=== PATIENT | male | born 1990 | race Caucasian/White ===

== ENCOUNTER 2024-03-29 17:18 | Inpatient (IN) | payer BC, SELFPAY ==
--- NOTE | ~2024-03-29 | US_ITS ---
CLINICAL HISTORY: abnormal LFTs - liver only Limited abdominal ultrasound Comparison: None Findings: The liver is normal in size, measuring 15.8 cm in length. Normal echogenicity without focal lesions. Normal hepatopetal flow is seen within the portal vein. The common bile duct is normal in diameter, measuring 0.4 cm. No cholelithiasis. No wall thickening or pericholecystic fluid. Negative sonographic Rosado sign. The right kidney is normal in echogenicity and size, measuring 10.7 cm in length. Unremarkable limited evaluation of the pancreas. Impression: Negative for acute cholecystitis. The liver is normal in size and echogenicity. This document has been electronically signed by: Rosaline Carlisle MD on 03/31/2024 18:02:04
[2024-03-29 17:27] VITALS: BP 143/73; TEMP 36.6; O2SAT 97; BMI 27.1
--- NOTE | 2024-03-29 17:47 | ED.AMS ---
HPI - Altered Mental Status General Chief Complaint: General Medical Stated Complaint: ?ALTERED/NON VERBAL,COOP,UNK PSYCH/SUBS USE Time Seen by Provider: 03/29/24 17:28 Source: EMS Mode of arrival: EMS History of Present Illness ED Provider: HPI narrative: Patient under influence of some substance was found in the bushes naked not communicating details not available Related Data Allergies Allergy/AdvReac Type Severity Reaction Status Date / Time No Known Allergies Allergy Verified 03/29/24 17:45 Review of Systems Review of Systems: Yes Unobtainable due to mental status PMFSH Social History Social History Do you have a plan to hurt others: No Plan Physical Exam ED Vital Signs: Vital Signs - 24 hr 03/29/24 17:27 03/29/24 18:10 03/29/24 18:16 Temperature 97.9 F 98.1 F Pulse Rate 94 94 Respiratory Rate 13 14 Blood Pressure 143/73 H 151/65 H 151/65 H Pulse Oximetry 97 94 93 Oxygen Delivery Method Room Air Room Air Room Air 03/29/24 19:00 03/29/24 19:54 03/29/24 22:20 Temperature Pulse Rate 83 75 81 Respiratory Rate 11 L 12 11 L Blood Pressure 120/67 132/66 128/72 Pulse Oximetry 96 97 96 Oxygen Delivery Method Room Air Room Air Room Air BMI result Body Mass Index 27.1 Appearance: Alert. Agitated? Hallucinating Eyes: PERRLA, No Nystagmus ENT: Pharynx normal. Oral Mucosa moist Neck: Normal inspection. Neck supple. CVS: Normal heart rate and rhythm. Pulses normal. Respiratory: No respiratory distress. Equal air entry bilateral, no wheezing/rales/rhonchi Abdomen: Soft and nontender. Bowel sounds are present, no mass palpable, no CVA tenderness Skin: Skin warm and dry. Normal skin color. Normal skin turgor. Extremities: No lower extremity edema. No calf tenderness Neuro: Alert moving all 4 extremities. Ambulates but agitated Medications Administered Discontinued Medications Generic Name Dose Route Start Last Admin Trade Name Freq PRN Reason Stop Dose Admin Diphenhydramine HCl 50 mg 03/29/24 17:30 03/29/24 17:48 Diphenhydramine Hcl 50 Mg/Ml Vial IM 03/29/24 17:31 50 mg ONCE ONE Administration Haloperidol Lactate 5 mg 03/29/24 17:30 03/29/24 17:48 Haloperidol Lactate 5 Mg/Ml Vial IM 03/29/24 17:31 5 mg STAT STA Administration Haloperidol Lactate 5 mg 03/29/24 17:38 03/29/24 17:48 Haloperidol Lactate 5 Mg/Ml Vial IM 03/29/24 17:39 5 mg STAT STA Administration Ketamine HCl 200 mg 03/29/24 17:40 03/29/24 17:49 Ketamine Hcl 500 Mg/5 Ml Vial IM 03/29/24 17:41 200 mg ONCE ONE Administration Lorazepam 2 mg 03/29/24 17:30 03/29/24 17:48 Lorazepam 2 Mg/Ml Vial IM 03/29/24 17:31 2 mg STAT STA Administration Lorazepam 2 mg 03/29/24 17:38 03/29/24 17:49 Lorazepam 2 Mg/Ml Vial IM 03/29/24 17:39 2 mg STAT STA Administration Medical Decision Making Medical Decision Making MDM Narrative: Patient is likely under influence of substance abuse likely PCP initially came very agitated restrained was applied medications were given which were removed and now patient feeling much better ambulatory in the ER refused to give his name and details refused to give his urine sample to find out about the drug screening other labs are stable will keep it in the ER released gets better or communicate and get care team evaluate patient is medically cleared to go to POD section Lab Data MDM Lab Attestation statement: I reviewed the patient's lab results. 03/29/24 19:12 03/29/24 19:12 Labs: Lab Results 03/29/24 03/29/24 03/29/24 Range/Units 18:07 19:12 19:13 WBC 12.8 H (4.8-10.8) X10*3/uL RBC 5.11 (4.60-5.80) X10*6/uL Hgb 15.4 (14.0-18.0) g/dl Hct 44.3 (42.0-52.0) % MCV 86.7 (80.0-98.0) fL MCH 30.1 (27.0-33.0) pg MCHC 34.8 (31.0-36.0) g/dl RDW 11.5 (11.0-16.0) % Plt Count 235 (160-400) X10*3/uL MPV 9.2 L (9.4-12.4) fL Immature Gran % (Auto) 0.2 (0.0-0.4) % Neut % (Auto) 87.7 H (45-73) % Lymph % (Auto) 3.1 L (20-40) % [place] % (Auto) 8.8 (2-11) % Eos % (Auto) 0.0 (0-4) % Baso % (Auto) 0.2 (0-2) % Lymph # (Auto) 0.4 L (1.2-4.9) X10*3/uL [place] # (Auto) 1.1 (0.1-1.2) X10*3/uL Eos # (Auto) 0.0 (0.0-0.4) X10*3/uL Baso # (Auto) 0.0 (0.0-0.2) X10*3/uL Abs Immat Gran (auto) 0.03 (0.00-0.03) X10*3/uL Absolute Neuts (auto) 11.2 H (2.0-8.3) x10*3/uL Absolute Nucleated RBC 0.000 (0.0-0.012) X10*3/uL Nucleated RBC % (auto) 0.0 (0.0-0.2) /100WBC Sodium 137 (135-145) mmol/L Potassium 4.3 (3.3-5.1) mmol/L Chloride 103 (96-108) mmol/L Carbon Dioxide 24 (22-29) mmol/L Anion Gap 14 (12-20) BUN 11 (9-16) mg/dL Creatinine 0.90 (0.5-1.4) mg/dL Estim Creat Clear Calc 131.7 Estimated GFR > 60 POC Glucose 153 H (60-115) mg/dL Random Glucose 140 H (60-115) mg/dL Calcium 9.5 (8.4-10.2) mg/dL Magnesium 2.0 (1.6-2.6) mg/dL Total Bilirubin 0.8 (0.0-1.0) mg/dL AST 113 H (5-37) U/L ALT 134 H (0-40) U/L Alkaline Phosphatase 56 (39-117) U/L Total Protein 7.7 (6.5-8.0) g/dL Albumin 4.5 (3.5-5.0) g/dL Salicylates < 5.0 L (15-30) mg/dL Acetaminophen 11 (<30) mcg/mL Ethyl Alcohol < 10 mg/dL Discharge Plan Discharge Clinical Impression: Substance abuse Patient Disposition: Still a Patient
[2024-03-29] MEDS: LORazepam 2 MG/ML VIAL IM ×2 (17:48→17:49)
[2024-03-29] MEDS: diphenhydrAMINE HCL 50 MG/ML VIAL IM (17:48)
[2024-03-29] MEDS: Haloperidol Lactate 5 MG/ML VIAL IM ×2 (17:48)
[2024-03-29] MEDS: Ketamine HCl 500 MG/5 ML VIAL 200 MG IM (17:49)
[2024-03-29 18:10] VITALS: BP 151/65; PULSE 94; RESP 13; TEMP 36.7; O2SAT 94
--- NOTE | 2024-03-29 18:10 | PC.NURSE ---
Pt elmo, was found outside in a currie in his underwear, PD on scene with EMS. Pt calm/cooperative upon arrival, not responding to questions/painful stimuli. 1720- Pt attempting to jump out of bed/become aggressive with staff members. Security at bedside along with other staff members. Pt continues to attempt to flee/violent with staff. 1730- Pt placed in 4 point restraints. Violent/combative with staff while attempting to place in restraints. Verbal order per MD Bains for B52 IM. Pt continues to be violent/combative with staff, attempting to grab/swing at staff members.
[2024-03-29 18:12] LABS: Glucose, Whole Blood 153 mg/dL (60-115)
[2024-03-29 18:16] VITALS: BP 151/65; PULSE 94; RESP 14; O2SAT 93
[2024-03-29 19:00] VITALS: BP 120/67; PULSE 83; RESP 11; O2SAT 96
--- NOTE | 2024-03-29 19:00 | PC.NURSE ---
Assumed care of pt at 1900. PT calm and cooperative, sleeping. PT able to be released from restraints, but security is dealing with another pt at this time. Will try for labs and ekg with block saw operatorGarret Lindsey
--- NOTE | 2024-03-29 19:02 | ECG_ITS ---
Test Reason : DRUG USE,MED CLEAR Blood Pressure : / mmHG Vent. Rate : 083 BPM Atrial Rate : 083 BPM P-R Int : 120 ms QRS Dur : 104 ms QT Int : 392 ms P-R-T Axes : 069 048 037 degrees QTc Int : 460 ms Normal sinus rhythm with sinus arrhythmia Ventricular pre-excitation, WPW pattern type B Abnormal ECG No previous ECGs available Referred By: Félix Hayward Electronically Signed By:MYRNA DUMAS MD
--- NOTE | 2024-03-29 19:12 | PC.NURSE ---
Ekg and labs obtained. Sent down to pharmacy
[2024-03-29 19:18] LABS: MANUAL DIFF FLAG NO
[2024-03-29 19:19] LABS: Basophils Percent Auto 0.2 % (0-2); Hematocrit 44.3 % (42.0-52.0); Hemoglobin 15.4 g/dl (14.0-18.0); Imm Gran Abs Auto 0.03 X10*3/uL (0.00-0.03); Imm Gran Pct Auto 0.2 % (0.0-0.4); Lymphocytes Absolute Auto 0.4 X10*3/uL (1.2-4.9); Lymphocytes Percent Auto 3.1 % (20-40); Mean Corpuscular HGB Conc 34.8 g/dl (31.0-36.0); Mean Corpuscular Hemoglobin 30.1 pg (27.0-33.0); Mean Corpuscular Volume 86.7 fL (80.0-98.0); Mean Platelet Volume 9.2 fL (9.4-12.4); Monocytes Absolute Auto 1.1 X10*3/uL (0.1-1.2); Monocytes Percent Auto 8.8 % (2-11); Neutrophils Absolute Auto 11.2 x10*3/uL (2.0-8.3); Neutrophils Percent Auto 87.7 % (45-73); Platelet Count 235 X10*3/uL (160-400); Red Blood Count 5.11 X10*6/uL (4.60-5.80); Red Cell Distribution Width 11.5 % (11.0-16.0); White Blood Count 12.8 X10*3/uL (4.8-10.8)
--- NOTE | 2024-03-29 19:20 | PC.NURSE ---
pt released from restraints
[2024-03-29 19:33] LABS: Ethanol < 10 mg/dL
[2024-03-29 19:36] LABS: Alanine Aminotransferase 134 U/L (0-40); Albumin Level 4.5 g/dL (3.5-5.0); Alkaline Phosphatase 56 U/L (39-117); Anion Gap 14 (12-20); Aspartate Amino Transferase 113 U/L (5-37); Bilirubin Total 0.8 mg/dL (0.0-1.0); Blood Urea Nitrogen 11 mg/dL (9-16); Calcium 9.5 mg/dL (8.4-10.2); Carbon Dioxide 24 mmol/L (22-29); Chloride 103 mmol/L (96-108); Creatinine Clr Calc Pharmacy 131.7; Estimated Glomerular Filt Rate > 60; Glucose Random 140 mg/dL (60-115); Potassium 4.3 mmol/L (3.3-5.1); Sodium 137 mmol/L (135-145); Total Protein 7.7 g/dL (6.5-8.0)
[2024-03-29 19:40] LABS: Acetaminophen LAB 11 mcg/mL (<30); Salicylate < 5.0 mg/dL (15-30)
[2024-03-29 19:54] VITALS: BP 132/66; PULSE 75; RESP 12; O2SAT 97
[2024-03-29 22:20] VITALS: BP 128/72; PULSE 81; RESP 11; O2SAT 96
--- NOTE | 2024-03-30 01:24 | MHC.EDTECH ---
Patient belongings in [facility] closet top shelf
[2024-03-30 01:35] VITALS: BP 112/79; PULSE 113; RESP 16; TEMP 36.4; O2SAT 98
[2024-03-30 03:22] VITALS: BP 124/63; PULSE 88; RESP 16; TEMP 36.5; O2SAT 96
--- NOTE | 2024-03-30 03:53 | PC.NURSE ---
Addendum entered by Opal Kemp 03/30/24 04:07: Pt continues to denie SI/HI. Endorses auditory hallucinations- states he has been hearing conflicting voices in his head and he feels that something has been implanted in his head this has been going on since January. He denies any current mental health services or providers at this time and has noo formal mental health diagnoses. Family hx of schizophrenia- dad. Addendum entered by Opal Kemp 03/30/24 03:57: PT denies SI/HI Original Note: PT now arousable. Able to answer questions- states that he did not take any medications prior to being found outside. States he had a mental break and all he had was water and sleep . Registration at bed side.
--- NOTE | 2024-03-30 04:00 | PC.NURSE ---
PT's roommate Kei Walker [phone]
[2024-03-30 04:10] LABS: Appearance Urine Clear; Color Urine Dark Yellow; Glucose Urine UA Negative (Negative); Leukocyte Esterase Urine Negative (Negative); Nitrite Urine Negative (Negative); PH 5.5 (5.0-9.0); Specific Gravity - Urine 1.025 (1.005-1.025); Urine Blood Negative (Negative); Urine Ketones 80 mg/dL (Negative); Urine Protein Trace mg/dL (Neg-Trace)
--- NOTE | 2024-03-30 04:12 | PC.NURSE ---
PT agreeable to speaking with care team.
[2024-03-30 04:22] LABS: Amphetamine Screen Urine Not Detected (Not Detect); Barbiturates, Urine Not Detected (Not Detect); Benzodiazepines Screen Urine Not Detected (Not Detect); Buprenorphine Scr Not Detected (Not Detect); Cannabinoid Screen Urine Not Detected (Not Detect); Cocaine Screen Urine Not Detected (Not Detect); Fentanyl, urine Not Detected (Not Detect); Methadone Screen, Urine Not Detected (Not Detect); Opiate Screen Urine Not Detected (Not Detect); Oxycodone Screen Urine Not Detected (Not Detect); Phencyclidine Screen Urine Not Detected (Not Detect)
--- NOTE | 2024-03-30 05:17 | PC.NURSE ---
this rn assumed care of pt at this time from main ed pt ambulatory pt redirected to bed 1 assignment
--- NOTE | 2024-03-30 07:08 | PC.NURSE ---
Assumed care of patient at 0645, patient appears to be sleeping, respirations even and unlabored, no apparent distress noted. Continue plan of care for CARE team miriam
[2024-03-30 15:45] VITALS: BP 129/71; PULSE 68; RESP 16; TEMP 36.9; O2SAT 98
--- NOTE | 2024-03-30 16:26 | PHA.MEDREC ---
Addendum entered by Vanessa Davis RPh 03/30/24 16:36: reviewed by [facility]. Original Note: Pharmacy Consult ? Medication Reconciliation Pharmacy has completed the medication reconciliation. Reviewed med rec done by nursing.
[2024-03-30 20:28] VITALS: BP 133/74; PULSE 98; RESP 18; TEMP 37.7; O2SAT 98
--- NOTE | 2024-03-31 05:38 | PC.NURSE ---
Assumed care of pt at 2300. Patient has been sleeping since assuming care and is still sleeping at the time of this note. Respirations have remained even and unlabored throughout the night. No signs of distress or discomfort noted. 15 minute checks conducted and remain in place. Continuing current plan of care for bed search
[2024-03-31 06:13] VITALS: BP 138/68; PULSE 99; RESP 18; TEMP 37.2; O2SAT 98
--- NOTE | 2024-03-31 07:06 | PC.NURSE ---
Assumed care of patient at 0700, patient currently resting at this time. Continue with plan for inpatient bed search.
--- NOTE | 2024-03-31 12:17 | PC.NURSE ---
pt requesting medication for constipation, states his last BM was sunday, provider was notified.
--- NOTE | 2024-03-31 14:08 | PC.NURSE ---
Patient OOB ambulating to bathroom and phone with steady gait. Calm and cooperative, currently sleeping at this time.
[2024-03-31 15:50] LABS: Albumin Level 4.3 g/dL (3.5-5.0); Alkaline Phosphatase 65 U/L (39-117); Anion Gap 11 (12-20); Aspartate Amino Transferase 1125 U/L (5-37); Bilirubin Direct 0.3 mg/dL (0.0-0.5); Bilirubin Total 0.6 mg/dL (0.0-1.0); Blood Urea Nitrogen 13 mg/dL (9-16); Calcium 9.4 mg/dL (8.4-10.2); Carbon Dioxide 30 mmol/L (22-29); Chloride 101 mmol/L (96-108); Creatinine Clr Calc Pharmacy 115.2; Estimated Glomerular Filt Rate > 60; Glucose Random 101 mg/dL (60-115); Potassium 3.8 mmol/L (3.3-5.1); Sodium 138 mmol/L (135-145); Total Protein 8.1 g/dL (6.5-8.0)
[2024-03-31 16:21] LABS: Alanine Aminotransferase 2749 U/L (0-40)
[2024-03-31 17:02] VITALS: BP 146/83; PULSE 91; RESP 18; TEMP 37.3; O2SAT 100
--- NOTE | 2024-03-31 17:04 | PM.IMHP ---
History of Present Illness Date of Service: 03/31/24 Chief Complaint: Tylenol toxicity, elevated lfts A 33-year-old male was brought to the ED on 03/29 by the police department after being found in his underwear only. Initial Utox showed a Tylenol level of 11 and a negative toxicology screen. AST was 113, ALT 134, and CPK was 1372. He was in the behavioral health unit awaiting admission. The patient now reports having taken 10 or 15 Tylenol tablets, although his motive is unclear. Poison control has recommended initiating N-Acetylcysteine (NAC) therapy for 21 hours. Review of Systems Review of Systems: Gen: no fever Resp: no sob, no cough CV: no chest, no HANDLEY, no leg edema GI: No n/v, no abd pain Neuro: No confusion Psych: depressed, didn't verbalize SI or HI Yes all other systems are reviewed and are negative [facility] Social History Household Members: Friend(s) Housing: Apartment Patient Tobacco Use Status: Never used Tobacco Use of substances other than those prescribed or required for medical reasons: No Have you been hit, kicked, punched, or otherwise hurt by someone within the past year? If so, by whom?: No Do you feel safe in your current relationship?: No Current Relationship Is there a partner from a previous relationship who is making you feel unsafe now?: No Are you made to feel afraid or neglected: No Advance Directives: No Advance Directives Information Provided: Yes Do you have a plan to hurt others: No Plan Recently lost weight without trying: No Eating poorly because of decreased appetite: No Nutrition Risks: No Nutritional Risk Meds Allergies Allergy/AdvReac Type Severity Reaction Status Date / Time No Known Allergies Allergy Verified 03/29/24 17:45 Active Medications: Current Medications Sodium Chloride (Ns) 1,000 mls @ 999 mls/hr IV .Q1H1M ONE Stop: 03/31/24 17:23 Acetylcysteine 13,600 mg/ (Dextrose) 268 mls @ 199.959 mls/hr IV ONCE ONE Stop: 03/31/24 18:01 Acetylcysteine 4,535.9 mg/ (Dextrose) 522.6795 mls @ 125 mls/hr IV ONCE ONE Stop: 03/31/24 20:51 Acetylcysteine 9,071.8 mg/ (Dextrose) 1,045.359 mls @ 62.5 mls/hr IV ONCE ONE Stop: 04/01/24 09:24 Home Medications ?Medication ?Instructions ?Recorded ?Confirmed ?Last Taken ?Type No Known Home Meds 03/30/24 03/30/24 Unknown History Physical Exam Vital Signs and Narrative: Vital Signs: Last Vital Signs Temp 99.2 F 03/31/24 17:02 Pulse 91 03/31/24 17:02 Resp 18 03/31/24 17:02 BP 146/83 H 03/31/24 17:02 Pulse Ox 100 03/31/24 17:02 O2 Del Method Room Air 03/31/24 17:02 BMI result Body Mass Index 27.1 Const: Other: General: AO X 3, no acute distress Resp: CTA bilateral CVS: S1,S2,RRR GI: +BS, NT, no distention Skin: No rash Neuro: motor grossly intact Psych: appropriate affect Results Labs 03/29/24 19:12 04/01/24 05:00 Labs: Laboratory Results - last 24 hr 03/31/24 15:20 Anion Gap 11 L Estim Creat Clear Calc 115.2 Estimated GFR > 60 Random Glucose 101 Calcium 9.4 Total Bilirubin 0.6 Direct Bilirubin 0.3 AST 1125 H ALT 2749 H Alkaline Phosphatase 65 Total Creatine Kinase 1372 H Total Protein 8.1 H Albumin 4.3 Assessment and Plan (1) Abnormal LFTs: Status: Acute (2) Tylenol overdose: Status: Acute Plan 33/m found wondering in the [place] with initial+tyelnol level and mild elevation in LFTs and now LFTs much higher.. Suspect Tylenol overdose with elevated LFTS -continue NAC proptol for 21 hours -rehcekc Tylenol level -check INR -IVF -check hepatitis profile Mild elevated CPK, early rhabdo -IVF and repeat CPK in the morning ?Psychosis--inpatient Psych when medically cleared low risk for dvt, early ambulation full code admission for tylenol od, elevated lfts and on NAC Quality Stroke Does the patient have a stroke diagnosis?: No VTE Prior VTE?: No VTE Risk Level:: Medical - low VTE Device Contraindication: Treatment Not Indicated VTE Drug Contraindication: Treatment Not Indicated
[2024-03-31 17:10] LABS: VBG Base Excess 6.7 mmol/L; VBG HCO3 31 mmol/L (22-26); VBG pCO2 45 mmHg; VBG pH 7.45 (7.32-7.43); VBG pO2 60 mmHg
[2024-03-31 17:11] LABS: Venous Blood Gas Refer to POC result
[2024-03-31 17:15] LABS: INTERNATIONAL NORM RATIO 1.1 (0.9-1.1); Prothrombin Time 12.3 SEC (10.9-12.4)
[2024-03-31] MEDS: 0.9 % Sodium Chloride 1,000 ML 999 ML IV (17:16)
[2024-03-31 17:27] LABS: Acetaminophen LAB < 3 mcg/mL (<30); Salicylate < 5.0 mg/dL (15-30)
[2024-03-31] MEDS: ACETYLCYSTEINE IV ×3 (17:32→23:31)
[2024-03-31] MEDS: DEXTROSE 5% IV ×3 (17:32→23:31)
[2024-03-31 18:39] VITALS: BP 153/88; PULSE 108; RESP 22; O2SAT 99
--- NOTE | 2024-03-31 19:30 | PC.NURSE ---
assumed care of patient at this time, pt resting comfortably with no apparent distress noted, constant assisted living associate watch
[2024-03-31 19:32] VITALS: BP 155/90; PULSE 103; RESP 15; O2SAT 98
[2024-03-31] MEDS: Lactated Ringers 1,000 ML 150 ML IVCONT (19:33)
--- NOTE | 2024-03-31 21:10 | PC.NURSE ---
patient awake and began thrashing aroung pulling IV lines out this Rn and tech attempted to hold patients arms to keep IVs in place, security was alerted and DR at bedside. chemical restraints ordered.
[2024-03-31] MEDS: OLANZapine 10 MG VIAL IM (21:23)
[2024-03-31] MEDS: Midazolam HCl/PF 2 MG/2 ML VIAL 5 MG IM (21:23)
[2024-03-31 21:26] VITALS: BP 143/81; PULSE 110; RESP 13; O2SAT 95
[2024-03-31 23:29] VITALS: BP 161/53; PULSE 87; RESP 16; TEMP 36.3; O2SAT 97
[2024-04-01] VITALS (8 sets, daily range): BP systolic 119–158; BP diastolic 66–80; PULSE 60–90; RESP 13–18; TEMP 36.5–37.4; O2SAT 96–100
[2024-04-01] MEDS: Lactated Ringers 1,000 ML 150 ML IVCONT ×4 (01:03→22:07)
[2024-04-01 03:58] LABS: HBS Num1 43.88 mIU/mL (0-7.99); HBc Num1 0.23 S/CO (0.00-0.79); Hepatitis A Antibody IgM 0.23 Index (0-0.79); Hepatitis B Core Antibody Nonreactive (Nonreactive); Hepatitis B Surface Antigen Negative (Negative); ~HepC Num1 0.14 S/CO (0.00-0.79); ~Hepatitis A Antibody IgM Nonreactive (Nonreactive); ~Hepatitis B Surface Antibody REACTIVE (Nonreactive); ~Hepatitis C Antibody Nonreactive (Nonreactive)
[2024-04-01 05:47] LABS: Albumin Level 3.4 g/dL (3.5-5.0); Alkaline Phosphatase 42 U/L (39-117); Anion Gap 9 (12-20); Aspartate Amino Transferase 437 U/L (5-37); Bilirubin Direct 0.2 mg/dL (0.0-0.5); Bilirubin Total 0.6 mg/dL (0.0-1.0); Blood Urea Nitrogen 6 mg/dL (9-16); Calcium 8.4 mg/dL (8.4-10.2); Carbon Dioxide 26 mmol/L (22-29); Chloride 109 mmol/L (96-108); Creatinine Clr Calc Pharmacy 161.6; Estimated Glomerular Filt Rate > 60; Glucose Random 109 mg/dL (60-115); Potassium 3.4 mmol/L (3.3-5.1); Sodium 141 mmol/L (135-145); Total Protein 6.1 g/dL (6.5-8.0)
[2024-04-01 06:07] LABS: Alanine Aminotransferase 1676 U/L (0-40)
[2024-04-01] MEDS: 0.9 % Sodium Chloride Flush 3 ML SYRINGE IVFLUSH ×3 (08:59→22:09)
--- NOTE | 2024-04-01 09:42 | MHC.CM.PN ---
cm attempted to meet w/pt however pt in br performing adl's, cm to revisit.
--- NOTE | 2024-04-01 11:14 | P.PNIM_ITS ---
Subjective Subjective Date of Service: 04/01/24 Interval History: Tylenol toxicity, elevated LFTs, He is cooperative, denies suicidal ideation LFTs trending down Physical Exam 2 Vital Signs: Vital Signs: Last Vital Signs Temp 97.9 F 04/01/24 07:55 Pulse 75 04/01/24 07:55 Resp 16 04/01/24 07:55 BP 130/70 04/01/24 07:55 Pulse Ox 99 04/01/24 07:55 O2 Del Method Room Air 04/01/24 07:55 BMI result Body Mass Index 27.1 General: AO X 3, no acute distress Resp: CTA bilateral CVS: S1,S2,RRR GI: +BS, NT, no distention Skin: No rash Neuro: motor grossly intact Psych: appropriate affect Objective Data Active Medications Calcium Carbonate (Calcium Carbonate 750 Mg Tab.Chew) 750 mg PO Q4H PRN PRN Reason: Heartburn Acetylcysteine 9,071.8 mg/ (Dextrose) 1,045.359 mls @ 65.335 mls/hr IV ONCE ONE Stop: 04/01/24 14:59 Last Admin: 03/31/24 23:31 Dose: 65.34 mls/hr Documented By: GABINO Lactated Ringer's (Lr) 1,000 mls @ 150 mls/hr IVCONT .Q6H40M [facility] Last Admin: 04/01/24 08:59 Dose: 150 mls/hr Documented By: FLAKITA Magnesium Hydroxide (Milk Of Magnesia 30 Ml Oral.Susp) 30 ml PO DAILY PRN PRN Reason: Constipation Melatonin (Melatonin 3 Mg Tablet) 6 mg PO BEDTIME PRN PRN Reason: Insomnia Ondansetron HCl (Ondansetron Hcl 4 Mg/2 Ml Vial) 4 mg IVPUSH Q8H PRN PRN Reason: Nausea and Vomiting Sodium Chloride (0.9 % Sodium Chloride Flush 3 Ml Syringe) [facility] Last Admin: 04/01/24 08:59 Dose: 3 ml Documented By: FLAKITA Labs 03/29/24 19:12 04/01/24 05:00 Labs: Laboratory Results - last 24 hr 03/31/24 03/31/24 03/31/24 15:20 17:02 17:05 PT 12.3 INR 1.1 VBG pH 7.45 H VBG pCO2 45 VBG pO2 60 VBG HCO3 31 H VBG O2 Saturation 88.0 VBG Base Excess 6.7 Anion Gap 11 L Estim Creat Clear Calc 115.2 Estimated GFR > 60 Random Glucose 101 Calcium 9.4 Total Bilirubin 0.6 Direct Bilirubin 0.3 AST 1125 H ALT 2749 H Alkaline Phosphatase 65 Total Creatine Kinase 1372 H Total Protein 8.1 H Albumin 4.3 Salicylates < 5.0 L Acetaminophen < 3 Hepatitis A IgM Ab Nonreactive Hep Bs Antigen Negative Hep Bs Antibody REACTIVE Hep B Core Total Ab Nonreactive Hepatitis C Ab (EIA) Nonreactive 04/01/24 05:00 PT INR VBG pH VBG pCO2 VBG pO2 VBG HCO3 VBG O2 Saturation VBG Base Excess Anion Gap 9 L Estim Creat Clear Calc 161.6 Estimated GFR > 60 Random Glucose 109 Calcium 8.4 D Total Bilirubin 0.6 Direct Bilirubin 0.2 AST 437 H ALT 1676 H Alkaline Phosphatase 42 Total Creatine Kinase 1193 H Total Protein 6.1 L Albumin 3.4 L Salicylates Acetaminophen Hepatitis A IgM Ab Hep Bs Antigen Hep Bs Antibody Hep B Core Total Ab Hepatitis C Ab (EIA) Assessment and Plan (1) Tylenol overdose: Status: Acute (2) Abnormal LFTs: Status: Acute Plan 33/m found wondering in the [place] with initial+tyelnol level and mild elevation in LFTs and now LFTs much higher.. Suspect Tylenol overdose with elevated LFTS -continue NAC protpcol for 21 hours -repeatTylenol level was normal -INR normal -IVF -Hepatitis screen is negative Elevated LFTs d/t above -trending down -follow LFTS and if worsening gi consult Mild elevated CPK, early rhabdo, CK trending down -IVF and repeat CPK in the morning ?Psychosis/Depression/ OD--inpatient Psych when medically cleared low risk for dvt, early ambulation full code need for inptient: tylenol od, elevated lfts and on NAC Quality Stroke Does the patient have a stroke diagnosis?: No VTE Prior VTE?: No VTE Risk Level:: Medical - low VTE Device Contraindication: Treatment Not Indicated VTE Drug Contraindication: Treatment Not Indicated
--- NOTE | 2024-04-01 14:04 | MHC.CM.PN ---
EMR REVIEWED, PT W/INTENTIONAL TYLENOL OD, CM MET W/PT WHO REPORTS HE LIVES W/A ROOMMATE, IS FULLY INDEP W/CARE, NO DME/SERVICES, PT AWARE HE WILL BE SEEN BY [facility] ONCE MEDICALLY CLEARED AND MAY NEED PSYCH IPLOC STAY, PT NOT OPPOSED. PT DENIES HAVING A PCP, PT HAS BLUE CROSS AND CM OFFERED TO MAKE PT A NEW PT PCP APPT HOWEVER PT DECLINED AND WAS AGREEABLE TO [facility] W/PROVIDERS, PT REPORTS HE WILL CALL [facility] HOWEVER IS AWARE HE COULD LIKELY GET IN SOONER AT [facility]. PT EDUCATED AND DECLINED TO COMPLETE A HCP.
[2024-04-01 17:56] LABS: Prothrombin Time 11.3 SEC (10.9-12.4)
[2024-04-01 18:23] LABS: Albumin Level 3.9 g/dL (3.5-5.0); Alkaline Phosphatase 52 U/L (39-117); Aspartate Amino Transferase 305 U/L (5-37); Bilirubin Direct 0.1 mg/dL (0.0-0.5); Bilirubin Total 0.4 mg/dL (0.0-1.0); Total Protein 7.1 g/dL (6.5-8.0)
[2024-04-01 18:35] LABS: Alanine Aminotransferase 1505 U/L (0-40)
--- NOTE | 2024-04-01 18:45 | PC.NURSE ---
Poison control calling for LFT levels, that should of been drawn 2 hours prior to Acetylcysteine finishing. MD notified at 1400 and no new orders placed. Notified MD at 1642 due to poison control calling again, LFT orders then placed. Waiting on levels to be resulted to be able to notify poison control.
[2024-04-01] MEDS: DEXTROSE 5% IV (19:53)
[2024-04-01] MEDS: ACETYLCYSTEINE IV (19:53)
[2024-04-02 03:17] VITALS: BP 133/65; PULSE 65; RESP 18; TEMP 37; O2SAT 100
[2024-04-02] MEDS: Lactated Ringers 1,000 ML 150 ML IVCONT ×3 (04:46→20:49)
[2024-04-02 07:52] LABS: Alanine Aminotransferase 1186 U/L (0-40); Albumin Level 3.7 g/dL (3.5-5.0); Alkaline Phosphatase 44 U/L (39-117); Aspartate Amino Transferase 193 U/L (5-37); Bilirubin Direct 0.2 mg/dL (0.0-0.5); Bilirubin Total 0.7 mg/dL (0.0-1.0); Total Protein 6.6 g/dL (6.5-8.0)
[2024-04-02 08:00] VITALS: BP 158/78; PULSE 87; RESP 18; TEMP 36.9; O2SAT 100
--- NOTE | 2024-04-02 11:02 | P.PNIM_ITS ---
Subjective Subjective Date of Service: 04/02/24 Interval History: Tylenol toxicity, elevated LFTs, He is cooperative, denies suicidal ideation LFTs trending down, still on NAC per poison control for 16 hrs, ending noon today Physical Exam 2 Vital Signs: Vital Signs: Last Vital Signs Temp 98.5 F 04/02/24 08:00 Pulse 87 04/02/24 08:00 Resp 18 04/02/24 08:00 BP 158/78 H 04/02/24 08:00 Pulse Ox 100 04/02/24 08:00 O2 Del Method Room Air 04/02/24 08:00 BMI result Body Mass Index 27.1 General: AO X 3, no acute distress Resp: CTA bilateral CVS: S1,S2,RRR GI: +BS, NT, no distention Skin: No rash Neuro: motor grossly intact Psych: appropriate affect Objective Data Active Medications Calcium Carbonate (Calcium Carbonate 750 Mg Tab.Chew) 750 mg PO Q4H PRN PRN Reason: Heartburn Lactated Ringer's (Lr) 1,000 mls @ 150 mls/hr IVCONT .Q6H40M [facility] Last Admin: 04/02/24 04:46 Dose: 150 mls/hr Documented By: BIANCA Acetylcysteine 9,071.8 mg/ (Dextrose) 1,045.359 mls @ 65.335 mls/hr IV ONCE ONE Stop: 04/02/24 11:59 Last Admin: 04/01/24 19:53 Dose: 65.34 mls/hr Documented By: BIANCA Magnesium Hydroxide (Milk Of Magnesia 30 Ml Oral.Susp) 30 ml PO DAILY PRN PRN Reason: Constipation Melatonin (Melatonin 3 Mg Tablet) 6 mg PO BEDTIME PRN PRN Reason: Insomnia Ondansetron HCl (Ondansetron Hcl 4 Mg/2 Ml Vial) 4 mg IVPUSH Q8H PRN PRN Reason: Nausea and Vomiting Sodium Chloride (0.9 % Sodium Chloride Flush 3 Ml Syringe) 3 ml IVFLUSH QSHIFT [facility] Last Admin: 04/02/24 08:35 Dose: Not Given Documented By: SANJIV Non-Admin Reason: IV Running Labs 03/29/24 19:12 04/01/24 05:00 Labs: Laboratory Results - last 24 hr 04/01/24 04/01/24 04/02/24 17:10 Unknown 06:52 Hold Purple Top SEE NOTE PT 11.3 INR 1.0 Total Bilirubin 0.4 0.7 Direct Bilirubin 0.1 0.2 AST 305 H 193 H ALT 1505 H 1186 H Alkaline Phosphatase 52 44 Total Creatine Kinase 687 H Total Protein 7.1 6.6 Albumin 3.9 3.7 Hold Yellow Top See Note Assessment and Plan (1) Tylenol overdose: Status: Acute (2) Abnormal LFTs: Status: Acute Plan 33/m found wondering in the [place] with initial+tyelnol level and mild elevation in LFTs and now LFTs much higher.. Suspect Tylenol overdose with elevated LFTS -continue NAC protpcol for 21 hours + another 16 hrs per poison control -repeatTylenol level was normal -INR remains normal -LFTs trending down - continue IVF -Hepatitis screen is negative Elevated LFTs d/t above -trending down -follow LFTS, gi consult Mild elevated CPK, early rhabdo, CK trending down -IVF and repeat CPK in the morning ?Psychosis/Depression/ OD--inpatient Psych when medically cleared low risk for dvt, early ambulation full code need for inptient: tylenol od, elevated lfts and on NAC Quality Stroke Does the patient have a stroke diagnosis?: No VTE Prior VTE?: No VTE Risk Level:: Medical - low VTE Device Contraindication: Treatment Not Indicated VTE Drug Contraindication: Treatment Not Indicated
[2024-04-02 11:55] VITALS: BP 116/68; PULSE 82; RESP 18; TEMP 37.2; O2SAT 93
--- NOTE | 2024-04-02 12:32 | P.CNGI_ITS ---
History of Present Illness Data of Consult Service Date: 04/02/24 Requesting physician: Travis Lester Primary Care Provider: Unknown Physician HPI Reason for consult: tylenol overdose, elevated LFTs 33-year-old male was brought to [facility] [place] ED on 03/29 by the police department after being found in his underwear only. Initial Utox showed a Tylenol level of 11 and a negative toxicology screen. He was in the behavioral health unit awaiting admission. Patient later reported taking 10 or 15 Tylenol tablets (does not know the dose if 375 or 500 mg), although his motive is unclear. Poison control was contacted and recommended initiating N-Acetylcysteine (NAC) therapy for 21 hours. GI consulted for evaluation of elevated LFTs Patient denies past history of liver disease, jaundice or hepatitis. He denies abdominal pain, heartburn or dysphagia. Pt denies smoking and admits to drinking alcohol on weekends (usually 3 drinks of Gin) on and off for the past 5 years and avoids drinking on week days. He denies use aspirin or nonsteroidals. Pt works for [employer]) Patient denies known family history of liver disease, colon polyps or GI malignancy. Labs on admission revealed AST was 113, ALT 134, and CPK was 1372. 03/31/24 LFTs increased to AST 1125, ALT 2749, INR 1.1 and acetaminophen level was < 3 Repeat LFTs show improvement with AST of 193 and ALT of 1186 Hepatitis serologies were negative (except immunity to Hep B) 03/31/24 ABDOMINAL ULTRASOUND SHOWED: Impression: Negative for acute cholecystitis. The liver is normal in size and echogenicity. Review of Systems 2 Review of Systems: Gen: no fever Resp: no sob, no cough CV: no chest, no HANDLEY, no leg edema GI: No n/v, no abd pain Neuro: No confusion Psych: depressed, didn't verbalize SI or HI Yes all other systems are reviewed and are negative [facility] Social History Social History Household Members: Friend(s) Housing: Apartment Comment: Sitter in room Patient Tobacco Use Status: Never used Tobacco Use of substances other than those prescribed or required for medical reasons: No Currently Displaying Signs/Symptoms of Drug Intoxication Withdrawal: No Have you been hit, kicked, punched, or otherwise hurt by someone within the past year? If so, by whom?: No Do you feel safe in your current relationship?: No Current Relationship Is there a partner from a previous relationship who is making you feel unsafe now?: No Are you made to feel afraid or neglected: No Advance Directives: No Advance Directives Information Provided: Yes Do you have a plan to hurt others: No Plan Recently lost weight without trying: No Eating poorly because of decreased appetite: No Nutrition Risks: No Nutritional Risk service: No Meds Allergies Allergy/AdvReac Type Severity Reaction Status Date / Time No Known Allergies Allergy Verified 03/29/24 17:45 Active Medications: Current Medications Calcium Carbonate (Calcium Carbonate 750 Mg Tab.Chew) 750 mg PO Q4H PRN PRN Reason: Heartburn Lactated Ringer's (Lr) 1,000 mls @ 150 mls/hr IVCONT .[id number] [facility] Last Admin: 04/02/24 11:31 Dose: 150 mls/hr Magnesium Hydroxide (Milk Of Magnesia 30 Ml Oral.Susp) 30 ml PO DAILY PRN PRN Reason: Constipation Melatonin (Melatonin 3 Mg Tablet) 6 mg PO BEDTIME PRN PRN Reason: Insomnia Ondansetron HCl (Ondansetron Hcl 4 Mg/2 Ml Vial) 4 mg IVPUSH Q8H PRN PRN Reason: Nausea and Vomiting Sodium Chloride (0.9 % Sodium Chloride Flush 3 Ml Syringe) 3 ml IVFLUSH QSHIFT [facility] Last Admin: 04/02/24 08:35 Dose: Not Given Home Medications ?Medication ?Instructions ?Recorded ?Confirmed ?Last Taken ?Type No Known Home Meds 03/30/24 03/30/24 Unknown History Physical Exam 2 Vital Signs: Vital Signs: Last Vital Signs Temp 98.9 F 04/02/24 11:55 Pulse 82 04/02/24 11:55 Resp 18 04/02/24 11:55 BP 116/68 04/02/24 11:55 Pulse Ox 93 04/02/24 11:55 O2 Del Method Room Air 04/02/24 11:55 BMI result Body Mass Index 27.1 Const: General: healthy appearing and no acute distress Nutritional Appearance: average body habitus Orientation/consciousness: patient oriented x3 Limitations: no limitations HEENT: Head: Yes normal to inspection Ears: hearing grossly normal bilaterally Eyes: Sclerae: sclerae normal Pupils: Equal, round and reactive pupils present Neck: Neck: Yes normal visual inspection Chest: Chest palpation & inspection: normal inspection of the chest Resp: Effort & Inspection: normal respiratory effort Auscultation: clear to auscultation bilaterally Cardio: Palpation: normal PMI Rate: regular rate Rhythm: regular rhythm Heart sounds: S1 normal heart sound present, S2 normal heart sound present and no murmurs GI: Palpation (GI): Soft to palpation, nontender and No hepatosplenomegaly present Auscultation: normal bowel sounds Rectal Exam - Male: Yes deferred Skin: General skin exam: no rashes or lesions noted Neuro: General: patient oriented x3, gait normal and moves all extremities Cranial nerves: Yes Equal, round and reactive pupils present Psych: Appearance: grossly normal Mental Status: mental status grossly normal Results Labs 03/29/24 19:12 04/01/24 05:00 Labs: Cardiac Enzymes 04/02/24 Range/Units 06:52 Total Creatine Kinase 687 H (38-174) U/L Liver Function 04/01/24 04/02/24 Range/Units 17:10 06:52 Total Bilirubin 0.4 0.7 (0.0-1.0) mg/dL Direct Bilirubin 0.1 0.2 (0.0-0.5) mg/dL AST 305 H 193 H (5-37) U/L ALT 1505 H 1186 H (0-40) U/L Alkaline Phosphatase 52 44 (39-117) U/L Albumin 3.9 3.7 (3.5-5.0) g/dL Assessment and Plan (1) Abnormal LFTs: Status: Acute (2) Tylenol overdose: Status: Acute Plan 33-year-old male was brought to [facility] ED on 03/29 by the police department after being found in his underwear only. Initial Utox showed a Tylenol level of 11 and a negative toxicology screen. Patient later reported taking 10 or 15 Tylenol tablets (does not know the dose if 375 or 500 mg), although his motive is unclear. Poison control was contacted and recommended initiating N-Acetylcysteine (NAC) therapy for 21 hours. GI consulted for evaluation of elevated LFTs Pt denies smoking and admits to drinking alcohol on weekends (usually 3 drinks of Gin) on and off for the past 5 years and avoids drinking on week days. Labs on admission revealed AST was 113, ALT 134, and CPK was 1372. (No baseline LFTs are available) 03/31/24 LFTs increased to AST 1125, ALT 2749, INR 1.1 and acetaminophen level was < 3 Repeat LFTs show improvement with AST of 193 and ALT of 1186 and INR of 1 Hepatitis serologies were negative (except immunity to Hep B) Pt has completed a 21 hr regimen of IV acetylcysteine RECOMMENDATIONS: 1. Agree with IV fluids and antiemetics. 2. Monitor LFTs every other day - anticipate LFTs will improve and normalize over the next 1-2 weeks 3. IF LFTs remain elevated additional work up for chronic liver disease can be initiated. 4. FU with behavioral health Procedures Date of Service Date of Service: 04/02/24
[2024-04-02 15:02] VITALS: BP 131/75; PULSE 77; RESP 18; TEMP 37.2; O2SAT 98
[2024-04-02 20:00] VITALS: BP 138/70; PULSE 86; RESP 20; TEMP 36.3; O2SAT 100
[2024-04-03] VITALS: BP 148/81; PULSE 55; RESP 20; TEMP 36.6; O2SAT 100
[2024-04-03 04:00] VITALS: BP 131/74; PULSE 58; RESP 18; TEMP 36.4; O2SAT 100
[2024-04-03 07:08] VITALS: BP 119/73; PULSE 83; RESP 18; TEMP 36.4; O2SAT 100
[2024-04-03 07:40] LABS: Alanine Aminotransferase 871 U/L (0-40); Albumin Level 3.6 g/dL (3.5-5.0); Aspartate Amino Transferase 105 U/L (5-37); Bilirubin Direct 0.2 mg/dL (0.0-0.5); Bilirubin Total 0.7 mg/dL (0.0-1.0); Total Protein 6.4 g/dL (6.5-8.0)
[2024-04-03 07:44] LABS: Alkaline Phosphatase 39 U/L (39-117)
--- NOTE | 2024-04-03 09:13 | MHC.CARE ---
Pt meets the criteria for IPLOC secondary to intentionally overdosing on Tylenol. Pt is on a Section 12a. Provider in agreement.
[2024-04-03 11:06] VITALS: BP 142/73; PULSE 97; RESP 18; TEMP 36.9; O2SAT 98
--- NOTE | 2024-04-03 11:21 | PM.DS ---
DS: Providers Provider Date of admission: 03/31/24 17:36 Primary care physician: Unknown Physician Consults: 03/30/24 03:51 Consult to Care Team Stat Comment: Reason for consultation: Altered. Auditory hallucinations 03/31/24 17:36 Consult for Sitter Routine Reason for consultation: SI, overdose Has provider been notified: No 04/01/24 18:38 Consult to Gastroenterology Routine Consulting Provider: Kristie Castro Reason for consultation: tylenol overdose, elevated LFTs Has provider been notified: No 04/03/24 08:04 Consult to Care Team Routine Comment: Reason for consultation: Od ready for DC DS: Diagnosis Discharge Diagnosis (1) Abnormal LFTs: Status: Acute (2) Tylenol overdose: Status: Acute DS: Summary Hospital Course Hospital Course: Chief Complaint: Tylenol toxicity, elevated lfts A 33-year-old male was brought to the ED on 03/29 by the police department after being found in his underwear only. Initial Utox showed a Tylenol level of 11 and a negative toxicology screen. AST was 113, ALT 134, and CPK was 1372. He was in the behavioral health unit awaiting admission. The patient now reports having taken 10 or 15 Tylenol tablets, although his motive is unclear. Poison control has recommended initiating N-Acetylcysteine (NAC) therapy for 21 hours. Hospital course: Patient was admitted for an intentional Tylenol overdose with elevated liver function tests (LFTs) but a normal INR. He was treated with IV fluids and N-acetylcysteine (NAC) per poison control protocol for 21 hours, followed by an additional 16 hours. The initial Tylenol level, taken two days after presentation, was 11, with a subsequent level of <3. AST levels were 113 on 03/29, peaked at 1125 on 03/31, and have gradually decreased to 105 as of 04/03/24. ALT levels initially were 134, peaked at 2749, and have since come down to 871. Bilirubin has remained normal throughout, as has the INR. Hepatitis A, B, and C profiles were negative. LFTS are expected to normalized 1 - 2 weeks and can be rechecked in a week. US of liver was normal. Crisis (CARE team) has assessed him and recommends inpatient Psych treatment and he is agreeable. Time Attestation Discharge Coordination Time (in mins): 35 Quality: Safe Use of Opioids Does Pt have an Active Cancer Diagnosis on the Problem List?: No Quality: Stroke Does the patient have a stroke diagnosis?: No Physical Exam Vital Signs: Vital Signs: Last Vital Signs Temp 98.5 F 04/03/24 11:06 Pulse 97 04/03/24 11:06 Resp 18 04/03/24 11:06 BP 142/73 H 04/03/24 11:06 Pulse Ox 98 04/03/24 11:06 O2 Del Method Room Air 04/03/24 11:06 BMI result Body Mass Index 27.1 Const: Other: General: AO X 3, no acute distress Resp: CTA bilateral CVS: S1,S2,RRR GI: +BS, NT, no distention Skin: No rash Neuro: motor grossly intact Psych: appropriate affect DS: Data Data Completed and Pending Labs on day of discharge: Laboratory Results - last 24 hr 04/03/24 06:58 Total Bilirubin 0.7 Direct Bilirubin 0.2 AST 105 H ALT 871 H Alkaline Phosphatase 39 Total Creatine Kinase 365 H Total Protein 6.4 L Albumin 3.6 Discharge Plan Discharge Anticipated Discharge Date/Time: 04/03/24 11:14 Patient Disposition: Xfer Psychiatric Hosp Discharge Diagnosis: Tylenol overdose, elevated LFTs Referrals: Physician,Unknown J [Primary Care Provider] - 1 Week Discharge Medications: No Action No Known Home Meds Diet: Advance to usual diet Activity on Discharge: As tolerated Stand Alone Forms: Patient Portal Discharge page Print Language: Arabic Care Plan Goals: Recovery from Tylenol overdose, depression. Health Concerns: Tylenol overdose, elevated LFT, mood disorder Plan of Treatment: Transferred to inpatient psych
== END 2024-04-03 14:50 | DRG 817 ==
LOC: HO.ED 03-31 16:47 → HO.EDOVER 03-31 17:43 → HO.IMC 04-01 05:35
PROVIDERS: Emergency Medicine; Admitting Provider Internal Medicine; Emergency Provider Internal Medicine; Visit Provider Internal Medicine
DX: T39.1X2A Poisoning by 4-Aminophenol derivatives, intentional self-harm, initial encounter (principal); M62.82 Rhabdomyolysis; Z78.1 Physical restraint status; Z79.899 Other long term (current) drug therapy
CPT/HCPCS: 36415; 76705; 80048; 80053; 80076; 80143; 80179; 80307; 81003; 82550; 82803; 82947; 83735; 85025; 85610; 86704; 86706; 86709; 86803; 87340; 93005; 99285; J0132; J1200; J1630; J2060; J2250; J2359; J7120

== ENCOUNTER → 2024-03-29 19:02 | Outpatient (BNV) | payer SELFPAY | PROVIDERS: Emergency Provider Internal Medicine; Visit Provider Internal Medicine Cardiovascular Disease | DX: I49.8 Other specified cardiac arrhythmias (principal); R94.31 Abnormal electrocardiogram [ECG] [EKG] | CPT/HCPCS: 93010 ==

== ENCOUNTER → 2024-03-31 15:56 | Outpatient (BNV) | payer BC, SELFPAY | PROVIDERS: Admitting Provider Internal Medicine; Emergency Provider Internal Medicine; Visit Provider Radiology Diagnostic Radiology | DX: R74.01 Elevation of levels of liver transaminase levels (principal); T39.1X1A Poisoning by 4-Aminophenol derivatives, accidental (unintentional), initial encounter | CPT/HCPCS: 76705 ==

== ENCOUNTER → 2024-03-31 17:36 | Outpatient (BNV) | payer BC, SELFPAY | PROVIDERS: Admitting Provider Internal Medicine; Emergency Provider Internal Medicine; Visit Provider Internal Medicine Gastroenterology | DX: R79.89 Other specified abnormal findings of blood chemistry (principal); T39.1X1A Poisoning by 4-Aminophenol derivatives, accidental (unintentional), initial encounter | CPT/HCPCS: 99222 ==

== ENCOUNTER → 2024-03-31 17:36 | Outpatient (BNV) | payer BC, SELFPAY | PROVIDERS: Admitting Provider Internal Medicine; Emergency Provider Internal Medicine; Visit Provider Internal Medicine | DX: T39.1X1A Poisoning by 4-Aminophenol derivatives, accidental (unintentional), initial encounter (principal); R79.89 Other specified abnormal findings of blood chemistry | CPT/HCPCS: 99223; 99232 ==

== ENCOUNTER 2024-04-03 15:02 | Inpatient (IN) | payer BC, SELFPAY ==
[2024-04-03 15:48] VITALS: BMI 24.7
--- NOTE | 2024-04-03 17:28 | PC.ADMIT ---
Pt is a 33 year old [place]riot male who is bilingual Albanian/Algerian. Pt arrived on the unit at 1448 via ambulation, from IM at [facility]. Pt was found by police officers, in the salguero & under a currie, only wearing underwear-per crisis. Upon admission, it was found that he had overdosed on Tylenol and was admitted to [facility]. Pt states that this was an intentional OD with the intent to kill himself. I am very regretful for what I did, and I am grateful to be alive. Pt is here on a CV and signed a 3 day notice, which will be up on Sunday04/08/2024. Skin check completed and is unremarkable. VSS. Pt is currently seeking assistance with finding providers for both PCP and psychiatry. I would like to go to therapy, but I need help finding someone . Pt qualified for a referral to substance abuse, based on the Audit-C assessment. I am going to stop drinking because it makes me depressed. Pt declined the referral. Flat affect, good eye contact, and normal volume and amarilis. Pt has been assessed as being safe on the unit. He denies SI currently and reports that he will come to staff should these thoughts arise. Placed on 15 minute checks.
[2024-04-03 20:00] VITALS: BP 131/80; PULSE 76; RESP 18; TEMP 36.6; O2SAT 100
[2024-04-04 08:00] VITALS: BP 131/72; PULSE 71; RESP 16; TEMP 36.8; O2SAT 99
--- NOTE | 2024-04-04 09:32 | HO.PSYADMNOT ---
HPI Date of Service: 04/04/24 Chief Complaint: SA HPI Narrative: per CARE team eval, pt was found in a currie wearing only his underwear, with altered mental status, and was brought to ED for suspected drug use. pt was not cooperative and was aggressive with staff and required physical and chemical restraint. tylenol level was drawn, which was eleavted, as well as elevated LFTs. pt was medically admitted and treated for tylenol OD. pt informed CARE team he intentionally took 10-15 tylenol pills in a suicide attempt. he endorsed depression with de-realization, thinking he was everette, and experiencing AH and VH of crows. on interview with MD, pt reports he recently has been working very hard in his job and not sleeping much. he began to ruminate about relationships in his life, unable to stop his thoughts or rest his mind. he reports he has been feeling judged by family and society due to his sexuality. he has been focusing on the worst possible outcome for all aspects of his life, and when he took the tylenol, he felt he had logically arrived at the conclusion was to suicide. he regrets that idea and the actions he took based on that idea now, saying that the support and love he has received from his friends has changed his mind. he knows he is loved, and suicide is no longer an option. during the time of his mental imbalance, he believed he was everette, he experienced AVH, he experienced IOR, and he felt confusion about whether the things he was experiencing were real. FH of psychotic D/O and severe, persistent mental illness. discuss possibility of incipient psychotic illness in himself versus psychotic depression (pt also endorsed depressed mood, insomnia, amotivation, anergia, decr concentration, and SI at that one time only) and agreed to trial of low-dose atypical neuroleptic. axel. R/B discusssed. Past Psychiatric History: hosps: none SA: none prior to index event SIB: none outpt: h/o therapy during college years, [id number]. had group therapy for LGBT as well as individual therapy. no h/o medications. since february of 2024 Medical Evaluation Reviewed: Yes PMFSH Family History: father - schizophrenia, multiple inpatient hosps mother - Dx unknown, h/o multiple inpt psych admissions Social History: from [place]. 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 reports supportive social network. has a bro and a sis. estranged from bro and mother, in touch with sister. lives in an apartment with a roommate. Substance History: tobacco - denies use alcohol - drinks 3x/wk. 2-3 drinks each time. cannabis - none cocaine - none opioids - none stimulants - none benzos - none denies use of other substances Diagnostics Vital Signs (24Hr): Vital Signs - 24 hr 04/03/24 20:00 04/04/24 08:00 Temperature 97.8 F 98.2 F Pulse Rate 76 71 Respiratory Rate 18 16 Blood Pressure 131/80 131/72 Pulse Oximetry 100 99 Oxygen Delivery Method Room Air Room Air BMI result Body Mass Index 24.7 Meds/Allergies Meds Home Medications ?Medication ?Instructions ?Recorded ?Confirmed ?Type No Known Home Meds 03/30/24 04/04/24 History Allergies Allergies Allergy/AdvReac Type Severity Reaction Status Date / Time No Known Allergies Allergy Verified 03/29/24 17:45 Mental Status Exam Mental Status Exam Narrative: adequately dressed and groomed. cooperative. no PMA/PMR. speech soft, incr amount, nml rate and latency. thoughts generally linear and logical but sometimes vague or not clearly expressed. affect constricted, some tearfulness. mood i feel good. denies SI today; MRE at the time of his overdose a week ago. denies HI. denies AVH. most recent AVH last sunday, when he also felt de-realized. Assessment & Plan Assessment & Plan (1) Psychosis: Status: Acute Code(s): F29 - Unspecified psychosis not due to a substance or known physiological condition (2) Major depressive episode: Status: Acute Code(s): F32.9 - Major depressive disorder, single episode, unspecified Plan start abilify 2 mg daily for mood/psychotic Sx. T/C addition of standard antidepressant medication. Patient educated on: diagnosis, medication risk/benefits, substance abuse and therapeutic strategies Reason for continued inpatient stay Substantial Risk for: harm to self, inability to function and rapid decompensation Statement Statement: I have reviewed the history and physical and performed a pertinent examination on my patient. No changes have occurred unless specified. If the History and Physical was not performed prior to admission, the Hospitalist's service will be consulted for completing the admission physical. Time Spent With Patient Time: Total time managing care of this patient today _75___ minutes.
[2024-04-04] MEDS: ARIPiprazole 2 MG TABLET PO (12:35)
[2024-04-05 07:52] VITALS: BP 128/66; PULSE 68; RESP 16; TEMP 36.3; O2SAT 98
[2024-04-05] MEDS: ARIPiprazole 2 MG TABLET PO (08:39)
--- NOTE | 2024-04-05 09:47 | HO.PSYCHPN ---
Subjective Subjective Date of Service: 04/05/24 Reason For Visit: SA Interim History: met with patient. Discussed with Nursing. Overall patient is in room reading a book. Looking forward to discharge planning. Reports feeling much more relaxed, less anxious, not sad. Feels the medications seem to be helping with his mood. Looking forward to discharge hopefully after the weekend when his 3 day notice expires. Reports sleep energy and appetite good. No med concerns. Hopeful he can get help with outpatient follow-up Medication Compliance: Yes Side effects from medications: No Attending Groups: Intermittent Review of Systems Acute medical concerns: No Mental Status Exam Mental Status Exam Narrative: pleasant. Engaged. Appropriately presented. Organized. Affect is restricted. Denies feeling depressed or anxious. No SI. No HI. No agitation or psychosis. Insight and judgment fair Diagnostics Vital Signs (24Hr): Vital Signs - 24 hr 04/05/24 07:52 Temperature 97.3 F Pulse Rate 68 Respiratory Rate 16 Blood Pressure 128/66 Pulse Oximetry 98 Oxygen Delivery Method Room Air BMI result Body Mass Index 24.7 Medications Medications Current Medications Acetaminophen (Acetaminophen 325 Mg Tablet) 650 mg PO Q6H PRN PRN Reason: Headache/Pain Mild Scale (1-3) Al Hydroxide/Mg Hydroxide (Magnesium Hydrox/Alum Hydrox 30 Ml Oral.Susp) 30 ml PO Q6H PRN PRN Reason: Heartburn/Nausea Aripiprazole (Aripiprazole 2 Mg Tablet) 2 mg PO DAILY [place] Last Admin: 04/05/24 08:39 Dose: 2 mg Hydroxyzine HCl (Hydroxyzine Hcl 25 Mg Tablet) 25 mg PO Q6H PRN PRN Reason: Anxiety Magnesium Hydroxide (Milk Of Magnesia 30 Ml Oral.Susp) 30 ml PO DAILY PRN PRN Reason: Constipation Nicotine Polacrilex (Nicotine Polacrilex 2 Mg Gum) 4 mg BUCCAL Q2H PRN PRN Reason: Nicotine Cravings Trazodone HCl (Trazodone Hcl 50 Mg Tablet) 50 mg PO BEDTIME MRX1 PRN PRN Reason: Insomnia Allergies Allergies Allergy/AdvReac Type Severity Reaction Status Date / Time No Known Allergies Allergy Verified 03/29/24 17:45 Assessment & Plan Assessment & Plan (1) Psychosis: Status: Acute Code(s): F29 - Unspecified psychosis not due to a substance or known physiological condition (2) Major depressive episode: Status: Acute Code(s): F32.9 - Major depressive disorder, single episode, unspecified Plan start abilify 2 mg daily for mood/psychotic Sx. T/C addition of standard antidepressant medication. 04/05/2024: No changes to current plan Reason for continued inpatient stay Substantial Risk for: rapid decompensation Time Spent With Patient Time: Total time managing care of this patient today ____ minutes.
[2024-04-05 22:20] VITALS: RESP 16
[2024-04-05] MEDS: traZODone HCL 50 MG TABLET PO (23:49)
[2024-04-06 08:00] VITALS: BP 119/62; PULSE 70; RESP 14; TEMP 36.9; O2SAT 99
--- NOTE | 2024-04-06 08:32 | HO.PSYCHPN ---
Subjective Subjective Date of Service: 04/06/24 Reason For Visit: Interim History: met with patient. Discussed with Nursing. Overall patient is in room writing down notes about coping skills and looking forward to discharge planning. His skills include speaking with supports, sleep hygiene, art work, speaking with his boss around workload, exercise. Overall continues to feel the current treatment regimen has been helpful. Not depressed. Eager for discharge planning. Sleep energy and appetite good. No med concerns. Medication Compliance: Yes Side effects from medications: No Attending Groups: Intermittent Review of Systems Acute medical concerns: No Mental Status Exam Mental Status Exam Narrative: pleasant. Engaged. Appropriately presented. Organized. Affect is Restricted, but not depressed. Denies feeling depressed or anxious. No SI. No HI. No agitation or psychosis. Insight and judgment fair Diagnostics Vital Signs (24Hr): Vital Signs - 24 hr 04/05/24 22:20 04/06/24 08:00 Temperature 98.4 F Pulse Rate 70 Respiratory Rate 16 14 Blood Pressure 119/62 Pulse Oximetry 99 Oxygen Delivery Method Room Air BMI result Body Mass Index 24.7 Medications Medications Current Medications Acetaminophen (Acetaminophen 325 Mg Tablet) 650 mg PO Q6H PRN PRN Reason: Headache/Pain Mild Scale (1-3) Al Hydroxide/Mg Hydroxide (Magnesium Hydrox/Alum Hydrox 30 Ml Oral.Susp) 30 ml PO Q6H PRN PRN Reason: Heartburn/Nausea Aripiprazole (Aripiprazole 2 Mg Tablet) 2 mg PO DAILY [place] Last Admin: 04/05/24 08:39 Dose: 2 mg Hydroxyzine HCl (Hydroxyzine Hcl 25 Mg Tablet) 25 mg PO Q6H PRN PRN Reason: Anxiety Magnesium Hydroxide (Milk Of Magnesia 30 Ml Oral.Susp) 30 ml PO DAILY PRN PRN Reason: Constipation Nicotine Polacrilex (Nicotine Polacrilex 2 Mg Gum) 4 mg BUCCAL Q2H PRN PRN Reason: Nicotine Cravings Trazodone HCl (Trazodone Hcl 50 Mg Tablet) 50 mg PO BEDTIME MRX1 PRN PRN Reason: Insomnia Last Admin: 04/05/24 23:49 Dose: 50 mg Allergies Allergies Allergy/AdvReac Type Severity Reaction Status Date / Time No Known Allergies Allergy Verified 03/29/24 17:45 Assessment & Plan Assessment & Plan (1) Psychosis: Status: Acute Code(s): F29 - Unspecified psychosis not due to a substance or known physiological condition (2) Major depressive episode: Status: Acute Code(s): F32.9 - Major depressive disorder, single episode, unspecified Plan start abilify 2 mg daily for mood/psychotic Sx. T/C addition of standard antidepressant medication. 04/05/2024: No changes to current plan 04/06/2024: No changes to current treatment plan Reason for continued inpatient stay Substantial Risk for: rapid decompensation Time Spent With Patient Time: Total time managing care of this patient today ____ minutes.
[2024-04-06] MEDS: ARIPiprazole 2 MG TABLET PO (08:43)
[2024-04-06 20:00] VITALS: BP 135/75; PULSE 78; RESP 16; TEMP 36.9; O2SAT 99
[2024-04-07 07:54] VITALS: BP 123/57; PULSE 70; TEMP 36.3; O2SAT 99
[2024-04-07] MEDS: ARIPiprazole 2 MG TABLET PO (08:54)
--- NOTE | 2024-04-07 12:05 | P.DS_ITS ---
DS: Providers Provider Date of Service: 04/07/24 Date of admission: 04/03/24 15:02 Date of discharge: 04/08/24 Primary care physician: Unknown Physician DS: Diagnosis Discharge Diagnosis (1) Psychosis: Status: Acute (2) Major depressive episode: Status: Acute DS: Medications Discharge Medications Home Medications: Previous Rx's ?Medication ?Instructions ?Recorded aripiprazole 2 mg oral film 2 mg PO DAILY 30 days #30 ea 04/07/24 (Opipza) trazodone 50 mg tablet 50 mg PO BEDTIME PRN insomnia 30 04/07/24 days #30 tabs Mental Status Exam Mental Status Exam Narrative: adequately dressed and groomed. cooperative. no PMA/PMR. speech soft, incr amount, nml rate and latency. thoughts generally linear and logical but sometimes vague or not clearly expressed. affect constricted, some tearfulness. mood i feel good. denies SI/SIBI/HI/AVH. DS: Summary Hospital Course Hospital Course: per 04/04 admission note: HPI Narrative: per CARE team miriam, pt was found in a currie wearing only his underwear, with altered mental status, and was brought to ED for suspected drug use. pt was not cooperative and was aggressive with staff and required physical and chemical restraint. tylenol level was drawn, which was eleavted, as well as elevated LFTs. pt was medically admitted and treated for tylenol OD. pt informed CARE team he intentionally took 10-15 tylenol pills in a suicide attempt. he endorsed depression with de-realization, thinking he was everette, and experiencing AH and VH of crows. on interview with MD, pt reports he recently has been working very hard in his job and not sleeping much. he began to ruminate about relationships in his life, unable to stop his thoughts or rest his mind. he reports he has been feeling judged by family and society due to his sexuality. he has been focusing on the worst possible outcome for all aspects of his life, and when he took the tylenol, he felt he had logically arrived at the conclusion was to suicide. he regrets that idea and the actions he took based on that idea now, saying that the support and love he has received from his friends has changed his mind. he knows he is loved, and suicide is no longer an option. during the time of his mental imbalance, he believed he was everette, he experienced AVH, he experienced IOR, and he felt confusion about whether the things he was experiencing were real. FH of psychotic D/O and severe, persistent mental illness. discuss possibility of incipient psychotic illness in himself versus psychotic depression (pt also endorsed depressed mood, insomnia, amotivation, anergia, decr concentration, and SI at that one time only) and agreed to trial of low- dose atypical neuroleptic. abilify. R/B discusssed. Past Psychiatric History: hosps: none SA: none prior to index event SIB: none outpt: h/o therapy during college years, [id number]. had group therapy for LGBT as well as individual therapy. no h/o medications. since february of 2024 Medical Evaluation Reviewed: Yes [facility] Family History: father - schizophrenia, multiple inpatient hosps mother - Dx unknown, h/o multiple inpt psych admissions Social History: from [place]. 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 reports supportive social network. has a bro and a sis. estranged from bro and mother, in touch with sister. lives in an apartment with a roommate. Substance History: tobacco - denies use alcohol - drinks 3x/wk. 2-3 drinks each time. cannabis - none cocaine - none opioids - none stimulants - none benzos - none denies use of other substances Precis: 04/04: start abilify 2 mg daily for mood/psychotic Sx. T/C addition of standard antidepressant medication. 04/05: Reports feeling much more relaxed, less anxious, not sad. Feels the medications seem to be helping with his mood. Looking forward to discharge hopefully after the weekend when his 3 day notice expires. Reports sleep energy and appetite good. No med concerns. Hopeful he can get help with outpatient follow-up. 04/06: patient is in room writing down notes about coping skills and looking forward to discharge planning. His skills include speaking with supports, sleep hygiene, art work, speaking with his boss around workload, exercise. Overall continues to feel the current treatment regimen has been helpful. Not depressed. Eager for discharge planning. Sleep energy and appetite good. No med concerns. 04/07: feeling much improved, 3-day up tomorrow. meds reviewed, reconciled, prescribed. aftercare in place. 04/08: stable overnight, 3-day up. not committable. discharged as per plan. Time Spent with Patient Time attestation: Total time managing care of this patient today __35__ minutes. Discharge Plan Discharge Anticipated Discharge Date/Time: 04/08/24 11:00 Patient Disposition: Home, Self-Care Discharge Diagnosis: Major Depressive Episode Psychosis NOS Referrals: Naomie Armas (Therapy) [Other] - 04/16/24 10:00 am (IN OFFICE APPOINTMENT) Neeta Peres (Psychiatry) [Other] - 05/15/24 11:00 am (TELEHEALTH APPOINTMENT) [facility] [Provider Group] - 1 Week (04-07-24 [facility] was added to patients chart. Please call [phone] to schedule your follow up appt.) Discharge Medications: New trazodone 50 mg tablet 50 mg PO BEDTIME PRN (Reason: insomnia) 30 Days Qty: 30 1RF Opipza 2 mg film 2 mg PO DAILY 30 Days Qty: 30 1RF Discharge Orders: Discharge Order (Routine); Ordered 04/08/24 Ordered By: Todd Dillard Diet: Advance to usual diet Activity on Discharge: As tolerated Stand Alone Forms: Patient Portal Discharge page, Community Support Print Language: Malay Care Plan Goals: remain safe and stable in the outpatient treatment setting Health Concerns: none Plan of Treatment: take medications as prescribed, attend appointments as scheduled Assessment: not at imminent risk of harm to self or others Discharge Date/Time: 04/08/24 11:18
[2024-04-07 20:00] VITALS: BP 152/72; PULSE 88; TEMP 37.3; O2SAT 99
[2024-04-07] MEDS: traZODone HCL 50 MG TABLET PO (22:05)
[2024-04-08 07:30] VITALS: BP 120/59; PULSE 67; RESP 14; TEMP 36.6; O2SAT 99
[2024-04-08] MEDS: ARIPiprazole 2 MG TABLET PO (09:03)
== END 2024-04-08 11:18 | disposition home or self-care (01) | DRG 754 ==
PROVIDERS: Admitting Provider Psychiatry & Neurology Psychiatry; Visit Provider Psychiatry & Neurology Psychiatry
DX: F32.9 Major depressive disorder, single episode, unspecified (principal); F29 Unspecified psychosis not due to a substance or known physiological condition; Z79.899 Other long term (current) drug therapy

== ENCOUNTER → 2024-04-03 15:02 | Outpatient (BNV) | payer BC, SELFPAY | PROVIDERS: Admitting Provider Psychiatry & Neurology Psychiatry; Visit Provider Psychiatry & Neurology Psychiatry | DX: F29 Unspecified psychosis not due to a substance or known physiological condition (principal); F32.2 Major depressive disorder, single episode, severe without psychotic features | CPT/HCPCS: 90792; 99231; 99232 ==

== ENCOUNTER 2024-06-04 16:27 | Inpatient (IN) | payer BC, SELFPAY ==
[2024-06-04] VITALS (7 sets, daily range): BP systolic 126–150; BP diastolic 69–85; PULSE 75–103; RESP 12–20; O2SAT 97–100; BMI 25.4
--- NOTE | 2024-06-04 16:36 | ECG_ITS ---
Test Reason : overdose Blood Pressure : */* mmHG Vent. Rate : 88 BPM Atrial Rate : 88 BPM P-R Int : 120 ms QRS Dur : 104 ms QT Int : 374 ms P-R-T Axes : 72 60 58 degrees QTcB Int : 452 ms Normal sinus rhythm with sinus arrhythmia Ventricular pre-excitation, WPW pattern type B Abnormal ECG When compared with ECG of 29-Mar-2024 19:11, No significant change was found Referred By: Generic ED Physician Electronically Signed By: MYRNA DUMAS MD
--- NOTE | 2024-06-04 16:37 | ED_ITS ---
HPI - General Adult General Chief complaint: Overdose Stated complaint: [place] [employer] by [employer], took 40 tylenol pills 20 grams Time Seen by Provider: 06/04/24 16:37 History of Present Illness ED Provider: Kaylynn PARIKH narrative: The patient is a 33-year-old male who comes to the emergency room after having apparently taken an overdose of acetaminophen. He was apparently at home. He apparently texted a friend that he had taken an overdose acetaminophen. The friend called 911. The patient told EMS that he had taken 40 mg strength acetaminophen. The patient acknowledges taking an acetaminophen overdose it happened about an hour prior to arrival. The patient denies taking any co- ingestants. Here in the emergency room the patient is a very vague historian repeatedly says ?I assume you guys are going to make up your own stories. ?. He would not give any additional history. Related Data Home Medications ?Medication ?Instructions ?Recorded ?Confirmed Lactobacillus 40-Bifidobact 1 cap PO DAILY 06/04/24 06/04/24 3-S.thermophilus 100 billion cell capsule (Probiotic) biotin 1 mg tablet 1 mg PO DAILY 06/04/24 06/04/24 multivitamin 1 tab PO DAILY 06/04/24 06/04/24 omega 5-dej-wcd-fish oil 1,000 mg 1 cap PO DAILY 06/04/24 06/04/24 (120 mg-180 mg) capsule (Fish Oil) Previous Rx's ?Medication ?Instructions ?Recorded aripiprazole 2 mg oral film 2 mg PO DAILY 30 days #30 ea 04/07/24 (Opipza) trazodone 50 mg tablet 50 mg PO BEDTIME PRN insomnia 30 04/07/24 days #30 tabs Allergies Allergy/AdvReac Type Severity Reaction Status Date / Time No Known Allergies Allergy Verified 06/04/24 16:43 Review of Systems 2 Review of Systems: Yes Unobtainable due to mental status PMFSH Social History Social History Household Members: Other Household Members Other:: 1 male room mate Housing: Apartment Do you presently have visiting nurse or other home services: No Unable to assess alcohol history related to: Refusing to respond Comment: sitter Patient Tobacco Use Status: Never used Tobacco Use of substances other than those prescribed or required for medical reasons: Refusing to respond Advance Directives: No Advance Directives Information Provided: Yes Do you have a plan to hurt others: No Plan service: No Sexual orientation: Lesbian/Rivas/Homosexual Physical Exam ED Vital Signs: Vital Signs - 24 hr 06/04/24 16:41 06/04/24 17:32 06/04/24 18:20 Pulse Rate 88 83 79 Respiratory Rate 12 16 20 Blood Pressure 126/73 150/79 H 147/77 H Pulse Oximetry 98 100 100 Oxygen Delivery Method Room Air Room Air Room Air 06/04/24 18:52 06/04/24 22:05 Pulse Rate 75 103 H Respiratory Rate 17 15 Blood Pressure 129/69 136/85 Pulse Oximetry 99 97 Oxygen Delivery Method Room Air Room Air BMI result Body Mass Index 25.4 Const Other: The patient is a well-developed, athletic looking 33-year-old who was awake but seems to prefer to keep his eyes closed. It is hard to tell if he is drowsy or simply keeping his eyes closed. He mumbles when he speaks. He does not seem in respiratory distress. HENMT Other: Face is symmetrical. Mucous membranes moist. Eyes Other: Pupils are round equal, conjunctivae are clear, extraocular movements intact Neck Neck: Yes full ROM Resp Effort & Inspection: normal respiratory effort Auscultation: clear to auscultation bilaterally Cardio Rate: regular rate Rhythm: regular rhythm Heart sounds: S1 normal heart sound present and S2 normal heart sound present GI Other: Abdomen is soft and nontender Skin Other: Skin is dry and unremarkable Neuro Other: The patient was awake and responded to questions but seemed drowsy. His speech content was limited and he often said ?you are going to make up what you want to make up. ? However he seems to have intact cranial nerves 2-12, he moves his extremities symmetrically and appropriately. There does not seem to be any sensory deficit. There does not seem to be any coordination deficit. He seems to be neurologically intact although drowsy and possibly showing some signs of a thought disorder Extrem General: Yes normal to inspection, Yes full ROM, Yes no joint enlargement, Yes no clubbing, cyanosis or edema and Yes no pedal edema Psych Other: The patient is a calm and quiet 33-year-old who was holding his eyes closed for the most part but would open them occasionally when speaking. He spoke very quietly so that he was hard to understand but he was not exhibiting any aphasia or dysarthria. He often said something to the effect of ?I thought you were going to make up your own stories about me. ? He seems to be exhibiting some kind of a thought disorder. Medications Administered Generic Name Dose Route Start Last Admin Trade Name Freq PRN Reason Stop Dose Admin Acetylcysteine 4,250 mg/ 521.25 mls @ 125 mls/hr 06/04/24 21:30 06/04/24 22:26 Dextrose IV 06/05/24 01:40 125 mls/hr ONCE ONE Administration Discontinued Medications Generic Name Dose Route Start Last Admin Trade Name Freq PRN Reason Stop Dose Admin Charcoal 100 gm 06/04/24 16:49 06/04/24 17:13 Activated Charcoal 50 Gm/240 Ml Oral.Susp PO 06/04/24 16:50 100 gm ONCE ONE Administration Acetylcysteine 12,750 mg/ 263.75 mls @ 200 mls/hr 06/04/24 20:13 06/04/24 22:28 Dextrose IV 06/04/24 21:32 Infused ONCE ONE Infusion Ondansetron HCl 4 mg 06/04/24 20:26 06/04/24 21:08 Ondansetron Hcl 4 Mg/2 Ml Vial IVPUSH 06/04/24 20:27 4 mg ONCE ONE Administration Medical Decision Making Medical Decision Making [facility] Narrative: The patient is a 33-year-old male who presented to the emergency room after having apparently taken an intentional overdose of acetaminophen, possibly as much as 20 grams. The patient told me that he had taken the tablets about an hour before he got here. He was quite vague and I felt that he was exhibiting some signs of a thought disorder. Stand[place] he was not a terribly reliable historian. His LFTs are unremarkable. 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 Since he seemed to present fairly acutely after his overdose he was given a dose of activated charcoal. An initial acetaminophen level was elevated. I consulted the poison Center and we agreed to check a 2nd level. A 2nd acetaminophen level that I believe is approximately a 4 hour level was still above the treatment threshold and so he was started on N-acetylcysteine. The poison Center was reconsulted and they agreed. The patient will be admitted for further care. Lab Data 06/04/24 17:03 06/04/24 17:03 Labs: Lab Results 06/04/24 06/04/24 06/04/24 Range/Units 17:03 17:10 19:49 WBC 8.3 (4.8-10.8) X10*3/uL RBC 4.79 (4.60-5.80) X10*6/uL Hgb 14.3 (14.0-18.0) g/dl Hct 41.5 L (42.0-52.0) % MCV 86.6 (80.0-98.0) fL MCH 29.9 (27.0-33.0) pg MCHC 34.5 (31.0-36.0) g/dl RDW 11.5 (11.0-16.0) % Plt Count 242 (160-400) X10*3/uL MPV 8.9 L (9.4-12.4) fL Immature Gran % (Auto) 0.4 (0.0-0.4) % Neut % (Auto) 75.7 H (45-73) % Lymph % (Auto) 15.8 L (20-40) % [place] % (Auto) 8.0 (2-11) % Eos % (Auto) 0.0 (0-4) % Baso % (Auto) 0.1 (0-2) % Lymph # (Auto) 1.3 (1.2-4.9) X10*3/uL [place] # (Auto) 0.7 (0.1-1.2) X10*3/uL Eos # (Auto) 0.0 (0.0-0.4) X10*3/uL Baso # (Auto) 0.0 (0.0-0.2) X10*3/uL Abs Immat Gran (auto) 0.03 (0.00-0.03) X10*3/uL Absolute Neuts (auto) 6.3 (2.0-8.3) x10*3/uL Absolute Nucleated RBC 0.000 (0.0-0.012) X10*3/uL Nucleated RBC % (auto) 0.0 (0.0-0.2) /100WBC VBG pH 7.44 H (7.32-7.43) VBG pCO2 37 mmHg VBG pO2 63 mmHg VBG HCO3 25 (22-26) mmol/L VBG O2 Saturation 93.0 % VBG Base Excess 1.8 mmol/L Sodium 132 L (135-145) mmol/L Potassium 3.5 (3.3-5.1) mmol/L Chloride 98 (96-108) mmol/L Carbon Dioxide 25 (22-29) mmol/L Anion Gap 13 (12-20) BUN 9 (9-16) mg/dL Creatinine 0.75 (0.5-1.4) mg/dL Estim Creat Clear Calc 155.2 Estimated GFR > 60 Random Glucose 129 H (60-115) mg/dL Calcium 8.8 (8.4-10.2) mg/dL Total Bilirubin 0.7 (0.0-1.0) mg/dL AST 27 (5-37) U/L ALT 16 (0-40) U/L Alkaline Phosphatase 55 (39-117) U/L Total Protein 7.8 (6.5-8.0) g/dL Albumin 4.2 (3.5-5.0) g/dL Salicylates < 5.0 L (15-30) mg/dL Urine Opiates Screen (Not Detect) Ur Buprenorphine Scrn (Not Detect) ng/mL Ur Oxycodone Screen (Not Detect) ng/mL Urine Methadone Screen (Not Detect) ng/mL Urine Fentanyl Screen (Not Detect) Acetaminophen 203 H* 179 H* (<30) mcg/mL Ur Barbiturates Screen (Not Detect) Ur Phencyclidine Scrn (Not Detect) Ur Amphetamines Screen (Not Detect) U Benzodiazepines Scrn (Not Detect) Urine Cocaine Screen (Not Detect) U Marijuana (THC) Screen (Not Detect) Ethyl Alcohol < 10 mg/dL 06/04/24 Range/Units 19:57 WBC (4.8-10.8) X10*3/uL RBC (4.60-5.80) X10*6/uL Hgb (14.0-18.0) g/dl Hct (42.0-52.0) % MCV (80.0-98.0) fL MCH (27.0-33.0) pg MCHC (31.0-36.0) g/dl RDW (11.0-16.0) % Plt Count (160-400) X10*3/uL MPV (9.4-12.4) fL Immature Gran % (Auto) (0.0-0.4) % Neut % (Auto) (45-73) % Lymph % (Auto) (20-40) % [place] % (Auto) (2-11) % Eos % (Auto) (0-4) % Baso % (Auto) (0-2) % Lymph # (Auto) (1.2-4.9) X10*3/uL [place] # (Auto) (0.1-1.2) X10*3/uL Eos # (Auto) (0.0-0.4) X10*3/uL Baso # (Auto) (0.0-0.2) X10*3/uL Abs Immat Gran (auto) (0.00-0.03) X10*3/uL Absolute Neuts (auto) (2.0-8.3) x10*3/uL Absolute Nucleated RBC (0.0-0.012) X10*3/uL Nucleated RBC % (auto) (0.0-0.2) /100WBC VBG pH (7.32-7.43) VBG pCO2 mmHg VBG pO2 mmHg VBG HCO3 (22-26) mmol/L VBG O2 Saturation % VBG Base Excess mmol/L Sodium (135-145) mmol/L Potassium (3.3-5.1) mmol/L Chloride (96-108) mmol/L Carbon Dioxide (22-29) mmol/L Anion Gap (12-20) BUN (9-16) mg/dL Creatinine (0.5-1.4) mg/dL Estim Creat Clear Calc Estimated GFR Random Glucose (60-115) mg/dL Calcium (8.4-10.2) mg/dL Total Bilirubin (0.0-1.0) mg/dL AST (5-37) U/L ALT (0-40) U/L Alkaline Phosphatase (39-117) U/L Total Protein (6.5-8.0) g/dL Albumin (3.5-5.0) g/dL Salicylates (15-30) mg/dL Urine Opiates Screen Not Detected (Not Detect) Ur Buprenorphine Scrn Not Detected (Not Detect) ng/mL Ur Oxycodone Screen Not Detected (Not Detect) ng/mL Urine Methadone Screen Not Detected (Not Detect) ng/mL Urine Fentanyl Screen Not Detected (Not Detect) Acetaminophen (<30) mcg/mL Ur Barbiturates Screen Not Detected (Not Detect) Ur Phencyclidine Scrn Not Detected (Not Detect) Ur Amphetamines Screen Not Detected (Not Detect) U Benzodiazepines Scrn Not Detected (Not Detect) Urine Cocaine Screen Not Detected (Not Detect) U Marijuana (THC) Screen Not Detected (Not Detect) Ethyl Alcohol mg/dL Independent Interpretation I performed an independent interpretation of an: EKG Interpretation: EKG at 16:43 shows normal sinus rhythm with a sinus arrhythmia at 88 beats per minute. There is a delta wave present consistent with a WPW from 03/29/2024. Critical Care Time Critical Care Time Critical Care Time: Yes Total Critical Care Time: 35 Attestation: The patient was critically ill with a high probability of imminent or life- threatening deterioration. ?I spent greater than 30 minutes of discontinuous time evaluating the patient, delivering critical care at the bedside, discussing evaluating data with consultants. ?Critical care time does not include time spent performing separately billable procedures or teaching. ?Time spent performing critical care with 35 minutes. Discharge Plan Discharge Clinical Impression: Acetaminophen overdose, Depression Patient Disposition: Admitted As Inpatient
[2024-06-04 17:07] LABS: MANUAL DIFF FLAG NO
[2024-06-04 17:12] LABS: Basophils Percent Auto 0.1 % (0-2); Hematocrit 41.5 % (42.0-52.0); Hemoglobin 14.3 g/dl (14.0-18.0); Imm Gran Abs Auto 0.03 X10*3/uL (0.00-0.03); Imm Gran Pct Auto 0.4 % (0.0-0.4); Lymphocytes Absolute Auto 1.3 X10*3/uL (1.2-4.9); Lymphocytes Percent Auto 15.8 % (20-40); Mean Corpuscular HGB Conc 34.5 g/dl (31.0-36.0); Mean Corpuscular Hemoglobin 29.9 pg (27.0-33.0); Mean Corpuscular Volume 86.6 fL (80.0-98.0); Mean Platelet Volume 8.9 fL (9.4-12.4); Monocytes Absolute Auto 0.7 X10*3/uL (0.1-1.2); Neutrophils Absolute Auto 6.3 x10*3/uL (2.0-8.3); Neutrophils Percent Auto 75.7 % (45-73); Platelet Count 242 X10*3/uL (160-400); Red Blood Count 4.79 X10*6/uL (4.60-5.80); Red Cell Distribution Width 11.5 % (11.0-16.0); White Blood Count 8.3 X10*3/uL (4.8-10.8)
[2024-06-04 17:13] LABS: Venous Blood Gas Refer to POC result
[2024-06-04] MEDS: Activated charcoaL 50 GM/240 ML ORAL.SUSP 100 GM PO (17:13)
[2024-06-04 17:14] LABS: VBG Base Excess 1.8 mmol/L; VBG HCO3 25 mmol/L (22-26); VBG pCO2 37 mmHg; VBG pH 7.44 (7.32-7.43); VBG pO2 63 mmHg
--- NOTE | 2024-06-04 17:16 | PC.NURSE ---
Patient given cup w/ charcoal, encouraged to drink as much as he can tolerate, sitter at bedside to continue encouraging patient to drink.
[2024-06-04 17:27] LABS: Alanine Aminotransferase 16 U/L (0-40); Albumin Level 4.2 g/dL (3.5-5.0); Alkaline Phosphatase 55 U/L (39-117); Anion Gap 13 (12-20); Aspartate Amino Transferase 27 U/L (5-37); Bilirubin Total 0.7 mg/dL (0.0-1.0); Blood Urea Nitrogen 9 mg/dL (9-16); Calcium 8.8 mg/dL (8.4-10.2); Carbon Dioxide 25 mmol/L (22-29); Chloride 98 mmol/L (96-108); Creatinine Clr Calc Pharmacy 155.2; Estimated Glomerular Filt Rate > 60; Ethanol < 10 mg/dL; Glucose Random 129 mg/dL (60-115); Potassium 3.5 mmol/L (3.3-5.1); Sodium 132 mmol/L (135-145); Total Protein 7.8 g/dL (6.5-8.0)
[2024-06-04 17:29] LABS: Acetaminophen LAB 203 mcg/mL (<30); Salicylate < 5.0 mg/dL (15-30)
[2024-06-04 20:11] LABS: Acetaminophen LAB 179 mcg/mL (<30)
[2024-06-04 20:23] LABS: Amphetamine Screen Urine Not Detected (Not Detect); Barbiturates, Urine Not Detected (Not Detect); Benzodiazepines Screen Urine Not Detected (Not Detect); Buprenorphine Scr Not Detected (Not Detect); Cannabinoid Screen Urine Not Detected (Not Detect); Cocaine Screen Urine Not Detected (Not Detect); Fentanyl, urine Not Detected (Not Detect); Methadone Screen, Urine Not Detected (Not Detect); Opiate Screen Urine Not Detected (Not Detect); Oxycodone Screen Urine Not Detected (Not Detect); Phencyclidine Screen Urine Not Detected (Not Detect)
--- NOTE | 2024-06-04 20:24 | PC.NURSE ---
Confirmed w/ pharmacy that they will make the acetylcystiene.
[2024-06-04] MEDS: DEXTROSE 5% IV ×2 (21:04→22:26)
[2024-06-04] MEDS: ACETYLCYSTEINE IV ×2 (21:04→22:26)
[2024-06-04] MEDS: ondansetron HCL 4 MG/2 ML VIAL IVPUSH (21:08)
--- NOTE | 2024-06-04 21:09 | P.HPHOSP_ITS ---
History of Present Illness Date of Service: 06/04/24 Attending physician on admission: Rohan Marx Chief Complaint: Tylenol Overdose in suicide attempt Patient is a 33 year old Malagasy male with history of depression and Tylenol overdose who is brought to the emergency room from home by ambulance for evaluation after an intentional overdose on Tylenol. He was last admitted to this facility on 03/29/24 - 04/03/24 and discharged to an inpatient Psychiatric bed from where was sent home 3 days later on Aripiprazole and Trazodone which he has been taking. He reports increasing depressive symptoms of late after he lost his job and getting listed as a sex offender which drove him to take 40 pills of Tylenol (not clear if 325 mg or 500 mg tablets) in an attempt to harm himself. He sent a text to his friend after taking the pills to alert him and the friend called 911 and he was brought to the emergency room. Since being here, he has developed nausea and vomited several times. He denies any associated abdominal pain. Initial blood work done showed an elevated serum Tylenol level at 203 mcg/ml with a repeat of 179 mcg/ml. He was started on IV Acetylcysteine and admission requested. He otherwise has no other complaints and his vital signs are fairly stable. 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 Patient Tobacco Use Status: Never used Tobacco Use of substances other than those prescribed or required for medical reasons: Refusing to respond Advance Directives: No Advance Directives Information Provided: Yes Do you have a plan to hurt others: No Plan service: No Sexual orientation: Lesbian/Rivas/Homosexual Meds Allergies Allergy/AdvReac Type Severity Reaction Status Date / Time No Known Allergies Allergy Verified 06/04/24 16:43 Home Medications ?Medication ?Instructions ?Recorded ?Confirmed ?Last Taken ?Type Lactobacillus 40-Bifidobact 1 cap PO DAILY 06/04/24 06/04/24 06/04/24 History 3-S.thermophilus 100 billion cell capsule (Probiotic) biotin 1 mg tablet 1 mg PO DAILY 06/04/24 06/04/24 06/04/24 History multivitamin 1 tab PO DAILY 06/04/24 06/04/24 06/04/24 History omega 3-nku-izv-fish oil 1,000 mg 1 cap PO DAILY 06/04/24 06/04/24 06/04/24 History (120 mg-180 mg) capsule (Fish Oil) Physical Exam 2 Vital Signs and Narrative: Vital Signs: Last Vital Signs Pulse 75 06/04/24 18:52 Resp 17 06/04/24 18:52 BP 129/69 06/04/24 18:52 Pulse Ox 99 06/04/24 18:52 O2 Del Method Room Air 06/04/24 18:52 BMI result Body Mass Index 25.4 General: Well nourished. Awake, alert and oriented x 4. No apparent distress Eyes: No pallor or jaundice. PERRLA, EOMI HENT: Moist oral mucus membranes. No oropharyngeal lesions. Neck: Supple. No cervical adenopathy. No JVD Cardiovascular: Regular rate and rhythm. Normal heart sounds. No murmurs, rubs or gallops. No JVD. No peripheral edema. Respiratory: Normal respiratory effort with no accessory muscle use. CTAB. Gastrointestinal: Abdomen is soft, non-tender, non-distended. Normo-active bowel sounds in all quadrants. No hepatosplenomegaly Extremities: No edema. No calf tenderness. Good peripheral pulses Skin: Warm/Dry. No rashes. No mottling. Capillary refill is < 2 seconds Neurological: AAOx4. Intact speech & cognition. Normal gait & balance. CN II - XII grossly intact but not individually tested. No motor or sensory deficits Hematologic: No bleeding. No ecchymosis. No swollen or tender lymph nodes. Psychiatric: Cooperative. Appropriate mood and affect. Results Labs 06/04/24 17:03 06/04/24 17:03 Labs: Laboratory Results - last 24 hr 06/04/24 06/04/24 06/04/24 17:03 17:10 19:49 MCV 86.6 MCH 29.9 MCHC 34.5 RDW 11.5 Plt Count 242 MPV 8.9 L Immature Gran % (Auto) 0.4 Neut % (Auto) 75.7 H Lymph % (Auto) 15.8 L [place] % (Auto) 8.0 Eos % (Auto) 0.0 Baso % (Auto) 0.1 Lymph # (Auto) 1.3 [place] # (Auto) 0.7 Eos # (Auto) 0.0 Baso # (Auto) 0.0 Abs Immat Gran (auto) 0.03 Absolute Neuts (auto) 6.3 Absolute Nucleated RBC 0.000 Nucleated RBC % (auto) 0.0 VBG pH 7.44 H VBG pCO2 37 VBG pO2 63 VBG HCO3 25 VBG O2 Saturation 93.0 VBG Base Excess 1.8 Anion Gap 13 Estim Creat Clear Calc 155.2 Estimated GFR > 60 Random Glucose 129 H Calcium 8.8 Total Bilirubin 0.7 AST 27 ALT 16 Alkaline Phosphatase 55 Total Protein 7.8 Albumin 4.2 Salicylates < 5.0 L Urine Opiates Screen Ur Buprenorphine Scrn Ur Oxycodone Screen Urine Methadone Screen Urine Fentanyl Screen Acetaminophen 203 H* 179 H* Ur Barbiturates Screen Ur Phencyclidine Scrn Ur Amphetamines Screen U Benzodiazepines Scrn Urine Cocaine Screen U Marijuana (THC) Screen Ethyl Alcohol < 10 06/04/24 19:57 MCV MCH MCHC RDW Plt Count MPV Immature Gran % (Auto) Neut % (Auto) Lymph % (Auto) [place] % (Auto) Eos % (Auto) Baso % (Auto) Lymph # (Auto) [place] # (Auto) Eos # (Auto) Baso # (Auto) Abs Immat Gran (auto) Absolute Neuts (auto) Absolute Nucleated RBC Nucleated RBC % (auto) VBG pH VBG pCO2 VBG pO2 VBG HCO3 VBG O2 Saturation VBG Base Excess Anion Gap Estim Creat Clear Calc Estimated GFR Random Glucose Calcium Total Bilirubin AST ALT Alkaline Phosphatase Total Protein Albumin Salicylates Urine Opiates Screen Not Detected Ur Buprenorphine Scrn Not Detected Ur Oxycodone Screen Not Detected Urine Methadone Screen Not Detected Urine Fentanyl Screen Not Detected Acetaminophen Ur Barbiturates Screen Not Detected Ur Phencyclidine Scrn Not Detected Ur Amphetamines Screen Not Detected U Benzodiazepines Scrn Not Detected Urine Cocaine Screen Not Detected U Marijuana (THC) Screen Not Detected Ethyl Alcohol Assessment and Plan (1) Acetaminophen overdose: Status: Acute (2) Depression: Status: Acute Plan Patient is a 33 year old Malagasy male with history of depression and Tylenol overdose here with: # Tylenol overdose # Suicide attempt - reports taking 40 tablets of Tylenol in a suicide attempts - serum acetaminophen level was high at 203 mcg/ml on initial testing and repeat was 179 mcg/ml - he was started on IV Acetylcysteine - admit and continue IV Acetadote - closely monitor serum tylenol levels and liver enzymes - will need MH evaluation once stable # Depression - admits to feeling edpressed - continue Aripiprazole and Trazodone - Psychiatry follow up once medically stable Total time managing care of this patient today: 75 minutes. Quality Stroke Does the patient have a stroke diagnosis?: No VTE Prior VTE?: No VTE Risk Level:: Medical - low VTE Device Contraindication: Treatment Not Indicated VTE Drug Contraindication: Treatment Not Indicated
--- NOTE | 2024-06-04 22:16 | PHA.MEDREC ---
Addendum entered by Clovis Hubbard 06/04/24 22:22: reviewed Original Note: Pharmacy Consult ? Medication Reconciliation Pharmacy has completed the medication reconciliation. Spoke with patient and he confirmed his medications. Patient confirmed he is still taking the Ariprazole 2mg tab once a day and confirmed he is still filling it at [facility] on [address] in [place]; I called a 24 hour [facility] on [address] in [place] and they were able to confirm the patient last picked up the Ariprazole 2mg tab with them on 04/08 for a 30 day supply. The patient also confirmed he is taking the Trazodone 50mg tab once at bedtime as needed for sleep and insomnia. He claims he took his medication this morning.
--- NOTE | 2024-06-04 23:22 | PC.NURSE ---
assumed care of pt at 2300. report received from Bailey CHAPMAN.
[2024-06-05] VITALS (9 sets, daily range): BP systolic 111–150; BP diastolic 52–85; PULSE 70–96; RESP 13–22; TEMP 36.5–37.2; O2SAT 94–100; BMI 25.6
[2024-06-05] MEDS: Magnesium Hydrox/Alum Hydrox 30 ML ORAL.SUSP PO (00:04)
[2024-06-05] MEDS: Prochlorperazine Edisylate 10 MG/2 ML VIAL IVPUSH (00:10)
[2024-06-05] MEDS: Dextrose 5 % and 0.9 % NaCl 1,000 ML 125 ML IVCONT ×3 (00:13→18:25)
--- NOTE | 2024-06-05 00:24 | PC.NURSE ---
pt began vomiting up bile and the charcoal he was given earlier, despite zofran administration. Pt appeared clammy, pale, diaphoretic, actively vomiting. MD Marx aware and ordered compazine IV. administered as ordered. pt now resting comfortably. on child monitor. 1:1 sitter at bedside. plan of care continues.
[2024-06-05] MEDS: ACETYLCYSTEINE IV (02:41)
[2024-06-05] MEDS: DEXTROSE 5% IV (02:41)
[2024-06-05 04:12] LABS: Basophils Percent Auto 0.1 % (0-2); Hematocrit 41.5 % (42.0-52.0); Hemoglobin 14.6 g/dl (14.0-18.0); Imm Gran Abs Auto 0.02 X10*3/uL (0.00-0.03); Imm Gran Pct Auto 0.2 % (0.0-0.4); Lymphocytes Absolute Auto 1.4 X10*3/uL (1.2-4.9); Lymphocytes Percent Auto 14.3 % (20-40); MANUAL DIFF FLAG NO; Mean Corpuscular HGB Conc 35.2 g/dl (31.0-36.0); Mean Corpuscular Hemoglobin 29.8 pg (27.0-33.0); Mean Corpuscular Volume 84.7 fL (80.0-98.0); Mean Platelet Volume 8.9 fL (9.4-12.4); Monocytes Absolute Auto 1.1 X10*3/uL (0.1-1.2); Monocytes Percent Auto 11.8 % (2-11); Neutrophils Percent Auto 73.6 % (45-73); Platelet Count 233 X10*3/uL (160-400); Red Cell Distribution Width 11.6 % (11.0-16.0); White Blood Count 9.5 X10*3/uL (4.8-10.8)
[2024-06-05 04:33] LABS: Acetaminophen LAB 59 mcg/mL (<30)
[2024-06-05 04:35] LABS: Alanine Aminotransferase 20 U/L (0-40); Alkaline Phosphatase 47 U/L (39-117); Anion Gap 14 (12-20); Aspartate Amino Transferase 30 U/L (5-37); Bilirubin Total 0.7 mg/dL (0.0-1.0); Blood Urea Nitrogen 7 mg/dL (9-16); Calcium 9.2 mg/dL (8.4-10.2); Carbon Dioxide 25 mmol/L (22-29); Chloride 100 mmol/L (96-108); Creatinine Clr Calc Pharmacy 141.9; Estimated Glomerular Filt Rate > 60; Glucose Random 134 mg/dL (60-115); Potassium 3.6 mmol/L (3.3-5.1); Sodium 135 mmol/L (135-145); Total Protein 7.5 g/dL (6.5-8.0)
--- NOTE | 2024-06-05 05:16 | PC.NURSE ---
pt ambulated with PCT to and from bathroom with a steady gait
--- NOTE | 2024-06-05 08:33 | P.PNIM_ITS ---
Subjective Subjective Date of Service: 06/05/24 Interval History: f/u on Tylenol OD, Suicide attempt no new issues Physical Exam 2 Vital Signs: Vital Signs: Last Vital Signs Temp 98.6 F 06/05/24 07:49 Pulse 82 06/05/24 07:49 Resp 14 06/05/24 07:49 BP 150/85 H 06/05/24 07:49 Pulse Ox 98 06/05/24 07:49 O2 Del Method Room Air 06/05/24 07:49 BMI result Body Mass Index 25.4 Const: Other: General: not talking, but fully alert Resp: CTA bilateral CVS: S1,S2,RRR GI: +BS, NT, no distention Skin: No rash Neuro: motor grossly intact Psych: flat affect Objective Data Active Medications Al Hydroxide/Mg Hydroxide (Magnesium Hydrox/Alum Hydrox 30 Ml Oral.Susp) 30 ml PO Q4H PRN PRN Reason: Heartburn Last Admin: 06/05/24 00:04 Dose: 30 ml Documented By: SHADIA Calcium Carbonate (Calcium Carbonate 750 Mg Tab.Chew) 750 mg PO Q4H PRN PRN Reason: Heartburn Acetylcysteine 8,500 mg/ (Dextrose) 1,042.5 mls @ 62.5 mls/hr IV ONCE ONE Stop: 06/05/24 18:20 Last Admin: 06/05/24 02:41 Dose: 62.5 mls/hr Documented By: SHADIA Dextrose/Sodium Chloride (D5ns) 1,000 mls @ 125 mls/hr IVCONT .Q8H [facility] Last Admin: 06/05/24 07:55 Dose: 125 mls/hr Documented By: ADILENE Magnesium Hydroxide (Milk Of Magnesia 30 Ml Oral.Susp) 30 ml PO DAILY PRN PRN Reason: Constipation Melatonin (Melatonin 3 Mg Tablet) 6 mg PO BEDTIME PRN PRN Reason: Insomnia Ondansetron HCl (Ondansetron Hcl 4 Mg/2 Ml Vial) 4 mg IVPUSH Q8H PRN PRN Reason: Nausea and Vomiting Sodium Chloride (0.9 % Sodium Chloride Flush 3 Ml Syringe) [facility] Last Admin: 06/05/24 00:01 Dose: Not Given Documented By: SHADIA Non-Admin Reason: IV Running Labs 06/05/24 03:59 06/05/24 03:59 Labs: Laboratory Results - last 24 hr 06/04/24 06/04/24 06/04/24 17:03 17:10 19:49 MCV 86.6 MCH 29.9 MCHC 34.5 RDW 11.5 Plt Count 242 MPV 8.9 L Immature Gran % (Auto) 0.4 Neut % (Auto) 75.7 H Lymph % (Auto) 15.8 L [place] % (Auto) 8.0 Eos % (Auto) 0.0 Baso % (Auto) 0.1 Lymph # (Auto) 1.3 [place] # (Auto) 0.7 Eos # (Auto) 0.0 Baso # (Auto) 0.0 Abs Immat Gran (auto) 0.03 Absolute Neuts (auto) 6.3 Absolute Nucleated RBC 0.000 Nucleated RBC % (auto) 0.0 VBG pH 7.44 H VBG pCO2 37 VBG pO2 63 VBG HCO3 25 VBG O2 Saturation 93.0 VBG Base Excess 1.8 Anion Gap 13 Estim Creat Clear Calc 155.2 Estimated GFR > 60 Random Glucose 129 H Calcium 8.8 Total Bilirubin 0.7 AST 27 ALT 16 Alkaline Phosphatase 55 Total Protein 7.8 Albumin 4.2 Salicylates < 5.0 L Urine Opiates Screen Ur Buprenorphine Scrn Ur Oxycodone Screen Urine Methadone Screen Urine Fentanyl Screen Acetaminophen 203 H* 179 H* Ur Barbiturates Screen Ur Phencyclidine Scrn Ur Amphetamines Screen U Benzodiazepines Scrn Urine Cocaine Screen U Marijuana (THC) Screen Ethyl Alcohol < 10 06/04/24 06/05/24 19:57 03:59 MCV 84.7 MCH 29.8 MCHC 35.2 RDW 11.6 Plt Count 233 MPV 8.9 L Immature Gran % (Auto) 0.2 Neut % (Auto) 73.6 H Lymph % (Auto) 14.3 L [place] % (Auto) 11.8 H Eos % (Auto) 0.0 Baso % (Auto) 0.1 Lymph # (Auto) 1.4 [place] # (Auto) 1.1 Eos # (Auto) 0.0 Baso # (Auto) 0.0 Abs Immat Gran (auto) 0.02 Absolute Neuts (auto) 7.0 Absolute Nucleated RBC 0.000 Nucleated RBC % (auto) 0.0 VBG pH VBG pCO2 VBG pO2 VBG HCO3 VBG O2 Saturation VBG Base Excess Anion Gap 14 Estim Creat Clear Calc 141.9 Estimated GFR > 60 Random Glucose 134 H Calcium 9.2 Total Bilirubin 0.7 AST 30 ALT 20 Alkaline Phosphatase 47 Total Protein 7.5 Albumin 4.0 Salicylates Urine Opiates Screen Not Detected Ur Buprenorphine Scrn Not Detected Ur Oxycodone Screen Not Detected Urine Methadone Screen Not Detected Urine Fentanyl Screen Not Detected Acetaminophen 59 H* Ur Barbiturates Screen Not Detected Ur Phencyclidine Scrn Not Detected Ur Amphetamines Screen Not Detected U Benzodiazepines Scrn Not Detected Urine Cocaine Screen Not Detected U Marijuana (THC) Screen Not Detected Ethyl Alcohol Assessment and Plan (1) Major depressive episode: Status: Acute (2) Depression: Status: Acute (3) Acetaminophen overdose: Status: Acute Plan 33-year-old male with a history of major depression (MD) and recurrent hospitalizations for suicidal ideation (SI), presenting with intentional acetaminophen (APAP) overdose. Suicidal Ideation attempt with (Tylenol Overdose) Tylenol levels trending down. LFTs normal; monitor INR. Continue Acetylcysteine protocol ending 6 pm today Refer to inpatient psychiatry once medically cleared. continue 1:1 observation poison control following Major Depression Continue Aripiprazole and Trazodone. Psychiatry referral for inpatient admission upon medical clearance. DVT prophylaxis: early ambulation Full code regular diet. Quality Stroke Does the patient have a stroke diagnosis?: No VTE Prior VTE?: No VTE Risk Level:: Medical - low VTE Device Contraindication: Treatment Not Indicated VTE Drug Contraindication: Treatment Not Indicated
--- NOTE | 2024-06-05 08:48 | MHC.CM.PN ---
Patient lives in an apartment with a Roommate and he is functionally independent. Patient may benefit from a Care Team Consult to assist with disposition ([facility] appears likely r/t increased Depression and intentional Overdose); CM has initiated and will follow for dc planning.Patient has no PCP(Patient declined assist with locating a PCP) and declined the completion of a HCP. CM will follow.
[2024-06-05] MEDS: Multivitamin TABLET 1 TAB PO (09:29)
[2024-06-05] MEDS: ARIPiprazole 2 MG TABLET PO (11:28)
[2024-06-05 17:49] LABS: INTERNATIONAL NORM RATIO 1.2 (0.9-1.1); Prothrombin Time 14.5 SEC (10.9-12.4)
[2024-06-05 17:56] LABS: Acetaminophen LAB 3 mcg/mL (<30); Alanine Aminotransferase 24 U/L (0-40); Albumin Level 3.8 g/dL (3.5-5.0); Alkaline Phosphatase 44 U/L (39-117); Aspartate Amino Transferase 31 U/L (5-37); Bilirubin Direct 0.2 mg/dL (0.0-0.5); Bilirubin Total 0.5 mg/dL (0.0-1.0)
[2024-06-06] MEDS: Dextrose 5 % and 0.9 % NaCl 1,000 ML 125 ML IVCONT ×2 (02:24→08:09)
[2024-06-06 03:01] VITALS: BP 146/70; PULSE 85; RESP 20; TEMP 37.1; O2SAT 98
[2024-06-06 07:29] VITALS: BP 140/80; RESP 18; TEMP 37.2; O2SAT 98
[2024-06-06] MEDS: ARIPiprazole 2 MG TABLET PO (08:09)
[2024-06-06] MEDS: Multivitamin TABLET 1 TAB PO (08:09)
--- NOTE | 2024-06-06 10:27 | MHC.CM.PN ---
Per MD, Patient is medically cleared for dc to [facility], pending bed availability. CM will follow.
--- NOTE | 2024-06-06 10:31 | PM.DS ---
DS: Providers Provider Date of admission: 06/04/24 22:16 Primary care physician: None Physician Consults: 06/06/24 08:33 Inpt CARE Team Crisis Consult Routine Comment: Reason for consultation: Tylenol overdose, medical ready for this surgery DS: Diagnosis Discharge Diagnosis (1) Major depressive episode: Status: Acute (2) Depression: Status: Acute (3) Acetaminophen overdose: Status: Acute DS: Summary Hospital Course Hospital Course: admission hpi Chief Complaint: Tylenol Overdose in suicide attempt Patient is a 33 year old Nepalese male with history of depression and Tylenol overdose who is brought to the emergency room from home by ambulance for evaluation after an intentional overdose on Tylenol. He was last admitted to this facility on 03/29/24 - 04/03/24 and discharged to an inpatient Psychiatric bed from where was sent home 3 days later on Aripiprazole and Trazodone which he has been taking. He reports increasing depressive symptoms of late after he lost his job and getting listed as a sex offender which drove him to take 40 pills of Tylenol (not clear if 325 mg or 500 mg tablets) in an attempt to harm himself. He sent a text to his friend after taking the pills to alert him and the friend called 911 and he was brought to the emergency room. Since being here, he has developed nausea and vomited several times. He denies any associated abdominal pain. Initial blood work done showed an elevated serum Tylenol level at 203 mcg/ml with a repeat of 179 mcg/ml. He was started on IV Acetylcysteine and admission requested. He otherwise has no other complaints and his vital signs are fairly stable. hospital course: The patient has history of major depression with prior suicide attempts and presented with an intentional Tylenol overdose due to suicidal ideation, with toxic levels of 203, 179, and then 59. LFTs and INR remained unremarkable throughout. He has completed treatment with N-acetylcysteine under the supervision of poison control. The CARE team recommends inpatient psychiatric treatment as the next level of care, given his history of recurrent admissions for similar episodes. Time Attestation Discharge Coordination Time (in mins): 35 Quality: Safe Use of Opioids Does Pt have an Active Cancer Diagnosis on the Problem List?: No Quality: Stroke Does the patient have a stroke diagnosis?: No Physical Exam Vital Signs: Vital Signs: Last Vital Signs Temp 98.9 F 06/06/24 07:29 Pulse 85 03/07/25 03:01 Resp 18 06/06/24 07:29 BP 140/80 H 06/06/24 07:29 Pulse Ox 98 06/06/24 07:29 O2 Del Method Room Air 06/06/24 07:29 BMI result Body Mass Index 25.6 General: AO X 3, no acute distress Resp: CTA bilateral CVS: S1,S2,RRR GI: +BS, NT, no distention Skin: No rash Neuro: motor grossly intact Psych: flat affect, denies SI at this time DS: Data Data Completed and Pending Labs on day of discharge: Laboratory Results - last 24 hr 06/05/24 17:23 PT 14.5 H D INR 1.2 H Total Bilirubin 0.5 Direct Bilirubin 0.2 AST 31 ALT 24 Alkaline Phosphatase 44 Total Protein 7.0 Albumin 3.8 Acetaminophen 3 Discharge Plan Discharge Patient Disposition: Xfer Psychiatric Hosp Discharge Diagnosis: Tylenol overdose, depression, SI Referrals: Physician,None [Primary Care Provider] - 1 Week Discharge Medications: Continued multivitamin Tablet 1 tab PO DAILY biotin 1 mg Tablet 1 mg PO DAILY omega 1-lgx-tui-fish oil [Fish Oil] 1,000 (120-180) mg Capsule 1 cap PO DAILY Probiotic 100 billion cell Capsule 1 cap PO DAILY trazodone 50 mg tablet 50 mg PO BEDTIME PRN (Reason: insomnia) 30 Days Qty: 30 1RF Opipza 2 mg film 2 mg PO DAILY 30 Days Qty: 30 1RF Diet: Advance to usual diet Activity on Discharge: As tolerated Stand Alone Forms: Patient Portal Discharge page Print Language: Turkmen Care Plan Goals: recovery from depression, SI Health Concerns: Major depression, SI Plan of Treatment: Inpatient Psych treatment
--- NOTE | 2024-06-06 10:40 | HO.PM.IMPN ---
Subjective Subjective Date of Service: 06/06/24 Interval History: f/u on Tylenol OD, Suicide attempt no new issues Physical Exam Vital Signs: Vital Signs: Last Vital Signs Temp 98.9 F 06/06/24 07:29 Pulse 85 06/06/24 03:01 Resp 18 06/06/24 07:29 BP 140/80 H 06/06/24 07:29 Pulse Ox 98 06/06/24 07:29 O2 Del Method Room Air 06/06/24 07:29 BMI result Body Mass Index 25.6 General: AO X 3, no acute distress Resp: CTA bilateral CVS: S1,S2,RRR GI: +BS, NT, no distention Skin: No rash Neuro: motor grossly intact Psych: flat affect, denies SI at this time Objective Data Active Medications Al Hydroxide/Mg Hydroxide (Magnesium Hydrox/Alum Hydrox 30 Ml Oral.Susp) 30 ml PO Q4H PRN PRN Reason: Heartburn Last Admin: 06/05/24 00:04 Dose: 30 ml Documented By: SHADIA Aripiprazole (Aripiprazole 2 Mg Tablet) 2 mg PO DAILY [facility] Last Admin: 06/06/24 08:09 Dose: 2 mg Documented By: SAMSON Calcium Carbonate (Calcium Carbonate 750 Mg Tab.Chew) 750 mg PO Q4H PRN PRN Reason: Heartburn Dextrose/Sodium Chloride (D5ns) 1,000 mls @ 125 mls/hr IVCONT .Q8H [facility] Last Admin: 06/06/24 08:09 Dose: 125 mls/hr Documented By: SAMSON Magnesium Hydroxide (Milk Of Magnesia 30 Ml Oral.Susp) 30 ml PO DAILY PRN PRN Reason: Constipation Melatonin (Melatonin 3 Mg Tablet) 6 mg PO BEDTIME PRN PRN Reason: Insomnia Multivitamins/Vitamin C (Multivitamin Tablet) 1 tab PO DAILY [facility] Last Admin: 06/06/24 08:09 Dose: 1 tab Documented By: SAMSON Ondansetron HCl (Ondansetron Hcl 4 Mg/2 Ml Vial) 4 mg IVPUSH Q8H PRN PRN Reason: Nausea and Vomiting Sodium Chloride (0.9 % Sodium Chloride Flush 3 Ml Syringe) 3 ml IVFLUSH QSHIFT [facility] Last Admin: 06/06/24 08:09 Dose: Not Given Documented By: SAMSON Non-Admin Reason: IV Running Trazodone HCl (Trazodone Hcl 50 Mg Tablet) 50 mg PO BEDTIME PRN PRN Reason: insomnia Labs 06/05/24 03:59 06/05/24 03:59 Labs: Laboratory Results - last 24 hr 06/05/24 17:23 PT 14.5 H D INR 1.2 H Total Bilirubin 0.5 Direct Bilirubin 0.2 AST 31 ALT 24 Alkaline Phosphatase 44 Total Protein 7.0 Albumin 3.8 Acetaminophen 3 Assessment and Plan (1) Major depressive episode: Status: Acute (2) Depression: Status: Acute (3) Acetaminophen overdose: Status: Acute Plan 33-year-old male with a history of major depression (MD) and recurrent hospitalizations for suicidal ideation (SI), presenting with intentional acetaminophen (APAP) overdose. Suicidal Ideation attempt with (Tylenol Overdose) Tylenol levels trending down. LFTs normal; INR.unremarkable He has completed Acetylcysteine protocol CARE team is recommending inpatient Psych admission and treatment He will be discharged with bed available. Major Depression Continue Aripiprazole and Trazodone. Psychiatry referral for inpatient admission upon medical clearance. DVT prophylaxis: early ambulation Full code regular diet. Quality Stroke Does the patient have a stroke diagnosis?: No VTE Prior VTE?: No VTE Risk Level:: Medical - low VTE Device Contraindication: Treatment Not Indicated VTE Drug Contraindication: Treatment Not Indicated
[2024-06-06 11:27] VITALS: BP 147/75; PULSE 88; RESP 20; TEMP 37.4; O2SAT 98
[2024-06-06 15:47] VITALS: BP 149/78; PULSE 88; RESP 20; TEMP 37.3; O2SAT 97
== END 2024-06-06 18:16 | DRG 817 ==
LOC: HO.ED 21:02 → HO.EDOVER 22:28 → HO.IMC 06-05 07:51
PROVIDERS: Admitting Provider Internal Medicine; Emergency Provider Emergency Medicine; Visit Provider Internal Medicine
DX: T39.1X2A Poisoning by 4-Aminophenol derivatives, intentional self-harm, initial encounter (principal); F32.9 Major depressive disorder, single episode, unspecified; Z79.899 Other long term (current) drug therapy
CPT/HCPCS: 36415; 80053; 80076; 80143; 80179; 80307; 82803; 85025; 85610; 93005; 99285; J0132; J0737; J2405; S9485

== ENCOUNTER → 2024-06-04 16:36 | Outpatient (BNV) | payer BC, SELFPAY | PROVIDERS: Admitting Provider Internal Medicine; Emergency Provider Emergency Medicine; Visit Provider Internal Medicine Cardiovascular Disease | DX: R94.31 Abnormal electrocardiogram [ECG] [EKG] (principal) | CPT/HCPCS: 93010 ==

== ENCOUNTER → 2024-06-04 22:16 | Outpatient (BNV) | payer BC, SELFPAY | PROVIDERS: Admitting Provider Internal Medicine; Emergency Provider Emergency Medicine; Visit Provider Internal Medicine | DX: F32.9 Major depressive disorder, single episode, unspecified (principal); F32.A Depression, unspecified; T39.1X2A Poisoning by 4-Aminophenol derivatives, intentional self-harm, initial encounter | CPT/HCPCS: 99223; 99232 ==

== ENCOUNTER 2024-06-06 18:25 | Outpatient (BNV) | payer MEDICAID, SELFPAY | END 2024-06-11 14:24 | PROVIDERS: Admitting Provider Clinical Nurse Specialist Psychiatric/Mental Health, Adult; Visit Provider Radiology Diagnostic Radiology | DX: R05.9 Cough, unspecified (principal); R50.9 Fever, unspecified | CPT/HCPCS: 71045 ==

== ENCOUNTER 2024-06-06 18:25 | Inpatient (IN) | payer MEDICAID, OTHER, SELFPAY ==
--- NOTE | ~2024-06-06 | XR_ITS ---
EXAMINATION: XR CHEST CLINICAL INFORMATION: productive cough, fevers COMPARISON: None available. TECHNIQUE: Frontal view of the chest was obtained. FINDINGS: Questionable patchy/linear opacity inferior right pulmonary hilum. No pleural effusion. No pneumothorax. Heart silhouette size is normal. Osseous structures are intact. Mild S-shaped curvature of the mid thoracic spine. XR/XR chest 1V IMPRESSION: Questionable acute airspace disease, right middle lung lobe. Electronically signed by: Eddy Esposito MD 06/11/2024 02:32 PM EDT
[2024-06-06 16:38] VITALS: BP 136/83; PULSE 95; RESP 16; TEMP 36.3; O2SAT 98
--- NOTE | 2024-06-06 19:33 | PC.NURSE ---
Pt arrived on the unit at 16:28 via wheel chair from the med floor. Vitals obtained, skin/safety chck perfomred, and pt oriented to the unit. Admission to be completed.
[2024-06-06 19:36] VITALS: BMI 24.6
[2024-06-06 20:00] VITALS: BP 119/57; PULSE 77; RESP 16; TEMP 36.7; O2SAT 99
--- NOTE | 2024-06-07 05:24 | PC.ADMIT ---
Patient is a 33 year old Kittitian speaking male admitted as a CV admission to [facility] from the medical floor s/p overdose on Tylenol in an attempt to end his life. Patient was medically cler
--- NOTE | 2024-06-07 05:27 | PC.ADMIT ---
Patient is a 33 year old Croatian speaking male, admitted as a CV admission 06/06/24 to [facility] from the medical floor s/p overdose on Tylenol in an attempt to end his life. Report was received from previous M5 day shift RN. Patient was cooperative with admission, signed BEULAH, has recently been on M3, so he is aware of nonsmoking rule as well as visitation protocol. Patient said he has been very stressed about being laid off from his job in March, was feeling hopeless and took the overdose. Patient did report that he is glad he survived. Patient rated his current depression and anxiety level 7.5. He denied any current SI, HI, AVH and feels safe on the unit. Patient did mention that he had used a letter mobile home installer to superficially scratch his left wrist and that he has a history of self-harming behavior. Patient is a non-smoker, he did request the flu shot but wants it in the morning. Patient said that he does not have a PCP, he does have a therapist named Naomie at [facility] and was supposed to see a psychiatrist at [facility] but said no one called him back. Patient is aware he has prn medications, but decided to go to bed without any.
[2024-06-07 08:00] VITALS: BP 134/60; PULSE 78; TEMP 36.4; O2SAT 99
--- NOTE | 2024-06-07 08:12 | P.HPPS_ITS ---
HPI Date of Service: 06/07/24 Chief Complaint: s/p overdoes of tylenol,depression,substance use Sources of Information: patient interviewed, chart reviewed and crisis/core team assessment reviewed HPI Subjective Notes: [facility] Warning and Conditional Voluntary Healthcare Proxy: No Guardianship: No Medical Problems Affecting Mental Status: No Narrative: Jayy is a 33-year-old /Congolese-speaking, single, recently unemployed man who was transferred from the medical unit yesterday after an admission for overdose on 40 Tylenol tablets after which a roommate called EMS and was subsequently brought to the hospital and admitted. He also had made to superficial cuts to his both wrists. This is his 2nd overdose. Had a previous 1 in April and was admitted to this unit. He does have some outpatient connections at [facility] but missed his psychiatric appointment because he signed into a virtual appointment incorrectly. He is on Abilify 2 mg daily and trazodone but he does not know the dose. No history of substance abuse. 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 He is noted to be registered as a sex offender. I did not approach him on this over the weekend. In the past he has had some struggles with his sexual orientation and his family. He states that he has been feeling very depressed, hopeless, at times not eating or attending to his hygiene. He has not been on any antidepressants. He is open to that. Denies any current suicidal ideations and feels safe on the unit. No history of violence. He does not have access to firearms. He denies any AVH but there have been references to auditory hallucinations in the past Past Psychiatric History: hosps: none SA: none prior to index event SIB: none outpt: h/o therapy during college years, [id number]. had group therapy for LGBT as well as individual therapy. no h/o medications. since february of 2024 Medical Evaluation Reviewed: Yes PMFSH Family History: father - schizophrenia, multiple inpatient hosps mother - Dx unknown, h/o multiple inpt psych admissions Social History: from [place]. 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 reports supportive social network. has a bro and a sis. estranged from bro and mother, in touch with sister. lives in an apartment with a roommate. Substance History: Denied Trauma History: Denied Diagnostics Vital Signs (24Hr): Vital Signs - 24 hr 06/06/24 16:38 06/06/24 20:00 Temperature 97.4 F 98.1 F Pulse Rate 95 77 Respiratory Rate 16 16 Blood Pressure 136/83 119/57 L Pulse Oximetry 98 99 Oxygen Delivery Method Room Air Room Air BMI result Body Mass Index 24.6 Meds/Allergies Meds Home Medications ?Medication ?Instructions ?Recorded ?Confirmed ?Type Lactobacillus 40-Bifidobact 1 cap PO DAILY 06/04/24 06/04/24 History 3-S.thermophilus 100 billion cell capsule (Probiotic) biotin 1 mg tablet 1 mg PO DAILY 06/04/24 06/04/24 History multivitamin 1 tab PO DAILY 06/04/24 06/04/24 History omega 1-zsy-luq-fish oil 1,000 mg 1 cap PO DAILY 06/04/24 06/04/24 History (120 mg-180 mg) capsule (Fish Oil) Allergies Allergies Allergy/AdvReac Type Severity Reaction Status Date / Time No Known Allergies Allergy Verified 06/04/24 16:43 Mental Status Exam Mental Status Exam Narrative: Jayy was seen the morning after his admission. He was cooperative, alert and oriented. Speech is soft-spoken. Moderate eye contact. Affect is constricted and subdued. No signs of psychosis. Denies any auditory or visual hallucinations but has had previous history of AH. He denies any current SI and contracts for safety. No HI. Cognitively is intact. Judgment is intact. He moves all limbs. No abnormalities of gait. Assessment & Plan Assessment & Plan (1) Major depressive episode: Status: Acute Code(s): F32.9 - Major depressive disorder, single episode, unspecified Plan Jayy is a 33-year-old single male with history of depression and recent difficulties with his depression after he was laid off and a recent suicide attempt and a previous 1 about 2 months ago. He was started on Lexapro and Abilify was continued. Side effects discussed. I did not order any trazodone because he appears to be sleeping adequately. Admission workup did not indicate any major abnormalities. He will meet with his treatment team on 06/09/2024 Patient educated on: diagnosis and medication risk/benefits Reason for continued inpatient stay Substantial Risk for: harm to self Statement Statement: I have reviewed the history and physical and performed a pertinent examination on my patient. No changes have occurred unless specified. If the History and Physical was not performed prior to admission, the Hospitalist's service will be consulted for completing the admission physical. Time Spent With Patient Time: Total time managing care of this patient today ____ minutes.
[2024-06-07] MEDS: ARIPiprazole 2 MG TABLET PO (09:31)
[2024-06-07] MEDS: Multivitamin TABLET 1 TAB PO (09:31)
[2024-06-07] MEDS: Escitalopram Oxalate 10 MG TABLET PO (09:31)
[2024-06-07] MEDS: Flu Vacc TS2024-25(6mos up)/PF 0.5 ML SYRINGE IM (09:49)
[2024-06-07 10:19] LABS: Estimated Average Glucose 100 mg/dL; Hemoglobin A1C 121.4235 umol/L; Hemoglobin A1c % 5.1 % (<6.0); Total Hemoglobin (HGBA1C) 3771.3889 umol/L
[2024-06-07 12:44] LABS: Cholesterol 131 mg/dL (<200); HDL Cholesterol 38 mg/dL (>40); LDL Cholesterol Calculated 69 mg/dL (<100); Magnesium 2.1 mg/dL (1.6-2.6); Triglycerides 121 mg/dL (<150)
[2024-06-07 12:58] LABS: Free T4 (Free Thyroxine) 1.48 ng/dL (0.71-1.85)
[2024-06-07 13:13] LABS: Folate 14.2 ng/mL (> or = 4.0); Vitamin B12 385 pg/mL (200-900)
[2024-06-07 19:44] VITALS: BP 152/70; PULSE 99; RESP 16; TEMP 37.3; O2SAT 97
[2024-06-08 07:57] VITALS: BP 127/58; PULSE 62; TEMP 36.7; O2SAT 98
[2024-06-08] MEDS: ARIPiprazole 2 MG TABLET PO (08:50)
[2024-06-08] MEDS: Multivitamin TABLET 1 TAB PO (08:50)
[2024-06-08] MEDS: Escitalopram Oxalate 10 MG TABLET PO (08:50)
--- NOTE | 2024-06-08 09:01 | P.PNPSI_ITS ---
Subjective Subjective Date of Service: 06/08/24 Reason For Visit: s/p overdoes of tylenol,depression,substance use Interim History: Patient was seen and discussed in rounds today. Records and plans were reviewed. He has been stable and has settled into the milieu. He is mostly withdrawn and in his room but keeping active. He is visible. No SI. No major episodes of agitation or behavioral issues. Continues to be concerned about his situation. No SI. No changes were made today Review of Systems Review of Systems Yes all other systems are reviewed and are negative Mental Status Exam Mental Status Exam Narrative: He was cooperative, alert and oriented. Speech is soft-spoken. Moderate eye contact. Affect is constricted and subdued. No signs of psychosis. Denies any auditory or visual hallucinations but has had previous history of AH. He denies any current SI and contracts for safety. No HI. Cognitively is intact. Judgment is intact. He moves all limbs. No abnormalities of gait. Diagnostics Vital Signs (24Hr): Vital Signs - 24 hr 06/07/24 19:44 06/08/24 07:57 Temperature 99.1 F 98.1 F Pulse Rate 99 62 Respiratory Rate 16 Blood Pressure 152/70 H 127/58 L Pulse Oximetry 97 98 Oxygen Delivery Method Room Air Room Air BMI result Body Mass Index 24.6 Labs Labs: Laboratory Results - last 48 hr 06/07/24 09:24 Estimat Average Glucose 100 Hemoglobin A1c % 5.1 Magnesium 2.1 Triglycerides 121 Cholesterol 131 LDL Cholesterol, Calc 69 HDL Cholesterol 38 L Vitamin B12 385 Folate 14.2 TSH 1.10 Free T4 1.48 Medications Medications Current Medications Aripiprazole (Aripiprazole 2 Mg Tablet) 2 mg PO DAILY [facility] Last Admin: 06/08/24 08:50 Dose: 2 mg Calcium Carbonate (Calcium Carbonate 750 Mg Tab.Chew) 750 mg PO Q4H PRN PRN Reason: Heartburn Escitalopram Oxalate (Escitalopram Oxalate 10 Mg Tablet) 10 mg PO DAILY [facility] Last Admin: 06/08/24 08:50 Dose: 10 mg Hydroxyzine HCl (Hydroxyzine Hcl 25 Mg Tablet) 25 mg PO Q6H PRN PRN Reason: mild anxiety Magnesium Hydroxide (Milk Of Magnesia 30 Ml Oral.Susp) 30 ml PO DAILY PRN PRN Reason: Constipation Melatonin (Melatonin 3 Mg Tablet) 6 mg PO BEDTIME PRN PRN Reason: Insomnia Multivitamins/Vitamin C (Multivitamin Tablet) 1 tab PO DAILY [facility] Last Admin: 06/08/24 08:50 Dose: 1 tab Nicotine Polacrilex (Nicotine Polacrilex 2 Mg Gum) 4 mg BUCCAL Q2H PRN PRN Reason: Nicotine Cravings Allergies Allergies Allergy/AdvReac Type Severity Reaction Status Date / Time No Known Allergies Allergy Verified 06/04/24 16:43 Assessment & Plan Assessment & Plan (1) Major depressive episode: Status: Acute Code(s): F32.9 - Major depressive disorder, single episode, unspecified Plan Jayy is a 33-year-old single male with history of depression and recent difficulties with his depression after he was laid off and a recent suicide attempt and a previous 1 about 2 months ago. He was started on Lexapro and Abilify was continued. Side effects discussed. I did not order any trazodone because he appears to be sleeping adequately. Admission workup did not indicate any major abnormalities. He will meet with his treatment team on 06/09/202406/08: Continue current regimen and plans Reason for continued inpatient stay Substantial Risk for: harm to self Time Spent With Patient Time: Total time managing care of this patient today ____ minutes.
[2024-06-08 20:00] VITALS: BP 143/94; PULSE 98; TEMP 36.4; O2SAT 97
[2024-06-09 08:00] VITALS: BP 147/66; PULSE 72; TEMP 37; O2SAT 97
[2024-06-09] MEDS: Escitalopram Oxalate 10 MG TABLET PO (08:42)
[2024-06-09] MEDS: ARIPiprazole 2 MG TABLET PO (08:42)
[2024-06-09] MEDS: Multivitamin TABLET 1 TAB PO (08:42)
--- NOTE | 2024-06-09 09:42 | HO.PSYCHPN ---
Subjective Subjective Date of Service: 06/09/24 Reason For Visit: s/p overdoes of tylenol,depression,substance use Interim History: met with patient; discussed with team; reviewed chart Patient shared about previous admission and the time leading up to this current admission. Prior to his 1st ever admission this past April 2024, patient was depressed, not sleeping much but also tired, and became delusional; 4 days before that admission patient says I was thinking i was everette, the whole world was giving me signals, i was going to be crucified...that's why outside in only underwear in the cold to walk in pain... He said Abilify seemed to help; however after discharge he stopped taking it, wondering if it made him dizzy. He said he did okay for a few weeks but became depressed again, exacerbated by being laid off from his job, and for the past 2 weeks he has been very depressed, in bed most of the time, not eating or drinking much and superficially self-harming, cutting on his wrists and neck... He says his overdose of Tylenol was impulsive and he regretted it soon after. Patient says that also prior to this admission, he was becoming paranoid, thinking he was being framed for being a pedophile; he said he started to see signs of this, like children coming up from no where and then thought his friends were telling him that he was a registered sex offender... He says a group of friends told him so we were watching the Oscars...and [his] friends were having fast-paced conversations during which time they communicated to him that he is a registered sex offender.... Patient went on to say i think the whole world has a conspiracy against me: bullied as child, unloved by mom, father early age, grandmother of cancer... And that he thinks some actual person/group is behind this, orchestrating these bad things happening to him... perhaps the [employer] Arita...or someone else.. Though can not explain how it makes sense. Patient responded well to reality testing, accepting that given there is no arrest, trial, conviction for any sexual offense that he is not a registered sex offender... Accepting that these beliefs are delusional. Patient shared that he has been paranoid for awhile,, possibly years and independent of mood. Patient said he was afraid of this because his father has schizophrenia. Patient asked about his diagnosis and treatment. Wants to try Vraylar instead of Abilify preferring the side effect risk profile of Vraylar and the fact that it is possibly more helpful for depression than Abilify. Hx: Father: Schizophrenia Trauma as child, manager social work removed pt from household due to parents issues Schooling: completed college including Masters Degree in Environmental studies Mental Status Exam Mental Status Exam Narrative: Pt is alert and oriented; behavior is cooperative, friendly and calm; patient is not in distress; dressed in hospital attire, face mask, glasses, unkempt hair; mood is described as ok and affect congruent, a little constricted; eye contact appropriate; Speech is a little latent, but normal rate, volume and prosody and not pressured; psychomotor retardation present; thought process is organized and goal directed; Thought content is with paranoid delusions but responsive to reality testing; denies any SI/HI. No AVH; There is no evidence of perceptual disturbance. Patients insight and judgment impaired Diagnostics Vital Signs (24Hr): Vital Signs - 24 hr 06/08/24 20:00 06/09/24 08:00 Temperature 97.5 F 98.6 F Pulse Rate 98 72 Blood Pressure 143/94 H 147/66 H Pulse Oximetry 97 97 Oxygen Delivery Method Room Air Room Air BMI result Body Mass Index 24.6 Labs Labs: Laboratory Results - last 48 hr 06/07/24 09:24 Estimat Average Glucose 100 Hemoglobin A1c % 5.1 Magnesium 2.1 Triglycerides 121 Cholesterol 131 LDL Cholesterol, Calc 69 HDL Cholesterol 38 L Vitamin B12 385 Folate 14.2 TSH 1.10 Free T4 1.48 Medications Medications Current Medications Aripiprazole (Aripiprazole 2 Mg Tablet) 2 mg PO DAILY [facility] Last Admin: 06/09/24 08:42 Dose: 2 mg Calcium Carbonate (Calcium Carbonate 750 Mg Tab.Chew) 750 mg PO Q4H PRN PRN Reason: Heartburn Escitalopram Oxalate (Escitalopram Oxalate 10 Mg Tablet) 10 mg PO DAILY [facility] Last Admin: 06/09/24 08:42 Dose: 10 mg Hydroxyzine HCl (Hydroxyzine Hcl 25 Mg Tablet) 25 mg PO Q6H PRN PRN Reason: mild anxiety Magnesium Hydroxide (Milk Of Magnesia 30 Ml Oral.Susp) 30 ml PO DAILY PRN PRN Reason: Constipation Melatonin (Melatonin 3 Mg Tablet) 6 mg PO BEDTIME PRN PRN Reason: Insomnia Multivitamins/Vitamin C (Multivitamin Tablet) 1 tab PO DAILY [facility] Last Admin: 06/09/24 08:42 Dose: 1 tab Nicotine Polacrilex (Nicotine Polacrilex 2 Mg Gum) 4 mg BUCCAL Q2H PRN PRN Reason: Nicotine Cravings Allergies Allergies Allergy/AdvReac Type Severity Reaction Status Date / Time No Known Allergies Allergy Verified 06/04/24 16:43 Assessment & Plan Assessment & Plan (1) Major depressive episode: Status: Acute Code(s): F32.9 - Major depressive disorder, single episode, unspecified Plan Jayy is a 33-year-old /Dominican-speaking, single, recently unemployed man who was transferred from the medical unit yesterday after an admission for overdose on 40 Tylenol tablets after which a roommate called EMS and was subsequently brought to the hospital and admitted. He also had made to superficial cuts to his both wrists. This is his 2nd overdose. Had a previous 1 in April and was admitted to this unit. He does have some outpatient connections at [facility] but missed his psychiatric appointment because he signed into a virtual appointment incorrectly. He is on Abilify 2 mg daily and trazodone but he does not know the dose. No history of substance abuse. 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 In the past he has had some struggles with his sexual orientation and his family. He states that he has been feeling very depressed, hopeless, at times not eating or attending to his hygiene. He has not been on any antidepressants. He is open to that. Denies any current suicidal ideations and feels safe on the unit. No history of violence. He does not have access to firearms. He denies any AVH but there have been references to auditory hallucinations in the past Past Psychiatric History: 1 past admission April 2024 at [facility] Hx: Father: Schizophrenia Trauma as child, manager social work removed pt from household due to parents issues Schooling: completed college including Masters Degree in Environmental studies Hospital course: 06/08: Continue current regimen and plans 06/09 Patient shared about previous admission and the time leading up to this current admission. Prior to his 1st ever admission this past April 2024, patient was depressed, not sleeping much but also tired, and became delusional; 4 days before that admission patient says I was thinking i was everette, the whole world was giving me signals, i was going to be crucified...that's why outside in only underwear in the cold to walk in pain... He said Abilify seemed to help; however after discharge he stopped taking it, wondering if it made him dizzy. He said he did okay for a few weeks but became depressed again, exacerbated by being laid off from his job, and for the past 2 weeks he has been very depressed, in bed most of the time, not eating or drinking much and superficially self-harming, cutting on his wrists and neck... He says his overdose of Tylenol was impulsive and he regretted it soon after. Patient says that also prior to this admission, he was becoming paranoid, thinking he was being framed for being a pedophile; he said he started to see signs of this, like children coming up from no where and then thought his friends were telling him that he was a registered sex offender... He says a group of friends told him so we were watching the Oscars...and [his] friends were having fast-paced conversations during which time they communicated to him that he is a registered sex offender.... Patient went on to say i think the whole world has a conspiracy against me: bullied as child, unloved by mom, father early age, grandmother of cancer... And that he thinks some actual person/group is behind this, orchestrating these bad things happening to him... perhaps the [employer]...or someone else.. Though can not explain how it makes sense. Patient responded well to reality testing, accepting that given there is no arrest, trial, conviction for any sexual offense that he is not a registered sex offender... Accepting that these beliefs are delusional. Patient shared that he has been paranoid for awhile,, possibly years and independent of mood. Patient said he was afraid of this because his father has schizophrenia. Patient asked about his diagnosis and treatment. Wants to try Vraylar instead of Abilify preferring the side effect risk profile of Vraylar and the fact that it is possibly more helpful for depression than Abilify. -no SI -currently no AVH Formulation/clinical reasoning: Patient meets criteria for schizoaffective disorder as he has psychotic symptoms, independent of mood, with bouts of depression. Patient is accepting of diagnosis and wants treatment. PLAN: Start Vryalar 1.5mg daily (for psychosis and for depression) DC Abilify DC Lexapro (causes tachycardia) Patient educated on: diagnosis, medication risk/benefits and therapeutic strategies Informed Consent: understands Reason for continued inpatient stay Substantial Risk for: rapid decompensation Time Spent With Patient Time: Total time managing care of this patient today ____ minutes.
[2024-06-09 11:03] LABS: Influenza A PCR NEGATIVE (Negative); Influenza B PCR NEGATIVE (Negative); Resp Syncy Virus RNA Qual PCR NEGATIVE (Negative); SARS COV2 PCR INHOUSE NEGATIVE (Negative)
[2024-06-09] MEDS: Cariprazine HCl 1.5 MG CAPSULE PO (16:25)
[2024-06-09 20:00] VITALS: BP 133/74; PULSE 97; TEMP 37.1; O2SAT 98
[2024-06-10 08:00] VITALS: BP 147/68; PULSE 89; TEMP 37.9; O2SAT 96
[2024-06-10] MEDS: Cariprazine HCl 1.5 MG CAPSULE PO (09:02)
[2024-06-10] MEDS: Multivitamin TABLET 1 TAB PO (09:02)
[2024-06-10 10:29] LABS: IDNOW Serial# 58CA691E; Strep A Nucleic Acid Negative (Negative)
[2024-06-10 10:44] LABS: Influenza A PCR NEGATIVE (Negative); Influenza B PCR NEGATIVE (Negative); Resp Syncy Virus RNA Qual PCR NEGATIVE (Negative); SARS COV2 PCR INHOUSE NEGATIVE (Negative)
[2024-06-10] MEDS: Acetaminophen 325 MG TABLET 650 MG PO (11:11)
[2024-06-10] MEDS: Throat Lozenge, Medicated LOZENGE 1 LOZENGE MUCOUS MEM (11:11)
[2024-06-10] MEDS: guaiFENesin 100 MG/5 ML 5 ML LIQUID PO (11:11)
--- NOTE | 2024-06-10 15:43 | P.PNPSI_ITS ---
Subjective Subjective Date of Service: 06/10/24 Reason For Visit: s/p overdoes of tylenol,depression,substance use Interim History: Met with patient; discussed with team Patient said he is doing okay. Processing his diagnosis. Patient says it is something he has been afraid of for his entire life, since he has known his father had schizophrenia. Patient denies any delusional thinking or AVH. Discussed medications and given that he currently does not have insurance, agrees to switch back to [facility], which did seem helpful, as Vraylar is less likely to be covered. Mental Status Exam Mental Status Exam Narrative: Pt is alert and oriented; behavior is cooperative, friendly and calm; patient is not in distress; dressed in hospital attire, face mask, glasses, unkempt hair; mood is described as ok and affect congruent, a little constricted; eye contact appropriate; Speech is a little latent, but normal rate, volume and prosody and not pressured;less psychomotor retardation present; thought process is organized and goal directed; Thought content is processing diagnosis psychotic disorder; denies any delusional thinking; denies any SI/HI. No AVH; There is no evidence of perceptual disturbance. Patients insight and judgment fair Diagnostics Vital Signs (24Hr): Vital Signs - 24 hr 06/09/24 20:00 06/10/24 08:00 Temperature 98.8 F 100.3 F Pulse Rate 97 89 Blood Pressure 133/74 147/68 H Pulse Oximetry 98 96 Oxygen Delivery Method Room Air Room Air BMI result Body Mass Index 24.6 Labs Labs: Laboratory Results - last 48 hr 06/09/24 06/10/24 09:47 09:50 Influenza Type A (PCR) NEGATIVE NEGATIVE Influenza Type B (PCR) NEGATIVE NEGATIVE RSV RNA Qual (PCR) NEGATIVE NEGATIVE SARS-CoV-2 RNA (RT-PCR) NEGATIVE NEGATIVE S. pyogenes GrpA MATA Negative Medications Medications Current Medications Acetaminophen (Acetaminophen 325 Mg Tablet) 650 mg PO Q4H PRN PRN Reason: Pain (Pain Scale 1-10) Last Admin: 06/10/24 11:11 Dose: 650 mg Aripiprazole (Aripiprazole 2 Mg Tablet) 2 mg PO DAILY [facility] Benzocaine (Throat Lozenge, Medicated Lozenge) 1 lozenge MUCOUS MEM Q2H PRN PRN Reason: Sore Throat Last Admin: 06/10/24 11:11 Dose: 1 lozenge Calcium Carbonate (Calcium Carbonate 750 Mg Tab.Chew) 750 mg PO Q4H PRN PRN Reason: Heartburn Guaifenesin (Guaifenesin 100 Mg/5 Ml 5 Ml Liquid) 5 ml PO Q6H PRN PRN Reason: Cough Last Admin: 06/10/24 11:11 Dose: 5 ml Hydroxyzine HCl (Hydroxyzine Hcl 25 Mg Tablet) 25 mg PO Q6H PRN PRN Reason: mild anxiety Magnesium Hydroxide (Milk Of Magnesia 30 Ml Oral.Susp) 30 ml PO DAILY PRN PRN Reason: Constipation Melatonin (Melatonin 3 Mg Tablet) 6 mg PO BEDTIME PRN PRN Reason: Insomnia Multivitamins/Vitamin C (Multivitamin Tablet) 1 tab PO DAILY [facility] Last Admin: 06/10/24 09:02 Dose: 1 tab Nicotine Polacrilex (Nicotine Polacrilex 2 Mg Gum) 4 mg BUCCAL Q2H PRN PRN Reason: Nicotine Cravings Allergies Allergies Allergy/AdvReac Type Severity Reaction Status Date / Time aspirin [ASA] Allergy Swelling Verified 06/10/24 09:46 Penicillins Allergy Swelling Verified 06/10/24 09:46 Assessment & Plan Assessment & Plan (1) Major depressive episode: Status: Acute Code(s): F32.9 - Major depressive disorder, single episode, unspecified Plan Jayy is a 33-year-old /Mauritanian-speaking, single, recently unemployed man who was transferred from the medical unit yesterday after an admission for overdose on 40 Tylenol tablets after which a roommate called EMS and was subsequently brought to the hospital and admitted. He also had made to superficial cuts to his both wrists. This is his 2nd overdose. Had a previous 1 in April and was admitted to this unit. He does have some outpatient connections at [facility] but missed his psychiatric appointment because he signed into a virtual appointment incorrectly. He is on Abilify 2 mg daily and trazodone but he does not know the dose. No history of substance abuse. 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 In the past he has had some struggles with his sexual orientation and his family. He states that he has been feeling very depressed, hopeless, at times not eating or attending to his hygiene. He has not been on any antidepressants. He is open to that. Denies any current suicidal ideations and feels safe on the unit. No history of violence. He does not have access to firearms. He denies any AVH but there have been references to auditory hallucinations in the past Past Psychiatric History: 1 past admission April 2024 at [facility] Hx: Father: Schizophrenia Trauma as child, social media campaign manager removed pt from household due to parents issues Schooling: completed college including Masters Degree in Environmental studies Hospital course: 06/08: Continue current regimen and plans 06/09 Patient shared about previous admission and the time leading up to this current admission. Prior to his 1st ever admission this past April 2024, patient was depressed, not sleeping much but also tired, and became delusional; 4 days before that admission patient says I was thinking i was everette, the whole world was giving me signals, i was going to be crucified...that's why outside in only underwear in the cold to walk in pain... He said Abilify seemed to help; however after discharge he stopped taking it, wondering if it made him dizzy. He said he did okay for a few weeks but became depressed again, exacerbated by being laid off from his job, and for the past 2 weeks he has been very depressed, in bed most of the time, not eating or drinking much and superficially self-harming, cutting on his wrists and neck... He says his overdose of Tylenol was impulsive and he regretted it soon after. Patient says that also prior to this admission, he was becoming paranoid, thinking he was being framed for being a pedophile; he said he started to see signs of this, like children coming up from no where and then thought his friends were telling him that he was a registered sex offender... He says a group of friends told him so we were watching the Oscars...and [his] friends were having fast-paced conversations during which time they communicated to him that he is a registered sex offender.... Patient went on to say i think the whole world has a conspiracy against me: bullied as child, unloved by mom, father early age, grandmother of cancer... And that he thinks some actual person/group is behind this, orchestrating these bad things happening to him... perhaps the Maris A[employer]a...or someone else.. Though can not explain how it makes sense. Patient responded well to reality testing, accepting that given there is no arrest, trial, conviction for any sexual offense that he is not a re gistered sex offender... Accepting that these beliefs are delusional. Patient shared that he has been paranoid for awhile,, possibly years and independent of mood. Patient said he was afraid of this because his father has schizophrenia. Patient asked about his diagnosis and treatment. Wants to try Vraylar instead of Abilify preferring the side effect risk profile of Vraylar and the fact that it is possibly more helpful for depression than Abilify. -no SI -currently no AVH 06/10 Patient said he is doing okay. Processing his diagnosis. Patient says it is something he has been afraid of for his entire life, since he has known his father had schizophrenia. Patient denies any delusional thinking or AVH. Discussed medications and given that he currently does not have insurance, agrees to switch back to Abilify, which did seem helpful, as Vraylar is less likely to be covered. Formulation/clinical reasoning: Patient meets criteria for schizoaffective disorder as he has psychotic symptoms, independent of mood, with bouts of depression. Patient is accepting of diagnosis and wants treatment. PLAN: Discontinue Vryalar 1.5mg daily (concerned insurance will not cover) Restart Abilify 2 mg daily; seem to be effective last admission DC Lexapro (causes tachycardia) Patient educated on: diagnosis, medication risk/benefits and therapeutic strategies Informed Consent: understands Reason for continued inpatient stay Substantial Risk for: rapid decompensation Time Spent With Patient Time: Total time managing care of this patient today ____ minutes.
[2024-06-10 15:50] VITALS: TEMP 36.9
[2024-06-10 20:00] VITALS: BP 142/65; PULSE 89; RESP 16; TEMP 36.3; O2SAT 98
[2024-06-11 08:26] VITALS: BP 136/72; PULSE 99; RESP 16; TEMP 36.8; O2SAT 95
[2024-06-11] MEDS: Multivitamin TABLET 1 TAB PO (08:54)
[2024-06-11] MEDS: ARIPiprazole 2 MG TABLET PO (08:55)
[2024-06-11] MEDS: Acetaminophen 325 MG TABLET 650 MG PO ×2 (08:57→15:39)
[2024-06-11 10:05] VITALS: TEMP 37.8
[2024-06-11 12:21] VITALS: TEMP 38.5
[2024-06-11 12:48] LABS: MANUAL DIFF FLAG NO
--- NOTE | 2024-06-11 12:49 | P.CONHOSP_ITS ---
History of Present Illness Data of Consult Service Date: 06/11/24 Requesting physician: Ben Chavis Primary Care Provider: Unknown Physician HPI Reason for consult: st, fevers 33-year-old male without any significant past medical history other than depression and substance abuse recently admitted to hospitalist service due to acetaminophen overdose and treated with N-acetylcysteine and then transferred to adult Psychiatry for further evaluation and management. Consult was placed to hospitalist services morning due to fevers and sore throat. Patient reports that he has had sore throat, myalgias, and occasionally productive cough ongoing for the last 2 days. He has been intermittently febrile since yesterday with temperature prior to exam of 101.3. Most recent heart rate 99. No hypoxia. He is also reporting a headache. Denies any nasal congestion, rhinorrhea, dysphagia, ear pain, abdominal pain, nausea, vomiting, diarrhea, shortness of breath, or chest pain. He was negative for COVID-19, influenza, RSV. He was also negative for strep. He does report a history of mononucleosis several years ago. He also reports chronic tonsillitis. Review of Systems 2 Constitutional: Constitutional: Reports as per HPI ENT: Reports system reviewed and no additional complaints, except as documented Cardiovascular: Cardiovascular: Reports as per HPI Respiratory: Respiratory: Reports as per HPI Gastrointestinal: Gastrointestinal: Reports as per HPI [facility] Medical History No pertinent past medical history Social History Household Members: Other Household Members Other:: 1 male room mate Housing: Apartment Do you presently have visiting nurse or other home services: No Unable to assess alcohol history related to: Refusing to respond Comment: 1:1 sitter Patient Tobacco Use Status: Never used Tobacco Smoked in Last 30 Days: No Second Hand Smoke Exposure: No Use of substances other than those prescribed or required for medical reasons: Yes Substance Use Type: Caffiene Last Used Substance: Hours (ago) Currently Displaying Signs/Symptoms of Drug Intoxication Withdrawal: No Have you been hit, kicked, punched, or otherwise hurt by someone within the past year? If so, by whom?: No Do you feel safe in your current relationship?: No Current Relationship Is there a partner from a previous relationship who is making you feel unsafe now?: No Are you made to feel afraid or neglected: No Spiritual Healthcare Practices: NONE Caodaism Healthcare Practices: NONE Cultural Healthcare Practices: NONE Advance Directives: No Advance Directives Information Provided: No Do you have thoughts of harming others: None Do you have a plan to hurt others: No Plan Recently lost weight without trying: No Eating poorly because of decreased appetite: No Nutrition Risks: No Nutritional Risk Poor oral hygiene: No service: No Sexual orientation: Lesbian/Rivas/Homosexual Meds Allergies Allergy/AdvReac Type Severity Reaction Status Date / Time aspirin [ASA] Allergy Swelling Verified 06/10/24 09:46 Penicillins Allergy Swelling Verified 06/10/24 09:46 Active Medications: Current Medications Acetaminophen (Acetaminophen 325 Mg Tablet) 650 mg PO Q4H PRN PRN Reason: Pain (Pain Scale 1-10) Last Admin: 06/11/24 08:57 Dose: 650 mg Aripiprazole (Aripiprazole 2 Mg Tablet) 2 mg PO DAILY [facility] Last Admin: 06/11/24 08:55 Dose: 2 mg Benzocaine (Throat Lozenge, Medicated Lozenge) 1 lozenge MUCOUS MEM Q2H PRN PRN Reason: Sore Throat Last Admin: 06/10/24 11:11 Dose: 1 lozenge Calcium Carbonate (Calcium Carbonate 750 Mg Tab.Chew) 750 mg PO Q4H PRN PRN Reason: Heartburn Guaifenesin (Guaifenesin 100 Mg/5 Ml 5 Ml Liquid) 5 ml PO Q6H PRN PRN Reason: Cough Last Admin: 06/10/24 11:11 Dose: 5 ml Hydroxyzine HCl (Hydroxyzine Hcl 25 Mg Tablet) 25 mg PO Q6H PRN PRN Reason: mild anxiety Magnesium Hydroxide (Milk Of Magnesia 30 Ml Oral.Susp) 30 ml PO DAILY PRN PRN Reason: Constipation Melatonin (Melatonin 3 Mg Tablet) 6 mg PO BEDTIME PRN PRN Reason: Insomnia Multivitamins/Vitamin C (Multivitamin Tablet) 1 tab PO DAILY [facility] Last Admin: 06/11/24 08:54 Dose: 1 tab Nicotine Polacrilex (Nicotine Polacrilex 2 Mg Gum) 4 mg BUCCAL Q2H PRN PRN Reason: Nicotine Cravings Home Medications ?Medication ?Instructions ?Recorded ?Confirmed ?Last Taken ?Type Lactobacillus 40-Bifidobact 1 cap PO DAILY 06/04/24 06/04/24 06/04/24 History 3-S.thermophilus 100 billion cell capsule (Probiotic) biotin 1 mg tablet 1 mg PO DAILY 06/04/24 06/04/24 06/04/24 History multivitamin 1 tab PO DAILY 06/04/24 06/04/24 06/04/24 History omega 3-khm-sqe-fish oil 1,000 mg 1 cap PO DAILY 06/04/24 06/04/24 06/04/24 History (120 mg-180 mg) capsule (Fish Oil) Physical Exam 2 Vital Signs and Narrative: Vital Signs: Last Vital Signs Temp 101.3 F H 06/11/24 12:21 Pulse 99 06/11/24 08:26 Resp 16 06/11/24 08:26 BP 136/72 06/11/24 08:26 Pulse Ox 95 06/11/24 08:26 O2 Del Method Room Air 06/11/24 08:26 BMI result Body Mass Index 24.6 Constitutional - Awake and Alert, No apparent distress Eyes - PERRLA, EOMI Mouth/Throat- Erythema of the posterior oropharynx and tonsils with grade 2 tonsilitis and crypts but no exudate. No lesions Neck - bilateral tonsillar adenopathy. No other anterior or posterior adenopathy Cardiovascular - S1S2, RRR, No edema Respiratory - Normal lung expansion, Normal respiratory effort, No respiratory distress, CTA bilaterally Gastrointestinal - NT / ND; +BS; No rebound or guarding Extremities - no calf tenderness bilaterally, no swelling Skin - Warm/Dry Results Labs 06/11/24 12:44 Assessment and Plan (1) URI (upper respiratory infection): Status: Acute Plan 33-year-old male without any significant past medical history other than depression and substance abuse recently admitted to hospitalist service due to acetaminophen overdose and treated with N-acetylcysteine and then transferred to adult Psychiatry for further evaluation and management. Consult was placed to hospitalist services morning due to fevers and sore throat. #Fevers/Sore throat/cough -Negative for covid, flu, rsv. Negative for Strep pyogenes -Check full viral respiratory panel -Check monospot -CXR ordered given productive cough, malaise and fevers which is supicious for pnuemonia -for now, symptomatic management with tylenol/ibuprofen prn for fevers & sore throat, warm salt water gargles -If cxr positive show pneumonia antibiotics will be ordered, otherwise this is likely a viral URI Will continue following for results
[2024-06-11 12:53] LABS: Basophils Percent Auto 0.2 % (0-2); Eosinophils Absolute Auto 0.1 X10*3/uL (0.0-0.4); Eosinophils Percent Auto 0.8 % (0-4); Hematocrit 42.6 % (42.0-52.0); Hemoglobin 14.1 g/dl (14.0-18.0); Imm Gran Abs Auto 0.04 X10*3/uL (0.00-0.03); Imm Gran Pct Auto 0.4 % (0.0-0.4); Lymphocytes Absolute Auto 1.4 X10*3/uL (1.2-4.9); Lymphocytes Percent Auto 13.2 % (20-40); Mean Corpuscular HGB Conc 33.1 g/dl (31.0-36.0); Mean Corpuscular Hemoglobin 29.7 pg (27.0-33.0); Mean Corpuscular Volume 89.9 fL (80.0-98.0); Monocytes Absolute Auto 1.1 X10*3/uL (0.1-1.2); Monocytes Percent Auto 10.1 % (2-11); Neutrophils Absolute Auto 8.1 x10*3/uL (2.0-8.3); Neutrophils Percent Auto 75.3 % (45-73); Platelet Count 201 X10*3/uL (160-400); Red Blood Count 4.74 X10*6/uL (4.60-5.80); Red Cell Distribution Width 11.9 % (11.0-16.0); White Blood Count 10.8 X10*3/uL (4.8-10.8)
--- NOTE | 2024-06-11 13:01 | P.PNPSI_ITS ---
Subjective Subjective Date of Service: 06/11/24 Reason For Visit: s/p overdoes of tylenol,depression,substance use Interim History: Met with patient; discussed with team Patient reports switching to Abilify no problems; still denies psychotic symptoms. Patient however feeling continued malaise, sore throat, cough and is febrile despite being on Tylenol; negative RSV, flu, COVID, strep; will get medical consult Mental Status Exam Mental Status Exam Narrative: Pt is alert and oriented; behavior is cooperative, isolative, and calm; patient is not in distress; dressed in hospital attire, mustache, scruffy, unkempt hair; mood is described as ok and affect congruent, a little blunted; eye contact appropriate; Speech is a little latent, but normal rate, volume and prosody and not pressured;less psychomotor retardation present; thought process is organized and goal directed; Thought content is processing diagnosis psychotic disorder; denies any delusional thinking; denies any SI/HI. No AVH; There is no evidence of perceptual disturbance. Patients insight and judgment fair Diagnostics Vital Signs (24Hr): Vital Signs - 24 hr 06/10/24 15:50 06/10/24 20:00 06/11/24 08:26 Temperature 98.4 F 97.3 F 98.2 F Pulse Rate 89 99 Respiratory Rate 16 16 Blood Pressure 142/65 H 136/72 Pulse Oximetry 98 95 Oxygen Delivery Method Room Air Room Air 06/11/24 10:05 06/11/24 12:21 Temperature 100.1 F 101.3 F H Pulse Rate Respiratory Rate Blood Pressure Pulse Oximetry Oxygen Delivery Method BMI result Body Mass Index 24.6 Labs 06/11/24 12:44 Labs: Laboratory Results - last 48 hr 06/10/24 06/11/24 09:50 12:44 WBC 10.8 RBC 4.74 Hgb 14.1 Hct 42.6 MCV 89.9 D MCH 29.7 MCHC 33.1 RDW 11.9 Plt Count 201 MPV 9.0 L Immature Gran % (Auto) 0.4 Neut % (Auto) 75.3 H Lymph % (Auto) 13.2 L [place] % (Auto) 10.1 Eos % (Auto) 0.8 Baso % (Auto) 0.2 Lymph # (Auto) 1.4 [place] # (Auto) 1.1 Eos # (Auto) 0.1 Baso # (Auto) 0.0 Abs Immat Gran (auto) 0.04 H Absolute Neuts (auto) 8.1 Absolute Nucleated RBC 0.000 Nucleated RBC % (auto) 0.0 Influenza Type A (PCR) NEGATIVE Influenza Type B (PCR) NEGATIVE RSV RNA Qual (PCR) NEGATIVE SARS-CoV-2 RNA (RT-PCR) NEGATIVE S. pyogenes GrpA MATA Negative Medications Medications Current Medications Acetaminophen (Acetaminophen 325 Mg Tablet) 650 mg PO Q4H PRN PRN Reason: Pain (Pain Scale 1-10) Last Admin: 06/11/24 08:57 Dose: 650 mg Aripiprazole (Aripiprazole 2 Mg Tablet) 2 mg PO DAILY [place] Last Admin: 06/11/24 08:55 Dose: 2 mg Benzocaine (Throat Lozenge, Medicated Lozenge) 1 lozenge MUCOUS MEM Q2H PRN PRN Reason: Sore Throat Last Admin: 06/10/24 11:11 Dose: 1 lozenge Calcium Carbonate (Calcium Carbonate 750 Mg Tab.Chew) 750 mg PO Q4H PRN PRN Reason: Heartburn Guaifenesin (Guaifenesin 100 Mg/5 Ml 5 Ml Liquid) 5 ml PO Q6H PRN PRN Reason: Cough Last Admin: 06/10/24 11:11 Dose: 5 ml Hydroxyzine HCl (Hydroxyzine Hcl 25 Mg Tablet) 25 mg PO Q6H PRN PRN Reason: mild anxiety Ibuprofen (Ibuprofen 600 Mg Tablet) 600 mg PO Q6H PRN PRN Reason: fevers, sore throat Magnesium Hydroxide (Milk Of Magnesia 30 Ml Oral.Susp) 30 ml PO DAILY PRN PRN Reason: Constipation Melatonin (Melatonin 3 Mg Tablet) 6 mg PO BEDTIME PRN PRN Reason: Insomnia Multivitamins/Vitamin C (Multivitamin Tablet) 1 tab PO DAILY [place] Last Admin: 06/11/24 08:54 Dose: 1 tab Nicotine Polacrilex (Nicotine Polacrilex 2 Mg Gum) 4 mg BUCCAL Q2H PRN PRN Reason: Nicotine Cravings Allergies Allergies Allergy/AdvReac Type Severity Reaction Status Date / Time aspirin [ASA] Allergy Swelling Verified 06/10/24 09:46 Penicillins Allergy Swelling Verified 06/10/24 09:46 Assessment & Plan Assessment & Plan (1) Schizoaffective disorder, depressive type: Status: Acute Code(s): F25.1 - Schizoaffective disorder, depressive type (2) URI (upper respiratory infection): Status: Acute Code(s): J06.9 - Acute upper respiratory infection, unspecified Plan Jayy is a 33-year-old /Setswana-speaking, single, recently unemployed man who was transferred from the medical unit yesterday after an admission for overdose on 40 Tylenol tablets after which a roommate called EMS and was subsequently brought to the hospital and admitted. He also had made to superficial cuts to his both wrists. This is his 2nd overdose. Had a previous 1 in April and was admitted to this unit. He does have some outpatient connections at [facility] but missed his psychiatric appointment because he signed into a virtual appointment incorrectly. He is on Abilify 2 mg daily and trazodone but he does not know the dose. No history of substance abuse. 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 In the past he has had some struggles with his sexual orientation and his family. He states that he has been feeling very depressed, hopeless, at times not eating or attending to his hygiene. He has not been on any antidepressants. He is open to that. Denies any current suicidal ideations and feels safe on the unit. No history of violence. He does not have access to firearms. He denies any AVH but there have been references to auditory hallucinations in the past Past Psychiatric History: 1 past admission April 2024 at [place] Hx: Father: Schizophrenia Trauma as child, manager social responsibility removed pt from household due to parents issues Schooling: completed college including Masters Degree in Environmental studies Hospital course: 06/08: Continue current regimen and plans 06/09 Patient shared about previous admission and the time leading up to this current admission. Prior to his 1st ever admission this past April 2024, patient was depressed, not sleeping much but also tired, and became delusional; 4 days before that admission patient says I was thinking i was everette, the whole world was giving me signals, i was going to be crucified...that's why outside in only underwear in the cold to walk in pain... He said Abilify seemed to help; however after discharge he stopped taking it, wondering if it made him dizzy. He said he did okay for a few weeks but became depressed again, exacerbated by being laid off from his job, and for the past 2 weeks he has been very depressed, in bed most of the time, not eating or drinking much and superficially self-harming, cutting on his wrists and neck... He says his overdose of Tylenol was impulsive and he regretted it soon after. Patient says that also prior to this admission, he was becoming paranoid, thinking he was being framed for being a pedophile; he said he started to see signs of this, like children coming up from no where and then thought his friends were telling him that he was a registered sex offender... He says a group of friends told him so we were watching the Oscars...and [his] friends were having fast-paced conversations during which time they communicated to him that he is a registered sex offender.... Patient went on to say i think the whole world has a conspiracy against me: bullied as child, unloved by mom, father early age, grandmother of cancer... And that he thinks some actual person/group is behind this, orchestrating these bad things happening to him... perhaps the [employer]...or someone else.. Though can not explain how it makes sense. Patient responded well to reality testing, accepting that given there is no arrest, trial, conviction for any sexual offense that he is not a registered sex offender... Accepting that these beliefs are delusional. Patient shared that he has been paranoid for awhile,, possibly years and independent of mood. Patient said he was afraid of this because his father has schizophrenia. Patient asked about his diagnosis and treatment. Wants to try Vraylar instead of Abilify preferring the side effect risk profile of Vraylar and the fact that it is possibly more helpful for depression than Abilify. -no SI -currently no AVH 06/10 Patient said he is doing okay. Processing his diagnosis. Patient says it is something he has been afraid of for his entire life, since he has known his father had schizophrenia. Patient denies any delusional thinking or AVH. Discussed medications and given that he currently does not have insurance, agrees to switch back to Abilify, which did seem helpful, as Vraylar is less likely to be covered. / Patient reports switching to Abilify no problems; still denies psychotic symptoms. -if patient amenable, will strongly consider increasing Abilify dose given the fact that patient has now had 2 suicide attempts; although patient said Abilify 2 mg was effective last time, he only took it while in the hospital Patient however feeling continued malaise, sore throat, cough and is febrile despite being on Tylenol; negative RSV, flu, COVID, strep; will get medical consult Formulation/clinical reasoning: Patient meets criteria for schizoaffective disorder as he has psychotic symptoms, independent of mood, with bouts of depression. Patient is accepting of diagnosis and wants treatment. PLAN: Continue Abilify 2 mg daily; seem to be effective last admission; strongly considering increasing dose Discontinue Vryalar 1.5mg daily (concerned insurance will not cover) DC Lexapro (causes tachycardia) #Fevers/Sore throat/cough -Negative for covid, flu, rsv. Negative for Strep pyogenes -Check full viral respiratory panel Patient educated on: diagnosis, medication risk/benefits, therapeutic strategies and medical condition Informed Consent: understands Reason for continued inpatient stay Substantial Risk for: rapid decompensation Time Spent With Patient Time: Total time managing care of this patient today ____ minutes.
[2024-06-11 13:08] LABS: Lactic Acid 1.1 mmol/L (0.5-2.0)
[2024-06-11 13:49] LABS: Monotest Negative (Negative)
[2024-06-11] MEDS: Doxycycline Monohydrate 100 MG CAPSULE PO ×2 (15:21→22:12)
[2024-06-11 15:37] VITALS: TEMP 37.8
[2024-06-11] MEDS: Throat Lozenge, Medicated LOZENGE 1 LOZENGE MUCOUS MEM (15:40)
[2024-06-11 17:30] VITALS: TEMP 37.9
[2024-06-11 19:28] LABS: Alanine Aminotransferase 42 U/L (0-40); Albumin Level 4.3 g/dL (3.5-5.0); Alkaline Phosphatase 49 U/L (39-117); Aspartate Amino Transferase 28 U/L (5-37); Bilirubin Direct 0.1 mg/dL (0.0-0.5); Bilirubin Total 0.4 mg/dL (0.0-1.0); Total Protein 7.8 g/dL (6.5-8.0)
[2024-06-11 20:00] VITALS: BP 121/71; PULSE 100; RESP 16; TEMP 36.4; O2SAT 96
[2024-06-12] MEDS: ARIPiprazole 2 MG TABLET PO (08:29)
[2024-06-12] MEDS: Multivitamin TABLET 1 TAB PO (08:29)
[2024-06-12 08:31] VITALS: BP 129/61; PULSE 82; RESP 16; TEMP 36.8; O2SAT 97
[2024-06-12 09:14] LABS: Adenovirus PCR Not Detected (Not Detect.); Bordetella parapertussis PCR Not Detected (Not Detect.); Bordetella pertussis PCR Not Detected (Not Detect.); Chlamydia pneumoniae PCR Not Detected (Not Detect.); Coronavirus 229E PCR Not Detected (Not Detect.); Coronavirus HKU1 PCR Not Detected (Not Detect.); Coronavirus NL63 PCR Not Detected (Not Detect.); Coronavirus OC43 PCR Not Detected (Not Detect.); Human metapneumovirus PCR Not Detected (Not Detect.); Influenza B PCR Not Detected (Not Detect.); Mycoplasma pneumoniae PCR Not Detected (Not Detect.); Parainfluenza 1 PCR Not Detected (Not Detect.); Parainfluenza 2 PCR Not Detected (Not Detect.); Parainfluenza 3 PCR Not Detected (Not Detect.); Parainfluenza 4 PCR Not Detected (Not Detect.); RSV PCR Not Detected (Not Detect.); Rhino/Enterovirus PCR Not Detected (Not Detect.)
--- NOTE | 2024-06-12 09:15 | HO.PSYCHPN ---
Subjective Subjective Date of Service: 06/12/24 Reason For Visit: s/p overdoes of tylenol,depression,substance use Interim History: With patient; discussed with team; reviewed chart, chest x-ray, PA note Patient reports feeling physically better now that he is on antibiotics. Discussed x-ray results and pneumonia diagnosis Patient feels more clear minded and does seem to be much more organized and present in conversation. Patient shared in more detail history of trauma including significant bullying, neglectful mother, being removed from the household by social group worker and other challenging experiences. Patient was making connections with this history and his current struggles with negative self talk and struggles with self-esteem. Endoscopy Nurse and patient discussed the differences between PTSD/trauma symptoms and psychotic illness but how the 2 can trigger each other which patient found helpful to distinguish. Discussed medications. At this time patient would like to remain on Abilify 2 mg since his without any delusional thinking or AH. Discussed medication for treatment for PTSD/depression/anxiety and reviewed SSRI/SNRI options. At this time patient wants to remain only on Abilify but very much wants to engage in outpatient therapy. Also discussed patient's safety. 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 He feels that both recent suicide attempts were in the context of being overwhelmed by his paranoid delusions which have now resolved. Patient shared that he has a few very close friends with whom he plans to incorporate into this safety plan. Mental Status Exam Mental Status Exam Narrative: Pt is alert and oriented; behavior is cooperative, isolative, and calm; patient is not in distress; dressed in hospital attire, mustache, scruffy, unkempt hair; mood is described as ok and affect congruent, less blunted; eye contact appropriate; Speech is normal rate, volume and prosody and not pressured; some residual psychomotor retardation present; thought process is organized and goal directed; Thought content is processing diagnosis psychotic disorder, trauma history; denies any delusional thinking; denies any SI/HI. No AVH; There is no evidence of perceptual disturbance. Patients insight and judgment fair Diagnostics Vital Signs (24Hr): Vital Signs - 24 hr 06/11/24 10:05 06/11/24 12:21 06/11/24 15:37 Temperature 100.1 F 101.3 F H 100.1 F Pulse Rate Respiratory Rate Blood Pressure Pulse Oximetry Oxygen Delivery Method 06/11/24 17:30 06/11/24 20:00 06/12/24 08:31 Temperature 100.2 F 97.6 F 98.3 F Pulse Rate 100 82 Respiratory Rate 16 16 Blood Pressure 121/71 129/61 Pulse Oximetry 96 97 Oxygen Delivery Method Room Air Room Air BMI result Body Mass Index 24.6 Labs 06/11/24 12:44 Labs: Laboratory Results - last 48 hr 06/10/24 06/11/24 09:50 12:44 WBC 10.8 RBC 4.74 Hgb 14.1 Hct 42.6 MCV 89.9 D MCH 29.7 MCHC 33.1 RDW 11.9 Plt Count 201 MPV 9.0 L Immature Gran % (Auto) 0.4 Neut % (Auto) 75.3 H Lymph % (Auto) 13.2 L [place] % (Auto) 10.1 Eos % (Auto) 0.8 Baso % (Auto) 0.2 Lymph # (Auto) 1.4 [place] # (Auto) 1.1 Eos # (Auto) 0.1 Baso # (Auto) 0.0 Abs Immat Gran (auto) 0.04 H Absolute Neuts (auto) 8.1 Absolute Nucleated RBC 0.000 Nucleated RBC % (auto) 0.0 Lactic Acid 1.1 Total Bilirubin 0.4 Direct Bilirubin 0.1 AST 28 ALT 42 H Alkaline Phosphatase 49 Total Protein 7.8 Albumin 4.3 Monoscreen Negative Influenza Type A (PCR) NEGATIVE Influenza Type B (PCR) NEGATIVE RSV RNA Qual (PCR) NEGATIVE SARS-CoV-2 RNA (RT-PCR) NEGATIVE S. pyogenes GrpA MATA Negative Imaging Radiology Impressions: ITS Impressions Chest X-Ray 06/11/24 14:24 IMPRESSION: Questionable acute airspace disease, right middle lung lobe. Electronically signed by: Eddy Esposito MD 06/11/2024 02:32 PM EDT Medications Medications Current Medications Acetaminophen (Acetaminophen 325 Mg Tablet) 650 mg PO Q4H PRN PRN Reason: Pain (Pain Scale 1-10) Last Admin: 06/11/24 15:39 Dose: 650 mg Aripiprazole (Aripiprazole 2 Mg Tablet) 2 mg PO DAILY COUNT [facility]CLUDES [facility] Last Admin: 06/12/24 08:29 Dose: 2 mg Benzocaine (Throat Lozenge, Medicated Lozenge) 1 lozenge MUCOUS MEM Q2H PRN PRN Reason: Sore Throat Last Admin: 06/11/24 15:40 Dose: 1 lozenge Calcium Carbonate (Calcium Carbonate 750 Mg Tab.Chew) 750 mg PO Q4H PRN PRN Reason: Heartburn Doxycycline Monohydrate (Doxycycline Monohydrate 100 Mg Capsule) 100 mg PO Q12H COUNT INCLUDES THE [facility] Last Admin: 06/11/24 22:12 Dose: 100 mg Guaifenesin (Guaifenesin 100 Mg/5 Ml 5 Ml Liquid) 5 ml PO Q6H PRN PRN Reason: Cough Last Admin: 06/10/24 11:11 Dose: 5 ml Hydroxyzine HCl (Hydroxyzine Hcl 25 Mg Tablet) 25 mg PO Q6H PRN PRN Reason: mild anxiety Ibuprofen (Ibuprofen 600 Mg Tablet) 600 mg PO Q6H PRN PRN Reason: fevers, sore throat Magnesium Hydroxide (Milk Of Magnesia 30 Ml Oral.Susp) 30 ml PO DAILY PRN PRN Reason: Constipation Melatonin (Melatonin 3 Mg Tablet) 6 mg PO BEDTIME PRN PRN Reason: Insomnia Multivitamins/Vitamin C (Multivitamin Tablet) 1 tab PO DAILY COUNT INCLUDES THE [facility] Last Admin: 06/12/24 08:29 Dose: 1 tab Nicotine Polacrilex (Nicotine Polacrilex 2 Mg Gum) 4 mg BUCCAL Q2H PRN PRN Reason: Nicotine Cravings Allergies Allergies Allergy/AdvReac Type Severity Reaction Status Date / Time aspirin [ASA] Allergy Swelling Verified 06/10/24 09:46 Penicillins Allergy Swelling Verified 06/10/24 09:46 Assessment & Plan Assessment & Plan (1) Schizoaffective disorder, depressive type: Status: Acute Code(s): F25.1 - Schizoaffective disorder, depressive type (2) URI (upper respiratory infection): Status: Acute Code(s): J06.9 - Acute upper respiratory infection, unspecified (3) PTSD (post-traumatic stress disorder): Status: Acute Code(s): F43.10 - Post-traumatic stress disorder, unspecified Plan HPI: Jayy is a 33-year-old /Ukrainian-speaking, single, recently unemployed man who was transferred from the medical unit yesterday after an admission for overdose on 40 Tylenol tablets after which a roommate called EMS and was subsequently brought to the hospital and admitted. He also had made to superficial cuts to his both wrists. This is his 2nd overdose. Had a previous 1 in April and was admitted to this unit. He does have some outpatient connections at [facility] but missed his psychiatric appointment because he signed into a virtual appointment incorrectly. He is on Abilify 2 mg daily and trazodone but he does not know the dose. No history of substance abuse. 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 In the past he has had some struggles with his sexual orientation and his family. He states that he has been feeling very depressed, hopeless, at times not eating or attending to his hygiene. He has not been on any antidepressants. He is open to that. Denies any current suicidal ideations and feels safe on the unit. No history of violence. He does not have access to firearms. He denies any AVH but there have been references to auditory hallucinations in the past Past Psychiatric History: 1 past admission April 2024 at [place] Hx: Father: Schizophrenia Trauma as child, social psychologist removed pt from household due to parents issues Schooling: completed college including Masters Degree in Environmental studies Hospital course: 06/08: Continue current regimen and plans 06/09 Patient shared about previous admission and the time leading up to this current admission. Prior to his 1st ever admission this past April 2024, patient was depressed, not sleeping much but also tired, and became delusional; 4 days before that admission patient says I was thinking i was everette, the whole world was giving me signals, i was going to be crucified...that's why outside in only underwear in the cold to walk in pain... He said Abilify seemed to help; however after discharge he stopped taking it, wondering if it made him dizzy. He said he did okay for a few weeks but became depressed again, exacerbated by being laid off from his job, and for the past 2 weeks he has been very depressed, in bed most of the time, not eating or drinking much and superficially self-harming, cutting on his wrists and neck... He says his overdose of Tylenol was impulsive and he regretted it soon after. Patient says that also prior to this admission, he was becoming paranoid, thinking he was being framed for being a pedophile; he said he started to see signs of this, like children coming up from no where and then thought his friends were telling him that he was a registered sex offender... He says a group of friends told him so we were watching the Oscars...and [his] friends were having fast-paced conversations during which time they communicated to him that he is a registered sex offender.... Patient went on to say i think the whole world has a conspiracy against me: bullied as child, unloved by mom, father early age, grandmother of cancer... And that he thinks some actual person/group is behind this, orchestrating these bad things happening to him... perhaps [facility]...or someone else.. Though can not explain how it makes sense. Patient responded well to reality testing, accepting that given there is no arrest, trial, conviction for any sexual offense that he is not a registered sex offender... Accepting that these beliefs are delusional. Patient shared that he has been paranoid for awhile,, possibly years and independent of mood. Patient said he was afraid of this because his father has schizophrenia. Patient asked about his diagnosis and treatment. Wants to try Vraylar instead of Abilify preferring the side effect risk profile of Vraylar and the fact that it is possibly more helpful for depression than Abilify. -no SI -currently no AVH 06/10 Patient said he is doing okay. Processing his diagnosis. Patient says it is something he has been afraid of for his entire life, since he has known his father had schizophrenia. Patient denies any delusional thinking or AVH. Discussed medications and given that he currently does not have insurance, agrees to switch back to Abilify, which did seem helpful, as Vraylar is less likely to be covered. 06/11 Patient reports switching to Abilify no problems; still denies psychotic symptoms. -if patient amenable, will strongly consider increasing Abilify dose given the fact that patient has now had 2 suicide attempts; although patient said Abilify 2 mg was effective last time, he only took it while in the hospital Patient however feeling continued malaise, sore throat, cough and is febrile despite being on Tylenol; negative RSV, flu, COVID, strep; will get medical consult 06/12 Patient reports feeling physically better now that he is on antibiotics.? Discussed x-ray results and pneumonia diagnosis Patient feels more clear minded and does seem to be much more organized and present in conversation.? Patient shared in more detail history of trauma including significant bullying, neglectful mother, being removed from the household by social group worker and other challenging experiences.? Patient was making connections with this history and his current struggles with negative self talk and struggles with self-esteem.? Endoscopy Nurse and patient discussed the differences between PTSD/trauma symptoms and psychotic illness but how the 2 can trigger each other which patient found helpful to distinguish.? Discussed medications.? At this time patient would like to remain on Abilify 2 mg since his without any delusional thinking or AH.? Discussed medication for treatment for PTSD/depression/anxiety and reviewed SSRI/SNRI options.? At this time patient wants to remain only on Abilify but very much wants to engage in outpatient therapy.? Also discussed patient's safety.? He has been without any SI at all since admission and says he understands himself and his symptoms much better now and will reach out for help radio news writer way if he is at all feeling the return of any psychotic symptoms or unsafe thoughts and feelings.? He feels that both recent suicide attempts were in the context of being overwhelmed by his paranoid delusions which have now resolved.? Patient shared that he has a few very close friends with whom he plans to incorporate into this safety plan. Formulation/clinical reasoning: Patient meets criteria for schizoaffective disorder as he has psychotic symptoms, independent of mood, with bouts of depression. Patient is accepting of diagnosis and wants treatment. PLAN: Continue Abilify 2 mg daily; seem to be effective last admission; strongly considering increasing dose Started on doxycycline for pneumonia Discontinue Vryalar 1.5mg daily (concerned insurance will not cover) DC Lexapro (causes tachycardia) Patient educated on: diagnosis, medication risk/benefits, therapeutic strategies and medical condition Informed Consent: understands Reason for continued inpatient stay Substantial Risk for: stable for discharge, rapid decompensation and med/psych decompensation Time Spent With Patient Time: Total time managing care of this patient today ____ minutes.
[2024-06-12 09:53] LABS: SARS-CoV-2 PCR Not Detected (Not Detect.)
[2024-06-12 09:54] LABS: Influenza A PCR Detected (Not Detect.)
[2024-06-12 10:27] VITALS: BMI 24.4
[2024-06-12] MEDS: Doxycycline Monohydrate 100 MG CAPSULE PO ×2 (10:32→21:15)
[2024-06-12 20:00] VITALS: BP 131/70; PULSE 94; RESP 16; TEMP 36.4; O2SAT 98
[2024-06-13 08:00] VITALS: BP 135/63; PULSE 70; RESP 18; TEMP 36.6; O2SAT 98
[2024-06-13] MEDS: Multivitamin TABLET 1 TAB PO (08:41)
[2024-06-13] MEDS: ARIPiprazole 2 MG TABLET PO (08:41)
[2024-06-13] MEDS: Doxycycline Monohydrate 100 MG CAPSULE PO ×2 (08:41→20:51)
[2024-06-13] MEDS: guaiFENesin 100 MG/5 ML 5 ML LIQUID PO (09:07)
[2024-06-13] MEDS: Throat Lozenge, Medicated LOZENGE 1 LOZENGE MUCOUS MEM (09:07)
--- NOTE | 2024-06-13 09:21 | P.PNPSI_ITS ---
Subjective Subjective Date of Service: 06/13/24 Reason For Visit: s/p overdoes of tylenol,depression,substance use Interim History: Met with patient; discussed with team Patient reports that he is good and that he is processing his feelings much better. Said that he talked with his sister today about history of trauma and felt the conversation helpful; discussed more about approaches to dealing with trauma and therapy. Patient continues to remain without any psychotic symptoms and tolerating Abilify well. Wants to remain on current dose. Mental Status Exam Mental Status Exam Narrative: Pt is alert and oriented; behavior is cooperative, isolative, and calm; patient is not in distress; dressed in hospital attire, mustache, scruffy, unkempt hair; mood is described as good and affect congruent, more calm, brighter; eye contact appropriate; Speech is normal rate, volume and prosody and not pressured; some residual psychomotor retardation present; thought process is organized and goal directed; Thought content is processing diagnosis psychotic disorder, trauma history; denies any delusional thinking; denies any SI/HI. No AVH; There is no evidence of perceptual disturbance. Patients insight and judgment fair Diagnostics Vital Signs (24Hr): Vital Signs - 24 hr 06/12/24 20:00 06/13/24 08:00 Temperature 97.6 F 98 F Pulse Rate 94 70 Respiratory Rate 16 18 Blood Pressure 131/70 135/63 Pulse Oximetry 98 98 Oxygen Delivery Method Room Air Room Air BMI result Body Mass Index 24.4 Labs 06/11/24 12:44 Labs: Laboratory Results - last 48 hr 06/11/24 06/11/24 12:44 14:30 WBC 10.8 RBC 4.74 Hgb 14.1 Hct 42.6 MCV 89.9 D MCH 29.7 MCHC 33.1 RDW 11.9 Plt Count 201 MPV 9.0 L Immature Gran % (Auto) 0.4 Neut % (Auto) 75.3 H Lymph % (Auto) 13.2 L [place] % (Auto) 10.1 Eos % (Auto) 0.8 Baso % (Auto) 0.2 Lymph # (Auto) 1.4 [place] # (Auto) 1.1 Eos # (Auto) 0.1 Baso # (Auto) 0.0 Abs Immat Gran (auto) 0.04 H Absolute Neuts (auto) 8.1 Absolute Nucleated RBC 0.000 Nucleated RBC % (auto) 0.0 Lactic Acid 1.1 Total Bilirubin 0.4 Direct Bilirubin 0.1 AST 28 ALT 42 H Alkaline Phosphatase 49 Total Protein 7.8 Albumin 4.3 Respiratory Panel Puentes See Note Adenovirus (Rapid PCR) Not Detected B.pert (TEM-PCR) Not Detected B.parapertussis DNA PCR Not Detected C. pneumoniae DNA (PCR) Not Detected Coronavirus OC43 (PCR) Not Detected Coronavirus HKU1 (PCR) Not Detected Coronavirus 229E (PCR) Not Detected Coronavirus NL63 (PCR) Not Detected Monoscreen Negative Human Metapneumovir PCR Not Detected Influenza A (RT-PCR) Detected A Influenza B (RT-PCR) Not Detected M. pneumoniae (PCR) Not Detected Parainfluenza 1 (PCR) Not Detected Parainfluenza 2 (PCR) Not Detected Parainfluenza 3 (PCR) Not Detected Parainfluenza 4 (PCR) Not Detected RSV (PCR) Not Detected Entero/Rhino (PCR) Not Detected SARS-CoV-2 RNA (RT-PCR) Not Detected Imaging Radiology Impressions: ITS Impressions Chest X-Ray 06/11/24 14:24 IMPRESSION: Questionable acute airspace disease, right middle lung lobe. Electronically signed by: Eddy Esposito MD 06/11/2024 02:32 PM EDT Medications Medications Current Medications Aripiprazole (Aripiprazole 2 Mg Tablet) 2 mg PO DAILY [facility] Last Admin: 06/13/24 08:41 Dose: 2 mg Benzocaine (Throat Lozenge, Medicated Lozenge) 1 lozenge MUCOUS MEM Q2H PRN PRN Reason: Sore Throat Last Admin: 06/13/24 09:07 Dose: 1 lozenge Calcium Carbonate (Calcium Carbonate 750 Mg Tab.Chew) 750 mg PO Q4H PRN PRN Reason: Heartburn Doxycycline Monohydrate (Doxycycline Monohydrate 100 Mg Capsule) 100 mg PO Q12H [place] Last Admin: 06/13/24 08:41 Dose: 100 mg Guaifenesin (Guaifenesin 100 Mg/5 Ml 5 Ml Liquid) 5 ml PO Q6H PRN PRN Reason: Cough Last Admin: 06/13/24 09:07 Dose: 5 ml Hydroxyzine HCl (Hydroxyzine Hcl 25 Mg Tablet) 25 mg PO Q6H PRN PRN Reason: mild anxiety Magnesium Hydroxide (Milk Of Magnesia 30 Ml Oral.Susp) 30 ml PO DAILY PRN PRN Reason: Constipation Melatonin (Melatonin 3 Mg Tablet) 6 mg PO BEDTIME PRN PRN Reason: Insomnia Multivitamins/Vitamin C (Multivitamin Tablet) 1 tab PO DAILY [place] Last Admin: 06/13/24 08:41 Dose: 1 tab Nicotine Polacrilex (Nicotine Polacrilex 2 Mg Gum) 4 mg BUCCAL Q2H PRN PRN Reason: Nicotine Cravings Allergies Allergies Allergy/AdvReac Type Severity Reaction Status Date / Time aspirin [ASA] Allergy Swelling Verified 06/10/24 09:46 Penicillins Allergy Swelling Verified 06/10/24 09:46 Assessment & Plan Assessment & Plan (1) Schizoaffective disorder, depressive type: Status: Acute Code(s): F25.1 - Schizoaffective disorder, depressive type (2) URI (upper respiratory infection): Status: Acute Code(s): J06.9 - Acute upper respiratory infection, unspecified (3) PTSD (post-traumatic stress disorder): Status: Acute Code(s): F43.10 - Post-traumatic stress disorder, unspecified Plan HPI: Jayy is a 33-year-old /Portuguese-speaking, single, recently unemployed man who was transferred from the medical unit yesterday after an admission for overdose on 40 Tylenol tablets after which a roommate called EMS and was subsequently brought to the hospital and admitted. He also had made to superficial cuts to his both wrists. This is his 2nd overdose. Had a previous 1 in April and was admitted to this unit. He does have some outpatient connections at [facility] but missed his psychiatric appointment because he signed into a virtual appointment incorrectly. He is on Abilify 2 mg daily and trazodone but he does not know the dose. No history of substance abuse. 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 In the past he has had some struggles with his sexual orientation and his family. He states that he has been feeling very depressed, hopeless, at times not eating or attending to his hygiene. He has not been on any antidepressants. He is open to that. Denies any current suicidal ideations and feels safe on the unit. No history of violence. He does not have access to firearms. He denies any AVH but there have been references to auditory hallucinations in the past Past Psychiatric History: 1 past admission April 2024 at [facility] Hx: Father: Schizophrenia Trauma as child, high school social studies tutor removed pt from household due to parents issues Schooling: completed college including Masters Degree in Environmental studies Formulation/clinical reasoning: Patient meets criteria for schizoaffective disorder as he has psychotic symptoms, independent of mood, with bouts of depression. Patient is accepting of diagnosis and wants treatment. Hospital course: 06/08: Continue current regimen and plans 06/09 Patient shared about previous admission and the time leading up to this current admission. Prior to his 1st ever admission this past April 2024, patient was depressed, not sleeping much but also tired, and became delusional; 4 days before that admission patient says I was thinking i was everette, the whole world was giving me signals, i was going to be crucified...that's why outside in only underwear in the cold to walk in pain... He said Abilify seemed to help; however after discharge he stopped taking it, wondering if it made him dizzy. He said he did okay for a few weeks but became depressed again, exacerbated by being laid off from his job, and for the past 2 weeks he has been very depressed, in bed most of the time, not eating or drinking much and superficially self-harming, cutting on his wrists and neck... He says his overdose of Tylenol was impulsive and he regretted it soon after. Patient says that also prior to this admission, he was becoming paranoid, thinking he was being framed for being a pedophile; he said he started to see signs of this, like children coming up from no where and then thought his friends were telling him that he was a registered sex offender... He says a group of friends told him so we were watching the Oscars...and [his] friends were having fast-paced conversations during which time they communicated to him that he is a registered sex offender.... Patient went on to say i think the whole world has a conspiracy against me: bullied as child, unloved by mom, father early age, grandmother of cancer... And that he thinks some actual person/group is behind this, orchestrating these bad things happening to him... perhaps the Daryl Danielle Arita...or someone else.. Though can not explain how it makes sense. Patient responded well to reality testing, accepting that given there is no arrest, trial, conviction for any sexual offense that he is not a registered sex offender... Accepting that these beliefs are delusional. Patient shared that he has been paranoid for awhile,, possibly years and independent of mood. Patient said he was afraid of this because his father has schizophrenia. Patient asked about his diagnosis and treatment. Wants to try Vraylar instead of Abilify preferring the side effect risk profile of Vraylar and the fact that it is possibly more helpful for depression than Abilify. -no SI -currently no AVH 06/10 Patient said he is doing okay. Processing his diagnosis. Patient says it is something he has been afraid of for his entire life, since he has known his father had schizophrenia. Patient denies any delusional thinking or AVH. Discussed medications and given that he currently does not have insurance, agrees to switch back to Abilify, which did seem helpful, as Vraylar is less likely to be covered. 06/11 Patient reports switching to Abilify no problems; still denies psychotic symptoms. -if patient amenable, will strongly consider increasing Abilify dose given the fact that patient has now had 2 suicide attempts; although patient said Abilify 2 mg was effective last time, he only took it while in the hospital Patient however feeling continued malaise, sore throat, cough and is febrile despite being on Tylenol; negative RSV, flu, COVID, strep; will get medical consult 06/12 Patient reports feeling physically better now that he is on antibiotics.? Discussed x-ray results and pneumonia diagnosis Patient feels more clear minded and does seem to be much more organized and present in conversation.? Patient shared in more detail history of trauma including significant bullying, neglectful mother, being removed from the household by high school social studies tutor and other challenging experiences.? Patient was making connections with this history and his current struggles with negative self talk and struggles with self-esteem.? 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 Discussed medications.? At this time patient would like to remain on Abilify 2 mg since his without any delusional thinking or AH.? Discussed medication for treatment for PTSD/depression/anxiety and reviewed SSRI/SNRI options.? At this time patient wants to remain only on Abilify but very much wants to engage in outpatient therapy.? Also discussed patient's safety.? He has been without any SI at all since admission and says he understands himself and his symptoms much better now and will reach out for help curriculum writer way if he is at all feeling the return of any psychotic symptoms or unsafe thoughts and feelings.? He feels that both recent suicide attempts were in the context of being overwhelmed by his paranoid delusions which have now resolved.? Patient shared that he has a few very close friends with whom he plans to incorporate into this safety plan. 06/13 Patient reports that he is good and that he is processing his feelings much better. Said that he talked with his sister today about history of trauma and felt the conversation helpful; discussed more about approaches to dealing with trauma and therapy. Patient continues to remain without any psychotic symptoms and tolerating Abilify well. Wants to remain on current dose. -if over the weekend patient remains in good mood and without any psychotic symptoms will proceed with discharge PLAN: Continue Abilify 2 mg daily; seem to be effective last admission; strongly considering increasing dose Started on doxycycline for pneumonia Discontinue Vryalar 1.5mg daily (concerned insurance will not cover) DC Lexapro (causes tachycardia) Patient educated on: diagnosis, medication risk/benefits and therapeutic strategies Informed Consent: understands Reason for continued inpatient stay Substantial Risk for: stable for discharge and rapid decompensation Time Spent With Patient Time: Total time managing care of this patient today ____ minutes.
[2024-06-13 20:00] VITALS: BP 130/75; PULSE 91; RESP 16; TEMP 36.4; O2SAT 99
--- NOTE | 2024-06-14 08:37 | P.PNPSI_ITS ---
Subjective Subjective Date of Service: 06/14/24 Reason For Visit: s/p overdoes of tylenol,depression,substance use Subjective Notes: Conditional Voluntary Healthcare Proxy: No Guardianship: No Medical Problems Affecting Mental Status: Yes (recent flu positive, also on abiotics) Interim History: 33 yo appears vigilant and flat affect- reports he is having ? s/e of abilify with twitching of muscles- does admit that tylenol od was suicide attempt- mainly focused on retrieving phone and wallet which has been lost- has not been able to reach [employer] department about it - Medication Compliance: Yes Side effects from medications: Yes (few minor ones- fearful of the whole list- of possible se) Attending Groups: Intermittent Review of Systems Acute medical concerns: Yes flu and abitoic-for uri Review of Systems: slight s/e of abilify start trial - Mental Status Exam Mental Status Exam Patient Appearance: Well Grooomed and Appropriate Patient Orientation: Person, Place, Time and Situation Level of Consciousness: Awake Patient Behavior: Guarded and Restless Mood Description: Apprehensive Affect Description: Blunted Patient Cognition Impaired: No Ability to Follow Directions: Fair Speech Pattern: Clear and Impoverished Hallucinations: None Delusions: Ideas of Reference (?) Thought Process: Intact and Goal Oriented Thought Content: positive for Preoccupation Depressive Symptoms: Increased Anxiety and Muscle Tension Abnormal Motor Activity Signs and Symptoms: Restlessness Judgement: Fair Diagnostics Vital Signs (24Hr): Vital Signs - 24 hr 06/13/24 20:00 Temperature 97.6 F Pulse Rate 91 Respiratory Rate 16 Blood Pressure 130/75 Pulse Oximetry 99 Oxygen Delivery Method Room Air BMI result Body Mass Index 24.4 Labs 06/11/24 12:44 Labs: Laboratory Results - last 48 hr 06/11/24 14:30 Respiratory Panel [facility] See Note Adenovirus (Rapid PCR) Not Detected B.pert (TEM-PCR) Not Detected B.parapertussis DNA PCR Not Detected C. pneumoniae DNA (PCR) Not Detected Coronavirus OC43 (PCR) Not Detected Coronavirus HKU1 (PCR) Not Detected Coronavirus 229E (PCR) Not Detected Coronavirus NL63 (PCR) Not Detected Human Metapneumovir PCR Not Detected Influenza A (RT-PCR) Detected A Influenza B (RT-PCR) Not Detected M. pneumoniae (PCR) Not Detected Parainfluenza 1 (PCR) Not Detected Parainfluenza 2 (PCR) Not Detected Parainfluenza 3 (PCR) Not Detected Parainfluenza 4 (PCR) Not Detected RSV (PCR) Not Detected Entero/Rhino (PCR) Not Detected SARS-CoV-2 RNA (RT-PCR) Not Detected Imaging Radiology Impressions: ITS Impressions Chest X-Ray 06/11/24 14:24 IMPRESSION: Questionable acute airspace disease, right middle lung lobe. Electronically signed by: Eddy Esposito MD 06/11/2024 02:32 PM EDT Medications Medications Current Medications Aripiprazole (Aripiprazole 2 Mg Tablet) 2 mg PO DAILY [facility] Last Admin: 06/13/24 08:41 Dose: 2 mg Benzocaine (Throat Lozenge, Medicated Lozenge) 1 lozenge MUCOUS MEM Q2H PRN PRN Reason: Sore Throat Last Admin: 06/13/24 09:07 Dose: 1 lozenge Calcium Carbonate (Calcium Carbonate 750 Mg Tab.Chew) 750 mg PO Q4H PRN PRN Reason: Heartburn Doxycycline Monohydrate (Doxycycline Monohydrate 100 Mg Capsule) 100 mg PO Q12H [facility] Last Admin: 06/13/24 20:51 Dose: 100 mg Guaifenesin (Guaifenesin 100 Mg/5 Ml 5 Ml Liquid) 5 ml PO Q6H PRN PRN Reason: Cough Last Admin: 06/13/24 09:07 Dose: 5 ml Hydroxyzine HCl (Hydroxyzine Hcl 25 Mg Tablet) 25 mg PO Q6H PRN PRN Reason: mild anxiety Magnesium Hydroxide (Milk Of Magnesia 30 Ml Oral.Susp) 30 ml PO DAILY PRN PRN Reason: Constipation Melatonin (Melatonin 3 Mg Tablet) 6 mg PO BEDTIME PRN PRN Reason: Insomnia Multivitamins/Vitamin C (Multivitamin Tablet) 1 tab PO DAILY [facility] Last Admin: 06/13/24 08:41 Dose: 1 tab Nicotine Polacrilex (Nicotine Polacrilex 2 Mg Gum) 4 mg BUCCAL Q2H PRN PRN Reason: Nicotine Cravings Allergies Allergies Allergy/AdvReac Type Severity Reaction Status Date / Time aspirin [ASA] Allergy Swelling Verified 06/10/24 09:46 Penicillins Allergy Swelling Verified 06/10/24 09:46 Assessment & Plan Assessment & Plan (1) Schizoaffective disorder, depressive type: Status: Acute Code(s): F25.1 - Schizoaffective disorder, depressive type (2) URI (upper respiratory infection): Status: Acute Code(s): J06.9 - Acute upper respiratory infection, unspecified (3) PTSD (post-traumatic stress disorder): Status: Acute Code(s): F43.10 - Post-traumatic stress disorder, unspecified Plan HPI: Jayy is a 33-year-old /Bengali-speaking, single, recently unemployed man who was transferred from the medical unit yesterday after an admission for overdose on 40 Tylenol tablets after which a roommate called EMS and was subsequently brought to the hospital and admitted. He also had made to superficial cuts to his both wrists. This is his 2nd overdose. Had a previous 1 in April and was admitted to this unit. He does have some outpatient connections at [facility] but missed his psychiatric appointment because he signed into a virtual appointment incorrectly. He is on Abilify 2 mg daily and trazodone but he does not know the dose. No history of substance abuse. 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 In the past he has had some struggles with his sexual orientation and his family. He states that he has been feeling very depressed, hopeless, at times not eating or attending to his hygiene. He has not been on any antidepressants. He is open to that. Denies any current suicidal ideations and feels safe on the unit. No history of violence. He does not have access to firearms. He denies any AVH but there have been references to auditory hallucinations in the past Past Psychiatric History: 1 past admission April 2024 at [facility] Hx: Father: Schizophrenia Trauma as child, social service technician removed pt from household due to parents issues Schooling: completed college including Masters Degree in Environmental studies Formulation/clinical reasoning: Patient meets criteria for schizoaffective disorder as he has psychotic symptoms, independent of mood, with bouts of depression. Patient is accepting of diagnosis and wants treatment. Hospital course: 06/08: Continue current regimen and plans 06/09 Patient shared about previous admission and the time leading up to this current admission. Prior to his 1st ever admission this past April 2024, patient was depressed, not sleeping much but also tired, and became delusional; 4 days before that admission patient says I was thinking i was everette, the whole world was giving me signals, i was going to be crucified...that's why outside in only underwear in the cold to walk in pain... He said Abilify seemed to help; however after discharge he stopped taking it, wondering if it made him dizzy. He said he did okay for a few weeks but became depressed again, exacerbated by being laid off from his job, and for the past 2 weeks he has been very depressed, in bed most of the time, not eating or drinking much and superficially self-harming, cutting on his wrists and neck... He says his overdose of Tylenol was impulsive and he regretted it soon after. Patient says that also prior to this admission, he was becoming paranoid, thinking he was being framed for being a pedophile; he said he started to see signs of this, like children coming up from no where and then thought his friends were telling him that he was a registered sex offender... He says a group of friends told him so we were watching the Oscars...and [his] friends were having fast-paced conversations during which time they communicated to him that he is a registered sex offender.... Patient went on to say i think the whole world has a conspiracy against me: bullied as child, unloved by mom, father early age, grandmother of cancer... And that he thinks some actual person/group is behind this, orchestrating these bad things happening to him... perhaps the [facility]...or someone else.. Though can not explain how it makes sense. Patient responded well to reality testing, accepting that given there is no arrest, trial, conviction for any sexual offense that he is not a registered sex offender... Accepting that these beliefs are delusional. Patient shared that he has been paranoid for awhile,, possibly years and independent of mood. Patient said he was afraid of this because his father has schizophrenia. Patient asked about his diagnosis and treatment. Wants to try Vraylar instead of Abilify preferring the side effect risk profile of Vraylar and the fact that it is possibly more helpful for depression than Abilify. -no SI -currently no AVH 06/10 Patient said he is doing okay. Processing his diagnosis. Patient says it is something he has been afraid of for his entire life, since he has known his father had schizophrenia. Patient denies any delusional thinking or AVH. Discussed medications and given that he currently does not have insurance, agrees to switch back to Abilify, which did seem helpful, as Vraylar is less likely to be covered. 06/11 Patient reports switching to Abilify no problems; still denies psychotic symptoms. -if patient amenable, will strongly consider increasing Abilify dose given the fact that patient has now had 2 suicide attempts; although patient said Abilify 2 mg was effective last time, he only took it while in the hospital Patient however feeling continued malaise, sore throat, cough and is febrile despite being on Tylenol; negative RSV, flu, COVID, strep; will get medical consult 06/12 Patient reports feeling physically better now that he is on antibiotics.? Discussed x-ray results and pneumonia diagnosis Patient feels more clear minded and does seem to be much more organized and present in conversation.? Patient shared in more detail history of trauma including significant bullying, neglectful mother, being removed from the household by social service technician and other challenging experiences.? Patient was making connections with this history and his current struggles with negative self talk and struggles with self-esteem.? Digital Court Reporter and patient discussed the differences between PTSD/trauma symptoms and psychotic illness but how the 2 can trigger each other which patient found helpful to distinguish.? Discussed medications.? At this time patient would like to remain on Abilify 2 mg since his without any delusional thinking or AH.? Discussed medication for treatment for PTSD/depression/anxiety and reviewed SSRI/SNRI options.? At this time patient wants to remain only on Abilify but very much wants to engage in outpatient therapy.? Also discussed patient's safety.? He has been without any SI at all since admission and says he understands himself and his symptoms much better now and will reach out for help fiction and nonfiction prose writer way if he is at all feeling the return of any psychotic symptoms or unsafe thoughts and feelings.? He feels that both recent suicide attempts were in the context of being overwhelmed by his paranoid delusions which have now resolved.? Patient shared that he has a few very close friends with whom he plans to incorporate into this safety plan. 06/13 Patient reports that he is good and that he is processing his feelings much better. Said that he talked with his sister today about history of trauma and felt the conversation helpful; discussed more about approaches to dealing with trauma and therapy. Patient continues to remain without any psychotic symptoms and tolerating Abilify well. Wants to remain on current dose. -if over the weekend patient remains in good mood and without any psychotic symptoms will proceed with discharge 06/14 - increased his abilify to 4 mg not sure he will take it- put also explained to patient that that list of side effects are Possible - but not meant that all will get- eg give to 1000 patients those are the different s/e that 1000 would report- he seemed to get this PLAN: Continue Abilify 2 mg daily; seem to be effective last admission; strongly considering increasing dose Started on doxycycline for pneumonia Discontinue Vryalar 1.5mg daily (concerned insurance will not cover) DC Lexapro (causes tachycardia) Patient educated on: medication risk/benefits Informed Consent: understands Reason for continued inpatient stay Substantial Risk for: harm to self, rapid decompensation and med/psych decompensation Time Spent With Patient Time: Total time managing care of this patient today ____ minutes.
[2024-06-14] MEDS: ARIPiprazole 2 MG TABLET PO (09:14)
[2024-06-14] MEDS: Doxycycline Monohydrate 100 MG CAPSULE PO ×2 (09:14→21:30)
[2024-06-14] MEDS: Multivitamin TABLET 1 TAB PO (09:14)
[2024-06-14 09:35] VITALS: BP 133/68; PULSE 71; RESP 16; TEMP 36.6; O2SAT 98
[2024-06-14 20:00] VITALS: BP 128/72; PULSE 69; TEMP 36.4; O2SAT 98
[2024-06-14] MEDS: ARIPiprazole 2 MG TABLET 4 MG PO (21:30)
[2024-06-15 08:00] VITALS: BP 119/59; PULSE 68; RESP 18; TEMP 37.1; O2SAT 98
[2024-06-15] MEDS: Doxycycline Monohydrate 100 MG CAPSULE PO ×2 (08:50→21:35)
[2024-06-15] MEDS: Multivitamin TABLET 1 TAB PO (08:50)
--- NOTE | 2024-06-15 11:38 | HO.PSYCHPN ---
Subjective Subjective Date of Service: 06/15/24 Reason For Visit: s/p overdoes of tylenol,depression,substance use Subjective Notes: Conditional Voluntary Healthcare Proxy: No Guardianship: No Medical Problems Affecting Mental Status: No (though positive for flu) Interim History: 33 yo male reports he is doing ok - less concern re side effects- and feeling a bit better- not having IOR like when he came in and denies si- sleep was a bit off reports not having been sleeping will try melatonin tonight. Medication Compliance: Yes (though I had inc his abilify to 4mg he only took 2mg last pm) Side effects from medications: No (no specific) Attending Groups: Intermittent Review of Systems Acute medical concerns: No Medical Review of Systems: unchanged Mental Status Exam Mental Status Exam Patient Appearance: Well Grooomed and Appropriate Patient Orientation: Person, Place, Time and Situation Level of Consciousness: Awake Patient Behavior: Appropriate and Cooperative Mood Description: Nervous Affect Description: Blunted Patient Cognition Impaired: No Ability to Follow Directions: Good Speech Pattern: Clear and Soft-Spoken Hallucinations: None Delusions: Ideas of Reference (he reports not like when he came in) Thought Process: Intact and Goal Oriented Thought Content: positive for Intact Depressive Symptoms: Difficulty Sleeping Judgement: Fair Diagnostics Vital Signs (24Hr): Vital Signs - 24 hr 06/14/24 20:00 06/15/24 08:00 Temperature 97.5 F 98.7 F Pulse Rate 69 68 Respiratory Rate 18 Blood Pressure 128/72 119/59 L Pulse Oximetry 98 98 Oxygen Delivery Method Room Air Room Air BMI result Body Mass Index 24.4 Labs 06/11/24 12:44 Imaging Radiology Impressions: ITS Impressions Chest X-Ray 06/11/24 14:24 IMPRESSION: Questionable acute airspace disease, right middle lung lobe. Electronically signed by: Eddy Esposito MD 06/11/2024 02:32 PM EDT Medications Medications Current Medications Aripiprazole (Aripiprazole 2 Mg Tablet) 2 mg PO BEDTIME [place] Benzocaine (Throat Lozenge, Medicated Lozenge) 1 lozenge MUCOUS MEM Q2H PRN PRN Reason: Sore Throat Last Admin: 06/13/24 09:07 Dose: 1 lozenge Calcium Carbonate (Calcium Carbonate 750 Mg Tab.Chew) 750 mg PO Q4H PRN PRN Reason: Heartburn Doxycycline Monohydrate (Doxycycline Monohydrate 100 Mg Capsule) 100 mg PO Q12H [facility] Last Admin: 06/15/24 08:50 Dose: 100 mg Guaifenesin (Guaifenesin 100 Mg/5 Ml 5 Ml Liquid) 5 ml PO Q6H PRN PRN Reason: Cough Last Admin: 06/13/24 09:07 Dose: 5 ml Hydroxyzine HCl (Hydroxyzine Hcl 25 Mg Tablet) 25 mg PO Q6H PRN PRN Reason: mild anxiety Magnesium Hydroxide (Milk Of Magnesia 30 Ml Oral.Susp) 30 ml PO DAILY PRN PRN Reason: Constipation Melatonin (Melatonin 3 Mg Tablet) 6 mg PO BEDTIME PRN PRN Reason: Insomnia Multivitamins/Vitamin C (Multivitamin Tablet) 1 tab PO DAILY [place] Last Admin: 06/15/24 08:50 Dose: 1 tab Nicotine Polacrilex (Nicotine Polacrilex 2 Mg Gum) 4 mg BUCCAL Q2H PRN PRN Reason: Nicotine Cravings Allergies Allergies Allergy/AdvReac Type Severity Reaction Status Date / Time aspirin [ASA] Allergy Swelling Verified 06/10/24 09:46 Penicillins Allergy Swelling Verified 06/10/24 09:46 Assessment & Plan Assessment & Plan (1) Schizoaffective disorder, depressive type: Status: Acute Code(s): F25.1 - Schizoaffective disorder, depressive type (2) URI (upper respiratory infection): Status: Acute Code(s): J06.9 - Acute upper respiratory infection, unspecified (3) PTSD (post-traumatic stress disorder): Status: Acute Code(s): F43.10 - Post-traumatic stress disorder, unspecified Plan HPI: Jayy is a 33-year-old /Turkmen-speaking, single, recently unemployed man who was transferred from the medical unit yesterday after an admission for overdose on 40 Tylenol tablets after which a roommate called EMS and was subsequently brought to the hospital and admitted. He also had made to superficial cuts to his both wrists. This is his 2nd overdose. Had a previous 1 in April and was admitted to this unit. He does have some outpatient connections at [facility] but missed his psychiatric appointment because he signed into a virtual appointment incorrectly. He is on Abilify 2 mg daily and trazodone but he does not know the dose. No history of substance abuse. 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 In the past he has had some struggles with his sexual orientation and his family. He states that he has been feeling very depressed, hopeless, at times not eating or attending to his hygiene. He has not been on any antidepressants. He is open to that. Denies any current suicidal ideations and feels safe on the unit. No history of violence. He does not have access to firearms. He denies any AVH but there have been references to auditory hallucinations in the past Past Psychiatric History: 1 past admission April 2024 at [place] Hx: Father: Schizophrenia Trauma as child, licensed master social worker removed pt from household due to parents issues Schooling: completed college including Masters Degree in Environmental studies Formulation/clinical reasoning: Patient meets criteria for schizoaffective disorder as he has psychotic symptoms, independent of mood, with bouts of depression. Patient is accepting of diagnosis and wants treatment. Hospital course: 06/08: Continue current regimen and plans 06/09 Patient shared about previous admission and the time leading up to this current admission. Prior to his 1st ever admission this past April 2024, patient was depressed, not sleeping much but also tired, and became delusional; 4 days before that admission patient says I was thinking i was everette, the whole world was giving me signals, i was going to be crucified...that's why outside in only underwear in the cold to walk in pain... He said Abilify seemed to help; however after discharge he stopped taking it, wondering if it made him dizzy. He said he did okay for a few weeks but became depressed again, exacerbated by being laid off from his job, and for the past 2 weeks he has been very depressed, in bed most of the time, not eating or drinking much and superficially self-harming, cutting on his wrists and neck... He says his overdose of Tylenol was impulsive and he regretted it soon after. Patient says that also prior to this admission, he was becoming paranoid, thinking he was being framed for being a pedophile; he said he started to see signs of this, like children coming up from no where and then thought his friends were telling him that he was a registered sex offender... He says a group of friends told him so we were watching the Oscars...and [his] friends were having fast-paced conversations during which time they communicated to him that he is a registered sex offender.... Patient went on to say i think the whole world has a conspiracy against me: bullied as child, unloved by mom, father early age, grandmother of cancer... And that he thinks some actual person/group is behind this, orchestrating these bad things happening to him... perhaps the [employer]...or someone else.. Though can not explain how it makes sense. Patient responded well to reality testing, accepting that given there is no arrest, trial, conviction for any sexual offense that he is not a registered sex offender... Accepting that these beliefs are delusional. Patient shared that he has been paranoid for awhile,, possibly years and independent of mood. Patient said he was afraid of this because his father has schizophrenia. Patient asked about his diagnosis and treatment. Wants to try Vraylar instead of Abilify preferring the side effect risk profile of Vraylar and the fact that it is possibly more helpful for depression than Abilify. -no SI -currently no AVH 06/10 Patient said he is doing okay. Processing his diagnosis. Patient says it is something he has been afraid of for his entire life, since he has known his father had schizophrenia. Patient denies any delusional thinking or AVH. Discussed medications and given that he currently does not have insurance, agrees to switch back to Abilify, which did seem helpful, as Vraylar is less likely to be covered. 06/11 Patient reports switching to Abilify no problems; still denies psychotic symptoms. -if patient amenable, will strongly consider increasing Abilify dose given the fact that patient has now had 2 suicide attempts; although patient said Abilify 2 mg was effective last time, he only took it while in the hospital Patient however feeling continued malaise, sore throat, cough and is febrile despite being on Tylenol; negative RSV, flu, COVID, strep; will get medical consult 06/12 Patient reports feeling physically better now that he is on antibiotics.? Discussed x-ray results and pneumonia diagnosis Patient feels more clear minded and does seem to be much more organized and present in conversation.? Patient shared in more detail history of trauma including significant bullying, neglectful mother, being removed from the household by social media strategist and other challenging experiences.? Patient was making connections with this history and his current struggles with negative self talk and struggles with self-esteem.? [employer] and patient discussed the differences between PTSD/trauma symptoms and psychotic illness but how the 2 can trigger each other which patient found helpful to distinguish.? Discussed medications.? At this time patient would like to remain on Abilify 2 mg since his without any delusional thinking or AH.? Discussed medication for treatment for PTSD/depression/anxiety and reviewed SSRI/SNRI options.? At this time patient wants to remain only on Abilify but very much wants to engage in outpatient therapy.? Also discussed patient's safety.? 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 He feels that both recent suicide attempts were in the context of being overwhelmed by his paranoid delusions which have now resolved.? Patient shared that he has a few very close friends with whom he plans to incorporate into this safety plan. 06/13 Patient reports that he is good and that he is processing his feelings much better. Said that he talked with his sister today about history of trauma and felt the conversation helpful; discussed more about approaches to dealing with trauma and therapy. Patient continues to remain without any psychotic symptoms and tolerating Abilify well. Wants to remain on current dose. -if over the weekend patient remains in good mood and without any psychotic symptoms will proceed with discharge 06/14 - increased his abilify to 4 mg not sure he will take it- put also explained to patient that that list of side effects are Possible - but not meant that all will get- eg give to 1000 patients those are the different s/e that 1000 would report- he seemed to get this 06/15 did not take 4mg only took 2mg, continues to feel improved- moved abilify back to 2mg CTP will try melatonin for sleep tonight has as prn PLAN: Continue Abilify 2 mg daily; seem to be effective last admission; strongly considering increasing dose Started on doxycycline for pneumonia Discontinue Vryalar 1.5mg daily (concerned insurance will not cover) DC Lexapro (causes tachycardia) Patient educated on: medication risk/benefits Informed Consent: understands Reason for continued inpatient stay Substantial Risk for: rapid decompensation Time Spent With Patient Time: Total time managing care of this patient today ____ minutes.
[2024-06-15 20:00] VITALS: BP 133/69; PULSE 81; RESP 16; TEMP 36.6; O2SAT 98
[2024-06-15] MEDS: Melatonin 3 MG TABLET 6 MG PO (21:34)
[2024-06-15] MEDS: ARIPiprazole 2 MG TABLET PO (21:35)
[2024-06-16 08:00] VITALS: BP 136/64; PULSE 73; RESP 18; TEMP 36.4; O2SAT 99
[2024-06-16] MEDS: Multivitamin TABLET 1 TAB PO (08:42)
[2024-06-16] MEDS: Doxycycline Monohydrate 100 MG CAPSULE PO ×2 (08:42→21:51)
--- NOTE | 2024-06-16 08:58 | P.DS_ITS ---
DS: Providers Provider Date of Service: 06/16/24 Date of admission: 06/06/24 18:25 Date of discharge: 06/16/24 Primary care physician: Unknown Physician Attending physician on admission: Ben Chavis Consults: 06/11/24 10:23 Consult to Hospitalist Routine Comment: sore throat, cough, fatigue Consulting Provider: [facility] Hospital[facility] Reason For Exam: T 100.1 w/tylenol;sore throat;No rsv/flu/strep/Cov Attending physician on discharge: Ben Chavis DS: Diagnosis Discharge Diagnosis (1) Schizoaffective disorder, depressive type: Status: Acute (2) URI (upper respiratory infection): Status: Acute (3) PTSD (post-traumatic stress disorder): Status: Acute DS: Medications Discharge Medications Home Medications: Home Medications ?Medication ?Instructions ?Recorded ?Confirmed Lactobacillus 40-Bifidobact 1 cap PO DAILY 06/04/24 06/04/24 3-S.thermophilus 100 billion cell capsule (Probiotic) biotin 1 mg tablet 1 mg PO DAILY 06/04/24 06/04/24 multivitamin 1 tab PO DAILY 06/04/24 06/04/24 omega 3-dko-mst-fish oil 1,000 mg 1 cap PO DAILY 06/04/24 06/04/24 (120 mg-180 mg) capsule (Fish Oil) Previous Rx's ?Medication ?Instructions ?Recorded aripiprazole 2 mg oral film 2 mg PO DAILY 30 days #30 ea 04/07/24 (Opipza) trazodone 50 mg tablet 50 mg PO BEDTIME PRN insomnia 30 04/07/24 days #30 tabs Data Data Completed and Pending Completed studies during hospitalization [Text1]: 06/09/24 06/10/24 06/11/24 09:47 09:50 12:44 WBC 10.8 RBC 4.74 Hgb 14.1 Hct 42.6 MCV 89.9 D MCH 29.7 MCHC 33.1 RDW 11.9 Plt Count 201 MPV 9.0 L Immature Gran % (Auto) 0.4 Neut % (Auto) 75.3 H Lymph % (Auto) 13.2 L Greeley % (Auto) 10.1 Eos % (Auto) 0.8 Baso % (Auto) 0.2 Lymph # (Auto) 1.4 [place] # (Auto) 1.1 Eos # (Auto) 0.1 Baso # (Auto) 0.0 Abs Immat Gran (auto) 0.04 H Absolute Neuts (auto) 8.1 Absolute Nucleated RBC 0.000 Nucleated RBC % (auto) 0.0 Lactic Acid 1.1 Total Bilirubin 0.4 Direct Bilirubin 0.1 AST 28 ALT 42 H Alkaline Phosphatase 49 Total Protein 7.8 Albumin 4.3 Respiratory Panel Puentes Adenovirus (Rapid PCR) B.pert (TEM-PCR) B.parapertussis DNA PCR C. pneumoniae DNA (PCR) Coronavirus OC43 (PCR) Coronavirus HKU1 (PCR) Coronavirus 229E (PCR) Coronavirus NL63 (PCR) Monoscreen Negative Human Metapneumovir PCR Influenza A (RT-PCR) Influenza Type A (PCR) NEGATIVE NEGATIVE Influenza B (RT-PCR) Influenza Type B (PCR) NEGATIVE NEGATIVE M. pneumoniae (PCR) Parainfluenza 1 (PCR) Parainfluenza 2 (PCR) Parainfluenza 3 (PCR) Parainfluenza 4 (PCR) RSV (PCR) RSV RNA Qual (PCR) NEGATIVE NEGATIVE Entero/Rhino (PCR) SARS-CoV-2 RNA (RT-PCR) NEGATIVE NEGATIVE S. pyogenes GrpA MATA Negative 06/11/24 14:30 WBC RBC Hgb Hct MCV MCH MCHC RDW Plt Count MPV Immature Gran % (Auto) Neut % (Auto) Lymph % (Auto) Gree[place] % (Auto) Eos % (Auto) Baso % (Auto) Lymph # (Auto) Gree[place] # (Auto) Eos # (Auto) Baso # (Auto) Abs Immat Gran (auto) Absolute Neuts (auto) Absolute Nucleated RBC Nucleated RBC % (auto) Lactic Acid Total Bilirubin Direct Bilirubin AST ALT Alkaline Phosphatase Total Protein Albumin Respiratory Panel Puentes See Note Adenovirus (Rapid PCR) Not Detected B.pert (TEM-PCR) Not Detected B.parapertussis DNA PCR Not Detected C. pneumoniae DNA (PCR) Not Detected Coronavirus OC43 (PCR) Not Detected Coronavirus HKU1 (PCR) Not Detected Coronavirus 229E (PCR) Not Detected Coronavirus NL63 (PCR) Not Detected Monoscreen Human Metapneumovir PCR Not Detected Influenza A (RT-PCR) Detected A Influenza Type A (PCR) Influenza B (RT-PCR) Not Detected Influenza Type B (PCR) M. pneumoniae (PCR) Not Detected Parainfluenza 1 (PCR) Not Detected Parainfluenza 2 (PCR) Not Detected Parainfluenza 3 (PCR) Not Detected Parainfluenza 4 (PCR) Not Detected RSV (PCR) Not Detected RSV RNA Qual (PCR) Entero/Rhino (PCR) Not Detected SARS-CoV-2 RNA (RT-PCR) Not Detected S. pyogenes GrpA MATA Imaging Diagnostic Imaging Impressions Chest X-Ray 06/11/24 14:24 IMPRESSION: Questionable acute airspace disease, right middle lung lobe. Electronically signed by: Eddy Esposito MD 06/11/2024 02:32 PM EDT RP DS: Summary Time Spent with Patient Time attestation: Total time managing care of this patient today ____ minutes. Discharge Plan Discharge Patient Disposition: Home, Self-Care Discharge Diagnosis: Schizoaffective disorder, depressed type (r/o bipolar type); PTSD Referrals: Physician,Unknown J [Primary Care Provider] - 1 Week Discharge Medications: New Vraylar 4.5 mg capsule 4.5 mg PO DAILY 30 Days Qty: 30 0RF No Action multivitamin Tablet 1 tab PO DAILY biotin 1 mg Tablet 1 mg PO DAILY omega 1-pvj-gpl-fish oil [Fish Oil] 1,000 (120-180) mg Capsule 1 cap PO DAILY Probiotic 100 billion cell Capsule 1 cap PO DAILY trazodone 50 mg tablet 50 mg PO BEDTIME PRN (Reason: insomnia) 30 Days Qty: 30 1RF Opipza 2 mg film 2 mg PO DAILY 30 Days Qty: 30 1RF Discharge Orders: Discharge Order (Routine); Ordered 06/16/24 Ordered By: Ben Chavis Diet: Regular diet Activity on Discharge: As tolerated Stand Alone Forms: Patient Portal Discharge page, Community Support Print Language: Faroese Care Plan Goals: Maintain mood and safe behaviors Take medications as prescribed Practice coping skills Continue with outpatient providers and reach out to them as needed Health Concerns: Mood stability and behaviors Plan of Treatment: Follow up with your PCP, psychiatric provider and other outpatient providers regarding above concerns Take medications as prescribed Assessment: Risk assessment at time of discharge:? Patient was interviewed prior to discharge and found to be fully oriented and without any SI or HI. Patient has improved insight and judgment and wants to continue treatment. Patient is not in imminent risk of harm to self or others and has a safety plan that includes presenting to the closest ER or calling 911 if feeling unsafe.? Patient has been observed closely by nursing and unit staff throughout admission; patient has not engaged in any behaviors that suggest dangerousness to self or others and has demonstrated appropriate behaviors and impulse control
[2024-06-16] MEDS: Cariprazine HCl 1.5 MG CAPSULE PO (17:06)
--- NOTE | 2024-06-16 18:07 | HO.PSYCHPN ---
Subjective Subjective Date of Service: 06/16/24 Reason For Visit: s/p overdoes of tylenol,depression,substance use Interim History: met with patient; discussed with team; reviewed chart pt reports he's doing overall well and denies any paranoid thinking or concerns. Discussed his concerns for side-effects and patient reports that he's feeling body intermittent body twitches throughout the day, but mostly at night after he takes Abilify; says it's been happening all week, but more pronounced this past weekend. Reports same thing happened last admission when he took Abilify. Discussed options and Because of this patient wanted to switch to Vraylar even though it will cost him out of pocket (reviewed cost of $194/30 day supply). Patient also not sleeping well and agrees to clonidine at bedtime and increasing prn trazodone dose Mental Status Exam Mental Status Exam Narrative: Pt is alert and oriented; behavior is cooperative, isolative, and calm; patient is not in distress; dressed in casueal attire, mustache, scruffy, unkempt hair; mood is described as good and affect congruent, more calm, brighter; eye contact appropriate; Speech is normal rate, volume and prosody and not pressured; some residual psychomotor retardation present; thought process is organized and goal directed; Thought content is processing diagnosis psychotic disorder, trauma history; denies any delusional thinking; denies any SI/HI. No AVH; There is no evidence of perceptual disturbance. Patients insight and judgment fair Diagnostics Vital Signs (24Hr): Vital Signs - 24 hr 06/15/24 20:00 06/16/24 08:00 Temperature 97.8 F 97.6 F Pulse Rate 81 73 Respiratory Rate 16 18 Blood Pressure 133/69 136/64 Pulse Oximetry 98 99 Oxygen Delivery Method Room Air Room Air BMI result Body Mass Index 24.4 Labs 06/11/24 12:44 Imaging Radiology Impressions: ITS Impressions Chest X-Ray 06/11/24 14:24 IMPRESSION: Questionable acute airspace disease, right middle lung lobe. Electronically signed by: Eddy Esposito MD 06/11/2024 02:32 PM EDT Medications Medications Current Medications Benzocaine (Throat Lozenge, Medicated Lozenge) 1 lozenge MUCOUS MEM Q2H PRN PRN Reason: Sore Throat Last Admin: 06/13/24 09:07 Dose: 1 lozenge Calcium Carbonate (Calcium Carbonate 750 Mg Tab.Chew) 750 mg PO Q4H PRN PRN Reason: Heartburn Cariprazine (Cariprazine Hcl 1.5 Mg Capsule) 1.5 mg PO DAILY [place] Clonidine HCl (Clonidine Hcl 0.1 Mg Tablet) 0.1 mg PO BEDTIME [place]; Protocol Doxycycline Monohydrate (Doxycycline Monohydrate 100 Mg Capsule) 100 mg PO Q12H [place] Last Admin: 06/16/24 08:42 Dose: 100 mg Guaifenesin (Guaifenesin 100 Mg/5 Ml 5 Ml Liquid) 5 ml PO Q6H PRN PRN Reason: Cough Last Admin: 06/13/24 09:07 Dose: 5 ml Hydroxyzine HCl (Hydroxyzine Hcl 25 Mg Tablet) 25 mg PO Q6H PRN PRN Reason: mild anxiety Magnesium Hydroxide (Milk Of Magnesia 30 Ml Oral.Susp) 30 ml PO DAILY PRN PRN Reason: Constipation Multivitamins/Vitamin C (Multivitamin Tablet) 1 tab PO DAILY [place] Last Admin: 06/16/24 08:42 Dose: 1 tab Nicotine Polacrilex (Nicotine Polacrilex 2 Mg Gum) 4 mg BUCCAL Q2H PRN PRN Reason: Nicotine Cravings Trazodone HCl (Trazodone Hcl 100 Mg Tablet) 100 mg PO BEDTIME PRN PRN Reason: insomnia Allergies Allergies Allergy/AdvReac Type Severity Reaction Status Date / Time aspirin [ASA] Allergy Swelling Verified 06/10/24 09:46 Penicillins Allergy Swelling Verified 06/10/24 09:46 Assessment & Plan Assessment & Plan (1) Schizoaffective disorder, depressive type: Status: Acute Code(s): F25.1 - Schizoaffective disorder, depressive type (2) URI (upper respiratory infection): Status: Acute Code(s): J06.9 - Acute upper respiratory infection, unspecified (3) PTSD (post-traumatic stress disorder): Status: Acute Code(s): F43.10 - Post-traumatic stress disorder, unspecified Plan HPI: Jayy is a 33-year-old /Montserratian-speaking, single, recently unemployed man who was transferred from the medical unit yesterday after an admission for overdose on 40 Tylenol tablets after which a roommate called EMS and was subsequently brought to the hospital and admitted. He also had made to superficial cuts to his both wrists. This is his 2nd overdose. Had a previous 1 in April and was admitted to this unit. He does have some outpatient connections at [facility] but missed his psychiatric appointment because he signed into a virtual appointment incorrectly. He is on Abilify 2 mg daily and trazodone but he does not know the dose. No history of substance abuse. 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 In the past he has had some struggles with his sexual orientation and his family. He states that he has been feeling very depressed, hopeless, at times not eating or attending to his hygiene. He has not been on any antidepressants. He is open to that. Denies any current suicidal ideations and feels safe on the unit. No history of violence. He does not have access to firearms. He denies any AVH but there have been references to auditory hallucinations in the past Past Psychiatric History: 1 past admission April 2024 at [facility] Hx: Father: Schizophrenia Trauma as child, psychosocial rehabilitation counselor removed pt from household due to parents issues Schooling: completed college including Masters Degree in Environmental studies Formulation/clinical reasoning: Patient meets criteria for schizoaffective disorder as he has psychotic symptoms, independent of mood, with bouts of depression. Patient is accepting of diagnosis and wants treatment. Hospital course: 06/08: Continue current regimen and plans 06/09 Patient shared about previous admission and the time leading up to this current admission. Prior to his 1st ever admission this past April 2024, patient was depressed, not sleeping much but also tired, and became delusional; 4 days before that admission patient says I was thinking i was everette, the whole world was giving me signals, i was going to be crucified...that's why outside in only underwear in the cold to walk in pain... He said Abilify seemed to help; however after discharge he stopped taking it, wondering if it made him dizzy. He said he did okay for a few weeks but became depressed again, exacerbated by being laid off from his job, and for the past 2 weeks he has been very depressed, in bed most of the time, not eating or drinking much and superficially self-harming, cutting on his wrists and neck... He says his overdose of Tylenol was impulsive and he regretted it soon after. Patient says that also prior to this admission, he was becoming paranoid, thinking he was being framed for being a pedophile; he said he started to see signs of this, like children coming up from no where and then thought his friends were telling him that he was a registered sex offender... He says a group of friends told him so we were watching the Oscars...and [his] friends were having fast-paced conversations during which time they communicated to him that he is a registered sex offender.... Patient went on to say i think the whole world has a conspiracy against me: bullied as child, unloved by mom, father early age, grandmother of cancer... And that he thinks some actual person/group is behind this, orchestrating these bad things happening to him... perhaps the [employer]...or someone else.. Though can not explain how it makes sense. Patient responded well to reality testing, accepting that given there is no arrest, trial, conviction for any sexual offense that he is not a registered sex offender... Accepting that these beliefs are delusional. Patient shared that he has been paranoid for awhile,, possibly years and independent of mood. Patient said he was afraid of this because his father has schizophrenia. Patient asked about his diagnosis and treatment. Wants to try Vraylar instead of Abilify preferring the side effect risk profile of Vraylar and the fact that it is possibly more helpful for depression than Abilify. -no SI -currently no AVH 06/10 Patient said he is doing okay. Processing his diagnosis. Patient says it is something he has been afraid of for his entire life, since he has known his father had schizophrenia. Patient denies any delusional thinking or AVH. Discussed medications and given that he currently does not have insurance, agrees to switch back to Abilify, which did seem helpful, as Vraylar is less likely to be covered. 06/11 Patient reports switching to Abilify no problems; still denies psychotic symptoms. -if patient amenable, will strongly consider increasing Abilify dose given the fact that patient has now had 2 suicide attempts; although patient said Abilify 2 mg was effective last time, he only took it while in the hospital Patient however feeling continued malaise, sore throat, cough and is febrile despite being on Tylenol; negative RSV, flu, COVID, strep; will get medical consult 06/12 Patient reports feeling physically better now that he is on antibiotics.? Discussed x-ray results and pneumonia diagnosis Patient feels more clear minded and does seem to be much more organized and present in conversation.? Patient shared in more detail history of trauma including significant bullying, neglectful mother, being removed from the household by psychosocial rehabilitation counselor and other challenging experiences.? Patient was making connections with this history and his current struggles with negative self talk and struggles with self-esteem.? 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 Discussed medications.? At this time patient would like to remain on Abilify 2 mg since his without any delusional thinking or AH.? Discussed medication for treatment for PTSD/depression/anxiety and reviewed SSRI/SNRI options.? At this time patient wants to remain only on Abilify but very much wants to engage in outpatient therapy.? Also discussed patient's safety.? He has been without any SI at all since admission and says he understands himself and his symptoms much better now and will reach out for help machine sign writer way if he is at all feeling the return of any psychotic symptoms or unsafe thoughts and feelings.? He feels that both recent suicide attempts were in the context of being overwhelmed by his paranoid delusions which have now resolved.? Patient shared that he has a few very close friends with whom he plans to incorporate into this safety plan. 06/13 Patient reports that he is good and that he is processing his feelings much better. Said that he talked with his sister today about history of trauma and felt the conversation helpful; discussed more about approaches to dealing with trauma and therapy. Patient continues to remain without any psychotic symptoms and tolerating Abilify well. Wants to remain on current dose. -if over the weekend patient remains in good mood and without any psychotic symptoms will proceed with discharge 06/14 - increased his abilify to 4 mg not sure he will take it- put also explained to patient that that list of side effects are Possible - but not meant that all will get- eg give to 1000 patients those are the different s/e that 1000 would report- he seemed to get this 06/15 did not take 4mg only took 2mg, continues to feel improved- moved abilify back to 2mg CTP will try melatonin for sleep tonight has as prn 06/16 pt reports he's doing overall well and denies any paranoid thinking or concerns. Discussed his concerns for side-effects and patient reports that he's feeling body intermittent body twitches throughout the day, but mostly at night after he takes Abilify; says it's been happening all week, but more pronounced this past weekend. Reports same thing happened last admission when he took Abilify. Discussed options and Because of this patient wanted to switch to Vraylar even though it will cost him out of pocket (reviewed cost of $194/30 day supply). Patient also not sleeping well and agrees to clonidine at bedtime and increasing prn trazodone dose -postponed planned discharge to make sure stable on Vraylar PLAN: START Vraylar 1.5mg; likely titrate to 3 mg Colonidine 0.1mg qhs trazodone 100mg prn DC Abilify 2 mg daily; seems effective but causing body twitches Started on doxycycline for pneumonia Discontinue Vryalar 1.5mg daily (concerned insurance will not cover) DC Lexapro (causes tachycardia) Patient educated on: diagnosis, medication risk/benefits and therapeutic strategies Informed Consent: understands Reason for continued inpatient stay Substantial Risk for: stable for discharge, rapid decompensation and med/psych decompensation Time Spent With Patient Time: Total time managing care of this patient today ____ minutes.
[2024-06-16 20:00] VITALS: BP 138/71; PULSE 92; RESP 16; TEMP 36.9; O2SAT 99
[2024-06-16 21:51] VITALS: BP 138/71
[2024-06-16] MEDS: cloNIDine HCL 0.1 MG TABLET PO (21:51)
[2024-06-17 08:00] VITALS: BP 119/57; PULSE 65; RESP 18; TEMP 36.8; O2SAT 99
[2024-06-17] MEDS: Cariprazine HCl 1.5 MG CAPSULE PO ×2 (08:58→16:33)
[2024-06-17] MEDS: Multivitamin TABLET 1 TAB PO (08:58)
[2024-06-17] MEDS: Doxycycline Monohydrate 100 MG CAPSULE PO ×2 (08:58→21:54)
--- NOTE | 2024-06-17 10:04 | HO.PSYCHPN ---
Subjective Subjective Date of Service: 06/17/24 Reason For Visit: s/p overdoes of tylenol,depression,substance use Interim History: Met with patient; discussed with team Patient reports he remains feeling much better, no psychotic symptoms, depression remains gone, body twitching becoming less intense since Abilify discontinued Mental Status Exam Mental Status Exam Narrative: Pt is alert and oriented; behavior is cooperative, isolative, and calm; patient is not in distress; dressed in casueal attire, mustache, scruffy, unkempt hair; mood is described as good and affect congruent, more calm, brighter; eye contact appropriate; Speech is normal rate, volume and prosody and not pressured; some residual psychomotor retardation present; thought process is organized and goal directed; Thought content is processing diagnosis psychotic disorder, trauma history; denies any delusional thinking; denies any SI/HI. No AVH; There is no evidence of perceptual disturbance. Patients insight and judgment fair Diagnostics Vital Signs (24Hr): Vital Signs - 24 hr 06/16/24 20:00 06/16/24 21:51 06/17/24 08:00 Temperature 98.4 F 98.2 F Pulse Rate 92 65 Respiratory Rate 16 18 Blood Pressure 138/71 138/71 119/57 L Pulse Oximetry 99 99 Oxygen Delivery Method Room Air Room Air BMI result Body Mass Index 24.4 Labs 06/11/24 12:44 Imaging Radiology Impressions: ITS Impressions Chest X-Ray 06/11/24 14:24 IMPRESSION: Questionable acute airspace disease, right middle lung lobe. Electronically signed by: Eddy Esposito MD 06/11/2024 02:32 PM EDT Medications Medications Current Medications Benzocaine (Throat Lozenge, Medicated Lozenge) 1 lozenge MUCOUS MEM Q2H PRN PRN Reason: Sore Throat Last Admin: 06/13/24 09:07 Dose: 1 lozenge Calcium Carbonate (Calcium Carbonate 750 Mg Tab.Chew) 750 mg PO Q4H PRN PRN Reason: Heartburn Cariprazine (Cariprazine Hcl 1.5 Mg Capsule) 1.5 mg PO DAILY [place] Last Admin: 06/17/24 08:58 Dose: 1.5 mg Clonidine HCl (Clonidine Hcl 0.1 Mg Tablet) 0.1 mg PO BEDTIME [place]; Protocol Last Admin: 06/16/24 21:51 Dose: 0.1 mg Doxycycline Monohydrate (Doxycycline Monohydrate 100 Mg Capsule) 100 mg PO Q12H [place] Last Admin: 06/17/24 08:58 Dose: 100 mg Guaifenesin (Guaifenesin 100 Mg/5 Ml 5 Ml Liquid) 5 ml PO Q6H PRN PRN Reason: Cough Last Admin: 06/13/24 09:07 Dose: 5 ml Hydroxyzine HCl (Hydroxyzine Hcl 25 Mg Tablet) 25 mg PO Q6H PRN PRN Reason: mild anxiety Magnesium Hydroxide (Milk Of Magnesia 30 Ml Oral.Susp) 30 ml PO DAILY PRN PRN Reason: Constipation Multivitamins/Vitamin C (Multivitamin Tablet) 1 tab PO DAILY [place] Last Admin: 06/17/24 08:58 Dose: 1 tab Nicotine Polacrilex (Nicotine Polacrilex 2 Mg Gum) 4 mg BUCCAL Q2H PRN PRN Reason: Nicotine Cravings Trazodone HCl (Trazodone Hcl 100 Mg Tablet) 100 mg PO BEDTIME PRN PRN Reason: insomnia Allergies Allergies Allergy/AdvReac Type Severity Reaction Status Date / Time aspirin [ASA] Allergy Swelling Verified 06/10/24 09:46 Penicillins Allergy Swelling Verified 06/10/24 09:46 Assessment & Plan Assessment & Plan (1) Schizoaffective disorder, depressive type: Status: Acute Code(s): F25.1 - Schizoaffective disorder, depressive type (2) URI (upper respiratory infection): Status: Acute Code(s): J06.9 - Acute upper respiratory infection, unspecified (3) PTSD (post-traumatic stress disorder): Status: Acute Code(s): F43.10 - Post-traumatic stress disorder, unspecified Plan HPI: Jayy is a 33-year-old /Congolese-speaking, single, recently unemployed man who was transferred from the medical unit yesterday after an admission for overdose on 40 Tylenol tablets after which a roommate called EMS and was subsequently brought to the hospital and admitted. He also had made to superficial cuts to his both wrists. This is his 2nd overdose. Had a previous 1 in April and was admitted to this unit. He does have some outpatient connections at [facility] but missed his psychiatric appointment because he signed into a virtual appointment incorrectly. He is on Abilify 2 mg daily and trazodone but he does not know the dose. No history of substance abuse. 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 In the past he has had some struggles with his sexual orientation and his family. He states that he has been feeling very depressed, hopeless, at times not eating or attending to his hygiene. He has not been on any antidepressants. He is open to that. Denies any current suicidal ideations and feels safe on the unit. No history of violence. He does not have access to firearms. He denies any AVH but there have been references to auditory hallucinations in the past Past Psychiatric History: 1 past admission April 2024 at [facility] Hx: Father: Schizophrenia Trauma as child, aids social worker removed pt from household due to parents issues Schooling: completed college including Masters Degree in Environmental studies Formulation/clinical reasoning: Patient meets criteria for schizoaffective disorder as he has psychotic symptoms, independent of mood, with bouts of depression. Patient is accepting of diagnosis and wants treatment. Hospital course: 06/08: Continue current regimen and plans 06/09 Patient shared about previous admission and the time leading up to this current admission. Prior to his 1st ever admission this past April 2024, patient was depressed, not sleeping much but also tired, and became delusional; 4 days before that admission patient says I was thinking i was everette, the whole world was giving me signals, i was going to be crucified...that's why outside in only underwear in the cold to walk in pain... He said Abilify seemed to help; however after discharge he stopped taking it, wondering if it made him dizzy. He said he did okay for a few weeks but became depressed again, exacerbated by being laid off from his job, and for the past 2 weeks he has been very depressed, in bed most of the time, not eating or drinking much and superficially self-harming, cutting on his wrists and neck... He says his overdose of Tylenol was impulsive and he regretted it soon after. Patient says that also prior to this admission, he was becoming paranoid, thinking he was being framed for being a pedophile; he said he started to see signs of this, like children coming up from no where and then thought his friends were telling him that he was a registered sex offender... He says a group of friends told him so we were watching the Oscars...and [his] friends were having fast-paced conversations during which time they communicated to him that he is a registered sex offender.... Patient went on to say i think the whole world has a conspiracy against me: bullied as child, unloved by mom, father early age, grandmother of cancer... And that he thinks some actual person/group is behind this, orchestrating these bad things happening to him... perhaps the [email or web address]...or someone else.. Though can not explain how it makes sense. Patient responded well to reality testing, accepting that given there is no arrest, trial, conviction for any sexual offense that he is not a registered sex offender... Accepting that these beliefs are delusional. Patient shared that he has been paranoid for awhile,, possibly years and independent of mood. Patient said he was afraid of this because his father has schizophrenia. Patient asked about his diagnosis and treatment. Wants to try Vraylar instead of Abilify preferring the side effect risk profile of Vraylar and the fact that it is possibly more helpful for depression than Abilify. -no SI -currently no AVH 06/10 Patient said he is doing okay. Processing his diagnosis. Patient says it is something he has been afraid of for his entire life, since he has known his father had schizophrenia. Patient denies any delusional thinking or AVH. Discussed medications and given that he currently does not have insurance, agrees to switch back to Abilify, which did seem helpful, as Vraylar is less likely to be covered. 06/11 Patient reports switching to Abilify no problems; still denies psychotic symptoms. -if patient amenable, will strongly consider increasing Abilify dose given the fact that patient has now had 2 suicide attempts; although patient said Abilify 2 mg was effective last time, he only took it while in the hospital Patient however feeling continued malaise, sore throat, cough and is febrile despite being on Tylenol; negative RSV, flu, COVID, strep; will get medical consult 3/13 Patient reports feeling physically better now that he is on antibiotics.? Discussed x-ray results and pneumonia diagnosis Patient feels more clear minded and does seem to be much more organized and present in conversation.? Patient shared in more detail history of trauma including significant bullying, neglectful mother, being removed from the household by social security benefits interviewer and other challenging experiences.? Patient was making connections with this history and his current struggles with negative self talk and struggles with self-esteem.? 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 Discussed medications.? At this time patient would like to remain on Abilify 2 mg since his without any delusional thinking or AH.? Discussed medication for treatment for PTSD/depression/anxiety and reviewed SSRI/SNRI options.? At this time patient wants to remain only on Abilify but very much wants to engage in outpatient therapy.? Also discussed patient's safety.? He has been without any SI at all since admission and says he understands himself and his symptoms much better now and will reach out for help writer producer way if he is at all feeling the return of any psychotic symptoms or unsafe thoughts and feelings.? He feels that both recent suicide attempts were in the context of being overwhelmed by his paranoid delusions which have now resolved.? Patient shared that he has a few very close friends with whom he plans to incorporate into this safety plan. 06/13 Patient reports that he is good and that he is processing his feelings much better. Said that he talked with his sister today about history of trauma and felt the conversation helpful; discussed more about approaches to dealing with trauma and therapy. Patient continues to remain without any psychotic symptoms and tolerating Abilify well. Wants to remain on current dose. -if over the weekend patient remains in good mood and without any psychotic symptoms will proceed with discharge 06/14 - increased his abilify to 4 mg not sure he will take it- put also explained to patient that that list of side effects are Possible - but not meant that all will get- eg give to 1000 patients those are the different s/e that 1000 would report- he seemed to get this 06/15 did not take 4mg only took 2mg, continues to feel improved- moved abilify back to 2mg CTP will try melatonin for sleep tonight has as prn 06/16 pt reports he's doing overall well and denies any paranoid thinking or concerns. Discussed his concerns for side-effects and patient reports that he's feeling body intermittent body twitches throughout the day, but mostly at night after he takes Abilify; says it's been happening all week, but more pronounced this past weekend. Reports same thing happened last admission when he took Abilify. Discussed options and Because of this patient wanted to switch to Vraylar even though it will cost him out of pocket (reviewed cost of $194/30 day supply). Patient also not sleeping well and agrees to clonidine at bedtime and increasing prn trazodone dose -postponed planned discharge to make sure stable on Vraylar 06/17 continue Vraylar; patient agrees to titrate to 3 mg PLAN: Vraylar 3 mg Colonidine 0.1mg qhs trazodone 100mg prn DC Abilify 2 mg daily; seems effective but causing body twitches Started on doxycycline for pneumonia Discontinue Vryalar 1.5mg daily (concerned insurance will not cover) DC Lexapro (causes tachycardia) Patient educated on: diagnosis and medication risk/benefits Informed Consent: understands Reason for continued inpatient stay Substantial Risk for: stable for discharge Time Spent With Patient Time: Total time managing care of this patient today ____ minutes.
[2024-06-17 20:00] VITALS: BP 137/63; PULSE 77; RESP 16; TEMP 36.1; O2SAT 100
[2024-06-17 21:54] VITALS: BP 134/73
[2024-06-17] MEDS: cloNIDine HCL 0.1 MG TABLET PO (21:54)
[2024-06-18 08:09] VITALS: BP 122/55; PULSE 64; TEMP 36.8; O2SAT 99
[2024-06-18] MEDS: Doxycycline Monohydrate 100 MG CAPSULE PO ×2 (08:41→21:51)
[2024-06-18] MEDS: Multivitamin TABLET 1 TAB PO (08:41)
[2024-06-18] MEDS: Cariprazine HCl 3 MG CAPSULE PO (08:41)
--- NOTE | 2024-06-18 10:01 | HO.PSYCHPN ---
Subjective Subjective Date of Service: 06/18/24 Reason For Visit: s/p overdoes of tylenol,depression,substance use Interim History: Met with patient; discussed with team Good mood, no psychotic symptoms, feeling hopeful and optimistic about remaining stable on getting back to his life. Unfortunately insurance [employer] is requiring prior authorization for Vraylar; patient very hopeful that this will go through Mental Status Exam Mental Status Exam Narrative: Pt is alert and oriented; behavior is cooperative, isolative, and calm; patient is not in distress; dressed in casueal attire, mustache, scruffy, unkempt hair; mood is described as great and affect congruent, more calm, brighter; eye contact appropriate; Speech is normal rate, volume and prosody and not pressured; some residual psychomotor retardation present; thought process is organized and goal directed; Thought content is processing diagnosis psychotic disorder, trauma history; denies any delusional thinking; denies any SI/HI. No AVH; There is no evidence of perceptual disturbance. Patients insight and judgment fair Diagnostics Vital Signs (24Hr): Vital Signs - 24 hr 06/17/24 20:00 06/17/24 21:54 06/18/24 08:09 Temperature 96.9 F 98.2 F Pulse Rate 77 64 Respiratory Rate 16 Blood Pressure 137/63 134/73 122/55 L Pulse Oximetry 100 99 Oxygen Delivery Method Room Air Room Air BMI result Body Mass Index 24.4 Labs 06/11/24 12:44 Imaging Radiology Impressions: ITS Impressions Chest X-Ray 06/11/24 14:24 IMPRESSION: Questionable acute airspace disease, right middle lung lobe. Electronically signed by: Eddy Esposito MD 06/11/2024 02:32 PM EDT Medications Medications Current Medications Benzocaine (Throat Lozenge, Medicated Lozenge) 1 lozenge MUCOUS MEM Q2H PRN PRN Reason: Sore Throat Last Admin: 06/13/24 09:07 Dose: 1 lozenge Calcium Carbonate (Calcium Carbonate 750 Mg Tab.Chew) 750 mg PO Q4H PRN PRN Reason: Heartburn Cariprazine (Cariprazine Hcl 3 Mg Capsule) 3 mg PO DAILY [place] Last Admin: 06/18/24 08:41 Dose: 3 mg Clonidine HCl (Clonidine Hcl 0.1 Mg Tablet) 0.1 mg PO BEDTIME [place]ERT[place]; Protocol Last Admin: 06/17/24 21:54 Dose: 0.1 mg Doxycycline Monohydrate (Doxycycline Monohydrate 100 Mg Capsule) 100 mg PO Q12H [place] Last Admin: 06/18/24 08:41 Dose: 100 mg Guaifenesin (Guaifenesin 100 Mg/5 Ml 5 Ml Liquid) 5 ml PO Q6H PRN PRN Reason: Cough Last Admin: 06/13/24 09:07 Dose: 5 ml Hydroxyzine HCl (Hydroxyzine Hcl 25 Mg Tablet) 25 mg PO Q6H PRN PRN Reason: mild anxiety Magnesium Hydroxide (Milk Of Magnesia 30 Ml Oral.Susp) 30 ml PO DAILY PRN PRN Reason: Constipation Multivitamins/Vitamin C (Multivitamin Tablet) 1 tab PO DAILY [place] Last Admin: 06/18/24 08:41 Dose: 1 tab Nicotine Polacrilex (Nicotine Polacrilex 2 Mg Gum) 4 mg BUCCAL Q2H PRN PRN Reason: Nicotine Cravings Trazodone HCl (Trazodone Hcl 100 Mg Tablet) 100 mg PO BEDTIME PRN PRN Reason: insomnia Allergies Allergies Allergy/AdvReac Type Severity Reaction Status Date / Time aspirin [ASA] Allergy Swelling Verified 06/10/24 09:46 Penicillins Allergy Swelling Verified 06/10/24 09:46 Assessment & Plan Assessment & Plan (1) Schizoaffective disorder, depressive type: Status: Acute Code(s): F25.1 - Schizoaffective disorder, depressive type (2) URI (upper respiratory infection): Status: Resolved Code(s): J06.9 - Acute upper respiratory infection, unspecified (3) PTSD (post-traumatic stress disorder): Status: Acute Code(s): F43.10 - Post-traumatic stress disorder, unspecified Plan HPI: Jayy is a 33-year-old /Nepalese-speaking, single, recently unemployed man who was transferred from the medical unit yesterday after an admission for overdose on 40 Tylenol tablets after which a roommate called EMS and was subsequently brought to the hospital and admitted. He also had made to superficial cuts to his both wrists. This is his 2nd overdose. Had a previous 1 in April and was admitted to this unit. He does have some outpatient connections at [facility] but missed his psychiatric appointment because he signed into a virtual appointment incorrectly. He is on Abilify 2 mg daily and trazodone but he does not know the dose. No history of substance abuse. 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 In the past he has had some struggles with his sexual orientation and his family. He states that he has been feeling very depressed, hopeless, at times not eating or attending to his hygiene. He has not been on any antidepressants. He is open to that. Denies any current suicidal ideations and feels safe on the unit. No history of violence. He does not have access to firearms. He denies any AVH but there have been references to auditory hallucinations in the past Past Psychiatric History: 1 past admission April 2024 at [facility] Hx: Father: Schizophrenia Trauma as child, older adult social work specialist removed pt from household due to parents issues Schooling: completed college including Masters Degree in Environmental studies Formulation/clinical reasoning: Patient meets criteria for schizoaffective disorder as he has psychotic symptoms, independent of mood, with bouts of depression. Patient is accepting of diagnosis and wants treatment. Hospital course: 06/08: Continue current regimen and plans 06/09 Patient shared about previous admission and the time leading up to this current admission. Prior to his 1st ever admission this past April 2024, patient was depressed, not sleeping much but also tired, and became delusional; 4 days before that admission patient says I was thinking i was everette, the whole world was giving me signals, i was going to be crucified...that's why outside in only underwear in the cold to walk in pain... He said Abilify seemed to help; however after discharge he stopped taking it, wondering if it made him dizzy. He said he did okay for a few weeks but became depressed again, exacerbated by being laid off from his job, and for the past 2 weeks he has been very depressed, in bed most of the time, not eating or drinking much and superficially self-harming, cutting on his wrists and neck... He says his overdose of Tylenol was impulsive and he regretted it soon after. Patient says that also prior to this admission, he was becoming paranoid, thinking he was being framed for being a pedophile; he said he started to see signs of this, like children coming up from no where and then thought his friends were telling him that he was a registered sex offender... He says a group of friends told him so we were watching the Oscars...and [his] friends were having fast-paced conversations during which time they communicated to him that he is a registered sex offender.... Patient went on to say i think the whole world has a conspiracy against me: bullied as child, unloved by mom, father early age, grandmother of cancer... And that he thinks some actual person/group is behind this, orchestrating these bad things happening to him... perhaps the [email or web address]...or someone else.. Though can not explain how it makes sense. Patient responded well to reality testing, accepting that given there is no arrest, trial, conviction for any sexual offense that he is not a registered sex offender... Accepting that these beliefs are delusional. Patient shared that he has been paranoid for awhile,, possibly years and independent of mood. Patient said he was afraid of this because his father has schizophrenia. Patient asked about his diagnosis and treatment. Wants to try Vraylar instead of Abilify preferring the side effect risk profile of Vraylar and the fact that it is possibly more helpful for depression than Abilify. -no SI -currently no AVH 06/10 Patient said he is doing okay. Processing his diagnosis. Patient says it is something he has been afraid of for his entire life, since he has known his father had schizophrenia. Patient denies any delusional thinking or AVH. Discussed medications and given that he currently does not have insurance, agrees to switch back to Abilify, which did seem helpful, as Vraylar is less likely to be covered. 06/11 Patient reports switching to Abilify no problems; still denies psychotic symptoms. -if patient amenable, will strongly consider increasing Abilify dose given the fact that patient has now had 2 suicide attempts; although patient said Abilify 2 mg was effective last time, he only took it while in the hospital Patient however feeling continued malaise, sore throat, cough and is febrile despite being on Tylenol; negative RSV, flu, COVID, strep; will get medical consult 06/12 Patient reports feeling physically better now that he is on antibiotics.? Discussed x-ray results and pneumonia diagnosis Patient feels more clear minded and does seem to be much more organized and present in conversation.? Patient shared in more detail history of trauma including significant bullying, neglectful mother, being removed from the household by social science professor and other challenging experiences.? Patient was making connections with this history and his current struggles with negative self talk and struggles with self-esteem.? Ict Development Manager and patient discussed the differences between PTSD/trauma symptoms and psychotic illness but how the 2 can trigger each other which patient found helpful to distinguish.? Discussed medications.? At this time patient would like to remain on Abilify 2 mg since his without any delusional thinking or AH.? Discussed medication for treatment for PTSD/depression/anxiety and reviewed SSRI/SNRI options.? At this time patient wants to remain only on Abilify but very much wants to engage in outpatient therapy.? Also discussed patient's safety.? He has been without any SI at all since admission and says he understands himself and his symptoms much better now and will reach out for help technical proposal writer way if he is at all feeling the return of any psychotic symptoms or unsafe thoughts and feelings.? He feels that both recent suicide attempts were in the context of being overwhelmed by his paranoid delusions which have now resolved.? Patient shared that he has a few very close friends with whom he plans to incorporate into this safety plan. 06/13 Patient reports that he is good and that he is processing his feelings much better. Said that he talked with his sister today about history of trauma and felt the conversation helpful; discussed more about approaches to dealing with trauma and therapy. Patient continues to remain without any psychotic symptoms and tolerating Abilify well. Wants to remain on current dose. -if over the weekend patient remains in good mood and without any psychotic symptoms will proceed with discharge 06/14 - increased his abilify to 4 mg not sure he will take it- put also explained to patient that that list of side effects are Possible - but not meant that all will get- eg give to 1000 patients those are the different s/e that 1000 would report- he seemed to get this 06/15 did not take 4mg only took 2mg, continues to feel improved- moved abilify back to 2mg CTP will try melatonin for sleep tonight has as prn 06/16 pt reports he's doing overall well and denies any paranoid thinking or concerns. Discussed his concerns for side-effects and patient reports that he's feeling body intermittent body twitches throughout the day, but mostly at night after he takes Abilify; says it's been happening all week, but more pronounced this past weekend. Reports same thing happened last admission when he took Abilify. Discussed options and Because of this patient wanted to switch to Vraylar even though it will cost him out of pocket (reviewed cost of $194/30 day supply). Patient also not sleeping well and agrees to clonidine at bedtime and increasing prn trazodone dose -postponed planned discharge to make sure stable on Vraylar 06/17 continue Vraylar; patient agrees to titrate to 3 mg 06/18 Good mood, no psychotic symptoms, feeling hopeful and optimistic about remaining stable on getting back to his life. Unfortunately insurance company is requiring prior authorization for Vraylar; patient very hopeful that this will go through PLAN: Vraylar 3 mg Colonidine 0.1mg qhs trazodone 100mg prn DC Abilify 2 mg daily; seems effective but causing body twitches Started on doxycycline for pneumonia Discontinue Vryalar 1.5mg daily (concerned insurance will not cover) DC Lexapro (causes tachycardia) Patient educated on: diagnosis and medication risk/benefits Informed Consent: understands Reason for continued inpatient stay Substantial Risk for: stable for discharge Time Spent With Patient Time: Total time managing care of this patient today ____ minutes.
[2024-06-18 20:00] VITALS: BP 117/58; PULSE 81; RESP 16; TEMP 36.6; O2SAT 97
[2024-06-18] MEDS: cloNIDine HCL 0.1 MG TABLET PO (21:51)
[2024-06-19 08:00] VITALS: BP 117/62; PULSE 64; RESP 16; TEMP 36.4; O2SAT 99
[2024-06-19] MEDS: Doxycycline Monohydrate 100 MG CAPSULE PO (08:50)
[2024-06-19] MEDS: Cariprazine HCl 3 MG CAPSULE PO (08:50)
[2024-06-19] MEDS: Multivitamin TABLET 1 TAB PO (08:50)
--- NOTE | 2024-06-19 09:09 | PM.PSYDC ---
DS: Providers Provider Date of Service: 06/19/24 Date of admission: 06/06/24 18:25 Date of discharge: 06/19/24 Primary care physician: Unknown Physician Attending physician on admission: Ben Chavis Consults: 06/11/24 10:23 Consult to Hospitalist Routine Comment: sore throat, cough, fatigue Consulting Provider: [facility] Hospitalists Reason For Exam: T 100.1 w/tylenol;sore throat;No rsv/flu/strep/Cov Attending physician on discharge: Ben Chavis DS: Diagnosis Discharge Diagnosis (1) Schizoaffective disorder, depressive type: Status: Acute (2) URI (upper respiratory infection): Status: Resolved (3) PTSD (post-traumatic stress disorder): Status: Acute DS: Medications Discharge Medications Home Medications: Home Medications ?Medication ?Instructions ?Recorded ?Confirmed biotin 1 mg tablet 1 mg PO DAILY 06/04/24 06/04/24 multivitamin 1 tab PO DAILY 06/04/24 06/04/24 omega 0-jar-cpz-fish oil 1,000 mg 1 cap PO DAILY 06/04/24 06/04/24 (120 mg-180 mg) capsule (Fish Oil) Previous Rx's ?Medication ?Instructions ?Recorded cariprazine 3 mg capsule (Vraylar) 3 mg PO DAILY 30 days #30 caps 06/17/24 aripiprazole 2 mg tablet (Abilify) 2 mg PO DAILY 30 days #30 tabs 06/19/24 clonidine HCl 0.1 mg tablet 0.1 mg PO BEDTIME 30 days #30 tabs 06/19/24 quetiapine 50 mg tablet (Seroquel) 50 mg PO BEDTIME PRN insomnia 30 06/19/24 days #30 tabs Data Data Completed and Pending Completed studies during hospitalization [Text1]: 06/11/24 14:30 Respiratory Panel Puentes See Note Adenovirus (Rapid PCR) Not Detected B.pert (TEM-PCR) Not Detected B.parapertussis DNA PCR Not Detected C. pneumoniae DNA (PCR) Not Detected Coronavirus OC43 (PCR) Not Detected Coronavirus HKU1 (PCR) Not Detected Coronavirus 229E (PCR) Not Detected Coronavirus NL63 (PCR) Not Detected Human Metapneumovir PCR Not Detected Influenza A (RT-PCR) Detected A Influenza B (RT-PCR) Not Detected M. pneumoniae (PCR) Not Detected Parainfluenza 1 (PCR) Not Detected Parainfluenza 2 (PCR) Not Detected Parainfluenza 3 (PCR) Not Detected Parainfluenza 4 (PCR) Not Detected RSV (PCR) Not Detected Entero/Rhino (PCR) Not Detected SARS-CoV-2 RNA (RT-PCR) Not Detected Imaging Diagnostic Imaging Impressions Chest X-Ray 06/11/24 14:24 IMPRESSION: Questionable acute airspace disease, right middle lung lobe. Electronically signed by: Eddy Esposito MD 06/11/2024 02:32 PM EDT DS: Summary Hospital Course Hospital Course: HPI: Jayy is a 33-year-old /Yakut-speaking, single, recently unemployed man who was transferred from the medical unit yesterday after an admission for overdose on 40 Tylenol tablets after which a roommate called EMS and was subsequently brought to the hospital and admitted. He also had made to superficial cuts to his both wrists. This is his 2nd overdose. Had a previous 1 in April and was admitted to this unit. He does have some outpatient connections at [facility] but missed his psychiatric appointment because he signed into a virtual appointment incorrectly. He is on Abilify 2 mg daily and trazodone but he does not know the dose. No history of substance abuse. 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 In the past he has had some struggles with his sexual orientation and his family. He states that he has been feeling very depressed, hopeless, at times not eating or attending to his hygiene. He has not been on any antidepressants. He is open to that. Denies any current suicidal ideations and feels safe on the unit. No history of violence. He does not have access to firearms. He denies any AVH but there have been references to auditory hallucinations in the past Past Psychiatric History: 1 past admission April 2024 at [place] Hx: Father: Schizophrenia Trauma as child, social science research assistant removed pt from household due to parents issues Schooling: completed college including Masters Degree in Environmental studies Formulation/clinical reasoning: Patient meets criteria for schizoaffective disorder as he has psychotic symptoms, independent of mood, with bouts of depression. Patient is accepting of diagnosis and wants treatment. Hospital course: 06/08: Continue current regimen and plans 06/09 Patient shared about previous admission and the time leading up to this current admission. Prior to his 1st ever admission this past April 2024, patient was depressed, not sleeping much but also tired, and became delusional; 4 days before that admission patient says I was thinking i was everette, the whole world was giving me signals, i was going to be crucified...that's why outside in only underwear in the cold to walk in pain... He said Abilify seemed to help; however after discharge he stopped taking it, wondering if it made him dizzy. He said he did okay for a few weeks but became depressed again, exacerbated by being laid off from his job, and for the past 2 weeks he has been very depressed, in bed most of the time, not eating or drinking much and superficially self-harming, cutting on his wrists and neck... He says his overdose of Tylenol was impulsive and he regretted it soon after. Patient says that also prior to this admission, he was becoming paranoid, thinking he was being framed for being a pedophile; he said he started to see signs of this, like children coming up from no where and then thought his friends were telling him that he was a registered sex offender... He says a group of friends told him so we were watching the Oscars...and [his] friends were having fast-paced conversations during which time they communicated to him that he is a registered sex offender.... Patient went on to say i think the whole world has a conspiracy against me: bullied as child, unloved by mom, father early age, grandmother of cancer... And that he thinks some actual person/group is behind this, orchestrating these bad things happening to him... perhaps the [employer]...or someone else.. Though can not explain how it makes sense. Patient responded well to reality testing, accepting that given there is no arrest, trial, conviction for any sexual offense that he is not a registered sex offender... Accepting that these beliefs are delusional. Patient shared that he has been paranoid for awhile,, possibly years and independent of mood. Patient said he was afraid of this because his father has schizophrenia. Patient asked about his diagnosis and treatment. Wants to try Vraylar instead of Abilify preferring the side effect risk profile of Vraylar and the fact that it is possibly more helpful for depression than Abilify. -no SI -currently no AVH 06/10 Patient said he is doing okay. Processing his diagnosis. Patient says it is something he has been afraid of for his entire life, since he has known his father had schizophrenia. Patient denies any delusional thinking or AVH. Discussed medications and given that he currently does not have insurance, agrees to switch back to Abilify, which did seem helpful, as Vraylar is less likely to be covered. 06/11 Patient reports switching to Abilify no problems; still denies psychotic symptoms. -if patient amenable, will strongly consider increasing Abilify dose given the fact that patient has now had 2 suicide attempts; although patient said Abilify 2 mg was effective last time, he only took it while in the hospital Patient however feeling continued malaise, sore throat, cough and is febrile despite being on Tylenol; negative RSV, flu, COVID, strep; will get medical consult 06/12 Patient reports feeling physically better now that he is on antibiotics.? Discussed x-ray results and pneumonia diagnosis Patient feels more clear minded and does seem to be much more organized and present in conversation.? Patient shared in more detail history of trauma including significant bullying, neglectful mother, being removed from the household by social media designer and other challenging experiences.? Patient was making connections with this history and his current struggles with negative self talk and struggles with self-esteem.? Burring Wheel Operator and patient discussed the differences between PTSD/trauma symptoms and psychotic illness but how the 2 can trigger each other which patient found helpful to distinguish.? Discussed medications.? At this time patient would like to remain on Abilify 2 mg since his without any delusional thinking or AH.? Discussed medication for treatment for PTSD/depression/anxiety and reviewed SSRI/SNRI options.? At this time patient wants to remain only on Abilify but very much wants to engage in outpatient therapy.? Also discussed patient's safety.? He has been without any SI at all since admission and says he understands himself and his symptoms much better now and will reach out for help ad writer way if he is at all feeling the return of any psychotic symptoms or unsafe thoughts and feelings.? He feels that both recent suicide attempts were in the context of being overwhelmed by his paranoid delusions which have now resolved.? Patient shared that he has a few very close friends with whom he plans to incorporate into this safety plan. 06/13 Patient reports that he is good and that he is processing his feelings much better. Said that he talked with his sister today about history of trauma and felt the conversation helpful; discussed more about approaches to dealing with trauma and therapy. Patient continues to remain without any psychotic symptoms and tolerating Abilify well. Wants to remain on current dose. -if over the weekend patient remains in good mood and without any psychotic symptoms will proceed with discharge 06/14 - increased his abilify to 4 mg not sure he will take it- put also explained to patient that that list of side effects are Possible - but not meant that all will get- eg give to 1000 patients those are the different s/e that 1000 would report- he seemed to get this 06/15 did not take 4mg only took 2mg, continues to feel improved- moved abilify back to 2mg CTP will try melatonin for sleep tonight has as prn 06/16 pt reports he's doing overall well and denies any paranoid thinking or concerns. Discussed his concerns for side-effects and patient reports that he's feeling body intermittent body twitches throughout the day, but mostly at night after he takes Abilify; says it's been happening all week, but more pronounced this past weekend. Reports same thing happened last admission when he took Abilify. Discussed options and Because of this patient wanted to switch to Vraylar even though it will cost him out of pocket (reviewed cost of $194/30 day supply). Patient also not sleeping well and agrees to clonidine at bedtime and increasing prn trazodone dose -postponed planned discharge to make sure stable on Vraylar 06/17 continue Vraylar; patient agrees to titrate to 3 mg 06/18 Good mood, no psychotic symptoms, feeling hopeful and optimistic about remaining stable on getting back to his life. Unfortunately insurance company is requiring prior authorization for Vraylar; patient very hopeful that this will go through Patient has remained in good behavioral and impulse control, appropriate with peers and staff, without any SI at all or any psychotic symptoms; he is also sleeping well at night. Patient has good insight and understanding of his illness and treatments. Patient has a safety plan if he had all feels unsafe or any psychotic symptoms return and patient is meeting with his outpatient provider next week. Patient has remained in good mood and optimistic about remaining stable; he feels his regular self and ready for discharge. Medication regimen did get a little complicated due to insurance issue (see plan below) however patient fully understands the regimen and will continue working with his outpatient provider. Patient is not in imminent risk for harm to self and appropriate to return to the community for treatment. Request for discharge honored. Regarding medications: Burring Wheel Operator and patient discussed medication options and plan at length and patient fully understands and agrees with plan. Patient stabilized well with Vraylar and was without side effects. Vraylar chosen since patient has a combination of psychotic symptoms from schizophrenia, bipolar depression and what has been provisionally diagnosed as manic episodes. However... At this time it is not clear if Vraylar will be covered by patient's insurance. Abilify seems to have been effective, though with a limited trial, however has bothersome side effect of dyskinesia throughout his body and not well tolerated. For now he agrees to get back on Abilify 2 mg so as to remain safe and stable, while waiting and hoping that Vraylar will be covered by insurance (prior authorization submitted and pending). In addition, ad writer is prescribing Seroquel 50 mg q.h.s. to help with sleep. The plan is for patient to see if this medication is tolerated and does not cause significant daytime drowsiness, this medication could possibly be titrated to a therapeutic dose for monotherapy for schizoaffective disorder. Patient has a meeting next week with his outpatient provider who will continue with medication management. PLAN: Maybe Vraylar 3 mg PENDING PRIOR AUTH Abilify 2 mg: For stability while waiting to see if Vraylar will be covered Seroquel 50 mg q.h.s.: To help with insomnia and to see if tolerated and a consideration as an option for titration and monotherapy (instead of Abilify or Vraylar) Colonidine 0.1mg qhs DC Lexapro (causes tachycardia) Time Spent with Patient Time attestation: Total time managing care of this patient today ____ minutes. Discharge Plan Discharge Anticipated Discharge Date/Time: 06/19/24 11:30 Patient Disposition: Home, Self-Care Discharge Diagnosis: Schizoaffective disorder, depressed type (r/o bipolar type); PTSD Referrals: Hernandez Bailey: [facility] ([facility]): (therapy) [Other] - 06/23/24 5:00 pm (Hospital Discharge Appointment for Therapy Appointment is in person at [facility] ) Neeta Peres: [facility] (Psychiatry) [Other] - 07/08/24 9:00 am (Hospital Discharge appointment with psychiatric provider Appointment is in person at [facility] in [place] ) Physician,Unknown J [Primary Care Provider] - 1 Week Discharge Medications: New Vraylar 3 mg capsule 3 mg PO DAILY 30 Days Qty: 30 0RF clonidine HCl 0.1 mg Tablet 0.1 mg PO BEDTIME 30 Days Qty: 30 1RF Protocol: Hold for SBP< HOLD for SBP < : 90 aripiprazole [Abilify] 2 mg tablet 2 mg PO DAILY 30 Days Qty: 30 0RF quetiapine [Seroquel] 50 mg tablet 50 mg PO BEDTIME PRN (Reason: insomnia) 30 Days Qty: 30 0RF Continued multivitamin Tablet 1 tab PO DAILY biotin 1 mg Tablet 1 mg PO DAILY omega 9-svv-ohx-fish oil [Fish Oil] 1,000 (120-180) mg Capsule 1 cap PO DAILY Discontinued Probiotic 100 billion cell Capsule 1 cap PO DAILY trazodone 50 mg tablet 50 mg PO BEDTIME PRN (Reason: insomnia) 30 Days Qty: 30 1RF Opipza 2 mg film 2 mg PO DAILY 30 Days Qty: 30 1RF Discharge Orders: Discharge Order (Routine); Ordered 06/19/24 Ordered By: Ben Chavis Diet: Regular diet Activity on Discharge: As tolerated Stand Alone Forms: Patient Portal Discharge page, Community Support Print Language: Yakut Care Plan Goals: Maintain mood and safe behaviors Take medications as prescribed Practice coping skills Continue with outpatient providers and reach out to them as needed Health Concerns: Mood stability and behaviors Plan of Treatment: Follow up with your PCP, psychiatric provider and other outpatient providers regarding above concerns Take medications as prescribed Assessment: Risk assessment at time of discharge:? Patient was interviewed prior to discharge and found to be fully oriented and without any SI or HI. Patient has improved insight and judgment and wants to continue treatment. Patient is not in imminent risk of harm to self or others and has a safety plan that includes presenting to the closest ER or calling 911 if feeling unsafe.? Patient has been observed closely by nursing and unit staff throughout admission; patient has not engaged in any behaviors that suggest dangerousness to self or others and has demonstrated appropriate behaviors and impulse control
== END 2024-06-19 11:10 | disposition home or self-care (01) | DRG 750 ==
PROVIDERS: Physician Assistant; Admitting Provider Clinical Nurse Specialist Psychiatric/Mental Health, Adult; Visit Provider Psychiatry & Neurology Psychiatry
DX: F25.1 Schizoaffective disorder, depressive type (principal); J18.9 Pneumonia, unspecified organism; F43.10 Post-traumatic stress disorder, unspecified; Z20.822 Contact with and (suspected) exposure to COVID-19; Z23 Encounter for immunization; Z79.899 Other long term (current) drug therapy
CPT/HCPCS: 0241U; 36415; 71045; 80061; 80076; 82607; 82746; 83036; 83605; 83735; 84439; 84443; 85025; 86308; 87633; 87651; 90656

== ENCOUNTER → 2024-06-06 18:25 | Outpatient (BNV) | payer MEDICAID, SELFPAY | PROVIDERS: Admitting Provider Clinical Nurse Specialist Psychiatric/Mental Health, Adult; Visit Provider Physician Assistant | DX: J06.9 Acute upper respiratory infection, unspecified (principal) | CPT/HCPCS: 99222 ==

== ENCOUNTER → 2024-06-06 18:25 | Outpatient (BNV) | payer BC, SELFPAY | PROVIDERS: Admitting Provider Clinical Nurse Specialist Psychiatric/Mental Health, Adult; Visit Provider Psychiatry & Neurology Psychiatry | DX: F32.9 Major depressive disorder, single episode, unspecified (principal) | CPT/HCPCS: 90792 ==

== ENCOUNTER 2024-07-20 19:31 | Inpatient (IN) | payer OTHER, SELFPAY ==
[2024-07-20 19:45] VITALS: BP 131/69; PULSE 117; O2SAT 98
--- NOTE | 2024-07-20 20:08 | PC.NURSE ---
pt medicated prior to arrival in POD. pt walked back, pt now resting comfortably with eyes closed. breathing even and unlabored. unable to assess pt at this time
--- NOTE | 2024-07-20 20:17 | ED_ITS ---
HPI - Psych General Chief Complaint: Psychiatric Symptoms Stated Complaint: depressed stopped meds hx of si not cooperative Time Seen by Provider: 07/20/24 20:13 Source: EMS and old records reviewed Mode of arrival: EMS Limitations: no limitations History of Present Illness ED Provider: CHAKA PARIKH Narrative: 33 yo male with schizoaffective disorder and PTSD was reportedly agitated, attempting to jump from a bridge / out of ambulance / grab PD firearm had to be chemically restrained by EMS 5mg haldol and 5mg versed. He is sleepy and groggy does not want to answer questions. He cannot participate in exam or history at this time MD complaint: suicidal ideation and feels depressed Onset (ago): week(s) Duration: constant History of same: Yes Relieving factors: none Exacerbating factors: none Associated psychiatric symptoms: depression and suicidal ideation Treatments prior to arrival: placed on mental health hold and chemical restraints Related Data Previous Rx's ?Medication ?Instructions ?Recorded cariprazine 3 mg capsule (Vraylar) 3 mg PO DAILY 30 days #30 caps 06/17/24 aripiprazole 2 mg tablet (Abilify) 2 mg PO DAILY 30 days #30 tabs 06/19/24 clonidine HCl 0.1 mg tablet 0.1 mg PO BEDTIME 30 days #30 tabs 06/19/24 quetiapine 50 mg tablet (Seroquel) 50 mg PO BEDTIME PRN insomnia 30 06/19/24 days #30 tabs Allergies Allergy/AdvReac Type Severity Reaction Status Date / Time aspirin [ASA] Allergy Swelling Verified 07/20/24 22:37 Penicillins Allergy Swelling Verified 07/20/24 22:37 Review of Systems 2 Review of Systems: ROS unable to be obtained due to altered mental status PMFSH Past Medical History Source: old records reviewed Medical History Major depressive episode PTSD (post-traumatic stress disorder) Schizoaffective disorder, depressive type No pertinent past medical history Social History Social History Household Members: Other Household Members Other:: 1 male room mate Housing: Apartment Do you presently have visiting nurse or other home services: No Unable to assess alcohol history related to: Refusing to respond Comment: 1:1 sitter Patient Tobacco Use Status: Never used Tobacco Second Hand Smoke Exposure: No Substance Use Type: Caffiene Advance Directives: No Advance Directives Information Provided: No service: No Sexual orientation: Lesbian/Rivas/Homosexual Physical Exam 2 Vital Signs: Vital Signs: Last Vital Signs Temp 98.1 F 07/21/24 21:19 Pulse 79 07/21/24 21:19 Resp 16 07/22/24 06:13 BP 136/83 07/21/24 21:49 Pulse Ox 100 07/21/24 21:19 O2 Del Method Room Air 07/21/24 21:19 BMI result Body Mass Index 26.5 Appearance:sleeping after medications, wakes to voice. No acute distress. Eyes: Pupils equal, round and reactive to light. ENT: Pharynx normal. atraumatic Neck: Normal inspection. Neck supple. CVS: Normal heart rate and rhythm. Pulses normal. Respiratory: No respiratory distress. Breath sounds normal. Abdomen: Soft and nontender. atrauamatic appearing Skin: Skin warm and dry. Normal skin color. Normal skin turgor. Extremities: No lower extremity edema. Neuro: Groggy after medications cannot participate in neuro or CN exam Course Reevaluation(s) Reevaluation #1: Time: 08:38 Date: 07/21/24 Provider: Jerry Lucia MD Patient in physician observation for psychiatric evaluation.? No acute events reported overnight. No current complaints. VS stable.? Patient is in bed search status/pending CARE team evaluation. Will continue to monitor. Time: 08:38 Reevaluation #2: Time: 12:44 Date: 07/22/24 Provider: Jerry Lucia MD Patient in physician observation for psychiatric evaluation.? No acute events reported overnight. No current complaints. VS stable.? Patient is in bed search status/pending CARE team evaluation. Will continue to monitor. Reevaluation #3: pt will be admitted to [facility] Time: 12:45 Medications Administered Generic Name Dose Route Start Last Admin Trade Name Freq PRN Reason Stop Dose Admin Aripiprazole 2 mg 07/22/24 09:00 07/22/24 09:49 Aripiprazole 2 Mg Tablet PO 2 mg DAILY [place] Administration Cariprazine 3 mg 07/22/24 09:00 07/22/24 09:49 Cariprazine Hcl 3 Mg Capsule PO 3 mg DAILY [place] Administration Clonidine HCl 0.1 mg 04/21/25 21:45 07/21/24 21:49 Clonidine Hcl 0.1 Mg Tablet PO 0.1 mg BEDTIME [place] Administration Protocol Quetiapine Fumarate 50 mg 07/21/24 21:32 07/21/24 21:50 Quetiapine Fumarate 50 Mg Tablet PO 50 mg BEDTIME PRN Administration insomnia Medical Decision Making Medical Decision Making MDM Narrative: 33 yo male with schizoaffective disorder and PTSD was reporting SI and attempted to jump from a bridge/ grab firearms - 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 Will obtain basic labs and refer to CARE team. No obvious signs of trauma. Differential Diagnosis Differential Diagnoses: The differential diagnosis associated with the presentation includes SI, depression Admission/Observation Consideration of admission/observation: Escalation of care including admission/observation considered physician observation started at 822pm pending CARE team Lab Data MDM Lab Attestation statement: I reviewed the patient's lab results. 07/20/24 20:26 07/20/24 20:26 Labs: Lab Results 07/20/24 07/20/24 07/21/24 Range/Units 20:26 20:39 00:37 WBC 7.1 (4.8-10.8) X10*3/uL RBC 4.78 (4.60-5.80) X10*6/uL Hgb 14.4 (14.0-18.0) g/dl Hct 42.0 (42.0-52.0) % MCV 87.9 (80.0-98.0) fL MCH 30.1 (27.0-33.0) pg MCHC 34.3 (31.0-36.0) g/dl RDW 11.9 (11.0-16.0) % Plt Count 250 (160-400) X10*3/uL MPV 9.2 L (9.4-12.4) fL Immature Gran % (Auto) 0.1 (0.0-0.4) % Neut % (Auto) 78.4 H (45-73) % Lymph % (Auto) 11.7 L (20-40) % [place]erry % (Auto) 9.3 (2-11) % Eos % (Auto) 0.1 (0-4) % Baso % (Auto) 0.4 (0-2) % Lymph # (Auto) 0.8 L (1.2-4.9) X10*3/uL [place] # (Auto) 0.7 (0.1-1.2) X10*3/uL Eos # (Auto) 0.0 (0.0-0.4) X10*3/uL Baso # (Auto) 0.0 (0.0-0.2) X10*3/uL Abs Immat Gran (auto) 0.01 (0.00-0.03) X10*3/uL Absolute Neuts (auto) 5.5 (2.0-8.3) x10*3/uL Absolute Nucleated RBC 0.000 (0.0-0.012) X10*3/uL Nucleated RBC % (auto) 0.0 (0.0-0.2) /100WBC Sodium 137 (135-145) mmol/L Potassium 3.7 (3.3-5.1) mmol/L Chloride 106 (96-108) mmol/L Carbon Dioxide 25 (22-29) mmol/L Anion Gap 10 L (12-20) BUN 15 (9-16) mg/dL Creatinine 0.78 (0.5-1.4) mg/dL Estim Creat Clear Calc TNP Estimated GFR > 60 Random Glucose 107 (60-115) mg/dL Calcium 9.1 (8.4-10.2) mg/dL Magnesium 2.1 (1.6-2.6) mg/dL Total Bilirubin 0.3 (0.0-1.0) mg/dL Direct Bilirubin 0.1 (0.0-0.5) mg/dL AST 24 (5-37) U/L ALT 19 (0-40) U/L Alkaline Phosphatase 45 (39-117) U/L Total Protein 7.2 (6.5-8.0) g/dL Albumin 4.2 (3.5-5.0) g/dL Urine Color Yellow Urine Appearance Clear Urine pH 5.5 (5.0-9.0) Ur Specific [place] >= 1.030 H (1.005-1.025) Urine Protein Trace (Neg-Trace) mg/dL Urine Glucose (UA) Negative (Negative) mg/dL Urine Ketones Trace (Negative) mg/dL Urine Blood Negative (Negative) Urine Nitrite Negative (Negative) Ur Leukocyte Esterase Negative (Negative) Urine RBC 0-2 (0-2) /HPF Urine WBC 0-5 (0-5) /HPF Ur Squamous Epith Cells 0-2 (0-2) /HPF Urine Bacteria None Seen (None Seen) Hyaline Casts 0-2 (0-2) /LPF Salicylates < 5.0 L (15-30) mg/dL Urine Opiates Screen Not Detected (Not Detect) Ur Buprenorphine Scrn Not Detected (Not Detect) ng/mL Ur Oxycodone Screen Not Detected (Not Detect) ng/mL Urine Methadone Screen Not Detected (Not Detect) ng/mL Urine Fentanyl Screen Not Detected (Not Detect) Acetaminophen < 3 (<30) mcg/mL Ur Barbiturates Screen Not Detected (Not Detect) Ur Phencyclidine Scrn Not Detected (Not Detect) Ur Amphetamines Screen Not Detected (Not Detect) U Benzodiazepines Scrn POSITIVE H (Not Detect) Urine Cocaine Screen Not Detected (Not Detect) U Marijuana (THC) Screen Not Detected (Not Detect) Ethyl Alcohol < 10 mg/dL Independent Historian Clinical information obtained from an independent historian. History obtained from or confirmed by: EMS External Record Review External record reviewed: Inpatient record and Outpatient record Discharge Plan Discharge Clinical Impression: Schizoaffective disorder, depressive type Patient Disposition: Admitted As Inpatient Interventions: [place]-Suicide Risk Severity Scale Last Done: 07/21/24 07:02
[2024-07-20 20:31] LABS: MANUAL DIFF FLAG NO
[2024-07-20 20:35] LABS: Basophils Percent Auto 0.4 % (0-2); Eosinophils Percent Auto 0.1 % (0-4); Hemoglobin 14.4 g/dl (14.0-18.0); Imm Gran Abs Auto 0.01 X10*3/uL (0.00-0.03); Imm Gran Pct Auto 0.1 % (0.0-0.4); Lymphocytes Absolute Auto 0.8 X10*3/uL (1.2-4.9); Lymphocytes Percent Auto 11.7 % (20-40); Mean Corpuscular HGB Conc 34.3 g/dl (31.0-36.0); Mean Corpuscular Hemoglobin 30.1 pg (27.0-33.0); Mean Corpuscular Volume 87.9 fL (80.0-98.0); Mean Platelet Volume 9.2 fL (9.4-12.4); Monocytes Absolute Auto 0.7 X10*3/uL (0.1-1.2); Monocytes Percent Auto 9.3 % (2-11); Neutrophils Absolute Auto 5.5 x10*3/uL (2.0-8.3); Neutrophils Percent Auto 78.4 % (45-73); Platelet Count 250 X10*3/uL (160-400); Red Blood Count 4.78 X10*6/uL (4.60-5.80); Red Cell Distribution Width 11.9 % (11.0-16.0); White Blood Count 7.1 X10*3/uL (4.8-10.8)
[2024-07-20 20:58] LABS: Alanine Aminotransferase 19 U/L (0-40); Albumin Level 4.2 g/dL (3.5-5.0); Alkaline Phosphatase 45 U/L (39-117); Anion Gap 10 (12-20); Aspartate Amino Transferase 24 U/L (5-37); Bilirubin Direct 0.1 mg/dL (0.0-0.5); Bilirubin Total 0.3 mg/dL (0.0-1.0); Blood Urea Nitrogen 15 mg/dL (9-16); Calcium 9.1 mg/dL (8.4-10.2); Carbon Dioxide 25 mmol/L (22-29); Chloride 106 mmol/L (96-108); Estimated Glomerular Filt Rate > 60; Ethanol < 10 mg/dL; Glucose Random 107 mg/dL (60-115); Magnesium 2.1 mg/dL (1.6-2.6); Potassium 3.7 mmol/L (3.3-5.1); Sodium 137 mmol/L (135-145); Total Protein 7.2 g/dL (6.5-8.0)
[2024-07-20 21:14] LABS: Acetaminophen LAB < 3 mcg/mL (<30); Salicylate < 5.0 mg/dL (15-30)
[2024-07-20 21:33] VITALS: BP 131/76; PULSE 98; RESP 14; TEMP 37.1; O2SAT 99
[2024-07-20 22:36] VITALS: BMI 26.5
--- NOTE | 2024-07-21 00:33 | PC.NURSE ---
pt awake, walked to bathroom with steady gait. urine obtained
--- NOTE | 2024-07-21 00:37 | PC.NURSE ---
pt still wont engage in conversation
[2024-07-21 01:02] LABS: Appearance Urine Clear; Color Urine Yellow; Glucose Urine UA Negative (Negative); Leukocyte Esterase Urine Negative (Negative); Nitrite Urine Negative (Negative); PH 5.5 (5.0-9.0); Specific Gravity - Urine >= 1.030 (1.005-1.025); Urine Blood Negative (Negative); Urine Ketones Trace mg/dL (Negative); Urine Protein Trace mg/dL (Neg-Trace)
[2024-07-21 01:07] LABS: Bacteria Urine None Seen (None Seen); Hyaline Casts Urine 0-2 /LPF (0-2); RBC Urine 0-2 /HPF (0-2); Squamous Epithelial Cell Urine 0-2 /HPF (0-2); WBC Urine 0-5 /HPF (0-5)
[2024-07-21 01:10] LABS: Amphetamine Screen Urine Not Detected (Not Detect); Barbiturates, Urine Not Detected (Not Detect); Benzodiazepines Screen Urine POSITIVE (Not Detect); Buprenorphine Scr Not Detected (Not Detect); Cannabinoid Screen Urine Not Detected (Not Detect); Cocaine Screen Urine Not Detected (Not Detect); Fentanyl, urine Not Detected (Not Detect); Methadone Screen, Urine Not Detected (Not Detect); Opiate Screen Urine Not Detected (Not Detect); Oxycodone Screen Urine Not Detected (Not Detect); Phencyclidine Screen Urine Not Detected (Not Detect)
[2024-07-21 05:43] VITALS: BP 145/86; PULSE 94; RESP 17; TEMP 36.9; O2SAT 99
--- NOTE | 2024-07-21 05:55 | PC.NURSE ---
bag of medication placed in locker 1 with belongings, no controlled medications. 1 bottle seroquel, 1 bottle trazadone, 1 bottle vraylar, 1 bottle clonidine, 2 bottles abilify
[2024-07-21 06:00] VITALS: RESP 16
--- NOTE | 2024-07-21 07:04 | PC.NURSE ---
Assumed care of patient at 0645, patient appears to be in no apparent distress this am, patient is refusing to participate in assessment, will not speak with staff but is calm and cooperative at this time. Continue plan of care for CARE team miriam
--- NOTE | 2024-07-21 14:06 | PHA.MEDREC ---
Pharmacy Consult ? Medication Reconciliation Pharmacy has completed the medication reconciliation. Patient uncooperative. Med rec completed based on claim history. Unsure of any OTC medications
[2024-07-21 15:56] VITALS: BP 138/71; PULSE 99; RESP 18; TEMP 37.1; O2SAT 99
--- NOTE | 2024-07-21 16:08 | MHC.EDTECH ---
pt was set up for a shower upon request
--- NOTE | 2024-07-21 17:53 | PC.NURSE ---
Pt speaking on phone, no apparent distress noted at this time
[2024-07-21 21:19] VITALS: BP 136/83; PULSE 79; RESP 16; TEMP 36.7; O2SAT 100
[2024-07-21 21:49] VITALS: BP 136/83
[2024-07-21] MEDS: cloNIDine HCL 0.1 MG TABLET PO (21:49)
[2024-07-21] MEDS: QUEtiapine Fumarate 50 MG TABLET PO (21:50)
[2024-07-22 06:13] VITALS: RESP 16
--- NOTE | 2024-07-22 06:34 | PC.NURSE ---
Patient slept through the night, no distress observed/reported, meds and meals compliant, disposition per care team is section 12 inpatient bed search, no behavior and safety concerns at this time, will continue to monitor.
--- NOTE | 2024-07-22 09:05 | ECG_ITS ---
Test Reason : check qtc Blood Pressure : */* mmHG Vent. Rate : 83 BPM Atrial Rate : 83 BPM P-R Int : 128 ms QRS Dur : 100 ms QT Int : 350 ms P-R-T Axes : 76 43 33 degrees QTcB Int : 411 ms Normal sinus rhythm possible pre-excitaton When compared with ECG of 04-Jun-2024 16:43, No significant changes seen Referred By: Akilah Lainez Electronically Signed By: COLT MIKE
[2024-07-22] MEDS: Cariprazine HCl 3 MG CAPSULE PO (09:49)
[2024-07-22] MEDS: ARIPiprazole 2 MG TABLET PO (09:49)
[2024-07-22 14:41] VITALS: BP 137/75; PULSE 95; RESP 17; TEMP 37.1; O2SAT 100; BMI 24.7
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
[2024-07-22 19:56] VITALS: BP 140/63; PULSE 85; RESP 16; TEMP 36.6; O2SAT 99
[2024-07-22] MEDS: QUEtiapine Fumarate 50 MG TABLET PO (20:17)
[2024-07-22] MEDS: cloNIDine HCL 0.1 MG TABLET PO (20:17)
[2024-07-23 08:00] VITALS: BP 126/58; PULSE 75; TEMP 36.6; O2SAT 97
[2024-07-23] MEDS: ARIPiprazole 2 MG TABLET PO (08:54)
[2024-07-23] MEDS: Cariprazine HCl 3 MG CAPSULE PO (08:54)
[2024-07-23 08:57] LABS: Estimated Average Glucose 103 mg/dL; Hemoglobin A1C 134.8998 umol/L; Hemoglobin A1c % 5.2 % (<6.0); Total Hemoglobin (HGBA1C) 3995.6141 umol/L
[2024-07-23 09:10] LABS: Cholesterol 153 mg/dL (<200); HDL Cholesterol 43 mg/dL (>40); LDL Cholesterol Calculated 91 mg/dL (<100); Triglycerides 99 mg/dL (<150)
[2024-07-23 09:27] LABS: Thyroid Stimulating Hormone 0.93 uIU/mL (0.32-4.0)
[2024-07-23 09:38] LABS: Folate 11.9 ng/mL (> or = 4.0); Vitamin B12 478 pg/mL (200-900)
--- NOTE | 2024-07-23 14:58 | P.HPPS_ITS ---
HPI Date of Service: 07/23/24 Chief Complaint: PTSD Schizoaffective disorder Polysubstance use Sources of Information: patient interviewed, chart reviewed and crisis/core team assessment reviewed HPI Subjective Notes: Ziegler Warning, Conditional Voluntary and 3 Day Narrative: Patient is a 33-year-old male with schizoaffective disorder bipolar type, PTSD who presents about a month after discharge, with paranoid ideations and SI in the face of going off his medication. Patient reports that he took his Vraylar on discharge however said he was unable to sleep and was becoming miserable. Although Seroquel had been prescribed he said he did not remember having. He said he talked with his outpatient provider about it but does not remember what she said. Patient decided to stop Vraylar and says for. He slept better. However patient then started thinking about previous episodes of when i lost my mind... He remembered thinking himself Murali, being outside in his underwear, that his neighbors and others saw him which brought back feelings of shame; he reports perseverating on what neighbors thinking which was depressing. Over subsequent days, patient has paranoia started to increase and he started thinking he was going to be kidnapped, taken some where and tortured to a painful ... His roommate saw his depression and called 911. When the police arrived however patient in his paranoid state, thoughts they were part of the organization that was coming to torture him. Patient tried to grab 1 of the police service technician's guns. He says ...I was in a bad mindset and i wanted to ...I don't know why i did that [grabbing forest resources professor gun]... Patient tearfully remembers this. In the ED he was restarted on Vraylar and Abilify and slept. Patient said he realizes that this was all paranoia and not true. Collateral reports that patient was other verge of jumping off a bridge when police intervened however patient did not say this pt seen on 07/22/24 Past Psychiatric History: hosps: past admissions for [facility]aj, paranoid delusions SA: Attempted to overdose 2 different times on Tylenol SIB: none outpt: h/o therapy during college years, [id number]. had group therapy for LGBT as well as individual therapy. no h/o medications. since february of 2024 Medical Evaluation Reviewed: Hospitalist Kennaal Pending [facility] Medical History (Updated 07/23/24 @ 18:48 by Ben Chavis MD) Schizoaffective disorder, bipolar type Major depressive episode PTSD (post-traumatic stress disorder) Schizoaffective disorder, depressive type No pertinent past medical history Family History: father - schizophrenia, multiple inpatient hosps mother - Dx unknown, h/o multiple inpt psych admissions Social History: from [place]. 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 reports supportive social network. has a bro and a sis. estranged from bro and mother, in touch with sister. lives in an apartment with a roommate. Substance History: none Trauma History: Denied Diagnostics Vital Signs (24Hr): Vital Signs - 24 hr 07/22/24 19:56 07/23/24 08:00 Temperature 97.9 F 98 F Pulse Rate 85 75 Respiratory Rate 16 Blood Pressure 140/63 H 126/58 L Pulse Oximetry 99 97 Oxygen Delivery Method Room Air Room Air BMI result Body Mass Index 24.7 Labs 07/20/24 20:26 07/20/24 20:26 Labs: Laboratory Results - last 48 hr 07/23/24 08:38 Estimat Average Glucose 103 Hemoglobin A1c % 5.2 Magnesium 2.0 Triglycerides 99 Cholesterol 153 LDL Cholesterol, Calc 91 HDL Cholesterol 43 Vitamin B12 478 Folate 11.9 TSH 0.93 Free T4 1.50 Meds/Allergies Allergies Allergies Allergy/AdvReac Type Severity Reaction Status Date / Time aspirin [ASA] Allergy Swelling Verified 07/20/24 22:37 Penicillins Allergy Swelling Verified 07/20/24 22:37 Mental Status Exam Mental Status Exam Narrative: Pt is alert and oriented; behavior is cooperative, quiet, tearful; patient is not in distress; dressed in casual attire with unkempt hair but adequate hygiene; mood is described as depressed and affect congruent, downcast, tearful; eye contact appropriate; Speech is slowed and soft; psychomotor retardation present; thought process is organized and goal directed; Thought content is on recent events; otherwise pertinent to relevant topics and without any delusional content, paranoid ideations or grandiosity; denies any SI/HI. Denies AVH and there is no evidence of perceptual disturbance. Patients insight and judgment impaired Assessment & Plan Assessment & Plan (1) Schizoaffective disorder, bipolar type: Status: Acute Code(s): F25.0 - Schizoaffective disorder, bipolar type (2) PTSD (post-traumatic stress disorder): Status: Acute Code(s): F43.10 - Post-traumatic stress disorder, unspecified Plan Patient is a 33-year-old male with schizoaffective disorder bipolar type, PTSD who presents about a month after discharge, with paranoid ideations and SI in the face of going off his medication. Patient reports that he took his Vraylar on discharge however said he was unable to sleep and was becoming miserable. Although Seroquel had been prescribed he said he did not remember having. He said he talked with his outpatient provider about it but does not remember what she said. Patient decided to stop Vraylar and says for. He slept better. However patient then started thinking about previous episodes of when i lost my mind... He remembered thinking himself Murali, being outside in his underwear, that his neighbors and others saw him which brought back feelings of shame; he reports perseverating on what neighbors thinking which was depressing. Over subsequent days, patient has paranoia started to increase and he started thinking he was going to be kidnapped, taken some where and tortured to a painful ... His roommate saw his depression and called 911. When the police arrived however patient in his paranoid state, thoughts they were part of the organization that was coming to torture him. Patient tried to grab 1 of the police service technician's guns. He says ...I was in a bad mindset and i wanted to ...I don't know why i did that [grabbing forest resources professor gun]... Patient tearfully remembers this. In the ED he was restarted on Vraylar and Abilify and slept. Patient said he realizes that this was all paranoia and not true. -currently not suicidal -Collateral reports that patient was other verge of jumping off a bridge when police intervened however patient did not say this Formulation/clinical reasoning: Patient's decompensation clearly in the face of going off medications. Thankfully he responds quickly when back on antipsychotic medication. Will continue with Vraylar 3 mg daily now since it helps with both depression and prevent bipolar suraj; will schedule Seroquel at bedtime for insomnia; trazodone used to work but no longer effective. PLAN: CV Q 15 minute checks Restart Vraylar 3 mg DC Abilify; patient does not need to be on both Vraylar and Abilify Scheduled Seroquel 50 mg q.h.s. with repeat for insomnia Colonidine 0.1mg qhs Recent hemoglobin A1c/lipid profile Medication trials: Lexapro (causes tachycardia) Trazodone: Became ineffective Abilify effective but causes body twitches Patient educated on: diagnosis and medication risk/benefits Informed Consent: understands and further education needed Reason for continued inpatient stay Substantial Risk for: rapid decompensation Statement Statement: I have reviewed the history and physical and performed a pertinent examination on my patient. No changes have occurred unless specified. If the History and Physical was not performed prior to admission, the Hospitalist's service will be consulted for completing the admission physical. Time Spent With Patient Time: Total time managing care of this patient today ____ minutes.
[2024-07-23 20:00] VITALS: BP 133/72; PULSE 83; TEMP 36.3; O2SAT 99
[2024-07-23 21:07] VITALS: BP 133/72
[2024-07-23] MEDS: cloNIDine HCL 0.1 MG TABLET PO (21:07)
[2024-07-23] MEDS: QUEtiapine Fumarate 50 MG TABLET PO (21:08)
[2024-07-24 08:00] VITALS: BP 119/59; PULSE 69; TEMP 36.7; O2SAT 99
[2024-07-24] MEDS: Cariprazine HCl 3 MG CAPSULE PO (08:44)
[2024-07-24 20:00] VITALS: BP 121/58; PULSE 69; TEMP 37; O2SAT 98
[2024-07-24] MEDS: QUEtiapine Fumarate 50 MG TABLET PO (21:14)
[2024-07-24 21:15] VITALS: BP 121/58
[2024-07-24] MEDS: cloNIDine HCL 0.1 MG TABLET PO (21:15)
[2024-07-25 08:00] VITALS: BP 123/60; PULSE 68; RESP 16; TEMP 36.9; O2SAT 99
[2024-07-25] MEDS: Cariprazine HCl 3 MG CAPSULE PO (09:14)
[2024-07-25 20:06] VITALS: BP 129/61; PULSE 79; RESP 16; TEMP 36.6; O2SAT 98
[2024-07-25] MEDS: cloNIDine HCL 0.1 MG TABLET PO (20:36)
[2024-07-25] MEDS: QUEtiapine Fumarate 50 MG TABLET PO (20:36)
--- NOTE | 2024-07-25 23:23 | P.PNPSI_ITS ---
Subjective Subjective Date of Service: 07/25/24 Reason For Visit: PTSD Schizoaffective disorder Polysubstance use Interim History: met with pt; discussed with team pt very sad that he has schizoaffective disorder; having a hard time accepting how this will affect his life and feeling depressed. Discussed coping strategies Mental Status Exam Mental Status Exam Narrative: Pt is alert and oriented; behavior is cooperative, quiet, tearful, isolative; patient is not in distress; dressed in casual attire with unkempt hair but adequate hygiene; mood is described as depressed and affect congruent, downcast, tearful; eye contact appropriate; Speech is slowed and soft; psychomotor retardation present; thought process is organized and goal directed; Thought content is on recent events; otherwise pertinent to relevant topics and without any delusional content, paranoid ideations or grandiosity; denies any SI/HI. Denies AVH and there is no evidence of perceptual disturbance. Patients insight and judgment fair. Diagnostics Vital Signs (24Hr): Vital Signs - 24 hr 07/25/24 08:00 07/25/24 20:06 Temperature 98.5 F 97.9 F Pulse Rate 68 79 Respiratory Rate 16 16 Blood Pressure 123/60 129/61 Pulse Oximetry 99 98 Oxygen Delivery Method Room Air Room Air BMI result Body Mass Index 24.7 Labs 07/20/24 20:26 07/20/24 20:26 Medications Medications Current Medications Acetaminophen (Acetaminophen 325 Mg Tablet) 650 mg PO Q6H PRN PRN Reason: Headache/Pain, Scale 1-10 Al Hydroxide/Mg Hydroxide (Magnesium Hydrox/Alum Hydrox 30 Ml Oral.Susp) 30 ml PO Q6H PRN PRN Reason: Heartburn/Nausea Cariprazine (Cariprazine Hcl 3 Mg Capsule) 3 mg PO DAILY [facility] Last Admin: 07/25/24 09:14 Dose: 3 mg Clonidine HCl (Clonidine Hcl 0.1 Mg Tablet) 0.1 mg PO BEDTIME [facility]; Protocol Last Admin: 07/25/24 20:36 Dose: 0.1 mg Hydroxyzine HCl (Hydroxyzine Hcl 25 Mg Tablet) 25 mg PO Q6H PRN PRN Reason: mild anxiety Magnesium Hydroxide (Milk Of Magnesia 30 Ml Oral.Susp) 30 ml PO DAILY PRN PRN Reason: Constipation Nicotine Polacrilex (Nicotine Polacrilex 2 Mg Gum) 4 mg BUCCAL Q2H PRN PRN Reason: Nicotine Cravings Quetiapine Fumarate (Quetiapine Fumarate 50 Mg Tablet) 50 mg PO BEDTIME [facility] Last Admin: 07/25/24 20:36 Dose: 50 mg Quetiapine Fumarate (Quetiapine Fumarate 50 Mg Tablet) 50 mg PO BEDTIME PRN PRN Reason: continued insomnia Allergies Allergies Allergy/AdvReac Type Severity Reaction Status Date / Time aspirin [ASA] Allergy Swelling Verified 07/20/24 22:37 Penicillins Allergy Swelling Verified 07/20/24 22:37 Assessment & Plan Assessment & Plan (1) Schizoaffective disorder, bipolar type: Status: Acute Code(s): F25.0 - Schizoaffective disorder, bipolar type (2) PTSD (post-traumatic stress disorder): Status: Acute Code(s): F43.10 - Post-traumatic stress disorder, unspecified Plan Patient is a 33-year-old male with schizoaffective disorder bipolar type, PTSD who presents about a month after discharge, with paranoid ideations and SI in the face of going off his medication. Patient reports that he took his Vraylar on discharge however said he was unable to sleep and was becoming miserable. Although Seroquel had been prescribed he said he did not remember having. He said he talked with his outpatient provider about it but does not remember what she said. Patient decided to stop Vraylar and says for. He slept better. However patient then started thinking about previous episodes of when i lost my mind... He remembered thinking himself Murali, being outside in his underwear, that his neighbors and others saw him which brought back feelings of shame; he reports perseverating on what neighbors thinking which was depressing. Over subsequent days, patient has paranoia started to increase and he started thinking he was going to be kidnapped, taken some where and tortured to a painful ... His roommate saw his depression and called 911. When the police arrived however patient in his paranoid state, thoughts they were part of the organization that was coming to torture him. Patient tried to grab 1 of the infantry officer's guns. He says ...I was in a bad mindset and i wanted to ...I don't know why i did that [grabbing snack foods mixer operator gun]... Patient tearfully remembers this. In the ED he was restarted on Vraylar and Abilify and slept. Patient said he realizes that this was all paranoia and not true. -currently not suicidal -Collateral reports that patient was other verge of jumping off a bridge when police intervened however patient did not say this Formulation/clinical reasoning: Patient's decompensation clearly in the face of going off medications. Thankfully he responds quickly when back on antipsychotic medication. Will continue with Vraylar 3 mg daily now since it helps with both depression and prevent bipolar suraj; will schedule Seroquel at bedtime for insomnia; trazodone used to work but no longer effective. Hospital course: 07/24 very depressed; says he's tired and does not want to talk; no psychotic symptoms and no SI but struggling with memories from manic/psychotic episodes and realization he has schizophrenia/schizoaffecxtive 07/25 very depressed; no psychosis PLAN: CV Q 15 minute checks Continue Vraylar 3 mg DC Abilify; patient does not need to be on both Vraylar and Abilify Scheduled Seroquel 50 mg q.h.s. with repeat for insomnia Colonidine 0.1mg qhs Recent hemoglobin A1c/lipid profile Medication trials: Lexapro (causes tachycardia) Trazodone: Became ineffective Abilify effective but causes body twitches Patient educated on: diagnosis, medication risk/benefits and therapeutic strategies Informed Consent: understands and further education needed Reason for continued inpatient stay Substantial Risk for: rapid decompensation Time Spent With Patient Time: Total time managing care of this patient today ____ minutes.
--- NOTE | 2024-07-25 23:23 | P.PNPSI_ITS ---
Subjective Subjective Date of Service: 07/24/24 Reason For Visit: PTSD Schizoaffective disorder Polysubstance use Interim History: late entry note for patient seen on 07/24 very depressed; says he's tired and does not want to talk; no psychotic symptoms and no SI but struggling with memories from manic/psychotic episodes and realization he has schizophrenia/schizoaffecxtive Mental Status Exam Mental Status Exam Narrative: Pt is alert and oriented; behavior is cooperative, quiet, tearful, isolative; patient is not in distress; dressed in casual attire with unkempt hair but adequate hygiene; mood is described as depressed and affect congruent, downcast, tearful; eye contact appropriate; Speech is slowed and soft; psychomotor retardation present; thought process is organized and goal directed; Thought content is on recent events; otherwise pertinent to relevant topics and without any delusional content, paranoid ideations or grandiosity; denies any SI/HI. Denies AVH and there is no evidence of perceptual disturbance. Patients insight and judgment impaired but improved. Diagnostics Vital Signs (24Hr): Vital Signs - 24 hr 07/25/24 08:00 07/25/24 20:06 Temperature 98.5 F 97.9 F Pulse Rate 68 79 Respiratory Rate 16 16 Blood Pressure 123/60 129/61 Pulse Oximetry 99 98 Oxygen Delivery Method Room Air Room Air BMI result Body Mass Index 24.7 Labs 07/20/24 20:26 07/20/24 20:26 Medications Medications Current Medications Acetaminophen (Acetaminophen 325 Mg Tablet) 650 mg PO Q6H PRN PRN Reason: Headache/Pain, Scale 1-10 Al Hydroxide/Mg Hydroxide (Magnesium Hydrox/Alum Hydrox 30 Ml Oral.Susp) 30 ml PO Q6H PRN PRN Reason: Heartburn/Nausea Cariprazine (Cariprazine Hcl 3 Mg Capsule) 3 mg PO DAILY [facility] Last Admin: 07/25/24 09:14 Dose: 3 mg Clonidine HCl (Clonidine Hcl 0.1 Mg Tablet) 0.1 mg PO BEDTIME [facility]; Protocol Last Admin: 07/25/24 20:36 Dose: 0.1 mg Hydroxyzine HCl (Hydroxyzine Hcl 25 Mg Tablet) 25 mg PO Q6H PRN PRN Reason: mild anxiety Magnesium Hydroxide (Milk Of Magnesia 30 Ml Oral.Susp) 30 ml PO DAILY PRN PRN Reason: Constipation Nicotine Polacrilex (Nicotine Polacrilex 2 Mg Gum) 4 mg BUCCAL Q2H PRN PRN Reason: Nicotine Cravings Quetiapine Fumarate (Quetiapine Fumarate 50 Mg Tablet) 50 mg PO BEDTIME [facility] Last Admin: 07/25/24 20:36 Dose: 50 mg Quetiapine Fumarate (Quetiapine Fumarate 50 Mg Tablet) 50 mg PO BEDTIME PRN PRN Reason: continued insomnia Allergies Allergies Allergy/AdvReac Type Severity Reaction Status Date / Time aspirin [ASA] Allergy Swelling Verified 07/20/24 22:37 Penicillins Allergy Swelling Verified 07/20/24 22:37 Assessment & Plan Assessment & Plan (1) Schizoaffective disorder, bipolar type: Status: Acute Code(s): F25.0 - Schizoaffective disorder, bipolar type (2) PTSD (post-traumatic stress disorder): Status: Acute Code(s): F43.10 - Post-traumatic stress disorder, unspecified Plan Patient is a 33-year-old male with schizoaffective disorder bipolar type, PTSD who presents about a month after discharge, with paranoid ideations and SI in the face of going off his medication. Patient reports that he took his Vraylar on discharge however said he was unable to sleep and was becoming miserable. Although Seroquel had been prescribed he said he did not remember having. He said he talked with his outpatient provider about it but does not remember what she said. Patient decided to stop Vraylar and says for. He slept better. However patient then started thinking about previous episodes of when i lost my mind... He remembered thinking himself Murali, being outside in his underwear, that his neighbors and others saw him which brought back feelings of shame; he reports perseverating on what neighbors thinking which was depressing. Over subsequent days, patient has paranoia started to increase and he started thinking he was going to be kidnapped, taken some where and tortured to a painful ... His roommate saw his depression and called 911. When the police arrived however patient in his paranoid state, thoughts they were part of the organization that was coming to torture him. Patient tried to grab 1 of the ground nuclear weapons assembly officer's guns. He says ...I was in a bad mindset and i wanted to ...I don't know why i did that [grabbing dewatering filtering supervisor gun]... Patient tearfully remembers this. In the ED he was restarted on Vraylar and Abilify and slept. Patient said he realizes that this was all paranoia and not true. -currently not suicidal -Collateral reports that patient was other verge of jumping off a bridge when police intervened however patient did not say this Formulation/clinical reasoning: Patient's decompensation clearly in the face of going off medications. Thankfully he responds quickly when back on antipsychotic medication. Will continue with Vraylar 3 mg daily now since it helps with both depression and prevent bipolar suraj; will schedule Seroquel at bedtime for insomnia; trazodone used to work but no longer effective. Hospital course: 07/24 very depressed; says he's tired and does not want to talk; no psychotic symptoms and no SI but struggling with memories from manic/psychotic episodes and realization he has schizophrenia/schizoaffecxtive PLAN: CV Q 15 minute checks Restart Vraylar 3 mg DC Abilify; patient does not need to be on both Vraylar and Abilify Scheduled Seroquel 50 mg q.h.s. with repeat for insomnia Colonidine 0.1mg qhs Recent hemoglobin A1c/lipid profile Medication trials: Lexapro (causes tachycardia) Trazodone: Became ineffective Abilify effective but causes body twitches Patient educated on: diagnosis, medication risk/benefits and therapeutic strategies Informed Consent: understands and further education needed Reason for continued inpatient stay Substantial Risk for: rapid decompensation Time Spent With Patient Time: Total time managing care of this patient today ____ minutes.
[2024-07-26 08:06] VITALS: BP 114/62; PULSE 66; RESP 16; TEMP 36.4; O2SAT 98
[2024-07-26] MEDS: Cariprazine HCl 3 MG CAPSULE PO (08:32)
--- NOTE | 2024-07-26 09:26 | P.PNPSI_ITS ---
Subjective Subjective Date of Service: 07/26/24 Reason For Visit: PTSD Schizoaffective disorder Polysubstance use Interim History: Met with patient; discussed with team Patient says that he is starting to feel little better today. Mood has improved. He says he was just going through a bad moment yesterday and is starting to come to terms with his illness. He also had a good visit with his close friend what he found encouraging. Mental Status Exam Mental Status Exam Narrative: Pt is alert and oriented; behavior is cooperative, friendly and calm; patient is not in distress; dressed in casual attire with unkempt hair but adequate hygiene; mood is described as good and affect congruent and brighter; eye contact appropriate; Speech is normal rate, volume and prosody and not pressured; no psychomotor agitation/retardation present; thought process is organized and goal directed; Thought content is on tx; otherwise pertinent to relevant topics and without any delusional content, paranoid ideations or grandiosity; denies any SI/HI. Denies AVH and there is no evidence of perceptual disturbance. Patients insight and judgment appear intact. Diagnostics Vital Signs (24Hr): Vital Signs - 24 hr 07/25/24 20:06 07/26/24 08:06 Temperature 97.9 F 97.5 F Pulse Rate 79 66 Respiratory Rate 16 16 Blood Pressure 129/61 114/62 Pulse Oximetry 98 98 Oxygen Delivery Method Room Air Room Air BMI result Body Mass Index 24.7 Labs 07/20/24 20:26 07/20/24 20:26 Medications Medications Current Medications Acetaminophen (Acetaminophen 325 Mg Tablet) 650 mg PO Q6H PRN PRN Reason: Headache/Pain, Scale 1-10 Al Hydroxide/Mg Hydroxide (Magnesium Hydrox/Alum Hydrox 30 Ml Oral.Susp) 30 ml PO Q6H PRN PRN Reason: Heartburn/Nausea Cariprazine (Cariprazine Hcl 3 Mg Capsule) 3 mg PO DAILY [facility] Last Admin: 07/26/24 08:32 Dose: 3 mg Clonidine HCl (Clonidine Hcl 0.1 Mg Tablet) 0.1 mg PO BEDTIME [facility]; Protocol Last Admin: 07/25/24 20:36 Dose: 0.1 mg Hydroxyzine HCl (Hydroxyzine Hcl 25 Mg Tablet) 25 mg PO Q6H PRN PRN Reason: mild anxiety Magnesium Hydroxide (Milk Of Magnesia 30 Ml Oral.Susp) 30 ml PO DAILY PRN PRN Reason: Constipation Nicotine Polacrilex (Nicotine Polacrilex 2 Mg Gum) 4 mg BUCCAL Q2H PRN PRN Reason: Nicotine Cravings Quetiapine Fumarate (Quetiapine Fumarate 50 Mg Tablet) 50 mg PO BEDTIME [facility] Last Admin: 07/25/24 20:36 Dose: 50 mg Quetiapine Fumarate (Quetiapine Fumarate 50 Mg Tablet) 50 mg PO BEDTIME PRN PRN Reason: continued insomnia Allergies Allergies Allergy/AdvReac Type Severity Reaction Status Date / Time aspirin [ASA] Allergy Swelling Verified 07/20/24 22:37 Penicillins Allergy Swelling Verified 07/20/24 22:37 Assessment & Plan Assessment & Plan (1) Schizoaffective disorder, bipolar type: Status: Acute Code(s): F25.0 - Schizoaffective disorder, bipolar type (2) PTSD (post-traumatic stress disorder): Status: Acute Code(s): F43.10 - Post-traumatic stress disorder, unspecified Plan Patient is a 33-year-old male with schizoaffective disorder bipolar type, PTSD who presents about a month after discharge, with paranoid ideations and SI in the face of going off his medication. Patient reports that he took his Vraylar on discharge however said he was unable to sleep and was becoming miserable. Although Seroquel had been prescribed he said he did not remember having. He said he talked with his outpatient provider about it but does not remember what she said. Patient decided to stop Vraylar and says for. He slept better. However patient then started thinking about previous episodes of when i lost my mind... He remembered thinking himself Murali, being outside in his underwear, that his neighbors and others saw him which brought back feelings of shame; he reports perseverating on what neighbors thinking which was depressing. Over subsequent days, patient has paranoia started to increase and he started thinking he was going to be kidnapped, taken some where and tortured to a painful ... His roommate saw his depression and called 911. When the police arrived however patient in his paranoid state, thoughts they were part of the organization that was coming to torture him. Patient tried to grab 1 of the police patrol officer's guns. He says ...I was in a bad mindset and i wanted to ...I don't know why i did that [grabbing petroleum engineering professor gun]... Patient tearfully remembers this. In the ED he was restarted on Vraylar and Abilify and slept. Patient said he realizes that this was all paranoia and not true. -currently not suicidal -Collateral reports that patient was other verge of jumping off a bridge when police intervened however patient did not say this Formulation/clinical reasoning: Patient's decompensation clearly in the face of going off medications. Thankfully he responds quickly when back on antipsychotic medication. Will continue with Vraylar 3 mg daily now since it helps with both depression and prevent bipolar suraj; will schedule Seroquel at bedtime for insomnia; trazodone used to work but no longer effective. Hospital course: 07/24 very depressed; says he's tired and does not want to talk; no psychotic symptoms and no SI but struggling with memories from manic/psychotic episodes and realization he has schizophrenia/schizoaffecxtive 07/25 very depressed; no psychosis 07/26 Patient says that he is starting to feel little better today. Mood has improved. He says he was just going through a bad moment yesterday and is starting to come to terms with his illness. He also had a good visit with his close friend what he found encouraging. Remains without any psych got symptoms PLAN: CV Q 15 minute checks Continue Vraylar 3 mg DC Abilify; patient does not need to be on both Vraylar and Abilify Scheduled Seroquel 50 mg q.h.s. with repeat for insomnia Colonidine 0.1mg qhs Recent hemoglobin A1c/lipid profile Medication trials: Lexapro (causes tachycardia) Trazodone: Became ineffective Abilify effective but causes body twitches Patient educated on: diagnosis and medication risk/benefits Informed Consent: understands Reason for continued inpatient stay Substantial Risk for: rapid decompensation Time Spent With Patient Time: Total time managing care of this patient today ____ minutes.
[2024-07-26 20:00] VITALS: BP 125/58; PULSE 70; TEMP 36.7; O2SAT 97
[2024-07-26 21:52] VITALS: BP 128/58
[2024-07-26] MEDS: cloNIDine HCL 0.1 MG TABLET PO (21:52)
[2024-07-26] MEDS: QUEtiapine Fumarate 100 MG TABLET PO (21:52)
[2024-07-27 08:00] VITALS: BP 112/60; PULSE 60; RESP 16; TEMP 36.6; O2SAT 98
[2024-07-27] MEDS: Cariprazine HCl 3 MG CAPSULE PO (08:55)
[2024-07-27 20:00] VITALS: BP 119/77; PULSE 77; RESP 16; TEMP 36.4; O2SAT 100
[2024-07-27 20:48] VITALS: BP 119/77
[2024-07-27] MEDS: cloNIDine HCL 0.1 MG TABLET PO (20:48)
[2024-07-27] MEDS: QUEtiapine Fumarate 100 MG TABLET PO (20:49)
[2024-07-28 07:45] VITALS: BP 122/61; PULSE 67; TEMP 36.5; O2SAT 97
[2024-07-28] MEDS: Cariprazine HCl 3 MG CAPSULE PO (08:19)
--- NOTE | 2024-07-28 09:24 | P.PNPSI_ITS ---
Subjective Subjective Date of Service: 07/28/24 Reason For Visit: PTSD Schizoaffective disorder Polysubstance use Interim History: late entry note for pt seen on 07/27; discussed with team Patient reports he again is feeling good, hopeful. Patient tolerated medications well however still says he is struggling sleeping and having vivid dreams. Agrees to increase Seroquel Mental Status Exam Mental Status Exam Narrative: Pt is alert and oriented; behavior is cooperative, friendly and calm; patient is not in distress; dressed in casual attire with unkempt hair but adequate hygiene; mood is described as good and affect congruent and brighter; eye contact appropriate; Speech is normal rate, volume and prosody and not pressured; no psychomotor agitation/retardation present; thought process is organized and goal directed; Thought content is on tx; otherwise pertinent to relevant topics and without any delusional content, paranoid ideations or grandiosity; denies any SI/HI. Denies AVH and there is no evidence of perceptual disturbance. Patients insight and judgment fair Diagnostics Vital Signs (24Hr): Vital Signs - 24 hr 07/27/24 20:00 07/27/24 20:48 07/28/24 07:45 Temperature 97.6 F 97.7 F Pulse Rate 77 67 Respiratory Rate 16 Blood Pressure 119/77 119/77 122/61 Pulse Oximetry 100 97 Oxygen Delivery Method Room Air Room Air BMI result Body Mass Index 24.7 Labs 07/20/24 20:26 07/20/24 20:26 Medications Medications Current Medications Acetaminophen (Acetaminophen 325 Mg Tablet) 650 mg PO Q6H PRN PRN Reason: Headache/Pain, Scale 1-10 Al Hydroxide/Mg Hydroxide (Magnesium Hydrox/Alum Hydrox 30 Ml Oral.Susp) 30 ml PO Q6H PRN PRN Reason: Heartburn/Nausea Cariprazine (Cariprazine Hcl 3 Mg Capsule) 3 mg PO DAILY [facility] Last Admin: 07/28/24 08:19 Dose: 3 mg Clonidine HCl (Clonidine Hcl 0.1 Mg Tablet) 0.1 mg PO BEDTIME [facility]; Protocol Last Admin: 07/27/24 20:48 Dose: 0.1 mg Hydroxyzine HCl (Hydroxyzine Hcl 25 Mg Tablet) 25 mg PO Q6H PRN PRN Reason: mild anxiety Magnesium Hydroxide (Milk Of Magnesia 30 Ml Oral.Susp) 30 ml PO DAILY PRN PRN Reason: Constipation Nicotine Polacrilex (Nicotine Polacrilex 2 Mg Gum) 4 mg BUCCAL Q2H PRN PRN Reason: Nicotine Cravings Quetiapine Fumarate (Quetiapine Fumarate 50 Mg Tablet) 50 mg PO BEDTIME PRN PRN Reason: continued insomnia Quetiapine Fumarate (Quetiapine Fumarate 100 Mg Tablet) 100 mg PO BEDTIME [facility] Last Admin: 07/27/24 20:49 Dose: 100 mg Allergies Allergies Allergy/AdvReac Type Severity Reaction Status Date / Time aspirin [ASA] Allergy Swelling Verified 07/20/24 22:37 Penicillins Allergy Swelling Verified 07/20/24 22:37 Assessment & Plan Assessment & Plan (1) Schizoaffective disorder, bipolar type: Status: Acute Code(s): F25.0 - Schizoaffective disorder, bipolar type (2) PTSD (post-traumatic stress disorder): Status: Acute Code(s): F43.10 - Post-traumatic stress disorder, unspecified Plan Patient is a 33-year-old male with schizoaffective disorder bipolar type, PTSD who presents about a month after discharge, with paranoid ideations and SI in the face of going off his medication. Patient reports that he took his Vraylar on discharge however said he was unable to sleep and was becoming miserable. Although Seroquel had been prescribed he said he did not remember having. He said he talked with his outpatient provider about it but does not remember what she said. Patient decided to stop Vraylar and says for. He slept better. However patient then started thinking about previous episodes of when i lost my mind... He remembered thinking himself Murali, being outside in his underwear, that his neighbors and others saw him which brought back feelings of shame; he reports perseverating on what neighbors thinking which was depressing. Over subsequent days, patient has paranoia started to increase and he started thinking he was going to be kidnapped, taken some where and tortured to a painful ... His roommate saw his depression and called 911. When the police arrived however patient in his paranoid state, thoughts they were part of the organization that was coming to torture him. Patient tried to grab 1 of the senior credit officer's guns. He says ...I was in a bad mindset and i wanted to ...I don't know why i did that [grabbing supervisor continuous weld pipe mill gun]... Patient tearfully remembers this. In the ED he was restarted on Vraylar and Abilify and slept. Patient said he realizes that this was all paranoia and not true. -currently not suicidal -Collateral reports that patient was other verge of jumping off a bridge when police intervened however patient did not say this Formulation/clinical reasoning: Patient's decompensation clearly in the face of going off medications. Thankfully he responds quickly when back on antipsychotic medication. Will continue with Vraylar 3 mg daily now since it helps with both depression and prevent bipolar suraj; will schedule Seroquel at bedtime for insomnia; trazodone used to work but no longer effective. Hospital course: 07/24 very depressed; says he's tired and does not want to talk; no psychotic symptoms and no SI but struggling with memories from manic/psychotic episodes and realization he has schizophrenia/schizoaffecxtive 07/25 very depressed; no psychosis 07/26 Patient says that he is starting to feel little better today. Mood has improved. He says he was just going through a bad moment yesterday and is starting to come to terms with his illness. He also had a good visit with his close friend what he found encouraging. Remains without any psych got symptoms 07/27 Patient reports he again is feeling good, hopeful. Patient tolerated medications well however still says he is struggling sleeping and having vivid dreams. Agrees to increase Seroquel PLAN: CV Q 15 minute checks Continue Vraylar 3 mg DC Abilify; patient does not need to be on both Vraylar and Abilify Scheduled Seroquel 50 mg q.h.s. with repeat for insomnia Colonidine 0.1mg qhs Recent hemoglobin A1c/lipid profile Medication trials: Lexapro (causes tachycardia) Trazodone: Became ineffective Abilify effective but causes body twitches Patient educated on: diagnosis and medication risk/benefits Informed Consent: understands Reason for continued inpatient stay Substantial Risk for: rapid decompensation Time Spent With Patient Time: Total time managing care of this patient today ____ minutes.
--- NOTE | 2024-07-28 17:27 | P.PNPSI_ITS ---
Subjective Subjective Date of Service: 07/28/24 Reason For Visit: PTSD Schizoaffective disorder Polysubstance use Interim History: Met with patient; discussed with team Remains in good mood and optimistic; still struggling to sleep and with vivid dreams. Discussed options and rather than increase Seroquel, agrees to try mirtazapine Mental Status Exam Mental Status Exam Narrative: Pt is alert and oriented; behavior is cooperative, friendly and calm; patient is not in distress; dressed in casual attire with unkempt hair but adequate hygiene; mood is described as good and affect congruent, bright, calm; eye contact appropriate; Speech is normal rate, volume and prosody and not pressured; no psychomotor agitation/retardation present; thought process is organized and goal directed; Thought content is on tx; otherwise pertinent to relevant topics and without any delusional content, paranoid ideations or grandiosity; denies any SI/HI. Denies AVH and there is no evidence of perceptual disturbance. Patients insight and judgment fair Diagnostics Vital Signs (24Hr): Vital Signs - 24 hr 07/27/24 20:00 07/27/24 20:48 07/28/24 07:45 Temperature 97.6 F 97.7 F Pulse Rate 77 67 Respiratory Rate 16 Blood Pressure 119/77 119/77 122/61 Pulse Oximetry 100 97 Oxygen Delivery Method Room Air Room Air BMI result Body Mass Index 24.7 Labs 07/20/24 20:26 07/20/24 20:26 Medications Medications Current Medications Acetaminophen (Acetaminophen 325 Mg Tablet) 650 mg PO Q6H PRN PRN Reason: Headache/Pain, Scale 1-10 Al Hydroxide/Mg Hydroxide (Magnesium Hydrox/Alum Hydrox 30 Ml Oral.Susp) 30 ml PO Q6H PRN PRN Reason: Heartburn/Nausea Cariprazine (Cariprazine Hcl 3 Mg Capsule) 3 mg PO DAILY [facility] Last Admin: 07/28/24 08:19 Dose: 3 mg Clonidine HCl (Clonidine Hcl 0.1 Mg Tablet) 0.1 mg PO BEDTIME [facility]; Protocol Last Admin: 07/27/24 20:48 Dose: 0.1 mg Hydroxyzine HCl (Hydroxyzine Hcl 25 Mg Tablet) 25 mg PO Q6H PRN PRN Reason: mild anxiety Magnesium Hydroxide (Milk Of Magnesia 30 Ml Oral.Susp) 30 ml PO DAILY PRN PRN Reason: Constipation Mirtazapine (Mirtazapine 7.5 Mg Tablet) 7.5 mg PO BEDTIME [facility] Nicotine Polacrilex (Nicotine Polacrilex 2 Mg Gum) 4 mg BUCCAL Q2H PRN PRN Reason: Nicotine Cravings Quetiapine Fumarate (Quetiapine Fumarate 50 Mg Tablet) 50 mg PO BEDTIME PRN PRN Reason: continued insomnia Quetiapine Fumarate (Quetiapine Fumarate 100 Mg Tablet) 100 mg PO BEDTIME [facility] Allergies Allergies Allergy/AdvReac Type Severity Reaction Status Date / Time aspirin [ASA] Allergy Swelling Verified 07/20/24 22:37 Penicillins Allergy Swelling Verified 07/20/24 22:37 Assessment & Plan Assessment & Plan (1) Schizoaffective disorder, bipolar type: Status: Acute Code(s): F25.0 - Schizoaffective disorder, bipolar type (2) PTSD (post-traumatic stress disorder): Status: Acute Code(s): F43.10 - Post-traumatic stress disorder, unspecified Plan Patient is a 33-year-old male with schizoaffective disorder bipolar type, PTSD who presents about a month after discharge, with paranoid ideations and SI in the face of going off his medication. Patient reports that he took his Vraylar on discharge however said he was unable to sleep and was becoming miserable. Although Seroquel had been prescribed he said he did not remember having. He said he talked with his outpatient provider about it but does not remember what she said. Patient decided to stop Vraylar and says for. He slept better. However patient then started thinking about previous episodes of when i lost my mind... He remembered thinking himself Murali, being outside in his underwear, that his neighbors and others saw him which brought back feelings of shame; he reports perseverating on what neighbors thinking which was depressing. Over subsequent days, patient has paranoia started to increase and he started thinking he was going to be kidnapped, taken some where and tortured to a painful ... His roommate saw his depression and called 911. When the police arrived however patient in his paranoid state, thoughts they were part of the organization that was coming to torture him. Patient tried to grab 1 of the military police officer's guns. He says ...I was in a bad mindset and i wanted to ...I don't know why i did that [grabbing community action worker gun]... Patient tearfully remembers this. In the ED he was restarted on Vraylar and Abilify and slept. Patient said he realizes that this was all paranoia and not true. -currently not suicidal -Collateral reports that patient was other verge of jumping off a bridge when police intervened however patient did not say this Formulation/clinical reasoning: Patient's decompensation clearly in the face of going off medications. Thankfully he responds quickly when back on antipsychotic medication. Will continue with Vraylar 3 mg daily now since it helps with both depression and prevent bipolar suraj; will schedule Seroquel at bedtime for insomnia; trazodone used to work but no longer effective. Hospital course: 07/24 very depressed; says he's tired and does not want to talk; no psychotic symptoms and no SI but struggling with memories from manic/psychotic episodes and realization he has schizophrenia/schizoaffecxtive 07/25 very depressed; no psychosis 07/26 Patient says that he is starting to feel little better today. Mood has improved. He says he was just going through a bad moment yesterday and is starting to come to terms with his illness. He also had a good visit with his close friend what he found encouraging. Remains without any psych got symptoms 07/27 Patient reports he again is feeling good, hopeful. Patient tolerated medications well however still says he is struggling sleeping and having vivid dreams. Agrees to increase Seroquel 07/28 Remains in good mood and optimistic; still struggling to sleep and with vivid dreams. Discussed options and rather than increase Seroquel, agrees to try mirtazapine PLAN: CV Q 15 minute checks Start mirtazapine 7.5 mg q.h.s. for continued insomnia; also for depression/anxiety Continue Vraylar 3 mg DC Abilify; patient does not need to be on both Vraylar and Abilify Scheduled Seroquel 50 mg q.h.s. with repeat for insomnia Colonidine 0.1mg qhs Recent hemoglobin A1c/lipid profile Medication trials: Lexapro (causes tachycardia) Trazodone: Became ineffective Abilify effective but causes body twitches Patient educated on: diagnosis and medication risk/benefits Informed Consent: understands Reason for continued inpatient stay Substantial Risk for: stable for discharge Time Spent With Patient Time: Total time managing care of this patient today ____ minutes.
[2024-07-28 20:11] VITALS: BP 119/68; PULSE 76; TEMP 36.3; O2SAT 99
[2024-07-28] MEDS: cloNIDine HCL 0.1 MG TABLET PO (20:37)
[2024-07-28] MEDS: QUEtiapine Fumarate 100 MG TABLET PO (20:37)
[2024-07-28] MEDS: Mirtazapine 7.5 MG TABLET PO (20:37)
[2024-07-29 08:00] VITALS: BP 120/58; PULSE 70; TEMP 36.4; O2SAT 98
[2024-07-29] MEDS: Cariprazine HCl 3 MG CAPSULE PO (08:39)
--- NOTE | 2024-07-29 19:19 | HO.PSYCHPN ---
Subjective Subjective Date of Service: 07/29/24 Reason For Visit: PTSD Schizoaffective disorder Polysubstance use Interim History: Met with patient; discussed with team Patient reports that he did not sleep at all last night. Mood remains good and no psychotic symptoms but concerning that he did not sleep. Patient feels that it is probably the Vraylar which does carry insomnia as a potential side effect. Discussed options and patient will stay on Vraylar but try Ambien to see if that helps asleep. Mental Status Exam Mental Status Exam Narrative: Pt is alert and oriented; behavior is cooperative, friendly and calm; patient is not in distress; dressed in casual attire with unkempt hair but adequate hygiene; mood is described as ok and affect congruent, tired; eye contact appropriate; Speech is normal rate, volume and prosody and not pressured; no psychomotor agitation/retardation present; thought process is organized and goal directed; Thought content is on tx; otherwise pertinent to relevant topics and without any delusional content, paranoid ideations or grandiosity; denies any SI/HI. Denies AVH and there is no evidence of perceptual disturbance. Patients insight and judgment fair Diagnostics Vital Signs (24Hr): Vital Signs - 24 hr 07/28/24 20:11 07/29/24 08:00 Temperature 97.3 F 97.6 F Pulse Rate 76 70 Blood Pressure 119/68 120/58 L Pulse Oximetry 99 98 Oxygen Delivery Method Room Air Room Air BMI result Body Mass Index 24.7 Labs 07/20/24 20:26 07/20/24 20:26 Medications Medications Current Medications Acetaminophen (Acetaminophen 325 Mg Tablet) 650 mg PO Q6H PRN PRN Reason: Headache/Pain, Scale 1-10 Al Hydroxide/Mg Hydroxide (Magnesium Hydrox/Alum Hydrox 30 Ml Oral.Susp) 30 ml PO Q6H PRN PRN Reason: Heartburn/Nausea Cariprazine (Cariprazine Hcl 3 Mg Capsule) 3 mg PO DAILY [facility] Last Admin: 07/29/24 08:39 Dose: 3 mg Clonidine HCl (Clonidine Hcl 0.1 Mg Tablet) 0.1 mg PO BEDTIME [facility]; Protocol Last Admin: 07/28/24 20:37 Dose: 0.1 mg Hydroxyzine HCl (Hydroxyzine Hcl 25 Mg Tablet) 25 mg PO Q6H PRN PRN Reason: mild anxiety Magnesium Hydroxide (Milk Of Magnesia 30 Ml Oral.Susp) 30 ml PO DAILY PRN PRN Reason: Constipation Nicotine Polacrilex (Nicotine Polacrilex 2 Mg Gum) 4 mg BUCCAL Q2H PRN PRN Reason: Nicotine Cravings Quetiapine Fumarate (Quetiapine Fumarate 50 Mg Tablet) 50 mg PO BEDTIME PRN PRN Reason: continued insomnia Quetiapine Fumarate (Quetiapine Fumarate 100 Mg Tablet) 100 mg PO BEDTIME [facility] Last Admin: 07/28/24 20:37 Dose: 100 mg Allergies Allergies Allergy/AdvReac Type Severity Reaction Status Date / Time aspirin [ASA] Allergy Swelling Verified 07/20/24 22:37 Penicillins Allergy Swelling Verified 07/20/24 22:37 Assessment & Plan Assessment & Plan (1) Schizoaffective disorder, bipolar type: Status: Acute Code(s): F25.0 - Schizoaffective disorder, bipolar type (2) PTSD (post-traumatic stress disorder): Status: Acute Code(s): F43.10 - Post-traumatic stress disorder, unspecified Plan Patient is a 33-year-old male with schizoaffective disorder bipolar type, PTSD who presents about a month after discharge, with paranoid ideations and SI in the face of going off his medication. Patient reports that he took his Vraylar on discharge however said he was unable to sleep and was becoming miserable. Although Seroquel had been prescribed he said he did not remember having. He said he talked with his outpatient provider about it but does not remember what she said. Patient decided to stop Vraylar and says for. He slept better. However patient then started thinking about previous episodes of when i lost my mind... He remembered thinking himself Murali, being outside in his underwear, that his neighbors and others saw him which brought back feelings of shame; he reports perseverating on what neighbors thinking which was depressing. Over subsequent days, patient has paranoia started to increase and he started thinking he was going to be kidnapped, taken some where and tortured to a painful ... His roommate saw his depression and called 911. When the police arrived however patient in his paranoid state, thoughts they were part of the organization that was coming to torture him. Patient tried to grab 1 of the patrol police lieutenant's guns. He says ...I was in a bad mindset and i wanted to ...I don't know why i did that [grabbing furniture mover gun]... Patient tearfully remembers this. In the ED he was restarted on Vraylar and Abilify and slept. Patient said he realizes that this was all paranoia and not true. -currently not suicidal -Collateral reports that patient was other verge of jumping off a bridge when police intervened however patient did not say this Formulation/clinical reasoning: Patient's decompensation clearly in the face of going off medications. Thankfully he responds quickly when back on antipsychotic medication. Will continue with Vraylar 3 mg daily now since it helps with both depression and prevent bipolar suraj; will schedule Seroquel at bedtime for insomnia; trazodone used to work but no longer effective. Hospital course: 07/24 very depressed; says he's tired and does not want to talk; no psychotic symptoms and no SI but struggling with memories from manic/psychotic episodes and realization he has schizophrenia/schizoaffecxtive 07/25 very depressed; no psychosis 07/26 Patient says that he is starting to feel little better today. Mood has improved. He says he was just going through a bad moment yesterday and is starting to come to terms with his illness. He also had a good visit with his close friend what he found encouraging. Remains without any psych got symptoms 07/27 Patient reports he again is feeling good, hopeful. Patient tolerated medications well however still says he is struggling sleeping and having vivid dreams. Agrees to increase Seroquel 07/28 Remains in good mood and optimistic; still struggling to sleep and with vivid dreams. Discussed options and rather than increase Seroquel, agrees to try mirtazapine 07/29 Patient reports that he did not sleep at all last night. Mood remains good and no psychotic symptoms but concerning that he did not sleep. Patient feels that it is probably the Vraylar which does carry insomnia as a potential side effect. Discussed options and patient will stay on Vraylar but try Ambien to see if that helps asleep. Mirtazapine not helpful. -for this patient, lack of sleep is concerning as patient's history shows he can quickly decompensate into serious paranoid delusions that become life threatening for him. It will be important for him to be on an established, effective and tolerated mood stabilizer and able to sleep before he discharges. PLAN: CV Q 15 minute checks Add Ambien 5 mg with repeat dose DC mirtazapine not helpful Continue Vraylar 3 mg DC Abilify; patient does not need to be on both Vraylar and Abilify Scheduled [id number] mg q.h.s. with repeat for insomnia Colonidine 0.1mg qhs Recent hemoglobin A1c/lipid profile Medication trials: Lexapro (causes tachycardia) Trazodone: Became ineffective Abilify effective but causes body twitches Patient educated on: diagnosis and medication risk/benefits Informed Consent: understands Reason for continued inpatient stay Substantial Risk for: rapid decompensation Time Spent With Patient Time: Total time managing care of this patient today ____ minutes.
[2024-07-29 19:47] VITALS: BP 110/62; PULSE 68; TEMP 36.5; O2SAT 99
[2024-07-29] MEDS: cloNIDine HCL 0.1 MG TABLET PO (20:30)
[2024-07-29] MEDS: Zolpidem Tartrate 5 MG TABLET PO ×2 (20:30→22:04)
[2024-07-29] MEDS: QUEtiapine Fumarate 50 MG TABLET PO (22:03)
[2024-07-29] MEDS: hydrOXYzine HCL 25 MG TABLET PO (23:31)
[2024-07-30 08:33] VITALS: BP 119/62; PULSE 70; RESP 16; TEMP 36.9; O2SAT 98
--- NOTE | 2024-07-30 16:13 | HO.PSYCHPN ---
Subjective Subjective Date of Service: 07/30/24 Reason For Visit: PTSD Schizoaffective disorder Polysubstance use Interim History: Met with patient; discussed with team Patient again did not sleep last night and patient did not take Vraylar today. 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 No psychotic symptoms but patient agrees he needs sleep. Reviewed history and it seems that patient 1st gets depressed and then the paranoid delusions start; however he is not completely sure whether paranoid delusions could begin before depression. Discussed options including lithium, Seroquel, reviewed risks/side effects and patient would like to try Seroquel as it has potential to make him tired, is indicated for bipolar depression, access a mood stabilizer and can treat psychotic symptoms. Mental Status Exam Mental Status Exam Narrative: Pt is alert and oriented; behavior is cooperative, friendly and calm; patient is not in distress; dressed in casual attire with unkempt hair but adequate hygiene; mood is described as ok and affect congruent, tired; eye contact appropriate; Speech is normal rate, volume and prosody and not pressured; no psychomotor agitation/retardation present; thought process is organized and goal directed; Thought content is on tx; otherwise pertinent to relevant topics and without any delusional content, paranoid ideations or grandiosity; denies any SI/HI. Denies AVH and there is no evidence of perceptual disturbance. Patients insight and judgment fair Diagnostics Vital Signs (24Hr): Vital Signs - 24 hr 07/29/24 19:47 07/30/24 08:33 Temperature 97.7 F 98.5 F Pulse Rate 68 70 Respiratory Rate 16 Blood Pressure 110/62 119/62 Pulse Oximetry 99 98 Oxygen Delivery Method Room Air Room Air BMI result Body Mass Index 24.7 Labs 07/20/24 20:26 07/20/24 20:26 Medications Medications Current Medications Acetaminophen (Acetaminophen 325 Mg Tablet) 650 mg PO Q6H PRN PRN Reason: Headache/Pain, Scale 1-10 Al Hydroxide/Mg Hydroxide (Magnesium Hydrox/Alum Hydrox 30 Ml Oral.Susp) 30 ml PO Q6H PRN PRN Reason: Heartburn/Nausea Hydroxyzine HCl (Hydroxyzine Hcl 25 Mg Tablet) 25 mg PO Q6H PRN PRN Reason: mild anxiety Last Admin: 07/29/24 23:31 Dose: 25 mg Magnesium Hydroxide (Milk Of Magnesia 30 Ml Oral.Susp) 30 ml PO DAILY PRN PRN Reason: Constipation Nicotine Polacrilex (Nicotine Polacrilex 2 Mg Gum) 4 mg BUCCAL Q2H PRN PRN Reason: Nicotine Cravings Quetiapine Fumarate (Quetiapine Fumarate 50 Mg Tablet) 50 mg PO BEDTIME PRN PRN Reason: continued insomnia Last Admin: 07/29/24 22:03 Dose: 50 mg Quetiapine Fumarate (Quetiapine Fumarate 50 Mg Tablet) 250 mg PO BEDTIME [place] Zolpidem Tartrate (Zolpidem Tartrate 5 Mg Tablet) 10 mg PO BEDTIME PRN PRN Reason: Insomnia Allergies Allergies Allergy/AdvReac Type Severity Reaction Status Date / Time aspirin [ASA] Allergy Swelling Verified 07/20/24 22:37 Penicillins Allergy Swelling Verified 07/20/24 22:37 Assessment & Plan Assessment & Plan (1) Schizoaffective disorder, bipolar type: Status: Acute Code(s): F25.0 - Schizoaffective disorder, bipolar type (2) PTSD (post-traumatic stress disorder): Status: Acute Code(s): F43.10 - Post-traumatic stress disorder, unspecified Plan Patient is a 33-year-old male with schizoaffective disorder bipolar type, PTSD who presents about a month after discharge, with paranoid ideations and SI in the face of going off his medication. Patient reports that he took his Vraylar on discharge however said he was unable to sleep and was becoming miserable. Although Seroquel had been prescribed he said he did not remember having. He said he talked with his outpatient provider about it but does not remember what she said. Patient decided to stop Vraylar and says for. He slept better. However patient then started thinking about previous episodes of when i lost my mind... He remembered thinking himself Murali, being outside in his underwear, that his neighbors and others saw him which brought back feelings of shame; he reports perseverating on what neighbors thinking which was depressing. Over subsequent days, patient has paranoia started to increase and he started thinking he was going to be kidnapped, taken some where and tortured to a painful ... His roommate saw his depression and called 911. When the police arrived however patient in his paranoid state, thoughts they were part of the organization that was coming to torture him. Patient tried to grab 1 of the police and fire dispatcher's guns. He says ...I was in a bad mindset and i wanted to ...I don't know why i did that [grabbing parts counter sales person gun]... Patient tearfully remembers this. In the ED he was restarted on Vraylar and Abilify and slept. Patient said he realizes that this was all paranoia and not true. -currently not suicidal -Collateral reports that patient was other verge of jumping off a bridge when police intervened however patient did not say this Formulation/clinical reasoning: Patient's decompensation clearly in the face of going off medications. Thankfully he responds quickly when back on antipsychotic medication. Will continue with Vraylar 3 mg daily now since it helps with both depression and prevent bipolar suraj; will schedule Seroquel at bedtime for insomnia; trazodone used to work but no longer effective. Hospital course: 07/24 very depressed; says he's tired and does not want to talk; no psychotic symptoms and no SI but struggling with memories from manic/psychotic episodes and realization he has schizophrenia/schizoaffecxtive 07/25 very depressed; no psychosis 07/26 Patient says that he is starting to feel little better today. Mood has improved. He says he was just going through a bad moment yesterday and is starting to come to terms with his illness. He also had a good visit with his close friend what he found encouraging. Remains without any psych got symptoms 07/27 Patient reports he again is feeling good, hopeful. Patient tolerated medications well however still says he is struggling sleeping and having vivid dreams. Agrees to increase Seroquel 07/28 Remains in good mood and optimistic; still struggling to sleep and with vivid dreams. Discussed options and rather than increase Seroquel, agrees to try mirtazapine 07/29 Patient reports that he did not sleep at all last night. Mood remains good and no psychotic symptoms but concerning that he did not sleep. Patient feels that it is probably the Vraylar which does carry insomnia as a potential side effect. Discussed options and patient will stay on Vraylar but try Ambien to see if that helps asleep. Mirtazapine not helpful. -for this patient, lack of sleep is concerning as patient's history shows he can quickly decompensate into serious paranoid delusions that become life threatening for him. It will be important for him to be on an established, effective and tolerated mood stabilizer and able to sleep before he discharges. 07/30 Patient again did not sleep last night and patient did not take Vraylar today. 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 No psychotic symptoms but patient agrees he needs sleep. Reviewed history and it seems that patient 1st gets depressed and then the paranoid delusions start; however he is not completely sure whether paranoid delusions could begin before depression. Discussed options including lithium, Seroquel, reviewed risks/side effects and patient would like to try Seroquel as it has potential to make him tired, is indicated for bipolar depression, access a mood stabilizer and can treat psychotic symptoms. PLAN: CV Q 15 minute checks START Seroquel to 250 mg mg q.h.s. DC Vraylar 3 mg: Effective for mood but causes insomnia DC Ambien DC mirtazapine not helpful DC Abilify; patient does not need to be on both Vraylar and Abilify DC Colonidine 0.1mg qhs; causes dry mouth Recent hemoglobin A1c/lipid profile Medication trials: Lexapro (causes tachycardia) Trazodone: Became ineffective Abilify effective but causes body twitches Patient educated on: diagnosis and medication risk/benefits Informed Consent: understands Reason for continued inpatient stay Substantial Risk for: rapid decompensation Time Spent With Patient Time: Total time managing care of this patient today ____ minutes.
[2024-07-30 19:27] VITALS: BP 133/62; PULSE 79; TEMP 36.8; O2SAT 99
[2024-07-30] MEDS: QUEtiapine Fumarate 50 MG TABLET 250 MG PO (21:01)
[2024-07-30] MEDS: Zolpidem Tartrate 5 MG TABLET 10 MG PO (21:01)
[2024-07-31 07:00] VITALS: BMI 24.8
[2024-07-31 08:00] VITALS: BP 123/67; PULSE 67; RESP 16; TEMP 36.5; O2SAT 99
--- NOTE | 2024-07-31 17:54 | HO.PSYCHPN ---
Subjective Subjective Date of Service: 07/31/24 Reason For Visit: PTSD Schizoaffective disorder Polysubstance use Interim History: Met with patient; discussed with team Patient slept some last night but does feel more rested. He says he feels good on current dose and does not want to increase. [employer] discussed risks of not increasing Seroquel dose, that it could be too low to prevent either depression or delusions, however patient would like to remain on 250 mg for now, finding it initially helpful. Again discussed the importance of sleep with which patient agrees. 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 Denies AVH and there is no evidence of perceptual disturbance. Patients insight and judgment fair Diagnostics Vital Signs (24Hr): Vital Signs - 24 hr 07/30/24 19:27 07/31/24 08:00 Temperature 98.2 F 97.7 F Pulse Rate 79 67 Respiratory Rate 16 Blood Pressure 133/62 123/67 Pulse Oximetry 99 99 Oxygen Delivery Method Room Air Room Air BMI result Body Mass Index 24.8 Labs 07/20/24 20:26 07/20/24 20:26 Medications Medications Current Medications Acetaminophen (Acetaminophen 325 Mg Tablet) 650 mg PO Q6H PRN PRN Reason: Headache/Pain, Scale 1-10 Al Hydroxide/Mg Hydroxide (Magnesium Hydrox/Alum Hydrox 30 Ml Oral.Susp) 30 ml PO Q6H PRN PRN Reason: Heartburn/Nausea Hydroxyzine HCl (Hydroxyzine Hcl 25 Mg Tablet) 25 mg PO Q6H PRN PRN Reason: mild anxiety Last Admin: 07/29/24 23:31 Dose: 25 mg Magnesium Hydroxide (Milk Of Magnesia 30 Ml Oral.Susp) 30 ml PO DAILY PRN PRN Reason: Constipation Nicotine Polacrilex (Nicotine Polacrilex 2 Mg Gum) 4 mg BUCCAL Q2H PRN PRN Reason: Nicotine Cravings Quetiapine Fumarate (Quetiapine Fumarate 50 Mg Tablet) 50 mg PO BEDTIME PRN PRN Reason: continued insomnia Last Admin: 07/29/24 22:03 Dose: 50 mg Quetiapine Fumarate (Quetiapine Fumarate 50 Mg Tablet) 250 mg PO BEDTIME [place] Last Admin: 07/30/24 21:01 Dose: 250 mg Zolpidem Tartrate (Zolpidem Tartrate 5 Mg Tablet) 10 mg PO BEDTIME PRN PRN Reason: Insomnia Last Admin: 07/30/24 21:01 Dose: 10 mg Allergies Allergies Allergy/AdvReac Type Severity Reaction Status Date / Time aspirin [ASA] Allergy Swelling Verified 07/20/24 22:37 Penicillins Allergy Swelling Verified 07/20/24 22:37 Assessment & Plan Assessment & Plan (1) Schizoaffective disorder, bipolar type: Status: Acute Code(s): F25.0 - Schizoaffective disorder, bipolar type (2) PTSD (post-traumatic stress disorder): Status: Acute Code(s): F43.10 - Post-traumatic stress disorder, unspecified Plan Patient is a 33-year-old male with schizoaffective disorder bipolar type, PTSD who presents about a month after discharge, with paranoid ideations and SI in the face of going off his medication. Patient reports that he took his Vraylar on discharge however said he was unable to sleep and was becoming miserable. Although Seroquel had been prescribed he said he did not remember having. He said he talked with his outpatient provider about it but does not remember what she said. Patient decided to stop Vraylar and says for. He slept better. However patient then started thinking about previous episodes of when i lost my mind... He remembered thinking himself Murali, being outside in his underwear, that his neighbors and others saw him which brought back feelings of shame; he reports perseverating on what neighbors thinking which was depressing. Over subsequent days, patient has paranoia started to increase and he started thinking he was going to be kidnapped, taken some where and tortured to a painful ... His roommate saw his depression and called 911. When the police arrived however patient in his paranoid state, thoughts they were part of the organization that was coming to torture him. Patient tried to grab 1 of the crime prevention police officer's guns. He says ...I was in a bad mindset and i wanted to ...I don't know why i did that [grabbing body line finisher gun]... Patient tearfully remembers this. In the ED he was restarted on Vraylar and Abilify and slept. Patient said he realizes that this was all paranoia and not true. -currently not suicidal -Collateral reports that patient was other verge of jumping off a bridge when police intervened however patient did not say this Formulation/clinical reasoning: Patient's decompensation clearly in the face of going off medications. Thankfully he responds quickly when back on antipsychotic medication. Will continue with Vraylar 3 mg daily now since it helps with both depression and prevent bipolar suraj; will schedule Seroquel at bedtime for insomnia; trazodone used to work but no longer effective. Hospital course: 07/24 very depressed; says he's tired and does not want to talk; no psychotic symptoms and no SI but struggling with memories from manic/psychotic episodes and realization he has schizophrenia/schizoaffecxtive 07/25 very depressed; no psychosis 07/26 Patient says that he is starting to feel little better today. Mood has improved. He says he was just going through a bad moment yesterday and is starting to come to terms with his illness. He also had a good visit with his close friend what he found encouraging. Remains without any psych got symptoms 07/27 Patient reports he again is feeling good, hopeful. Patient tolerated medications well however still says he is struggling sleeping and having vivid dreams. Agrees to increase Seroquel 07/28 Remains in good mood and optimistic; still struggling to sleep and with vivid dreams. Discussed options and rather than increase Seroquel, agrees to try mirtazapine 07/29 Patient reports that he did not sleep at all last night. Mood remains good and no psychotic symptoms but concerning that he did not sleep. Patient feels that it is probably the Vraylar which does carry insomnia as a potential side effect. Discussed options and patient will stay on Vraylar but try Ambien to see if that helps asleep. Mirtazapine not helpful. -for this patient, lack of sleep is concerning as patient's history shows he can quickly decompensate into serious paranoid delusions that become life threatening for him. It will be important for him to be on an established, effective and tolerated mood stabilizer and able to sleep before he discharges. 07/30 Patient again did not sleep last night and patient did not take Vraylar today. [employer] agrees with patient that Vraylar is likely causing insomnia. No psychotic symptoms but patient agrees he needs sleep. Reviewed history and it seems that patient 1st gets depressed and then the paranoid delusions start; however he is not completely sure whether paranoid delusions could begin before depression. Discussed options including lithium, Seroquel, reviewed risks/side effects and patient would like to try Seroquel as it has potential to make him tired, is indicated for bipolar depression, access a mood stabilizer and can treat psychotic symptoms. 07/31 Patient slept some last night but does feel more rested. He says he feels good on current dose and does not want to increase. [employer] discussed risks of not increasing Seroquel dose, that it could be too low to prevent either depression or delusions, however patient would like to remain on 250 mg for now, finding it initially helpful. Again discussed the importance of sleep with which patient agrees. Discussed aftercare He plans to attend partial day program post discharge; he also will have close friends attend discharge planning session with team to help ensure support in the community should he started decompensate -if does not sleep well enough, will strongly encourage increase in Seroquel to 300 mg PLAN: CV Q 15 minute checks Continue Seroquel to 250 mg mg q.h.s. DC Vraylar 3 mg: Effective for mood but causes insomnia DC Ambien DC mirtazapine not helpful DC Abilify; patient does not need to be on both Vraylar and Abilify DC Colonidine 0.1mg qhs; causes dry mouth Recent hemoglobin A1c/lipid profile Medication trials: Lexapro (causes tachycardia) Trazodone: Became ineffective Abilify effective but causes body twitches Patient educated on: diagnosis and medication risk/benefits Informed Consent: understands Reason for continued inpatient stay Substantial Risk for: rapid decompensation Time Spent With Patient Time: Total time managing care of this patient today ____ minutes.
[2024-07-31 20:00] VITALS: BP 143/82; PULSE 86; TEMP 36.7; O2SAT 98
[2024-07-31] MEDS: QUEtiapine Fumarate 50 MG TABLET 250 MG PO (20:29)
[2024-07-31] MEDS: Zolpidem Tartrate 5 MG TABLET 10 MG PO (20:54)
[2024-08-01 08:00] VITALS: BP 126/67; PULSE 69; TEMP 36.8; O2SAT 97
--- NOTE | 2024-08-01 15:03 | HO.PSYCHPN ---
Subjective Subjective Date of Service: 08/01/24 Reason For Visit: PTSD Schizoaffective disorder Polysubstance use Interim History: Patient reports feeling good today; he reports improved sleep. Patient states he is looking forward to leaving next week and attending [facility] per nursing, slept 8.5 hours last night. denies any issues at this time. denies SI/HI/VH/AH. Medication Compliance: Yes Side effects from medications: No Attending Groups: Yes Mental Status Exam Mental Status Exam Narrative: Pt is alert and oriented; behavior is cooperative and calm; dressed in casual attire; mood is described as good ; eye contact appropriate; Speech is normal rate, volume and not pressured; thought process is organized and goal directed; Thought content is on tx; denies SI/HI/VH/AH. Diagnostics Vital Signs (24Hr): Vital Signs - 24 hr 07/31/24 20:00 08/01/24 08:00 Temperature 98.1 F 98.2 F Pulse Rate 86 69 Blood Pressure 143/82 H 126/67 Pulse Oximetry 98 97 Oxygen Delivery Method Room Air Room Air BMI result Body Mass Index 24.8 Labs 07/20/24 20:26 07/20/24 20:26 Medications Medications Current Medications Acetaminophen (Acetaminophen 325 Mg Tablet) 650 mg PO Q6H PRN PRN Reason: Headache/Pain, Scale 1-10 Al Hydroxide/Mg Hydroxide (Magnesium Hydrox/Alum Hydrox 30 Ml Oral.Susp) 30 ml PO Q6H PRN PRN Reason: Heartburn/Nausea Hydroxyzine HCl (Hydroxyzine Hcl 25 Mg Tablet) 25 mg PO Q6H PRN PRN Reason: mild anxiety Last Admin: 07/29/24 23:31 Dose: 25 mg Magnesium Hydroxide (Milk Of Magnesia 30 Ml Oral.Susp) 30 ml PO DAILY PRN PRN Reason: Constipation Nicotine Polacrilex (Nicotine Polacrilex 2 Mg Gum) 4 mg BUCCAL Q2H PRN PRN Reason: Nicotine Cravings Quetiapine Fumarate (Quetiapine Fumarate 50 Mg Tablet) 50 mg PO BEDTIME PRN PRN Reason: continued insomnia Last Admin: 07/29/24 22:03 Dose: 50 mg Quetiapine Fumarate (Quetiapine Fumarate 50 Mg Tablet) 250 mg PO BEDTIME [place] Last Admin: 07/31/24 20:29 Dose: 250 mg Zolpidem Tartrate (Zolpidem Tartrate 5 Mg Tablet) 10 mg PO BEDTIME PRN PRN Reason: Insomnia Last Admin: 07/31/24 20:54 Dose: 10 mg Allergies Allergies Allergy/AdvReac Type Severity Reaction Status Date / Time aspirin [ASA] Allergy Swelling Verified 07/20/24 22:37 Penicillins Allergy Swelling Verified 07/20/24 22:37 Assessment & Plan Assessment & Plan (1) Schizoaffective disorder, bipolar type: Status: Acute Code(s): F25.0 - Schizoaffective disorder, bipolar type (2) PTSD (post-traumatic stress disorder): Status: Acute Code(s): F43.10 - Post-traumatic stress disorder, unspecified Plan Patient is a 33-year-old male with schizoaffective disorder bipolar type, PTSD who presents about a month after discharge, with paranoid ideations and SI in the face of going off his medication. Patient reports that he took his Vraylar on discharge however said he was unable to sleep and was becoming miserable. Although Seroquel had been prescribed he said he did not remember having. He said he talked with his outpatient provider about it but does not remember what she said. Patient decided to stop Vraylar and says for. He slept better. However patient then started thinking about previous episodes of when i lost my mind... He remembered thinking himself Murali, being outside in his underwear, that his neighbors and others saw him which brought back feelings of shame; he reports perseverating on what neighbors thinking which was depressing. Over subsequent days, patient has paranoia started to increase and he started thinking he was going to be kidnapped, taken some where and tortured to a painful ... His roommate saw his depression and called 911. When the police arrived however patient in his paranoid state, thoughts they were part of the organization that was coming to torture him. Patient tried to grab 1 of the safety instruction police officer's guns. He says ...I was in a bad mindset and i wanted to ...I don't know why i did that [grabbing drilling supervisor gun]... Patient tearfully remembers this. In the ED he was restarted on Vraylar and Abilify and slept. Patient said he realizes that this was all paranoia and not true. -currently not suicidal -Collateral reports that patient was other verge of jumping off a bridge when police intervened however patient did not say this Formulation/clinical reasoning: Patient's decompensation clearly in the face of going off medications. Thankfully he responds quickly when back on antipsychotic medication. Will continue with Vraylar 3 mg daily now since it helps with both depression and prevent bipolar suraj; will schedule Seroquel at bedtime for insomnia; trazodone used to work but no longer effective. Hospital course: 07/24 very depressed; says he's tired and does not want to talk; no psychotic symptoms and no SI but struggling with memories from manic/psychotic episodes and realization he has schizophrenia/schizoaffecxtive 07/25 very depressed; no psychosis 07/26 Patient says that he is starting to feel little better today. Mood has improved. He says he was just going through a bad moment yesterday and is starting to come to terms with his illness. He also had a good visit with his close friend what he found encouraging. Remains without any psych got symptoms 07/27 Patient reports he again is feeling good, hopeful. Patient tolerated medications well however still says he is struggling sleeping and having vivid dreams. Agrees to increase Seroquel 07/28 Remains in good mood and optimistic; still struggling to sleep and with vivid dreams. Discussed options and rather than increase Seroquel, agrees to try mirtazapine 07/29 Patient reports that he did not sleep at all last night. Mood remains good and no psychotic symptoms but concerning that he did not sleep. Patient feels that it is probably the Vraylar which does carry insomnia as a potential side effect. Discussed options and patient will stay on Vraylar but try Ambien to see if that helps asleep. Mirtazapine not helpful. -for this patient, lack of sleep is concerning as patient's history shows he can quickly decompensate into serious paranoid delusions that become life threatening for him. It will be important for him to be on an established, effective and tolerated mood stabilizer and able to sleep before he discharges. 07/30 Patient again did not sleep last night and patient did not take Vraylar today. Infection Control Specialist agrees with patient that Vraylar is likely causing insomnia. No psychotic symptoms but patient agrees he needs sleep. Reviewed history and it seems that patient 1st gets depressed and then the paranoid delusions start; however he is not completely sure whether paranoid delusions could begin before depression. Discussed options including lithium, Seroquel, reviewed risks/side effects and patient would like to try Seroquel as it has potential to make him tired, is indicated for bipolar depression, access a mood stabilizer and can treat psychotic symptoms. 07/31 Patient slept some last night but does feel more rested. He says he feels good on current dose and does not want to increase. Infection Control Specialist discussed risks of not increasing Seroquel dose, that it could be too low to prevent either depression or delusions, however patient would like to remain on 250 mg for now, finding it initially helpful. Again discussed the importance of sleep with which patient agrees. Discussed aftercare He plans to attend partial day program post discharge; he also will have close friends attend discharge planning session with team to help ensure support in the community should he started decompensate -if does not sleep well enough, will strongly encourage increase in Seroquel to 300 mg 08/01: Patient reports feeling good today; he reports improved sleep. Patient states he is looking forward to leaving next week and attending PHP. per nursing, slept 8.5 hours last night. denies any issues at this time. denies SI/HI/VH/AH. Continue current tx plan. PLAN: CV Q 15 minute checks Continue Seroquel to 250 mg mg q.h.s. DC Vraylar 3 mg: Effective for mood but causes insomnia DC Ambien DC mirtazapine not helpful DC Abilify; patient does not need to be on both Vraylar and Abilify DC Colonidine 0.1mg qhs; causes dry mouth Recent hemoglobin A1c/lipid profile Medication trials: Lexapro (causes tachycardia) Trazodone: Became ineffective Abilify effective but causes body twitches Patient educated on: diagnosis and medication risk/benefits Reason for continued inpatient stay Substantial Risk for: med/psych decompensation Time Spent With Patient Time: Total time managing care of this patient today _20___ minutes.
[2024-08-01 19:41] VITALS: BP 127/66; PULSE 98; TEMP 36.4; O2SAT 95
[2024-08-01] MEDS: QUEtiapine Fumarate 50 MG TABLET 250 MG PO (21:45)
[2024-08-01] MEDS: Zolpidem Tartrate 5 MG TABLET 10 MG PO (21:50)
--- NOTE | 2024-08-02 07:21 | P.PNPSI_ITS ---
Subjective Subjective Date of Service: 08/02/24 Reason For Visit: PTSD Schizoaffective disorder Polysubstance use Subjective Notes: Conditional Voluntary Healthcare Proxy: No Guardianship: No Medical Problems Affecting Mental Status: No Interim History: 33 yo after difficulty tolerating vraylar, now seems to feel better, less anxious and sleeping on seroquel! denies current si- Medication Compliance: Yes Side effects from medications: No Attending Groups: Intermittent Review of Systems Acute medical concerns: No Medical Review of Systems: unchanged Mental Status Exam Mental Status Exam Patient Appearance: Well Grooomed and Appropriate Patient Orientation: Person, Place, Time and Situation Level of Consciousness: Awake Patient Behavior: Appropriate, Cooperative and Good Eye Contact Mood Description: Calm Affect Description: Blunted Patient Cognition Impaired: No Ability to Follow Directions: Good Speech Pattern: Clear Thought Process: Intact and Goal Oriented Judgement: Fair Diagnostics Vital Signs (24Hr): Vital Signs - 24 hr 08/01/24 08:00 08/01/24 19:41 Temperature 98.2 F 97.6 F Pulse Rate 69 98 Blood Pressure 126/67 127/66 Pulse Oximetry 97 95 Oxygen Delivery Method Room Air BMI result Body Mass Index 24.8 Labs 07/20/24 20:26 07/20/24 20:26 Medications Medications Current Medications Acetaminophen (Acetaminophen 325 Mg Tablet) 650 mg PO Q6H PRN PRN Reason: Headache/Pain, Scale 1-10 Al Hydroxide/Mg Hydroxide (Magnesium Hydrox/Alum Hydrox 30 Ml Oral.Susp) 30 ml PO Q6H PRN PRN Reason: Heartburn/Nausea Hydroxyzine HCl (Hydroxyzine Hcl 25 Mg Tablet) 25 mg PO Q6H PRN PRN Reason: mild anxiety Last Admin: 07/29/24 23:31 Dose: 25 mg Magnesium Hydroxide (Milk Of Magnesia 30 Ml Oral.Susp) 30 ml PO DAILY PRN PRN Reason: Constipation Nicotine Polacrilex (Nicotine Polacrilex 2 Mg Gum) 4 mg BUCCAL Q2H PRN PRN Reason: Nicotine Cravings Quetiapine Fumarate (Quetiapine Fumarate 50 Mg Tablet) 50 mg PO BEDTIME PRN PRN Reason: continued insomnia Last Admin: 07/29/24 22:03 Dose: 50 mg Quetiapine Fumarate (Quetiapine Fumarate 50 Mg Tablet) 250 mg PO BEDTIME [place] Last Admin: 08/01/24 21:45 Dose: 250 mg Zolpidem Tartrate (Zolpidem Tartrate 5 Mg Tablet) 10 mg PO BEDTIME PRN PRN Reason: Insomnia Last Admin: 08/01/24 21:50 Dose: 10 mg Allergies Allergies Allergy/AdvReac Type Severity Reaction Status Date / Time aspirin [ASA] Allergy Swelling Verified 07/20/24 22:37 Penicillins Allergy Swelling Verified 07/20/24 22:37 Assessment & Plan Assessment & Plan (1) Schizoaffective disorder, bipolar type: Status: Acute Code(s): F25.0 - Schizoaffective disorder, bipolar type (2) PTSD (post-traumatic stress disorder): Status: Acute Code(s): F43.10 - Post-traumatic stress disorder, unspecified Plan Patient is a 33-year-old male with schizoaffective disorder bipolar type, PTSD who presents about a month after discharge, with paranoid ideations and SI in the face of going off his medication. Patient reports that he took his Vraylar on discharge however said he was unable to sleep and was becoming miserable. Although Seroquel had been prescribed he said he did not remember having. He said he talked with his outpatient provider about it but does not remember what she said. Patient decided to stop Vraylar and says for. He slept better. However patient then started thinking about previous episodes of when i lost my mind... He remembered thinking himself Murali, being outside in his underwear, that his neighbors and others saw him which brought back feelings of shame; he reports perseverating on what neighbors thinking which was depressing. Over subsequent days, patient has paranoia started to increase and he started thinking he was going to be kidnapped, taken some where and tortured to a painful ... His roommate saw his depression and called 911. When the police arrived however patient in his paranoid state, thoughts they were part of the organization that was coming to torture him. Patient tried to grab 1 of the police worker's guns. He says ...I was in a bad mindset and i wanted to ...I don't know why i did that [grabbing protocol manager gun]... Patient tearfully remembers this. In the ED he was restarted on Vraylar and Abilify and slept. Patient said he realizes that this was all paranoia and not true. -currently not suicidal -Collateral reports that patient was other verge of jumping off a bridge when police intervened however patient did not say this Formulation/clinical reasoning: Patient's decompensation clearly in the face of going off medications. Thankfully he responds quickly when back on antipsychotic medication. Will continue with Vraylar 3 mg daily now since it helps with both depression and prevent bipolar suraj; will schedule Seroquel at bedtime for insomnia; trazodone used to work but no longer effective. Hospital course: 07/24 very depressed; says he's tired and does not want to talk; no psychotic symptoms and no SI but struggling with memories from manic/psychotic episodes and realization he has schizophrenia/schizoaffecxtive 07/25 very depressed; no psychosis 07/26 Patient says that he is starting to feel little better today. Mood has improved. He says he was just going through a bad moment yesterday and is starting to come to terms with his illness. He also had a good visit with his close friend what he found encouraging. Remains without any psych got symptoms 07/27 Patient reports he again is feeling good, hopeful. Patient tolerated medications well however still says he is struggling sleeping and having vivid dreams. Agrees to increase Seroquel 07/28 Remains in good mood and optimistic; still struggling to sleep and with vivid dreams. Discussed options and rather than increase Seroquel, agrees to try mirtazapine 07/29 Patient reports that he did not sleep at all last night. Mood remains good and no psychotic symptoms but concerning that he did not sleep. Patient feels that it is probably the Vraylar which does carry insomnia as a potential side effect. Discussed options and patient will stay on Vraylar but try Ambien to see if that helps asleep. Mirtazapine not helpful. -for this patient, lack of sleep is concerning as patient's history shows he can quickly decompensate into serious paranoid delusions that become life threatening for him. It will be important for him to be on an established, effective and tolerated mood stabilizer and able to sleep before he discharges. 07/30 Patient again did not sleep last night and patient did not take Vraylar today. Vendor Quality Supervisor agrees with patient that Vraylar is likely causing insomnia. No psychotic symptoms but patient agrees he needs sleep. Reviewed history and it seems that patient 1st gets depressed and then the paranoid delusions start; however he is not completely sure whether paranoid delusions could begin before depression. Discussed options including lithium, Seroquel, reviewed risks/side effects and patient would like to try Seroquel as it has potential to make him tired, is indicated for bipolar depression, access a mood stabilizer and can treat psychotic symptoms. 07/31 Patient slept some last night but does feel more rested. He says he feels good on current dose and does not want to increase. Vendor Quality Supervisor discussed risks of not increasing Seroquel dose, that it could be too low to prevent either depression or delusions, however patient would like to remain on 250 mg for now, finding it initially helpful. Again discussed the importance of sleep with which patient agrees. Discussed aftercare He plans to attend partial day program post discharge; he also will have close friends attend discharge planning session with team to help ensure support in the community should he started decompensate -if does not sleep well enough, will strongly encourage increase in Seroquel to 300 mg 08/01: Patient reports feeling good today; he reports improved sleep. Patient states he is looking forward to leaving next week and attending PHP. per nursing, slept 8.5 hours last night. denies any issues at this time. denies SI/HI/VH/AH. Continue current tx plan. 08/02 seems to be tolerating seroquel! CTP PLAN: CV Q 15 minute checks Continue Seroquel to 250 mg mg q.h.s. DC Vraylar 3 mg: Effective for mood but causes insomnia DC Ambien DC mirtazapine not helpful DC Abilify; patient does not need to be on both Vraylar and Abilify DC Colonidine 0.1mg qhs; causes dry mouth Recent hemoglobin A1c/lipid profile Medication trials: Lexapro (causes tachycardia) Trazodone: Became ineffective Abilify effective but causes body twitches Patient educated on: medication risk/benefits Informed Consent: understands Reason for continued inpatient stay Substantial Risk for: rapid decompensation Time Spent With Patient Time: Total time managing care of this patient today ____ minutes.
[2024-08-02 08:00] VITALS: BP 123/56; PULSE 71; TEMP 36.4; O2SAT 97
[2024-08-02 19:38] VITALS: BP 137/65; PULSE 86; TEMP 37; O2SAT 98
[2024-08-02] MEDS: QUEtiapine Fumarate 50 MG TABLET 250 MG PO (21:06)
[2024-08-02] MEDS: Zolpidem Tartrate 5 MG TABLET 10 MG PO (21:07)
[2024-08-03 07:48] VITALS: BP 133/66; PULSE 78; TEMP 36.8; O2SAT 97
--- NOTE | 2024-08-03 08:12 | P.PNPSI_ITS ---
Subjective Subjective Date of Service: 08/03/24 Reason For Visit: PTSD Schizoaffective disorder Polysubstance use Subjective Notes: Conditional Voluntary Healthcare Proxy: No Guardianship: No Medical Problems Affecting Mental Status: No Interim History: 33 yo reports doing ok - resting as it is Sunday - tolerating seroquel and feeling overall better- denies s/e Medication Compliance: Yes Side effects from medications: No Attending Groups: Intermittent Review of Systems Acute medical concerns: No Medical Review of Systems: unchanged Mental Status Exam Mental Status Exam Patient Appearance: Well Grooomed and Appropriate Patient Orientation: Person, Place, Time and Situation Level of Consciousness: Awake Patient Behavior: Appropriate, Cooperative and Good Eye Contact Mood Description: Calm Affect Description: Constricted Patient Cognition Impaired: No Ability to Follow Directions: Good Speech Pattern: Clear Thought Process: Intact and Goal Oriented Thought Content: positive for Obsessional Thoughts Judgement: Fair Diagnostics Vital Signs (24Hr): Vital Signs - 24 hr 08/02/24 19:38 08/03/24 07:48 Temperature 98.6 F 98.2 F Pulse Rate 86 78 Blood Pressure 137/65 133/66 Pulse Oximetry 98 97 Oxygen Delivery Method Room Air Room Air BMI result Body Mass Index 24.8 Labs 07/20/24 20:26 07/20/24 20:26 Medications Medications Current Medications Acetaminophen (Acetaminophen 325 Mg Tablet) 650 mg PO Q6H PRN PRN Reason: Headache/Pain, Scale 1-10 Al Hydroxide/Mg Hydroxide (Magnesium Hydrox/Alum Hydrox 30 Ml Oral.Susp) 30 ml PO Q6H PRN PRN Reason: Heartburn/Nausea Hydroxyzine HCl (Hydroxyzine Hcl 25 Mg Tablet) 25 mg PO Q6H PRN PRN Reason: mild anxiety Last Admin: 07/29/24 23:31 Dose: 25 mg Magnesium Hydroxide (Milk Of Magnesia 30 Ml Oral.Susp) 30 ml PO DAILY PRN PRN Reason: Constipation Nicotine Polacrilex (Nicotine Polacrilex 2 Mg Gum) 4 mg BUCCAL Q2H PRN PRN Reason: Nicotine Cravings Quetiapine Fumarate (Quetiapine Fumarate 50 Mg Tablet) 50 mg PO BEDTIME PRN PRN Reason: continued insomnia Last Admin: 07/29/24 22:03 Dose: 50 mg Quetiapine Fumarate (Quetiapine Fumarate 50 Mg Tablet) 250 mg PO BEDTIME [place] Last Admin: 08/02/24 21:06 Dose: 250 mg Zolpidem Tartrate (Zolpidem Tartrate 5 Mg Tablet) 10 mg PO BEDTIME PRN PRN Reason: Insomnia Last Admin: 08/02/24 21:07 Dose: 10 mg Allergies Allergies Allergy/AdvReac Type Severity Reaction Status Date / Time aspirin [ASA] Allergy Swelling Verified 07/20/24 22:37 Penicillins Allergy Swelling Verified 07/20/24 22:37 Assessment & Plan Assessment & Plan (1) Schizoaffective disorder, bipolar type: Status: Acute Code(s): F25.0 - Schizoaffective disorder, bipolar type (2) PTSD (post-traumatic stress disorder): Status: Acute Code(s): F43.10 - Post-traumatic stress disorder, unspecified Plan Patient is a 33-year-old male with schizoaffective disorder bipolar type, PTSD who presents about a month after discharge, with paranoid ideations and SI in the face of going off his medication. Patient reports that he took his Vraylar on discharge however said he was unable to sleep and was becoming miserable. Although Seroquel had been prescribed he said he did not remember having. He said he talked with his outpatient provider about it but does not remember what she said. Patient decided to stop Vraylar and says for. He slept better. However patient then started thinking about previous episodes of when i lost my mind... He remembered thinking himself Murali, being outside in his underwear, that his neighbors and others saw him which brought back feelings of shame; he reports perseverating on what neighbors thinking which was depressing. Over subsequent days, patient has paranoia started to increase and he started thinking he was going to be kidnapped, taken some where and tortured to a painful ... His roommate saw his depression and called 911. When the police arrived however patient in his paranoid state, thoughts they were part of the organization that was coming to torture him. Patient tried to grab 1 of the police academy instructor's guns. He says ...I was in a bad mindset and i wanted to ...I don't know why i did that [grabbing model builder gun]... Patient tearfully remembers this. In the ED he was restarted on Vraylar and Abilify and slept. Patient said he realizes that this was all paranoia and not true. -currently not suicidal -Collateral reports that patient was other verge of jumping off a bridge when police intervened however patient did not say this Formulation/clinical reasoning: Patient's decompensation clearly in the face of going off medications. Thankfully he responds quickly when back on antipsychotic medication. Will continue with Vraylar 3 mg daily now since it helps with both depression and prevent bipolar suraj; will schedule Seroquel at bedtime for insomnia; trazodone used to work but no longer effective. Hospital course: 07/24 very depressed; says he's tired and does not want to talk; no psychotic symptoms and no SI but struggling with memories from manic/psychotic episodes and realization he has schizophrenia/schizoaffecxtive 07/25 very depressed; no psychosis 07/26 Patient says that he is starting to feel little better today. Mood has improved. He says he was just going through a bad moment yesterday and is starting to come to terms with his illness. He also had a good visit with his close friend what he found encouraging. Remains without any psych got symptoms 07/27 Patient reports he again is feeling good, hopeful. Patient tolerated medications well however still says he is struggling sleeping and having vivid dreams. Agrees to increase Seroquel 07/28 Remains in good mood and optimistic; still struggling to sleep and with vivid dreams. Discussed options and rather than increase Seroquel, agrees to try mirtazapine 07/29 Patient reports that he did not sleep at all last night. Mood remains good and no psychotic symptoms but concerning that he did not sleep. Patient feels that it is probably the Vraylar which does carry insomnia as a potential side effect. Discussed options and patient will stay on Vraylar but try Ambien to see if that helps asleep. Mirtazapine not helpful. -for this patient, lack of sleep is concerning as patient's history shows he can quickly decompensate into serious paranoid delusions that become life threatening for him. It will be important for him to be on an established, effective and tolerated mood stabilizer and able to sleep before he discharges. 07/30 Patient again did not sleep last night and patient did not take Vraylar today. Straight Pin Making Machine Operator agrees with patient that Vraylar is likely causing insomnia. No psychotic symptoms but patient agrees he needs sleep. Reviewed history and it seems that patient 1st gets depressed and then the paranoid delusions start; however he is not completely sure whether paranoid delusions could begin before depression. Discussed options including lithium, Seroquel, reviewed risks/side effects and patient would like to try Seroquel as it has potential to make him tired, is indicated for bipolar depression, access a mood stabilizer and can treat psychotic symptoms. 07/31 Patient slept some last night but does feel more rested. He says he feels good on current dose and does not want to increase. Straight Pin Making Machine Operator discussed risks of not increasing Seroquel dose, that it could be too low to prevent either depression or delusions, however patient would like to remain on 250 mg for now, finding it initially helpful. Again discussed the importance of sleep with which patient agrees. Discussed aftercare He plans to attend partial day program post discharge; he also will have close friends attend discharge planning session with team to help ensure support in the community should he started decompensate -if does not sleep well enough, will strongly encourage increase in Seroquel to 300 mg 08/01: Patient reports feeling good today; he reports improved sleep. Patient states he is looking forward to leaving next week and attending PHP. per nursing, slept 8.5 hours last night. denies any issues at this time. denies SI/HI/VH/AH. Continue current tx plan. 08/02 seems to be tolerating seroquel! CTP 08/03/24 CTP PLAN: CV Q 15 minute checks Continue Seroquel to 250 mg mg q.h.s. DC Vraylar 3 mg: Effective for mood but causes insomnia DC Ambien DC mirtazapine not helpful DC Abilify; patient does not need to be on both Vraylar and Abilify DC Colonidine 0.1mg qhs; causes dry mouth Recent hemoglobin A1c/lipid profile Medication trials: Lexapro (causes tachycardia) Trazodone: Became ineffective Abilify effective but causes body twitches Reason for continued inpatient stay Substantial Risk for: rapid decompensation Time Spent With Patient Time: Total time managing care of this patient today ____ minutes.
[2024-08-03 19:50] VITALS: BP 118/69; RESP 101; TEMP 36.9; O2SAT 98
[2024-08-03] MEDS: Zolpidem Tartrate 5 MG TABLET 10 MG PO (21:35)
[2024-08-03] MEDS: QUEtiapine Fumarate 50 MG TABLET 250 MG PO (21:36)
[2024-08-04 07:54] VITALS: BP 115/67; PULSE 72; RESP 16; TEMP 36.8; O2SAT 96
--- NOTE | 2024-08-04 14:35 | P.PNPSI_ITS ---
Subjective Subjective Date of Service: 08/04/24 Reason For Visit: PTSD Schizoaffective disorder Polysubstance use Interim History: Active on unit. Patient reports doing well and looking forward to discharge. He reports improved sleep since admission. denies SI/HI/VH/AH. Pt plans on following up with PHP when discharged. Medication Compliance: Yes Side effects from medications: No Mental Status Exam Mental Status Exam Narrative: Pt is alert and oriented; behavior is cooperative and calm; dressed in casual attire; mood is described as good ; eye contact appropriate; Speech is normal rate, volume and not pressured; thought process is organized; Thought content is on discharge; denies SI/HI/VH/AH. Diagnostics Vital Signs (24Hr): Vital Signs - 24 hr 08/03/24 19:50 08/04/24 07:54 Temperature 98.4 F 98.2 F Pulse Rate 72 Respiratory Rate 101 H 16 Blood Pressure 118/69 115/67 Pulse Oximetry 98 96 Oxygen Delivery Method Room Air Room Air BMI result Body Mass Index 24.8 Labs 07/20/24 20:26 07/20/24 20:26 Medications Medications Current Medications Acetaminophen (Acetaminophen 325 Mg Tablet) 650 mg PO Q6H PRN PRN Reason: Headache/Pain, Scale 1-10 Al Hydroxide/Mg Hydroxide (Magnesium Hydrox/Alum Hydrox 30 Ml Oral.Susp) 30 ml PO Q6H PRN PRN Reason: Heartburn/Nausea Hydroxyzine HCl (Hydroxyzine Hcl 25 Mg Tablet) 25 mg PO Q6H PRN PRN Reason: mild anxiety Last Admin: 07/29/24 23:31 Dose: 25 mg Magnesium Hydroxide (Milk Of Magnesia 30 Ml Oral.Susp) 30 ml PO DAILY PRN PRN Reason: Constipation Nicotine Polacrilex (Nicotine Polacrilex 2 Mg Gum) 4 mg BUCCAL Q2H PRN PRN Reason: Nicotine Cravings Quetiapine Fumarate (Quetiapine Fumarate 50 Mg Tablet) 50 mg PO BEDTIME PRN PRN Reason: continued insomnia Last Admin: 07/29/24 22:03 Dose: 50 mg Quetiapine Fumarate (Quetiapine Fumarate 50 Mg Tablet) 250 mg PO BEDTIME [place] Last Admin: 08/03/24 21:36 Dose: 250 mg Zolpidem Tartrate (Zolpidem Tartrate 5 Mg Tablet) 10 mg PO BEDTIME PRN PRN Reason: Insomnia Last Admin: 08/03/24 21:35 Dose: 10 mg Allergies Allergies Allergy/AdvReac Type Severity Reaction Status Date / Time aspirin [ASA] Allergy Swelling Verified 07/20/24 22:37 Penicillins Allergy Swelling Verified 07/20/24 22:37 Assessment & Plan Assessment & Plan (1) Schizoaffective disorder, bipolar type: Status: Acute Code(s): F25.0 - Schizoaffective disorder, bipolar type (2) PTSD (post-traumatic stress disorder): Status: Acute Code(s): F43.10 - Post-traumatic stress disorder, unspecified Plan Patient is a 33-year-old male with schizoaffective disorder bipolar type, PTSD who presents about a month after discharge, with paranoid ideations and SI in the face of going off his medication. Patient reports that he took his Vraylar on discharge however said he was unable to sleep and was becoming miserable. Although Seroquel had been prescribed he said he did not remember having. He said he talked with his outpatient provider about it but does not remember what she said. Patient decided to stop Vraylar and says for. He slept better. However patient then started thinking about previous episodes of when i lost my mind... He remembered thinking himself Murali, being outside in his underwear, that his neighbors and others saw him which brought back feelings of shame; he reports perseverating on what neighbors thinking which was depressing. Over subsequent days, patient has paranoia started to increase and he started thinking he was going to be kidnapped, taken some where and tortured to a painful ... His roommate saw his depression and called 911. When the police arrived however patient in his paranoid state, thoughts they were part of the organization that was coming to torture him. Patient tried to grab 1 of the data officer's guns. He says ...I was in a bad mindset and i wanted to ...I don't know why i did that [grabbing data reduction technician gun]... Patient tearfully remembers this. In the ED he was restarted on Vraylar and Abilify and slept. Patient said he realizes that this was all paranoia and not true. -currently not suicidal -Collateral reports that patient was other verge of jumping off a bridge when police intervened however patient did not say this Formulation/clinical reasoning: Patient's decompensation clearly in the face of going off medications. Thankfully he responds quickly when back on antipsychotic medication. Will continue with Vraylar 3 mg daily now since it helps with both depression and prevent bipolar suraj; will schedule Seroquel at bedtime for insomnia; trazodone used to work but no longer effective. Hospital course: 07/24 very depressed; says he's tired and does not want to talk; no psychotic symptoms and no SI but struggling with memories from manic/psychotic episodes and realization he has schizophrenia/schizoaffecxtive 07/25 very depressed; no psychosis 07/26 Patient says that he is starting to feel little better today. Mood has improved. He says he was just going through a bad moment yesterday and is starting to come to terms with his illness. He also had a good visit with his close friend what he found encouraging. Remains without any psych got symptoms 07/27 Patient reports he again is feeling good, hopeful. Patient tolerated medications well however still says he is struggling sleeping and having vivid dreams. Agrees to increase Seroquel 07/28 Remains in good mood and optimistic; still struggling to sleep and with vivid dreams. Discussed options and rather than increase Seroquel, agrees to try mirtazapine 07/29 Patient reports that he did not sleep at all last night. Mood remains good and no psychotic symptoms but concerning that he did not sleep. Patient feels that it is probably the Vraylar which does carry insomnia as a potential side effect. Discussed options and patient will stay on Vraylar but try Ambien to see if that helps asleep. Mirtazapine not helpful. -for this patient, lack of sleep is concerning as patient's history shows he can quickly decompensate into serious paranoid delusions that become life threatening for him. It will be important for him to be on an established, effective and tolerated mood stabilizer and able to sleep before he discharges. 07/30 Patient again did not sleep last night and patient did not take Vraylar today. Transplant Rn agrees with patient that Vraylar is likely causing insomnia. No psychotic symptoms but patient agrees he needs sleep. Reviewed history and it seems that patient 1st gets depressed and then the paranoid delusions start; however he is not completely sure whether paranoid delusions could begin before depression. Discussed options including lithium, Seroquel, reviewed risks/side effects and patient would like to try Seroquel as it has potential to make him tired, is indicated for bipolar depression, access a mood stabilizer and can treat psychotic symptoms. 07/31 Patient slept some last night but does feel more rested. He says he feels good on current dose and does not want to increase. Transplant Rn discussed risks of not increasing Seroquel dose, that it could be too low to prevent either depression or delusions, however patient would like to remain on 250 mg for now, finding it initially helpful. Again discussed the importance of sleep with which patient agrees. Discussed aftercare He plans to attend partial day program post discharge; he also will have close friends attend discharge planning session with team to help ensure support in the community should he started decompensate -if does not sleep well enough, will strongly encourage increase in Seroquel to 300 mg 08/01: Patient reports feeling good today; he reports improved sleep. Patient states he is looking forward to leaving next week and attending PHP. per nursing, slept 8.5 hours last night. denies any issues at this time. denies SI/HI/VH/AH. Continue current tx plan. 08/02 seems to be tolerating seroquel! CTP 08/03/24 CTP 08/04: Active on unit. Patient reports doing well and looking forward to discharge. He reports improved sleep since admission. denies SI/HI/VH/AH. Pt plans on following up with PHP when discharged. PLAN: CV Q 15 minute checks Continue Seroquel to 250 mg mg q.h.s. DC Vraylar 3 mg: Effective for mood but causes insomnia DC Ambien DC mirtazapine not helpful DC Abilify; patient does not need to be on both Vraylar and Abilify DC Colonidine 0.1mg qhs; causes dry mouth Recent hemoglobin A1c/lipid profile Medication trials: Lexapro (causes tachycardia) Trazodone: Became ineffective Abilify effective but causes body twitches Patient educated on: diagnosis and medication risk/benefits Reason for continued inpatient stay Substantial Risk for: med/psych decompensation Time Spent With Patient Time: Total time managing care of this patient today _20___ minutes.
[2024-08-04 20:00] VITALS: BP 141/69; PULSE 98; TEMP 36.9; O2SAT 98
[2024-08-04] MEDS: Zolpidem Tartrate 5 MG TABLET 10 MG PO (21:05)
[2024-08-04] MEDS: QUEtiapine Fumarate 50 MG TABLET 250 MG PO (21:06)
[2024-08-05 08:00] VITALS: BP 135/64; PULSE 90; TEMP 36.4; O2SAT 98
--- NOTE | 2024-08-05 09:25 | P.DS_ITS ---
DS: Providers Provider Date of Service: 08/05/24 Date of admission: 07/22/24 12:27 Date of discharge: 08/05/24 Primary care physician: Unknown Physician Attending physician on admission: Ben Chavis Attending physician on discharge: Ben Chavis DS: Diagnosis Discharge Diagnosis (1) Schizoaffective disorder, bipolar type: Status: Acute (2) PTSD (post-traumatic stress disorder): Status: Acute DS: Medications Discharge Medications Home Medications: Previous Rx's ?Medication ?Instructions ?Recorded aripiprazole 2 mg tablet (Abilify) 2 mg PO DAILY PRN for agitation 10 08/05/24 days #10 tabs quetiapine 200 mg tablet 200 mg PO BEDTIME 30 days #30 tabs 08/05/24 quetiapine 50 mg tablet (Seroquel) 50 mg PO BEDTIME 30 days #30 tabs 08/05/24 zolpidem 5 mg tablet See Rx Instructions .Route 08/05/24 .COMPLEX PRN Insomnia 15 days #30 tabs Mental Status Exam Mental Status Exam Narrative: Pt is alert and oriented; behavior is cooperative, friendly and calm; patient is not in distress; dressed in casual attire with adequate grooming and hygiene; mood is described as good and affect congruent; eye contact appropriate; Speech is normal rate, volume and prosody and not pressured; no psychomotor agitation/retardation present; thought process is organized and goal directed; Thought content is on tx; otherwise pertinent to relevant topics and without any delusional content, paranoid ideations or grandiosity; denies any SI/HI. Denies AVH and there is no evidence of perceptual disturbance. Patients insight and judgment appear intact. DS: Summary Hospital Course Hospital Course: HPI: Patient is a 33-year-old male with schizoaffective disorder bipolar type, PTSD who presents about a month after discharge, with paranoid ideations and SI in the face of going off his medication. Patient reports that he took his Vraylar on discharge however said he was unable to sleep and was becoming miserable. Although Seroquel had been prescribed he said he did not remember having. He said he talked with his outpatient provider about it but does not remember what she said. Patient decided to stop Vraylar and says for. He slept better. However patient then started thinking about previous episodes of when i lost my mind... He remembered thinking himself Murali, being outside in his underwear, that his neighbors and others saw him which brought back feelings of shame; he reports perseverating on what neighbors thinking which was depressing. Over subsequent days, patient has paranoia started to increase and he started thinking he was going to be kidnapped, taken some where and tortured to a painful ... His roommate saw his depression and called 911. When the police arrived however patient in his paranoid state, thoughts they were part of the organization that was coming to torture him. Patient tried to grab 1 of the policewoman's guns. He says ...I was in a bad mindset and i wanted to ...I don't know why i did that [grabbing mica washer gluer gun]... Patient tearfully remembers this. In the ED he was restarted on Vraylar and Abilify and slept. Patient said he realizes that this was all paranoia and not true. -currently not suicidal -Collateral reports that patient was other verge of jumping off a bridge when police intervened however patient did not say this hospital course/Formulation/clinical reasoning: Patient's decompensation clearly in the face of going off medications. Thankfully he responds quickly when back on antipsychotic medication and now back on Vraylar, he is sad, depressed but psychotic symptoms have resolved. Will continue with Vraylar 3 mg daily now since it helps with both depression and prevent bipolar suraj; will schedule Seroquel at bedtime for insomnia; trazodone used to work but no longer effective. 07/24 very depressed; says he's tired and does not want to talk; no psychotic symptoms and no SI but struggling with memories from manic/psychotic episodes and realization he has schizophrenia/schizoaffecxtive 07/25 very depressed; no psychosis 07/26 Patient says that he is starting to feel little better today. Mood has improved. He says he was just going through a bad moment yesterday and is starting to come to terms with his illness. He also had a good visit with his close friend what he found encouraging. Remains without any psych got symptoms 07/27 Patient reports he again is feeling good, hopeful. Patient tolerated medications well however still says he is struggling sleeping and having vivid dreams. Agrees to increase Seroquel 07/28 Remains in good mood and optimistic; still struggling to sleep and with vivid dreams. Discussed options and rather than increase Seroquel, agrees to try mirtazapine 07/29 Patient reports that he did not sleep at all last night. Mood remains good and no psychotic symptoms but concerning that he did not sleep. Patient feels that it is probably the Vraylar which does carry insomnia as a potential side effect. Discussed options and patient will stay on Vraylar but try Ambien to see if that helps asleep. Mirtazapine not helpful. -for this patient, lack of sleep is concerning as patient's history shows he can quickly decompensate into serious paranoid delusions that become life threatening for him. It will be important for him to be on an established, effective and tolerated mood stabilizer and able to sleep before he discharges. 07/30 Patient again did not sleep last night and patient did not take Vraylar today. Sheep Farm Manager agrees with patient that Vraylar is likely causing insomnia. No psychotic symptoms but patient agrees he needs sleep. Reviewed history and it seems that patient 1st gets depressed and then the paranoid delusions start; however he is not completely sure whether paranoid delusions could begin before depression. Discussed options including lithium, Seroquel, reviewed risks/side effects and patient would like to try Seroquel as it has potential to make him tired, is indicated for bipolar depression, access a mood stabilizer and can treat psychotic symptoms. 07/31 Patient slept some last night but does feel more rested. He says he feels good on current dose and does not want to increase. Sheep Farm Manager discussed risks of not increasing Seroquel dose, that it could be too low to prevent either depression or delusions, however patient would like to remain on 250 mg for now, finding it initially helpful. Again discussed the importance of sleep with which patient agrees. Discussed aftercare He plans to attend partial day program post discharge; he also will have close friends attend discharge planning session with team to help ensure support in the community should he started decompensate Over subsequent days, patient was able to sleep using Ambien. He remained in good mood, without any psychotic symptoms, no depression, no SI and was future oriented. Patient asked for discharge. He plan to attend partial hospital as well agreed that it would be helpful. Patient was not in imminent risk for harm to self or others; he was appropriate to return to the community for treatment and request for discharge honored. Medications Seroquel to 50 mg q.h.s. Ambien p.r.n. q.h.s. Abilify 2 mg p.r.n. for agitation or burgeoning manic symptoms DC Vraylar; caused insomnia Time spent discussing smoking cessation with patient: 3 to 10 minutes Status at Discharge Functional status at discharge: independent ambulation Overall status at discharge: patient is back to baseline Time Spent with Patient Time attestation: Total time managing care of this patient today ____ minutes. Time spent: Less than 30 minutes Discharge Plan Discharge Anticipated Discharge Date/Time: 08/05/24 11:30 Patient Disposition: Home, Self-Care Discharge Diagnosis: schizoaffective disorder, bipolar type Referrals: [facility] Partial Hospitalization Program [Other] - 08/20/24 8:00 am (Please call the provided number if you have any questions or concerns. Steffanie will call you if there is a sooner appointment as you are on the can cellation list ) [facility]- Therapy with Naomie Qureshi [Other] - 1 Week [facility]- Medication Management with Neeta Peres [Other] - 1 Week Physician,Helga Fong [Primary Care Provider] - 2 Weeks (Pt to follow up with PCP after discharge. ) Discharge Medications: New quetiapine 200 mg tablet 200 mg PO BEDTIME 30 Days Qty: 30 0RF Rx Instructions: take with 50mg tab zolpidem 5 mg Tablet See Rx Instructions .ROUTE .COMPLEX PRN (Reason: Insomnia) 15 Days Qty: 30 1RF Rx Instructions: take 1 to 2 tabs as needed for insomnia Changed aripiprazole [Abilify] 2 mg tablet 2 mg PO DAILY PRN (Reason: for agitation) 10 Days Qty: 10 0RF quetiapine [Seroquel] 50 mg tablet 50 mg PO BEDTIME 30 Days Qty: 30 0RF Rx Instructions: take with 200mg tab Discontinued Vraylar 3 mg capsule 3 mg PO DAILY 30 Days Qty: 30 0RF clonidine HCl 0.1 mg Tablet 0.1 mg PO BEDTIME 30 Days Qty: 30 1RF Protocol: Hold for SBP< HOLD for SBP < : 90 Discharge Orders: Discharge Order (Routine); Ordered 08/05/24 Ordered By: Ben Chavis Diet: Regular diet Activity on Discharge: As tolerated Stand Alone Forms: Patient Portal Discharge page, Community Support Print Language: Unable To Collect Care Plan Goals: Maintain mood and safe behaviors Take medications as prescribed Practice coping skills Continue with outpatient providers and reach out to them as needed Health Concerns: Mood stability and behaviors Plan of Treatment: Follow up with your PCP, psychiatric provider and other outpatient providers r egarding above concerns Take medications as prescribed Assessment: Risk assessment at time of discharge:? Patient was interviewed prior to discharge and found to be fully oriented and without any SI or HI. Patient has improved insight and judgment and wants to continue treatment. Patient is not in imminent risk of harm to self or others and has a safety plan that includes presenting to the closest ER or calling 911 if feeling unsafe.? Patient has been observed closely by nursing and unit staff throughout admission; patient has not engaged in any behaviors that suggest dangerousness to self or others and has demonstrated appropriate behaviors and impulse control Discharge Date/Time: 08/05/24 11:00
== END 2024-08-05 11:00 | disposition home or self-care (01) | DRG 750 ==
LOC: HO.ED 07-22 12:28 → HO.PM5 07-22 12:36
PROVIDERS: Admitting Provider Clinical Nurse Specialist Psychiatric/Mental Health, Adult; Emergency Provider Emergency Medicine; Visit Provider Psychiatry & Neurology Psychiatry
DX: F25.0 Schizoaffective disorder, bipolar type (principal); R45.851 Suicidal ideations; F43.10 Post-traumatic stress disorder, unspecified; Z79.899 Other long term (current) drug therapy
CPT/HCPCS: 36415; 80048; 80061; 80076; 80143; 80179; 80307; 81001; 82607; 82746; 83036; 83735; 84439; 84443; 85025; 93005; 99285; S9485

== ENCOUNTER → 2024-07-22 09:05 | Outpatient (BNV) | payer MEDICAID, SELFPAY | PROVIDERS: Admitting Provider Clinical Nurse Specialist Psychiatric/Mental Health, Adult; Emergency Provider Emergency Medicine; Visit Provider Internal Medicine | DX: Z13.6 Encounter for screening for cardiovascular disorders (principal) | CPT/HCPCS: 93010 ==

== ENCOUNTER → 2024-07-22 12:27 | Outpatient (BNV) | payer OTHER, SELFPAY | PROVIDERS: Admitting Provider Clinical Nurse Specialist Psychiatric/Mental Health, Adult; Emergency Provider Emergency Medicine; Visit Provider Psychiatry & Neurology Psychiatry | DX: F25.0 Schizoaffective disorder, bipolar type (principal); F43.11 Post-traumatic stress disorder, acute | CPT/HCPCS: 99231; 99232 ==

== ENCOUNTER 2024-09-04 11:15 | Outpatient (RCR) | payer BC, SELFPAY ==
--- NOTE | 2024-08-21 10:12 | HO.PS.ADMBH ---
HPI Date of Service: 08/21/24 Chief Complaint: schizoaffective d/o Sources of Information: patient interviewed, chart reviewed and crisis/core team assessment reviewed HPI Healthcare Proxy: No Guardianship: No Medical Problems Affecting Mental Status: No Narrative: 33 yo HM presents for php - co trouble breathing through nose- trouble sleeping - dry mouth- congestion? - not sure if it is bed- restlessness with feet- can happen same time- Pt known to get somatic s/e from medications and very sensitive- didn't happen last night or night before Would love to go back to be with family - and beach- miss it - Last 2 nights slept fine without that problem Sleeping too much- making monumental effort to be here on time before that 10-12 hrs/day - no si, no sib, no confusion , denies pi- no ah- Past Psychiatric History: hosps: past admissions for florid suraj, paranoid delusions SA: Attempted to overdose 2 different times on Tylenol SIB: none outpt: h/o therapy during college years, [id number]. had group therapy for LGBT as well as individual therapy. no h/o medications. AH since february of 2024 hx vraylar not working messed up sleep, abilify alot of mental fog confusion/mental twitches- [facility]- therapist /psychiatrist- [facility] Medical History (Updated 08/13/24 @ 00:01 by Background Daemon) Schizoaffective disorder, bipolar type Major depressive episode PTSD (post-traumatic stress disorder) Schizoaffective disorder, depressive type No pertinent past medical history Narrative: no known seasonal allergies- Family History: father - schizophrenia, multiple inpatient hosps mother - Dx unknown, h/o multiple inpt psych admissions Social History: from [place]. 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 has a bro and a sis. estranged from bro and mother, in touch with sister. lives in an apartment with a roommate. Back in touch with brother and mom via phone Substance History: alcohol use- Sunday social - no abuse of it Trauma History: Denied- but both parents with major mental illness ; hx estrangement but not any longer - used to have good relationship then moved on and now trying to rebridge Meds/Allergies Meds Narrative: seroquel 250mg qhs 9pm so can wake up at 6am, woke up 7:30am ? time abilify 2mg prn zolpidem prn - Allergies Allergies Allergy/AdvReac Type Severity Reaction Status Date / Time aspirin [ASA] Allergy Swelling Verified 07/20/24 22:37 Penicillins Allergy Swelling Verified 07/20/24 22:37 shellfish derived [shellfish] Allergy Itchy Verified 08/21/24 12:10 throat, throat tightens. Mental Status Exam Mental Status Exam Patient Appearance: Well Grooomed and Appropriate Patient Orientation: Person, Place, Time and Situation Level of Consciousness: Awake Patient Behavior: Appropriate and Cooperative Mood Description: Calm Affect Description: Blunted Patient Cognition Impaired: No Ability to Follow Directions: Good Speech Pattern: Clear Hallucinations: None Delusions: Present (?vague at this point) Thought Process: Intact and Goal Oriented Thought Content: positive for Intact and positive for Goal Oriented Depressive Symptoms: Difficulty Concentrating Judgement: Fair (always somatic focus on s/e of medications please be aware) Assessment & Plan Assessment & Plan (1) Schizoaffective disorder, bipolar type: Status: Acute Code(s): F25.0 - Schizoaffective disorder, bipolar type (2) PTSD (post-traumatic stress disorder): Status: Acute Code(s): F43.10 - Post-traumatic stress disorder, unspecified Plan Pt concerned about xs sleeping from seroquel - wanting to be in bed in am - lower dose- but encouraged patient to stick with this dose as multiple trials/admissions/noncompliance risk! Patient educated on: medication risk/benefits and therapeutic strategies Informed Consent: understands and further education needed Reason for continued partial hosp. stay Substantial Risk for: rapid decompensation Certification I certify that partial hospital treatment is medically necessary due to the symptoms and problems resulting from the patient's mental illness and the failure to treat the patient at the partial hospital level of care would likely result in the patient requiring inpatient psychiatric care which could not be prevented at a less intensive level of care. Time Spent With Patient Time: Total time managing care of this patient today ____ minutes.
[2024-08-21 12:10] VITALS: BMI 26.2
[2024-08-21 12:11] VITALS: BP 118/70; PULSE 80; TEMP 37.1
--- NOTE | 2024-08-21 13:43 | PC.ADMIT ---
Patient is a 33 year old single male who was referred to [facility] by [facility] behavioral health unit where he was admitted from 07/21-08/01/24. According to crisis evaluation patient reportedly was brought to [facility] ER via ambulance after attempting to jump off a bridge. Patient also endorsed increased depression and became nonverbal which caused Jayy's roommate to call 911. Jayy became agitated while in ambulance attempting to jump out thus was given a medical restraint. Patient also reportedly tried to reach for a patrol police sergeant's firearm upon their arrival. Also according to records Jayy has a history of SA overdosing on Tylenol and cutting his wrists superficially. He was admitted inpatient LOC in April and May 2024. Patent has a history of schizophrenia. Patient reports he is currently on family medical leave from work. Patient stated he works at [employer]. Patient stated he is on a [facility] is up on September 15, 2024. Patient is alert and oriented x4. He is calm and cooperative. He presented with depressed mood and flat affect. He denied SI, no HI. He was given a copy of his safety plan if needed. His thoughts are clear and organized. He feels hospitalization was helpful. Medications updated with discharge records from [facility] inpatient unit. He reports taking his medications as prescribed. Patient identified his supports stating, best friends, family, roommate, therapist.
--- NOTE | 2024-08-21 14:46 | HO.PHP ---
Clients case was opened and reviewed in teams today.
--- NOTE | 2024-08-29 19:36 | HO.PHPPROGNO ---
Subjective Subjective Date of Service: 08/29/24 Reason For Visit: schizoaffective d/o Interim History: 33-year-old male seen for follow-up. He complains of untoward sedation with Seroquel to 50 mg at night. He was advised to stick with his dose however he is finding it difficult to manage even with moving the dose of the earlier relays some reluctance and continuing at that dose. He knowledges his mood is improved ?I feel better but some of that might just be the structure (of being here? [place] complains about difficulties waking up. I suggest he could try splitting his dose earlier by taking perhaps 100 or even 50 mg earlier to front load his evening however he insists this would make him tired. I suggest we could try cutting back to 200 mg to which she applies he does not feel that would make much of a difference and seems set on reducing the dose to 150 mg. Currently denies any depressive symptoms anxiety is well managed he is sleeping through the night details he is oversleeping. No issues with irritability lability denies any SI HI AH or VH. Medication Compliance: Yes Side effects from medications: Yes (as noted) Attending Groups: Yes Review of Systems Acute medical concerns: No Mental Status Exam Mental Status Exam Patient Appearance: Well Grooomed and Appropriate Patient Orientation: Person, Place, Time and Situation Level of Consciousness: Awake Patient Behavior: Appropriate and Cooperative Mood Description: Calm Affect Description: Blunted Patient Cognition Impaired: No Ability to Follow Directions: Good Speech Pattern: Clear Diagnostics Vital Signs (24Hr): BMI result Body Mass Index 26.2 Assessment & Plan Assessment & Plan (1) Schizoaffective disorder, bipolar type: Status: Acute Code(s): F25.0 - Schizoaffective disorder, bipolar type (2) PTSD (post-traumatic stress disorder): Status: Acute Code(s): F43.10 - Post-traumatic stress disorder, unspecified Plan Continue with [facility] patient insists to decrease dose of Seroquel to 150 mg qhs and will try moving it an hour earlier Patient educated on: diagnosis and medication risk/benefits Informed Consent: understands Reason for contiued partial hosp. stay Substantial Risk for: med/psych decompensation Certification I certify that partial hospital treatment is medically necessary due to the symptoms and problems resulting from the patient's mental illness and the failure to treat the patient at the partial hospital level of care would likely result in the patient requiring inpatient psychiatric care which could not be prevented at a less intensive level of care. Total time managing care of this patient today _30___ minutes. Discharge Plan Discharge Attending provider: Shelbie Mathis Medications: New quetiapine 150 mg tablet 150 mg PO QPM Qty: 14 0RF No Action quetiapine 200 mg tablet 200 mg PO BEDTIME 30 Days Qty: 30 0RF Rx Instructions: take with 50mg tab zolpidem 5 mg Tablet See Rx Instructions .ROUTE .COMPLEX PRN (Reason: Insomnia) 15 Days Qty: 30 1RF Rx Instructions: take 1 to 2 tabs as needed for insomnia aripiprazole [Abilify] 2 mg tablet 2 mg PO DAILY PRN (Reason: for agitation) 10 Days Qty: 10 0RF quetiapine [Seroquel] 50 mg tablet 50 mg PO BEDTIME 30 Days Qty: 30 0RF Rx Instructions: take with 200mg tab Print Language: Unable To Collect
--- NOTE | 2024-09-01 13:44 | PC.NURSE ---
Patient declined [facility] staff's support in finding a new PCP.
--- NOTE | 2024-09-04 22:13 | HO.PHPPROGNO ---
Subjective Subjective Date of Service: 09/04/24 Reason For Visit: schizoaffective d/o Diagnostics Vital Signs (24Hr): BMI result Body Mass Index 26.2 Assessment & Plan Certification I certify that partial hospital treatment is medically necessary due to the symptoms and problems resulting from the patient's mental illness and the failure to treat the patient at the partial hospital level of care would likely result in the patient requiring inpatient psychiatric care which could not be prevented at a less intensive level of care. Total time managing care of this patient today ____ minutes. Discharge Plan Discharge Attending provider: Shelbie Mathis Medications: New quetiapine 150 mg tablet 150 mg PO QPM Qty: 14 0RF Continued zolpidem 5 mg Tablet See Rx Instructions .ROUTE .COMPLEX PRN (Reason: Insomnia) 15 Days Qty: 30 1RF Rx Instructions: take 1 to 2 tabs as needed for insomnia aripiprazole [Abilify] 2 mg tablet 2 mg PO DAILY PRN (Reason: for agitation) 10 Days Qty: 10 0RF Discontinued quetiapine 200 mg tablet 200 mg PO BEDTIME 30 Days Qty: 30 0RF Rx Instructions: take with 50mg tab quetiapine [Seroquel] 50 mg tablet 50 mg PO BEDTIME 30 Days Qty: 30 0RF Rx Instructions: take with 200mg tab Patient Education: Depression (DC), Schizoaffective Disorder (DC), PTSD (Post Traumatic Stress Disorder) (DC) Print Language: Unable To Collect
== END 2024-09-04 23:59 | disposition home or self-care (01) ==
LOC: HO.PHPA 11:15
PROVIDERS: Visit Provider Psychiatry & Neurology Psychiatry
DX: F25.0 Schizoaffective disorder, bipolar type (principal); F43.10 Post-traumatic stress disorder, unspecified
CPT/HCPCS: 90791; 90853